=== PATIENT | male | born 1950 | race Caucasian/White ===

== ENCOUNTER 2018-03-17 23:29 | Inpatient (IN) | payer MEDICARE ==
[2018-03-18] MEDS ORDERED: Fentanyl 100 MCG/2 ML VIAL ONE ×2 (00:01→01:18)
[2018-03-18 00:19] LABS: Hemoglobin 13.1 g/dL (14.0-18.0); Mean Corpuscular HGB CONC 32.4 g/dL (32.0-36.0); Mean Corpuscular Hemoglobin 23.7 pg (27.0-31.0); Mean Corpuscular Volume 73.3 fl (80.0-94.0); Platelet Count 509 thou/uL (130-400); RBC Distribution Width 16.5 % (11.5-14.5); Red Blood Cell (RBC) Count 5.54 mill/uL (4.70-6.10); White Blood Cell (WBC) Count 12.5 thou/uL (4.8-10.8)
[2018-03-18 00:36] LABS: #Eosinphils 0.1 thou/uL (0.0-0.7); #Lymphocytes 1.9 thou/uL (1.20-3.40); #Monocytes 1.1 thou/uL (0.11-0.59); #Neutrophils 9.4 thou/uL (1.40-6.50); %Basophils 0.3 % (0.0-1.0); %Eosinophils 0.4 % (0.0-10.0); %Lymphocytes 15.2 % (21.0-51.0); %Monocytes 8.5 % (0.0-10.0); %Neutrophils 75.6 % (42.0-75.0); PLT Morphology Comment Appears Increased
[2018-03-18 00:38] LABS: ALT (SGPT) 22 U/L (8-55); AST (SGOT) 26 U/L (5-34); Albumin 4.3 g/dL (3.4-4.8); Alkaline Phosphatase 94 U/L (40-150); Anion Gap 21 mmol/L (10-20); BUN (Urea Nitrogen) 57 mg/dL (8.4-25.7); Bilirubin, Total 0.8 mg/dL (0.2-1.2); CK (CPK) 49 U/L (30-200); Calc. Creatinine Clearance 0 mL/min (70-130); Calcium 9.6 mg/dL (7.8-10.44); Carbon Dioxide 16 mmol/L (23-31); Chloride 96 mmol/L (98-107); Estimated GFR-MDRD 18; Globulin 2.9 g/dL (2.4-3.5); Glucose 116 mg/dL (80-115); Lipase 39 U/L (8-78); Magnesium 2.8 mg/dL (1.6-2.6); Potassium 3.2 mmol/L (3.5-5.1); Protein, Total 7.2 g/dL (5.8-8.1); Sodium 130 mmol/L (136-145)
[2018-03-18 00:41] LABS: CKMB 1.8 ng/mL (0-6.6); Troponin I 0.056 ng/mL (< 0.028)
[2018-03-18] MEDS ORDERED: Metoclopramide HCl 10 MG TAB ONE (01:18)
[2018-03-18] MEDS ORDERED: Lorazepam 2 MG/ML VIAL ONE (02:07)
[2018-03-18 03:05] LABS: Bilirubin Small (Negative); Blood, Urine Negative (Negative); Clarity CLOUDY (Clear); Glucose, Urine (Dipstick) Negative (Negative); Leukocyte Small (Negative); Nitrite Negative (Negative); Protein, Urine (Dipstick) Negative (Neg-Trace); Specific Gravity, Urine 1.022 (1.002-1.036); Urobilinogen 0.2 mg/dL (0.2-1.0); pH, Urine 5.5 (5.0-9.0)
[2018-03-18 03:07] LABS: Bacteria/HPF None Seen HPF (None Seen); WBC/HPF 21-50 HPF (0-3)
[2018-03-18 03:10] LABS: Pathc Cast-AUWi Flag 7.12 (0-2.49); Yeast-AUWi Flag 873.4 (0-25.0)
[2018-03-18 03:32] LABS: RBC/HPF None Seen HPF (0-3); Renal Epithelial None Seen HPF (0-3); Transitional Epithelial NONE SEEN HPF (0-3); Yeast-All Forms 1+ HPF (None Seen)
[2018-03-18 03:33] LABS: Other Casts/LPF None Seen LPF (0-3 Hyaline)
[2018-03-18] MEDS ORDERED: Ondansetron HCl/PF 4 MG/2 ML Vial IVP PRN (04:06)
[2018-03-18] MEDS ORDERED: Ondansetron ODT 4 MG TAB SL PRN (04:06)
[2018-03-18] MEDS ORDERED: D5 0.9% NS w/ 20 mEq KCl 1,000 ML IV SCH (04:45)
--- NOTE | 2018-03-18 05:03 | HP ---
PRIMARY CARE PHYSICIAN: Out of town. CHIEF COMPLAINT: Abdominal pain, nausea, vomiting. HISTORY OF PRESENT ILLNESS: The patient is a 68-year-old male with a long-term history of multiple a bdominal surgeries who also has a history of gastroparesis and nausea, vomiting who comes in to the [facility] with complaints of abdominal pain, nausea, vomiting. The patient recently moved from [facility] about 10 days ago. The patient states that he had initial stomach resection with removal of his p yloric valve, subsequently followed 2 other additional abdominal surgeries. 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 The patient over the last year has lost about 100 pounds. The patient states that he has had multiple hospitalizations requir ing TPN for his dehydration and malnutrition. The patient has been to other facilities for options r egarding his gastroparesis; however, has been unsuccessful. The patient's friend who works at the [facility] recommended him to come down so that he could take care of him and also for possible finding p hysicians that would be able to help him. The patient states that he normally has nausea, vomiting d aily 10-12 times a day followed with his abdominal pain. The patient states that he has not been abl e to eat for the past few days at all. Denies any fevers or chills. Denies any chest pain or shortn ess of breath. PAST MEDICAL HISTORY: Gastroparesis, chronic back pain, abdominal pain, chronic nausea, vomiting, hi story of bladder cancer. PAST SURGICAL HISTORY: He has had abdominal surgery x3. SOCIAL HISTORY: He denies any alcohol or drug use, smoking history or tobacco. ALLERGIES: He has got allergic to ERYTHROMYCIN and PENICILLIN. CURRENT MEDICATIONS: He takes Imitrex 10 mg as needed, Benazepril 20 mg b.i.d., potassium chloride 1 0 mEq daily, Reglan 10 mg oral as needed, Cardizem 240 mg daily. Amiodarone 200 mg daily, omeprazole 20 mg twice a day, Zofran 4 mg q.8h. p.r.n., Eliquis 5 mg b.i.d. FAMILY HISTORY: He denies any significant family history of heart disease or cancer. PHYSICAL EXAMINATION: VITAL SIGNS: Afebrile at 97.5, 100% on room air, 96 pulse, respirations of 18, blood pressure was 12 0/93. GENERAL: He is awake, alert, oriented x3. HEENT: Appears cachectic, has some temporal wasting. CARDIOVASCULAR: S1, S2 present. No murmurs, rubs or gallops. CHEST: Clear to auscultation. No rhonchi or wheezes noted. ABDOMEN: Soft. He has a mid abdominal scar. Bowel sounds are present x2. Mild pain upon palpation to his left mid abdomen area. EXTREMITIES: No edema. Pedal pulses are present x2. LABORATORY DATA: WBCs of 12.5, hemoglobin of 13.1, hematocrit of 40.6, MCV 73.3, platelets of 509. Chemistry: Sodium of 130, potassium 3.2, bicarbonate of 16, BUN of 57, creatinine of 3.45. Troponin mildly elevated at 0.056. TSH is normal. The patient had an abdomen and pelvic CAT scan which did not indicate any obstruction. Chest x-ray n o acute abnormalities noted. ASSESSMENT AND PLAN: The patient is a very pleasant 68-year-old male who presents to the hospital fo r abdominal pain, nausea and vomiting. 1. Dehydration. We will start the patient on some gentle hydration and continue to monitor. 2. Malnutrition. The patient may require TPN since he has not been able to eat very much. We will start the patient on clear liquid in addition to the hydration and monitor the patient, if he is unab le to keep anything down, he will need TPN. 3. Gastroparesis. We will start the patient on some Reglan. 4. Electrolyte abnormalities, we will replace. 5. Acute kidney injury. We will start the patient on gentle hydration. The patient states that whe never he is dehydrated his creatinine will get worse. We will also bladder scan him. We will also c ryann AQUINO, also do renal ultrasound and continue to monitor the patient. The patient may require outpatient TPN since the patient is unable to keep anything in orally.
[2018-03-18] MEDS: Lactated Ringer's 1,000 ML IV SCH ×2 (05:22→08:18)
[2018-03-18 05:33] LABS: Troponin I 0.073 ng/mL (< 0.028)
[2018-03-18 05:50] LABS: Iron 44 ug/dL (65-175); Iron Binding Capacity, Total 309 mcg/dL (261-462)
[2018-03-18] MEDS: Metoclopramide HCl 10 MG/2 ML VIAL IVP SCH ×3 (06:22→17:24)
--- NOTE | 2018-03-18 07:38 | ULT ---
BILATERAL RENAL ULTRASOUND COMPLETE: HISTORY: A 68-year-old male with a history of acute kidney insufficiency. FINDINGS: The right kidney measures 9.6 x 4.4 x 4.4 cm. The left kidney measures 9.9 x 5.4 x 5 cm. No renal h ydronephrosis or perinephric process. The bladder appears unremarkable. Bilateral ureteral jets. IMPRESSION: Unremarkable bilateral renal ultrasound. No renal hydronephrosis or other acute process. POS: [facility]
--- NOTE | 2018-03-18 07:55 | RAD ---
AP VIEW CHEST: HISTORY: Nausea, vomiting, diarrhea. FINDINGS: AP view chest was obtained on 03/17/18. AP view chest demonstrates the lungs to be well aerated. No evidence of active intrathoracic disease is seen. No evidence of effusions, pneumonia, or pneumothorax is seen. IMPRESSION: Unremarkable AP view chest. POS: [facility]
[2018-03-18 08:26] LABS: Creatinine, Urine 176.67 mg/dL (63-166)
[2018-03-18] MEDS ORDERED: Potassium Chloride 20 MEQ TAB PO SCH (08:45)
--- NOTE | 2018-03-18 08:52 | CT ---
PRELIMINARY REPORT/[facility]/EMERGENTY AFTER-HOURS PROCEDURE CT Abdomen and Pelvis Without Intravenous Contrast CLINICAL HISTORY: 68 years old, male; Pain; Abdominal pain; Generalized TECHNIQUE: Axial computed tomography images of the abdomen and pelvis without intravenous contrast. Coronal refo rmatted images were created and reviewed. COMPARISON: No relevant prior studies available. FINDINGS: Lung bases: Normal. No mass. No consolidation. ABDOMEN: Liver: Normal. Gallbladder and bile ducts: Gallbladder is surgically absent. Pancreas: Normal. Spleen: Normal. Adrenals: Normal. Kidneys and ureters: Normal. Stomach and bowel: Moderate amount of stool throughout the colon, without obstruction. Colonic divert iculosis. Surgical small bowel anastomosis within the left upper abdomen, without acute complications . Evidence of prior distal gastrectomy with anastomosis, without evidence of acute complications. PELVIS: Appendix: No findings to suggest acute appendicitis. Bladder: Normal. Reproductive: Mildly enlarged prostate gland, measuring 3.2 cm in anteroposterior dimension. ABDOMEN and PELVIS: Intraperitoneal space: Normal. No free air. No significant fluid collection. Bones/joints: Degenerative changes of the hips and sacral iliac joints. Multilevel thoraco-lumbar spi ne degenerative changes, with dextroscoliosis of the lumbar spine. No acute fracture. No dislocation. Soft tissues: Normal. Vasculature: Mild atherosclerotic disease of the abdomen aorta and iliac arteries. No abdominal aorti c aneurysm. Lymph nodes: Normal. IMPRESSION: 1. Moderate amount of stool throughout the colon, without obstruction. 2. Incidental/non-acute findings are described above. Thank you for allowing us to participate in the care of your patient. Dictated and Authenticated by: Te Weiner MD 03/18/2018 1:35 AM Central Time ([place] & [place]) FINAL REPORT ABDOMEN CT WITHOUT CONTRAST PELVIC CT WITHOUT CONTRAST: HISTORY: Abdominal pain. Gastroparesis. Previous abdominal surgeries. COMPARISON: None. TECHNIQUE: Abdomen and pelvic CT is performed without IV or oral contrast. Coronal reformatted images are submi tted for interpretation. FINDINGS: This report is in agreement with the preliminary report by [facility]. No acute finding in the abdomen or p sincere. Evaluation is limited by technique. There is a moderate amount of fecal material throughout the colon. Correlate clinically for constipation. CT evidence of diverticulosis, without evidence o f diverticulitis. Normal caliber appendix. Bilaterally, no obstructive uropathy. Bariatric surgica l changes as well as other postsurgical changes are noted with multifocal suture material. POS: [facility]
[2018-03-18] MEDS ORDERED: Prevnar 13-Val Conj/PF 0.5 ML SYRINGE IM ONE (09:00)
[2018-03-18] MEDS: D5 0.9% NS w/ 20 mEq KCl 1,000 ML IV SCH ×2 (09:36→15:19)
[2018-03-18] MEDS: Amiodarone 200 MG TAB PO SCH (09:38)
[2018-03-18] MEDS: Apixaban 5 MG TAB PO SCH ×2 (09:38→21:06)
[2018-03-18] MEDS ORDERED: traMADol HCl 50 MG TAB PO PRN (14:24)
[2018-03-18 14:30] LABS: Chloride 109 mmol/L (98-107); Potassium 3.6 mmol/L (3.5-5.1); Sodium 130 mmol/L (136-145)
[2018-03-18] MEDS ORDERED: traMADol HCl 50 MG TAB PO SCH (14:30)
[2018-03-18 14:31] LABS: Glucose 127 mg/dL (80-115)
[2018-03-18 14:32] LABS: Anion Gap 11 mmol/L (10-20); Carbon Dioxide 14 mmol/L (23-31)
[2018-03-18 14:35] LABS: BUN (Urea Nitrogen) 35 mg/dL (8.4-25.7)
[2018-03-18 14:45] LABS: Calc. Creatinine Clearance 33 mL/min (70-130); Calcium 7.6 mg/dL (7.8-10.44); Estimated GFR-MDRD 47
[2018-03-18] MEDS ORDERED: Senokot S 8.6-50 MG TAB PO SCH (15:00)
[2018-03-18] MEDS ORDERED: Polyethylene Glycol 3350 17 GM Packet PO SCH (15:00)
--- NOTE | 2018-03-18 15:07 | PDOC.PN ---
- Subjective Encounter Start Date: 03/18/18 Encounter Start Time: 15:00 Subjective: f/u for abd pain, N/V and gastroparesis. Chronic abd pain on chronic -: narcotics, multiple endoscopies, scans all essentially unrevealing. Last -: po solid intake 48h, last BM 48h. - Objective MAR Reviewed: Yes Vital Signs & Weight: Vital Signs (12 hours) Temp Pulse Resp BP Pulse Ox 03/18/18 11:51 98.4 F 81 18 115/77 100 03/18/18 08:00 97.7 F 78 18 98 03/18/18 07:40 97.7 F 78 18 90/63 98 03/18/18 05:44 99.5 F 94 16 100 03/18/18 04:00 99.5 F 94 16 92/66 100 Weight Admit Weight 110 lb 6.4 oz Weight 110 lb 6.4 oz I&O: 03/17/18 03/18/18 03/19/18 06:59 06:59 06:59 Intake Total 480 Output Total 175 Balance 305 Result Diagrams: 03/18/18 00:02 03/18/18 13:33 Additional Labs: Laboratory Tests 03/18/18 03/18/18 03/18/18 00:02 00:02 00:02 Sodium 130 L Potassium 3.2 L Carbon Dioxide 16 L BUN 57 H Creatinine 3.45 H Magnesium 2.8 H Iron Troponin I 0.056 H TSH 3rd Generation 0.4944 03/18/18 03/18/18 04:57 04:57 Sodium Potassium Carbon Dioxide BUN Creatinine Magnesium Iron 44 L Troponin I 0.073 H TSH 3rd Generation Radiology Reviewed by me: Yes (CT abd/pel - large amt stool in colon, no acute changes) EKG Reviewed by me: Yes (Tele - SR) Phys Exam - Physical Examination ill-appearing, pale, alert, responds to questions HEENT: PERRLA, moist MMs, sclera anicteric, oral pharynx no lesions Neck: no nodes, no JVD, supple Respiratory: no wheezing, no rales, no rhonchi, clear to auscultation bilateral S1, S2 Cardiovascular: RRR, no significant murmur, no rub, gallop TTP diffusely, no guarding or rebound Gastrointestinal: soft, no distention, positive bowel sounds generalized muscle atrophy Musculoskeletal: no edema, pulses present Neurological: non-focal, normal sensation, moves all 4 limbs Psychiatric: normal affect, A&O x 3 Skin: no rash, normal turgor, cap refill <2 seconds Dx/Plan (1) AL (acute kidney injury) Code(s): N17.9 - ACUTE KIDNEY FAILURE, UNSPECIFIED Status: Acute Comment: Avoid nephrotoxic meds and contrast exposure, follow creatinine, hold Lisinopril , continue IVF's (2) Abdominal pain Code(s): R10.9 - UNSPECIFIED ABDOMINAL PAIN Status: Acute Qualifiers: Abdominal location: generalized Qualified Code(s): R10.84 - Generalized abdominal pain Comment: Suspect chronic component and secondary to chronic narcotic exposure, consult GI service, pain control with Tramadol and Morphine Sulfate 4mg IV q4h prn breakthrough (3) Gastroparesis Code(s): K31.84 - GASTROPARESIS Status: Suspected Comment: Continue Reglan 10mg IV q6h (4) Chronic pain disorder Code(s): G89.4 - CHRONIC PAIN SYNDROME Status: Chronic Comment: Tramadol, attempt to limit narcotic exposure, likely will need outpt referral to chronic pain clinic (5) Nausea & vomiting Code(s): R11.2 - NAUSEA WITH VOMITING, UNSPECIFIED Status: Acute Comment: Improved, likely due to narcotic withdrawal, Zofran prn, clear liquids, continue IVF's (6) Moderate protein-calorie malnutrition Code(s): E44.0 - MODERATE PROTEIN-CALORIE MALNUTRITION Status: Chronic Comment: Ensure Enlive TID (7) Constipation Code(s): K59.00 - CONSTIPATION, UNSPECIFIED Status: Acute Qualifiers: Constipation type: slow transit constipation Qualified Code(s): K59.01 - Slow transit constipation Comment: Sennokot-S BID, Miralax 17gm po daily - Plan PT/OT, social psychologist, out of bed/ambulate, DVT proph w/SCDs Stable overall -: Continue supportive mgmt -: Consult GI service for evaluation and recommendations -: Continue Reglan 10mg IV q6h -: Morphine Sulfate 4mg IV q4h prn * AM lab: BMP, CBC
[2018-03-18] MEDS: Morphine 4 MG/ML VIAL SLOW IVP PRN ×2 (15:39→21:06)
[2018-03-18] MEDS: Senokot S 8.6-50 MG TAB PO SCH (21:06)
--- NOTE | 2018-03-18 23:00 | CON ---
DATE OF CONSULTATION: 03/18/2018 CONSULTING PHYSICIAN: Brett Enamorado M.D. REQUESTING PHYSICIAN: Dr. Escobedo. REASON FOR CONSULTATION: Acute kidney injury. IMPRESSION: Acute kidney injury, this is likely prerenal in the context of poor p.o. intake with shavon sea and vomiting resulting in intravascular depletion. PLAN: 1. Increase IV fluid resuscitation. 2. Replete the potassium. 3. We will hold off on correcting the metabolic acidosis in order not to worsen the hypokalemia due to cellular shift of potassium when metabolic acidosis is corrected. However, the patient remains ac idotic; status post repletion of the potassium, decision could be taken at that point to replete bica rbonate. HISTORY OF PRESENT ILLNESS: History is that of a 68-year-old gentleman with a known history of gastr oparesis, who presented here with abdominal pain, nausea, and vomiting. The patient vomited about 10 -12 times a day with abdominal pain. Patient has lost quite a bit of weight. On presentation, patient was noted with an elevated creatinine of 3.45 with BUN of 57, potassium 3.2 with bicarbonate of 16. As a result of this finding, decision has been taken to involve Renal in the management of t his case. PAST MEDICAL HISTORY: Significant for gastroparesis, chronic back pain, abdominal pain, chronic naus ea and vomiting, and history of bladder cancer. SOCIAL HISTORY: Denies alcohol, tobacco or illicit drug use. ALLERGIES: ERYTHROMYCIN and PENICILLIN. MEDICATIONS: Current medications have been reviewed and documented on [employer]. FAMILY HISTORY: Significant for heart disease and malignancy. PHYSICAL EXAMINATION: GENERAL: The patient was found to be ill-looking noted with the following vital signs. VITAL SIGNS: Afebrile with temperature 99.5, pulse 94, respiratory rate of 16, O2 sat 100%, and bloo d pressure 90/53. HEENT: Unremarkable, except dry mucosa. NECK: Supple. CARDIOVASCULAR SYSTEM: First and second heart sounds were heard. RESPIRATORY SYSTEM: Clear to auscultation. DIGESTIVE SYSTEM: Revealed vague tenderness with positive bowel sounds. EXTREMITIES: No peripheral edema. NEUROLOGIC: Alert, oriented. No lateralizing signs. LYMPHATICS: No peripheral lymphadenopathy. SUMMARY: A 68-year-old gentleman who presented here with elevated creatinine/acute kidney injury in the context of prerenal acute kidney injury due to excessive nausea and vomiting with intravascular d epletion. Thank you for this consultation. We will follow with you.
[2018-03-19] MEDS: Morphine 4 MG/ML VIAL SLOW IVP PRN ×6 (01:44→22:30)
[2018-03-19] MEDS: D5 0.9% NS w/ 20 mEq KCl 1,000 ML IV SCH ×2 (01:44→09:59)
[2018-03-19] MEDS: Metoclopramide HCl 10 MG/2 ML VIAL IVP SCH ×4 (01:44→18:27)
[2018-03-19 06:33] LABS: Hemoglobin 10.3 g/dL (14.0-18.0); Mean Corpuscular HGB CONC 31.9 g/dL (32.0-36.0); Mean Corpuscular Hemoglobin 24.4 pg (27.0-31.0); Mean Corpuscular Volume 76.5 fl (80.0-94.0); Mean Platelet Volume 7.7 fL (7.4-10.4); Platelet Count 353 thou/uL (130-400); RBC Distribution Width 16.8 % (11.5-14.5); Red Blood Cell (RBC) Count 4.25 mill/uL (4.70-6.10); White Blood Cell (WBC) Count 8.4 thou/uL (4.8-10.8)
[2018-03-19 06:41] LABS: Anion Gap 10 mmol/L (10-20); BUN (Urea Nitrogen) 17 mg/dL (8.4-25.7); Calc. Creatinine Clearance 54 mL/min (70-130); Calcium 7.8 mg/dL (7.8-10.44); Carbon Dioxide 13 mmol/L (23-31); Chloride 112 mmol/L (98-107); Estimated GFR-MDRD 82; Glucose 76 mg/dL (80-115); Potassium 4.9 mmol/L (3.5-5.1); Sodium 130 mmol/L (136-145)
[2018-03-19 06:57] LABS: Band 3 % (5-11); Eosinophils 3 % (0-10); Lymphocytes 39 % (21-51); MDiff Complete? YES; Monocytes 13 % (0-10); Neutrophil 42 % (42-75)
[2018-03-19] MEDS ORDERED: Polyethylene Glycol 3350 17 GM Packet PO SCH (09:00)
[2018-03-19] MEDS: Apixaban 5 MG TAB PO SCH (09:59)
[2018-03-19] MEDS: Amiodarone 200 MG TAB PO SCH (10:01)
[2018-03-19] MEDS: Senokot S 8.6-50 MG TAB PO SCH ×2 (10:02→20:57)
--- NOTE | 2018-03-19 11:31 | PQF ---
DATE: 03-19-18 ATTN: DR. RADAMES ASHBY Please exercise your independent, professional judgment in responding to the clarification form. Clinical indicators are provided on the bottom of this form for your review Please check appropriate box(s): [ ] UTI [ x ] Contaminated urine specimen without UTI [ ] Other diagnosis [ ] Unable to determine In addition, please specify: Present on Admission (POA): [ ] Yes [ ] No [ x ] Unable to determine For continuity of documentation, please document condition throughout progress notes and discharge summary. Thank You. CLINICAL INDICATORS - SIGNS / SYMPTOMS / LABS URINE: 03-18-18: URINE BILIRUBIN: SMALL H UR LEUKOCYTE ESTERASE: SMALL H URINE WBC: 21-50 H UR SQUAMOUS EPITH CELLS: SMALL H HYALINE CASTS: 21-50 HYALINE CASTS H URINE YEAST: 1+ H TEMP: 03-18-18: 100.1 RISK FACTORS: H&P: HX OF DEHYDRATION AND MALNUTRITION, HX OF GASTROPARESIS , VOMITING TREATMENT: (MAR ) IVF (This form is maintained as a part of the permanent medical record) 2014 [employer], [employer]. All Rights Reserved [email or web address] [email or web address] Office: [phone] [facility]ITAL[facility]
--- NOTE | 2018-03-19 14:01 | PRG ---
DATE OF SERVICE: 03/19/2018 The patient was seen and examined, improving. PHYSICAL EXAMINATION: VITAL SIGNS: Afebrile with temperature 98.4, pulse 78, respiratory 16, O2 sat 100% on room air with a blood pressure 108/68. HEENT: Unremarkable with moist oral mucosa. NECK: Supple, no conjunctival injection or icterus. CARDIOVASCULAR: First and heart sounds were heard. RESPIRATORY: Clear to auscultation. DIGESTIVE: Revealed a benign abdomen with positive bowel sounds. EXTREMITIES: No peripheral edema. LABORATORY INVESTIGATIONS: Showed a hemoglobin of 10.3. Chemistry showed a potassium of 4.9, creati nine down to 0.91, bicarbonate of 18. IMPRESSION: 1. Acute kidney injury which has improved. 2. Reexpansion metabolic acidosis noted in the context of normal saline infusion. 3. Protein calorie malnutrition. PLAN: 1. Continue with current renal supportive measures. 2. Further management to be dependent on the clinical course.
--- NOTE | 2018-03-19 15:03 | PDOC.PN ---
- Subjective Encounter Start Date: 03/19/18 Encounter Start Time: 15:00 Subjective: f/u for acute/chronic abd pain with gastroparesis, multiple endoscopies -: and scans unrevealing tx with Tramadol, Toradol and Morphine Sulfate. -: Overall doing better. Tolerated po intake. Ambulating in halls. - Objective MAR Reviewed: Yes Vital Signs & Weight: Vital Signs (12 hours) Temp Pulse Resp BP Pulse Ox 03/19/18 11:57 98.4 F 78 16 108/68 100 03/19/18 08:00 98.6 F 85 16 86/62 L 96 03/19/18 03:16 98.3 F 75 16 92/62 100 Weight Admit Weight 110 lb 6.4 oz Weight 110 lb 6.4 oz I&O: 03/18/18 03/19/18 03/20/18 06:59 06:59 06:59 Intake Total 480 2252 Output Total 175 990 650 Balance 305 -990 1602 Result Diagrams: 03/19/18 05:49 03/19/18 05:49 Additional Labs: Microbiology 03/18/18 02:25 Urine voided Urine Culture - Preliminary NO GROWTH AT 24 HOURS 03/17/18 00:02 Venous blood - Left Hand Blood Culture - Preliminary Specimen has been received and culture in progress. No Growth to date. 03/17/18 00:02 Venous blood - Left Arm Blood Culture - Preliminary Specimen has been received and culture in progress. No Growth to date. Laboratory Tests 03/18/18 03/18/18 03/18/18 00:02 00:02 00:02 WBC 12.5 H Hgb 13.1 L Plt Count 509 H Sodium 130 L Potassium 3.2 L Carbon Dioxide 16 L BUN 57 H Creatinine 3.45 H Magnesium 2.8 H Iron Troponin I 0.056 H TSH 3rd Generation 03/18/18 03/18/18 03/18/18 00:02 04:57 04:57 WBC Hgb Plt Count Sodium Potassium Carbon Dioxide BUN Creatinine Magnesium Iron 44 L Troponin I 0.073 H TSH 3rd Generation 0.4944 03/18/18 13:33 WBC Hgb Plt Count Sodium 130 L Potassium Carbon Dioxide 14 L BUN Creatinine 1.49 H Magnesium Iron Troponin I TSH 3rd Generation EKG Reviewed by me: Yes (Tele - SR in 80's) Phys Exam - Physical Examination Constitutional: NAD alert, responsive HEENT: PERRLA, moist MMs, sclera anicteric, oral pharynx no lesions Neck: no nodes, no JVD, supple Respiratory: no wheezing, no rales, no rhonchi, clear to auscultation bilateral S1, S2 Cardiovascular: RRR, no significant murmur, no rub, gallop mild TTP diffusely Gastrointestinal: soft, no distention, positive bowel sounds Musculoskeletal: no edema, pulses present Neurological: non-focal, normal sensation, moves all 4 limbs Psychiatric: normal affect, A&O x 3 Skin: no rash, normal turgor, cap refill <2 seconds Dx/Plan (1) AL (acute kidney injury) Code(s): N17.9 - ACUTE KIDNEY FAILURE, UNSPECIFIED Status: Acute Comment: Avoid nephrotoxic meds and contrast exposure, follow creatinine, hold Lisinopril , d/c IVF, improving (2) Abdominal pain Code(s): R10.9 - UNSPECIFIED ABDOMINAL PAIN Status: Acute Qualifiers: Abdominal location: generalized Qualified Code(s): R10.84 - Generalized abdominal pain Comment: Suspect chronic component and secondary to chronic narcotic exposure, consult GI service, pain control with Tramadol and Morphine Sulfate 4mg IV q4h prn breakthrough, wean off Morphine (3) Gastroparesis Code(s): K31.84 - GASTROPARESIS Status: Suspected Comment: Continue Reglan 10mg IV q6h, convert to po in 24h (4) Chronic pain disorder Code(s): G89.4 - CHRONIC PAIN SYNDROME Status: Chronic Comment: Tramadol, attempt to limit narcotic exposure, likely will need outpt referral to chronic pain clinic (5) Nausea & vomiting Code(s): R11.2 - NAUSEA WITH VOMITING, UNSPECIFIED Status: Acute Comment: Improved, likely due to narcotic withdrawal, Zofran prn, ADAT (6) Moderate protein-calorie malnutrition Code(s): E44.0 - MODERATE PROTEIN-CALORIE MALNUTRITION Status: Chronic Comment: Ensure Enlive TID (7) Constipation Code(s): K59.00 - CONSTIPATION, UNSPECIFIED Status: Acute Qualifiers: Constipation type: slow transit constipation Qualified Code(s): K59.01 - Slow transit constipation Comment: Sennokot-S BID, Miralax 17gm po daily - Plan PT/OT, social services specialist, out of bed/ambulate, DVT proph w/SCDs Stable overall -: Continue Reglan 10mg IV q6h another 24h then convert to po -: ADAT -: Saline Lock IVF's -: OOB/ambulate * Change Morphine Sulfate 2mg IV q4h prn * AM lab: BMP, CBC * Ensure High Protein TID * Likely home in 24-48h
[2018-03-19] MEDS ORDERED: Pantoprazole 40 MG VIAL IVP SCH (18:30)
--- NOTE | 2018-03-19 23:45 | CON ---
DATE OF CONSULTATION: 03/19/2018 GASTROENTEROLOGY CONSULTATION CHIEF COMPLAINT: Nausea and vomiting. HISTORY OF PRESENT ILLNESS: Mr. Storey is a 68-year-old man who presents for evaluation of chronic nausea and vomiting. He is then to the emergency room , he states 25 times in the last couple of years with same problem. He moved from [place] a few days ago and presented here for the same symptoms. He started with chronic nausea and vomiting and ultimately, he was found to have severe gastric ulcerations back in 01/2016. He was taking NSAIDs chronically at that point, which were thought to be the cause of the ulcerations. He underwent gastrectomy and vagotomy. He states in 07/2016, he underwent some type of duodenal resection, and then he continued to have vomiting and weight loss. His baseline weight is around 170 pounds and is down to 110 pounds. He had another surgery possibly a gastrojejunostomy and lysis of adhesions in 2016. He has had multiple endoscopies over the course of this time, most recently possibly in 11/2017. He may have had balloon dilation of the anastomosis it sounds like at some point as well. He states he has been diagnosed with gastroparesis and has been on Reglan since before his last surgery. He takes this around 3 times per day. He takes omeprazole daily 20 mg. He also has been taking hydrocodone once or twice per day for left upper quadrant abdominal pain. He states that he has had chronic abdominal pain since he has gone through the abdominal surgeries. He started amiodarone perhaps around a month ago. He has been on Eliquis for atrial fibrillation. He has been on Cardizem as well. He has taken Imitrex on and off for years for migraine headaches, but he has no history of ischemic colitis. He states that he has been on a low-residue diet, and when I discussed the gastroparesis diet, he says yes, I know all about that and I have seen dozen other doctors about the same thing. He does have chronic constipation. He has a bowel movement once every 3 or 4 days, which is fairly normal with formed stool which is improved over his baseline of previously having fewer bowel movements with very hard stools. He has had no blood in the stool. PAST MEDICAL HISTORY: Chronic abdominal pain and chronic nausea and vomiting with peptic ulcer disease and gastric resection and gastroparesis, history of migraine headaches, atrial fibrillation, bladder cancer, anxiety. PAST SURGICAL HISTORY: He has had the 3 abdominal surgeries described above including the gastrectomy and gastrojejunostomy. He has had endoscopies as well. MEDICATIONS: Prior to admission Imitrex, benazepril, potassium chloride, Reglan , Cardizem, amiodarone, omeprazole, Zofran, Eliquis, Percocet. ALLERGIES: ERYTHROMYCIN and PENICILLIN. SOCIAL HISTORY: No alcohol, tobacco, or drugs. FAMILY HISTORY: Negative for GI malignancy. REVIEW OF SYSTEMS: Negative x10 systems reviewed except as stated in history of present illness. PHYSICAL EXAMINATION: VITAL SIGNS: Temperature 98.3, pulse 91, blood pressure 99/66. GENERAL: He is in no acute distress, alert and oriented x3. HEENT: Eyes have no scleral icterus. Oropharynx is clear without lesions. NECK: No cervical or supraclavicular lymphadenopathy. LUNGS: Clear to auscultation bilaterally. HEART: Regular rate and rhythm. ABDOMEN: Soft. He does have mild tenderness in left upper quadrant without guarding. Bowel sounds are present. EXTREMITIES: No lower extremity edema. NEUROLOGIC: Cranial nerves are grossly intact. LABORATORY DATA: White blood cell count 8.4, hemoglobin 10.3, MCV 76.5, platelets 353. Creatinine 0.91 down from 1.49 on presentation, sodium is 130, potassium 4.9, chloride 112, CO2 of 13. Iron 44, TIBC 309. Of note, he has an initial hemoglobin was 13.1 midnight and 10.3 at 5:00 a.m. after hydration. IMPRESSION: 1. Chronic nausea and vomiting, status post gastric surgeries and what sounds likely a vagotomy originally for nonsteroidal anti-inflammatory drugs induced peptic ulcer disease. Follow up endoscopies sounds like they have not shown strictures at the anastomosis, but rather he has been diagnosed with gastroparesis since then. He has been on Reglan without help. He states that he is aware of the gastroparesis diet with small frequent meals and low fiber. He, at this point should have followup endoscopy, verifies anastomosis is opened and then proceed with medical therapy for what is most likely gastroparesis. He has been in to the hospital. He states to the emergency room , 25 times over the last year or so with dehydration and nausea and vomiting. He states he feels much better and he can tolerate foods once he gets hydrated. Compounding the gastroparesis, he does take hydrocodone chronically for left upper quadrant pain. This is not an appropriate treatment for chronic abdominal pain and given the gastroparesis, opioids need to be avoided. 2. Iron deficiency anemia. There has been no overt bleeding. This could be related to bypass of the duodenum and lack of iron absorption. He should be on iron supplementation, but given bypass of his duodenum he most likely will require iron IV supplementation. We will check ferritin levels and also check B12 and folate levels. RECOMMENDATIONS: 1. EGD tomorrow. 2. We will need to establish if he has had a prior colonoscopy given the iron- deficiency anemia. If not then we will try to do this once in the future once he has improvement in the nausea such that he can tolerate a bowel prep. 3. Check ferritin, B12, and folate. He might require iron supplementation IV, given his prior gastrectomy and gastrojejunostomy and bypass of the duodenum. Check B12 and folate as well. 4. Proton pump inhibitor. 5. Stop opioid pain medications chronically. 6. After endoscopy then initiate gastroparesis diet. 7. We will continue Reglan for now. 8. Start MiraLax one-half dose daily for the chronic constipation. He states when he takes higher doses, he gets diarrhea. 9. Given plan for possible dilation of the gastrojejunal anastomosis, we will delay the endoscopy until Eliquis has been off for a longer period of time. His last dose was this morning, so we will plan endoscopy on . 10. The patient has been on Eliquis, last dose this morning. We will delay endoscopy until morning. In light of the iron deficiency anemia, colonoscopy will be performed at the same time. [facility]
[2018-03-20] MEDS: Metoclopramide HCl 10 MG/2 ML VIAL IVP SCH ×5 (00:17→22:45)
[2018-03-20] MEDS: Morphine 4 MG/ML VIAL SLOW IVP PRN ×2 (03:08→08:18)
[2018-03-20 06:59] LABS: Acanthocytes MODERATE= 6-15 cells (100X) (None Seen); Eosinophils 3 % (0-10); Hemoglobin 10.6 g/dL (14.0-18.0); Lymphocytes 23 % (21-51); MDiff Complete? YES; Mean Corpuscular HGB CONC 30.9 g/dL (32.0-36.0); Mean Corpuscular Hemoglobin 23.5 pg (27.0-31.0); Mean Corpuscular Volume 76.1 fl (80.0-94.0); Monocytes 10 % (0-10); Neutrophil 64 % (42-75); Platelet Count 224 thou/uL (130-400); RBC Distribution Width 17.4 % (11.5-14.5); Red Blood Cell (RBC) Count 4.52 mill/uL (4.70-6.10); White Blood Cell (WBC) Count 7.5 thou/uL (4.8-10.8)
[2018-03-20 07:04] LABS: Anion Gap 11 mmol/L (10-20); BUN (Urea Nitrogen) 11 mg/dL (8.4-25.7); Calc. Creatinine Clearance 54 mL/min (70-130); Calcium 8.3 mg/dL (7.8-10.44); Carbon Dioxide 15 mmol/L (23-31); Chloride 115 mmol/L (98-107); Estimated GFR-MDRD 83; Glucose 70 mg/dL (80-115); Potassium 5.2 mmol/L (3.5-5.1); Sodium 136 mmol/L (136-145)
[2018-03-20] MEDS: Polyethylene Glycol 3350 17 GM Packet PO SCH (08:17)
[2018-03-20] MEDS: Senokot S 8.6-50 MG TAB PO SCH ×2 (08:17→19:51)
[2018-03-20] MEDS: Amiodarone 200 MG TAB PO SCH (08:17)
[2018-03-20] MEDS: Pantoprazole 40 MG VIAL IVP SCH (08:17)
--- NOTE | 2018-03-20 13:30 | PRG ---
DATE OF SERVICE: 03/20/2018 SUBJECTIVE: Mr. Storye vomited once this morning. He is eating a sandwich this afternoon. He ra pidly improves once he gets hydrated when he comes into the hospital; however, with repeated hospital izations, he goes home and after a week he gets dehydrated and ends up back in the hospital. OBJECTIVE: VITAL SIGNS: Temperature 97.5, pulse 93, blood pressure 120/92. GENERAL: He is in no acute distress. He is awake and alert and oriented x3. LUNGS: Clear to auscultation bilaterally. HEART: Regular rate and rhythm. ABDOMEN: Soft, nontender, nondistended. Bowel sounds are present. EXTREMITIES: No lower extremity edema. LABORATORY DATA: White blood cell count 7.5, hemoglobin 10.6, platelets 224. IMPRESSION: 1. Chronic gastroparesis, status post partial gastrectomy and vagotomy. He has had follow followup surgeries after that and has had numerous hospitalizations in [place] with the gastroparesis. In [facility], his doctors at some point were discussing parenteral nutrition or J-tube placement. There was concern about the J-tube, because he has multiple layers of mesh for hernia repair after the orig inal surgery. His living situation there was questionable and parenteral nutrition was not started f or home therapy while he was there; however, now he is living with a friend here in [place] and again maren zavala are questioning now whether parental nutrition should be considered. 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 He has been hospitalized numerous times in [place] with recurrent nausea, vomiting and dehydration that occured shortly after being discharged home. He tends to do be tter once he gets back in the hospital and receives IV fluids. He has been on Reglan without signifi cant help. Unfortunately, he has also been on opioid pain medications chronically for history of chr onic abdominal pain. He has also had some back issues and recurrent migraines. The opioids are like ly significantly contributing to his motility disorder especially given prior vagotomy. 2. Iron deficiency anemia. RECOMMENDATIONS: 1. Proton pump inhibitor. 2. Stop opioid pain medications and orders have been placed for that. I have discussed this with martin cordova in detail. 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 PLAN: 1. EGD and colonoscopy tomorrow to further evaluate iron deficiency anemia and evaluate for strictur e at the anastomosis. 2. He has been started on low dose MiraLax for chronic constipation. 3. Last dose of Eliquis was yesterday morning. Endoscopy is delayed until tomorrow morning in case he requires balloon dilation of his anastomosis.
[2018-03-20] MEDS: Acetaminophen 500 MG TAB PO PRN (13:38)
[2018-03-20] MEDS ORDERED: GoLYTELY 4,000 ml Bottle PO SCH (14:00)
--- NOTE | 2018-03-20 16:10 | PDOC.PN ---
- Subjective Encounter Start Date: 03/20/18 Encounter Start Time: 16:00 Subjective: f/u for abd pain and nausea, gastroparesis tx with Toradol, Tramadol -: and previous Morphine. Still with intermittent sx, tolerating po intake and -: drinking multiple cups of coffee. + BM's x 5. - Objective MAR Reviewed: Yes Vital Signs & Weight: Vital Signs (12 hours) Temp Pulse Resp BP Pulse Ox 03/20/18 15:31 98.5 F 103 H 16 114/81 99 03/20/18 11:52 97.5 F L 93 16 120/92 H 100 03/20/18 08:00 98.5 F 92 16 100 03/20/18 07:38 98.5 F 92 16 122/83 100 03/20/18 04:13 97.2 F L 79 16 137/77 100 Weight Admit Weight 110 lb 6.4 oz Weight 110 lb 6.4 oz I&O: 03/19/18 03/20/18 03/21/18 06:59 06:59 06:59 Intake Total 4402 Output Total 990 850 Balance -990 3552 Result Diagrams: 03/20/18 06:19 03/20/18 06:19 Additional Labs: Microbiology 03/18/18 02:25 Urine voided Urine Culture - Preliminary NO GROWTH AT 24 HOURS 03/17/18 00:02 Venous blood - Left Hand Blood Culture - Preliminary Specimen has been received and culture in progress. No Growth to date. 03/17/18 00:02 Venous blood - Left Arm Blood Culture - Preliminary Specimen has been received and culture in progress. No Growth to date. Laboratory Tests 03/18/18 03/18/18 03/18/18 00:02 00:02 00:02 WBC 12.5 H Hgb 13.1 L Plt Count 509 H Sodium 130 L Potassium 3.2 L Carbon Dioxide 16 L BUN 57 H Creatinine 3.45 H Magnesium 2.8 H Iron Ferritin Troponin I 0.056 H Vitamin B12 Folate TSH 3rd Generation 03/18/18 03/18/18 03/18/18 00:02 04:57 04:57 WBC Hgb Plt Count Sodium Potassium Carbon Dioxide BUN Creatinine Magnesium Iron 44 L Ferritin Troponin I 0.073 H Vitamin B12 Folate TSH 3rd Generation 0.4944 03/18/18 03/19/18 03/20/18 13:33 05:49 06:19 WBC Hgb Plt Count Sodium 130 L 130 L Potassium 4.9 Carbon Dioxide 14 L BUN Creatinine 1.49 H Magnesium Iron Ferritin 59.26 Troponin I Vitamin B12 Folate TSH 3rd Generation 03/20/18 06:19 WBC Hgb Plt Count Sodium Potassium Carbon Dioxide BUN Creatinine Magnesium Iron Ferritin Troponin I Vitamin B12 701 Folate 7.00 TSH 3rd Generation EKG Reviewed by me: Yes (Tele - SR) Phys Exam - Physical Examination Constitutional: NAD HEENT: PERRLA, moist MMs, sclera anicteric, oral pharynx no lesions Neck: no nodes, no JVD, supple Respiratory: no wheezing, no rales, no rhonchi, clear to auscultation bilateral S1, S2 Cardiovascular: RRR, no significant murmur, no rub, gallop mild TTP Gastrointestinal: soft, no distention, positive bowel sounds Musculoskeletal: no edema, pulses present Neurological: non-focal, normal sensation, moves all 4 limbs Psychiatric: normal affect, A&O x 3 Skin: no rash, normal turgor, cap refill <2 seconds Dx/Plan (1) AL (acute kidney injury) Code(s): N17.9 - ACUTE KIDNEY FAILURE, UNSPECIFIED Status: Acute Comment: Avoid nephrotoxic meds and contrast exposure, follow creatinine, hold Lisinopril , d/c IVF, continued improvement (2) Abdominal pain Code(s): R10.9 - UNSPECIFIED ABDOMINAL PAIN Status: Acute Qualifiers: Abdominal location: generalized Qualified Code(s): R10.84 - Generalized abdominal pain Comment: Suspect chronic component and secondary to chronic narcotic exposure, consult GI service, pain control with Tramadol, Toradol, Morphine d/c'd, plan for EGD/colonoscopy per GI recommendations 03/21/18 (3) Gastroparesis Code(s): K31.84 - GASTROPARESIS Status: Suspected Comment: Continue Reglan 10mg IV q6h (4) Chronic pain disorder Code(s): G89.4 - CHRONIC PAIN SYNDROME Status: Chronic Comment: Tramadol, attempt to limit narcotic exposure, likely will need outpt referral to chronic pain clinic (5) Nausea & vomiting Code(s): R11.2 - NAUSEA WITH VOMITING, UNSPECIFIED Status: Acute Comment: Improved, likely due to narcotic withdrawal, Zofran prn, ADAT (6) Moderate protein-calorie malnutrition Code(s): E44.0 - MODERATE PROTEIN-CALORIE MALNUTRITION Status: Chronic Comment: Ensure Enlive TID (7) Constipation Code(s): K59.00 - CONSTIPATION, UNSPECIFIED Status: Acute Qualifiers: Constipation type: slow transit constipation Qualified Code(s): K59.01 - Slow transit constipation Comment: Sennokot-S BID, Miralax 17gm po daily - Plan out of bed/ambulate, DVT proph w/SCDs Stable overall -: Continue Reglan 10mg IV q6h -: Protonix 40mg IV daily -: Golytely prep today -: D/C KCL * Clear liquid diet * Plan for EGD/colonoscopy in am
--- NOTE | 2018-03-20 20:29 | PRG ---
DATE OF SERVICE: 03/20/2018 SUBJECTIVE: The patient is seen and examined. PHYSICAL EXAMINATION: VITAL SIGNS: Afebrile with temperature 98.5, pulse 103, respiratory rate 16, O2 sat 99% with blood p ressure 114/81. HEENT: Unremarkable with moist oral mucosa. NECK: Supple, no conjunctival injection or icterus. CARDIOVASCULAR: First and heart sounds were heard. RESPIRATORY: Clear to auscultation. DIGESTIVE: Revealed a benign abdomen. EXTREMITIES: No peripheral edema. SKIN: No new gross rash. LYMPHATICS: No peripheral lymphadenopathy. IMPRESSION: Acute kidney injury, this has resolved. PLAN: 1. From the renal standpoint, the patient seems to be doing very well. We would discontinue IV flui d resuscitation. 2. Further management to be dependent on the clinical course.
[2018-03-20] MEDS: hydrOXYzine 25 MG TAB PO PRN (20:31)
[2018-03-21] MEDS: hydrOXYzine 25 MG TAB PO PRN ×3 (02:34→18:25)
[2018-03-21] MEDS: Metoclopramide HCl 10 MG/2 ML VIAL IVP SCH ×4 (05:27→23:45)
[2018-03-21] MEDS: Amiodarone 200 MG TAB PO SCH (09:03)
[2018-03-21] MEDS: Polyethylene Glycol 3350 17 GM Packet PO SCH (09:04)
[2018-03-21] MEDS: Senokot S 8.6-50 MG TAB PO SCH ×2 (09:04→20:25)
[2018-03-21] MEDS: Pantoprazole 40 MG VIAL IVP SCH (09:04)
[2018-03-21] MEDS: Acetaminophen 500 MG TAB PO PRN ×2 (09:05→18:26)
[2018-03-21] MEDS ORDERED: Lidocaine 1% PF 5 ML VIAL ONE (12:54)
[2018-03-21] MEDS ORDERED: ePHEDrine/0.9% NaCl/PF SYRINGE 50 mg/10 ml ONE (12:54)
[2018-03-21] MEDS ORDERED: PHENYLEPHRINE-NS 100 MCG/ML 10 ML SYRINGE ONE (12:54)
[2018-03-21] MEDS ORDERED: PROPOFOL 200 MG/20 ML VIAL ONE (12:54)
[2018-03-21] MEDS ORDERED: Succinylcholine Chloride 20 MG/ML 10 ml SYRINGE FS ONE (12:54)
[2018-03-21] MEDS ORDERED: Promethazine HCl 25 MG/ML VIAL SLOW IVP PRN (14:06)
[2018-03-21] MEDS ORDERED: Ondansetron HCl/PF 4 MG/2 ML Vial IVP PRN (14:06)
[2018-03-21] MEDS ORDERED: Promethazine HCl 25 MG/ML VIAL IM PRN (14:06)
[2018-03-21] MEDS: Fleet Enema 133 ML BOT PR SCH ×4 (16:39→23:46)
--- NOTE | 2018-03-21 17:03 | PDOC.PN ---
- Subjective Encounter Start Date: 03/21/18 Encounter Start Time: 17:00 Subjective: f/u for abd pain, nausea and gastroparesis s/p EGD/colonoscopy today. -: + esophagitis noted and colon full of stool after attempted bowel prep. -: NGT placed and clear liquids, Fleets enemas started. - Objective MAR Reviewed: Yes Vital Signs & Weight: Vital Signs (12 hours) Temp Pulse Resp BP Pulse Ox 03/21/18 15:11 97.6 F 78 18 104/74 100 03/21/18 08:00 98.4 F 94 18 96 03/21/18 07:01 98.4 F 94 18 110/75 96 Weight Admit Weight 110 lb 6.4 oz Weight 117 lb 4.8 oz I&O: 03/20/18 03/21/18 03/22/18 06:59 06:59 06:59 Intake Total 4402 5720 Output Total 850 400 Balance 3552 5320 Result Diagrams: 03/20/18 06:19 03/20/18 06:19 Additional Labs: Microbiology 03/18/18 02:25 Urine voided Urine Culture - Preliminary NO GROWTH AT 24 HOURS 03/17/18 00:02 Venous blood - Left Hand Blood Culture - Preliminary Specimen has been received and culture in progress. No Growth to date. 03/17/18 00:02 Venous blood - Left Arm Blood Culture - Preliminary Specimen has been received and culture in progress. No Growth to date. Laboratory Tests 03/18/18 03/18/18 03/18/18 00:02 00:02 00:02 WBC 12.5 H Hgb 13.1 L Plt Count 509 H Sodium 130 L Potassium 3.2 L Carbon Dioxide 16 L BUN 57 H Creatinine 3.45 H Magnesium 2.8 H Iron Ferritin Troponin I 0.056 H Vitamin B12 Folate TSH 3rd Generation 03/18/18 03/18/18 03/18/18 00:02 04:57 04:57 WBC Hgb Plt Count Sodium Potassium Carbon Dioxide BUN Creatinine Magnesium Iron 44 L Ferritin Troponin I 0.073 H Vitamin B12 Folate TSH 3rd Generation 0.4944 03/18/18 03/19/18 03/20/18 13:33 05:49 06:19 WBC Hgb Plt Count Sodium 130 L 130 L Potassium 4.9 Carbon Dioxide 14 L BUN Creatinine 1.49 H Magnesium Iron Ferritin 59.26 Troponin I Vitamin B12 Folate TSH 3rd Generation 03/20/18 06:19 WBC Hgb Plt Count Sodium Potassium Carbon Dioxide BUN Creatinine Magnesium Iron Ferritin Troponin I Vitamin B12 701 Folate 7.00 TSH 3rd Generation Radiology Reviewed by me: Yes (EGD/colonoscopy- esophagitis, colon full of stool ) EKG Reviewed by me: Yes (Tele - SR) Phys Exam - Physical Examination Constitutional: NAD cachetic appearing NGT in place HEENT: PERRLA, moist MMs, sclera anicteric, oral pharynx no lesions Neck: no nodes, no JVD, supple Respiratory: no wheezing, no rales, no rhonchi, clear to auscultation bilateral S1, S2 Cardiovascular: RRR, no significant murmur, no rub, gallop mild TTP Gastrointestinal: soft, no distention, positive bowel sounds Musculoskeletal: no edema, pulses present Neurological: non-focal, normal sensation, moves all 4 limbs Psychiatric: normal affect, A&O x 3 Skin: no rash, normal turgor, cap refill <2 seconds Dx/Plan (1) AL (acute kidney injury) Code(s): N17.9 - ACUTE KIDNEY FAILURE, UNSPECIFIED Status: Acute Comment: Avoid nephrotoxic meds and contrast exposure, follow creatinine, hold Lisinopril , d/c IVF, continued improvement (2) Abdominal pain Code(s): R10.9 - UNSPECIFIED ABDOMINAL PAIN Status: Acute Qualifiers: Abdominal location: generalized Qualified Code(s): R10.84 - Generalized abdominal pain Comment: Suspect chronic component and secondary to chronic narcotic exposure, consult GI service, pain control with Tramadol, Toradol, Morphine d/c'd, Esophagitis noted on EGD with continued PPI, bx taken and pending (3) Gastroparesis Code(s): K31.84 - GASTROPARESIS Status: Suspected Comment: Continue Reglan 10mg IV q6h (4) Chronic pain disorder Code(s): G89.4 - CHRONIC PAIN SYNDROME Status: Chronic Comment: Tramadol, attempt to limit narcotic exposure, likely will need outpt referral to chronic pain clinic (5) Nausea & vomiting Code(s): R11.2 - NAUSEA WITH VOMITING, UNSPECIFIED Status: Acute Comment: Improved, likely due to narcotic withdrawal, Zofran prn, ADAT (6) Moderate protein-calorie malnutrition Code(s): E44.0 - MODERATE PROTEIN-CALORIE MALNUTRITION Status: Chronic Comment: Ensure Enlive TID (7) Constipation Code(s): K59.00 - CONSTIPATION, UNSPECIFIED Status: Acute Qualifiers: Constipation type: slow transit constipation Qualified Code(s): K59.01 - Slow transit constipation Comment: Sennokot-S BID, Miralax 17gm po daily, Fleets enemas, NGT, clear liquids, likely due to chronic narcotic exposure - 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 Relistor candidate
--- NOTE | 2018-03-21 21:59 | OP ---
PROCEDURES PERFORMED: Esophagogastroduodenoscopy with esophageal biopsy, dilation of gastrojejunal a nastomosis, nasogastric tube placement. Colonoscopy aborted, canceled secondary to poor prep. ANESTHESIA: General endotracheal anesthesia. POSTPROCEDURE DIAGNOSES: 1. Esophagitis, likely from reflux, biopsied. 2. 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 This was dilated with a 12-mm balloon, but we were unable to pass the scope in this area because he can only view it or get to it and severe retroflexion. 3. Dilated stomach with retained food content. For this reason, NG tube was placed to confirm posit ion endoscopically. 4. Colonoscopy was attempted, but aborted rapidly secondary to a large amount of retained fecal gabrielle er in the rectal vault. PROCEDURE IN DETAIL: After the patient was informed the risks, benefits, possible complications of e ndoscopy and perforation, reactions to medication and aspiration, informed consent was obtained. The patient was brought to endoscopy suite where he was sedated in gradual fashion. Once he was comfort able, a bite block was placed by incisural orifice. He was intubated by Anesthesia for airway protec tion secondary to hishistory of repetitive vomiting. The endoscope was advanced through the esophagu s where there was severe erosive esophagitis. Biopsies were taken. This appeared most likely reflux . We will rule out viral etiologies. The scope was advanced into the stomach. There was some retained vegetable matter, minimal liquids. This was suctioned to the best of our ability, but could not clear the entire proximal stomach. Ret roflexed views showed normal GE junction from below. There appeared to be anastomosis in the distal part of the stomach just prior below the incisura region of the junction of body and antrum. This wa s 1 outlet lumen which could only be seen in severe retroflexion on the small bowel side of the anast omosis. This appeared to be mildly stenotic, was dilated with 12 mm balloon, but still we could not pass through this area secondary to the retroflexion of the cord to even see it, attempts to advance into this resulted in paradoxical scope movement back in the stomach secondary to retroflex status. The scope was removed. An NG tube was placed secondary to retained gastric contents, history of prio r vomiting, esophagitis. The patient was turned in the room. A rectal exam was performed which reve aled some stool. The endoscope was advanced in the anal canal. Vigorous irrigation was performed, b ut no stool all the way through the sigmoid colon. The scope was removed. This was not an adequate exam and wanted to be performed later when he can be prepped.
[2018-03-22] MEDS: Metoclopramide HCl 10 MG/2 ML VIAL IVP SCH ×3 (05:30→18:09)
[2018-03-22] MEDS: hydrOXYzine 25 MG TAB PO PRN ×3 (05:35→21:47)
[2018-03-22] MEDS: Acetaminophen 500 MG TAB PO PRN ×3 (05:35→18:11)
[2018-03-22] MEDS: Fleet Enema 133 ML BOT PR SCH ×5 (05:39→20:54)
[2018-03-22 05:48] LABS: Anion Gap 7 mmol/L (10-20); BUN (Urea Nitrogen) 15 mg/dL (8.4-25.7); Calc. Creatinine Clearance 60 mL/min (70-130); Calcium 8.1 mg/dL (7.8-10.44); Carbon Dioxide 18 mmol/L (23-31); Chloride 115 mmol/L (98-107); Estimated GFR-MDRD 89; Glucose 80 mg/dL (80-115); Potassium 4.4 mmol/L (3.5-5.1); Sodium 136 mmol/L (136-145)
--- NOTE | 2018-03-22 09:13 | PRG ---
DATE OF SERVICE: 03/21/2018 SUBJECTIVE: The patient was seen and examined with no new complaints, seems to be doing much better. PHYSICAL EXAMINATION: VITAL SIGNS: Afebrile with temperature 97.6, pulse 78, respiratory rate 18, blood pressure 104/74, O 2 sat 100%. HEENT: Unremarkable with moist oral mucosa. NECK: Supple, no conjunctival injection or icterus. CARDIOVASCULAR: First and second heart sounds were heard. RESPIRATORY: Clear to auscultation. DIGESTIVE: Revealed a benign abdomen with positive bowel sounds. EXTREMITIES: No peripheral edema. SKIN: No new gross rash. LYMPHATICS: No peripheral lymphadenopathy. IMPRESSION: 1. Acute kidney injury, which seems to have improved. 2. Metabolic acidosis. 3. Gastroparesis with persistent nausea and vomiting. PLAN: 1. We will repeat the chemistry today to reevaluate the metabolic acidosis in this patient. 2. Further management to be dependent on the clinical course. 3. Continue to avoid potentially nephrotoxic agents.
[2018-03-22] MEDS: Polyethylene Glycol 3350 17 GM Packet PO SCH (10:42)
[2018-03-22] MEDS: Amiodarone 200 MG TAB PO SCH (10:43)
[2018-03-22] MEDS: Pantoprazole 40 MG VIAL IVP SCH (10:44)
[2018-03-22] MEDS: Senokot S 8.6-50 MG TAB PO SCH ×2 (10:44→20:53)
[2018-03-22 12:46] VITALS: BMI 18.1
[2018-03-22] MEDS ORDERED: Iron Sucrose Complex 200 MG in Sodium Chloride 0.9% 250 ML 250 ML IVPB SCH (14:30)
[2018-03-22] MEDS ORDERED: Fleet Enema 133 ML BOT PR SCH (14:45)
[2018-03-22] MEDS ORDERED: Sodium Ferric Gluconate 250 MG in Sodium Chloride 0.9% 100 ML IVPB SCH (14:45)
[2018-03-22] MEDS: HYDROcodone/Acetaminophen 5/325 mg Tablet PO PRN ×2 (15:09→21:45)
--- NOTE | 2018-03-22 16:18 | PDOC.PN ---
- Subjective Encounter Start Date: 03/22/18 Encounter Start Time: 16:05 Subjective: f/u abd pain, opiate induced constipation. c/o pain in abd consistently -: and asks for pain medications. Unable to complete colon prep for colon exam - Objective MAR Reviewed: Yes Vital Signs & Weight: Vital Signs (12 hours) Temp Pulse Resp BP BP Pulse Ox 03/22/18 11:06 98.6 F 87 18 108/71 100 03/22/18 08:59 98.6 F 87 18 99 03/22/18 07:16 98.3 F 85 20 124/83 99 03/22/18 04:31 98.8 F 85 16 105/72 95 Weight Admit Weight 110 lb 6.4 oz Weight 115 lb 11.2 oz I&O: 03/21/18 03/22/18 03/23/18 06:59 06:59 06:59 Intake Total 5720 400 Output Total 400 3 Balance 5320 397 Result Diagrams: 03/20/18 06:19 03/22/18 05:14 Additional Labs: Microbiology 03/18/18 02:25 Urine voided Urine Culture - Final Yeast species 03/18/18 02:25 Urine voided Urine Culture - Preliminary NO GROWTH AT 24 HOURS 03/17/18 00:02 Venous blood - Left Hand Blood Culture - Preliminary Specimen has been received and culture in progress. No Growth to date. 03/17/18 00:02 Venous blood - Left Hand Blood Culture - Preliminary NO GROWTH AT 48 HOURS 03/17/18 00:02 Venous blood - Left Arm Blood Culture - Preliminary Specimen has been received and culture in progress. No Growth to date. 03/17/18 00:02 Venous blood - Left Arm Blood Culture - Preliminary Gram Positive [facility] Tests 03/18/18 03/18/18 03/18/18 00:02 00:02 00:02 WBC 12.5 H Hgb 13.1 L Plt Count 509 H Sodium 130 L Potassium 3.2 L Carbon Dioxide 16 L BUN 57 H Creatinine 3.45 H Magnesium 2.8 H Iron Ferritin Troponin I 0.056 H Vitamin B12 Folate TSH 3rd Generation 03/18/18 03/18/18 03/18/18 00:02 04:57 04:57 WBC Hgb Plt Count Sodium Potassium Carbon Dioxide BUN Creatinine Magnesium Iron 44 L Ferritin Troponin I 0.073 H Vitamin B12 Folate TSH 3rd Generation 0.4944 03/18/18 03/19/18 03/20/18 13:33 05:49 06:19 WBC Hgb Plt Count Sodium 130 L 130 L Potassium 4.9 5.2 H Carbon Dioxide 14 L BUN Creatinine 1.49 H Magnesium Iron Ferritin Troponin I Vitamin B12 Folate TSH 3rd Generation 03/20/18 03/20/18 06:19 06:19 WBC Hgb Plt Count Sodium Potassium Carbon Dioxide BUN Creatinine Magnesium Iron Ferritin 59.26 Troponin I Vitamin B12 701 Folate 7.00 TSH 3rd Generation Phys Exam - Physical Examination Constitutional: NAD HEENT: PERRLA, moist MMs, sclera anicteric, oral pharynx no lesions Neck: no nodes, no JVD, supple Respiratory: no wheezing, no rales, no rhonchi, clear to auscultation bilateral S1, S2 Cardiovascular: RRR, no significant murmur, no rub, gallop mild TTP diffusely Gastrointestinal: soft, no distention, positive bowel sounds Musculoskeletal: no edema, pulses present Neurological: non-focal, normal sensation, moves all 4 limbs alert, responsive Psychiatric: A&O x 3 Skin: no rash, normal turgor, cap refill <2 seconds Dx/Plan (1) Abdominal pain Code(s): R10.9 - UNSPECIFIED ABDOMINAL PAIN Status: Acute Qualifiers: Abdominal location: generalized Qualified Code(s): R10.84 - Generalized abdominal pain Comment: Suspect chronic component and secondary to chronic narcotic exposure, consult GI service, pain control with Tramadol, Toradol, Morphine Sulfate 2mg IV q12h prn, Esophagitis noted on EGD with continued PPI, bx taken and pending (2) AL (acute kidney injury) Code(s): N17.9 - ACUTE KIDNEY FAILURE, UNSPECIFIED Status: Acute Comment: Avoid nephrotoxic meds and contrast exposure, follow creatinine, hold Lisinopril , d/c IVF, resolving (3) Gastroparesis Code(s): K31.84 - GASTROPARESIS Status: Suspected Comment: Continue Reglan 10mg IV q6h (4) Chronic pain disorder Code(s): G89.4 - CHRONIC PAIN SYNDROME Status: Chronic Comment: Tramadol, attempt to limit narcotic exposure, likely will need outpt referral to chronic pain clinic (5) Nausea & vomiting Code(s): R11.2 - NAUSEA WITH VOMITING, UNSPECIFIED Status: Acute Comment: Improved, likely due to narcotic withdrawal, Zofran prn, ADAT (6) Moderate protein-calorie malnutrition Code(s): E44.0 - MODERATE PROTEIN-CALORIE MALNUTRITION Status: Chronic Comment: Ensure Enlive TID (7) Constipation Code(s): K59.00 - CONSTIPATION, UNSPECIFIED Status: Acute Qualifiers: Constipation type: slow transit constipation Qualified Code(s): K59.01 - Slow transit constipation Comment: Opioid induced constipation, Sennokot-S BID, Miralax 17gm po daily, Fleets enemas, NGT, clear liquids, likely due to chronic narcotic exposure, Movantik 25mg daily - Plan bilingual social worker, out of bed/ambulate, DVT proph w/SCDs Stable overall -: Movantik 25mg daily -: Morphine Sulfate 2mg IV q12h prn, limit and expand interval -: OOB/ambulate -: Poor bowel prep, likely low yield on colonoscopy, tx clinically * Full liquid diet * May need referral to Opiate detox program * Transfer to medical floor
--- NOTE | 2018-03-22 17:11 | PRG ---
DATE OF SERVICE: 03/22/2018 SUBJECTIVE: Mr. Storey took out his NG tube last night. He is asking for liquids that he is tole rating. He is not vomiting. He had a couple of bowel movements with enemas and then refused those. He requests pain medications and states he has pain all over. PHYSICAL EXAMINATION: VITAL SIGNS: Temperature is 98, pulse 87, blood pressure 108/71. LUNGS: Clear. HEART: Regular rhythm. ABDOMEN: Soft, it is nondistended and it is tender at times on palpation in different areas. There is no rebound or guarding. Bowel sounds are positive. There are no hernias. LABORATORY DATA: Basic metabolic profile normal today. ASSESSMENT: 1. Chronic constipation likely related with narcotics. 2. Multiple stomach surgery, the first surgery done for gastric outlet obstruction or peptic disease from nonsteroidal anti-inflammatory drug use. It is unclear why second 2 surgeries occurred. He rosas s had chronic recurrent admissions for nausea, vomiting. His esophagogastroduodenoscopy yesterday sh owed Billroth I type anastomosis. He states he has gastrojejunostomy and that is very possible that was mildly narrowed, but not stenotic, its positioning made it difficult to advance down its limb, we did dilate it with minimal effect 12 mm balloon. RECOMMENDATIONS: 1. Wean narcotics. 2. Start Movantik for opioid-induced constipation. He did have some enemas yesterday. 3. If patient gets cleared out, we can consider a colonoscopy with regard to his iron deficiency. 4. If he needs iron supplementation, we would use IV and not oral secondary to constipating effect o f oral potassium. 5. We will check his magnesium, phosphorus and thiamine.
[2018-03-22] MEDS: Fluconazole 100 MG TAB PO SCH (18:09)
[2018-03-22] MEDS: Morphine 4 MG/ML VIAL SLOW IVP PRN (20:36)
--- NOTE | 2018-03-22 20:50 | PRG ---
DATE OF SERVICE: 03/22/2018 SUBJECTIVE: The patient was seen and examined with no new complaint and noted with the following vit al signs. OBJECTIVE: VITAL SIGNS: Afebrile with temperature 98.6, pulse 76, respiratory rate of 16, O2 sat 99% with a blo od pressure of 111/75. HEENT: Unremarkable. Moist oral mucosa. NECK: Supple. No conjunctival injection or icterus. CARDIOVASCULAR SYSTEM: First and second heart sounds were heard. RESPIRATORY SYSTEM: Clear to auscultation. DIGESTIVE SYSTEM: Revealed a benign abdomen with positive bowel sounds. EXTREMITIES: No peripheral edema. SKIN: No new gross rash. LYMPHATIC SYSTEM: No peripheral lymphadenopathy. LABORATORY INVESTIGATIONS: Showed a creatinine of 0.85 and bicarb of 18. IMPRESSION: 1. Acute kidney injury, which has since resolved. 2. Metabolic acidosis, seems to be improving. This is more or less in the context of GI loss of bic arbonate. PLAN: 1. If the metabolic acidosis persist, the patient likely to benefit from sodium bicarbonate suppleme ntation. 2. Further management to be dependent on the clinical course.
[2018-03-23] MEDS: Metoclopramide HCl 10 MG/2 ML VIAL IVP SCH ×4 (00:58→17:26)
[2018-03-23] MEDS: Fleet Enema 133 ML BOT PR SCH ×6 (01:04→20:58)
[2018-03-23] MEDS: HYDROcodone/Acetaminophen 5/325 mg Tablet PO PRN ×3 (05:05→17:32)
[2018-03-23] MEDS ORDERED: Fleet Enema 133 ML BOT PR SCH (07:00)
[2018-03-23] MEDS: Morphine 4 MG/ML VIAL SLOW IVP PRN ×2 (08:31→20:36)
[2018-03-23] MEDS: Pantoprazole 40 MG VIAL IVP SCH (08:33)
[2018-03-23] MEDS: Amiodarone 200 MG TAB PO SCH (08:38)
[2018-03-23] MEDS: Polyethylene Glycol 3350 17 GM Packet PO SCH (08:40)
[2018-03-23] MEDS: Senokot S 8.6-50 MG TAB PO SCH ×2 (08:40→20:58)
--- NOTE | 2018-03-23 08:58 | RAD ---
SUPINE ABDOMEN: Date: 03/23/18 HISTORY: Constipation/obstipation. FINDINGS: There is scattered stool and gas throughout the colon which appears unremarkable by plain film. Small bowel gas pattern is also unremarkable. No soft tissue mass or abnormal calcification. IMPRESSION: Unremarkable supine abdominal exam. POS: REMBERTO
--- NOTE | 2018-03-23 13:56 | PDOC.PN ---
- Subjective Encounter Start Date: 03/23/18 Encounter Start Time: 13:55 Subjective: continues to complain of abd pain. -: having multiple loose stools now - Objective MAR Reviewed: Yes Vital Signs & Weight: Vital Signs (12 hours) Temp Pulse Resp BP BP Pulse Ox 03/23/18 12:12 98.5 F 83 16 108/74 97 03/23/18 08:00 97.7 F 75 16 97 03/23/18 07:32 97.7 F 75 16 113/78 97 03/23/18 04:00 97.7 F 79 18 132/90 99 Weight Admit Weight 110 lb 6.4 oz Weight 115 lb 11.2 oz I&O: 03/22/18 03/23/18 03/24/18 06:59 06:59 06:59 Intake Total 400 650 Output Total 3 Balance 397 650 Result Diagrams: 03/20/18 06:19 03/22/18 05:14 Additional Labs: Microbiology 03/18/18 02:25 Urine voided Urine Culture - Final Yeast species 03/17/18 00:02 Venous blood - Left Hand Blood Culture - Final NO GROWTH IN 5 DAYS 03/17/18 00:02 Venous blood - Left Arm Blood Culture - Preliminary Gram Positive [facility] Tests 03/18/18 03/18/18 03/18/18 00:02 00:02 00:02 WBC 12.5 H Hgb 13.1 L Plt Count 509 H Sodium 130 L Carbon Dioxide 16 L Creatinine 3.45 H Iron TIBC Vitamin B12 Folate TSH 3rd Generation 0.4944 03/18/18 03/18/18 03/19/18 04:57 13:33 05:49 WBC Hgb Plt Count Sodium 130 L 130 L Carbon Dioxide 14 L 13 L Creatinine 1.49 H 0.91 Iron 44 L TIBC 309 Vitamin B12 Folate TSH 3rd Generation 03/19/18 03/20/18 03/20/18 05:49 06:19 06:19 WBC 8.4 7.5 Hgb 10.3 L 10.6 L Plt Count 353 224 Sodium 136 Carbon Dioxide 15 L Creatinine 0.90 Iron TIBC Vitamin B12 Folate TSH 3rd Generation 03/20/18 03/22/18 06:19 05:14 WBC Hgb Plt Count Sodium 136 Carbon Dioxide 18 L Creatinine 0.85 Iron TIBC Vitamin B12 701 Folate 7.00 TSH 3rd Generation Phys Exam - Physical Examination Constitutional: NAD cachectic HEENT: PERRLA, moist MMs, sclera anicteric, oral pharynx no lesions Neck: no JVD Respiratory: no wheezing, no rales, no rhonchi, clear to auscultation bilateral Cardiovascular: RRR, no significant murmur Gastrointestinal: soft, non-tender, no distention, positive bowel sounds Musculoskeletal: no edema, pulses present Neurological: non-focal, normal sensation, moves all 4 limbs Psychiatric: normal affect, A&O x 3 Skin: no rash Dx/Plan (1) AL (acute kidney injury) Code(s): N17.9 - ACUTE KIDNEY FAILURE, UNSPECIFIED Status: Acute Comment: Avoid nephrotoxic meds and contrast exposure, follow creatinine, hold Lisinopril , d/c IVF, resolved (2) Abdominal pain Code(s): R10.9 - UNSPECIFIED ABDOMINAL PAIN Status: Acute Qualifiers: Abdominal location: generalized Qualified Code(s): R10.84 - Generalized abdominal pain Comment: Suspect chronic component and secondary to chronic narcotic exposure, GI service followinf. pain control with Tramadol, Toradol, Morphine Sulfate 2mg IV q12h prn, Esophagitis noted on EGD with continued PPI, bx taken and pending (3) Constipation Code(s): K59.00 - CONSTIPATION, UNSPECIFIED Status: Acute Qualifiers: Constipation type: slow transit constipation Qualified Code(s): K59.01 - Slow transit constipation Comment: Opioid induced constipation,was on Sennokot-S BID, Miralax 17gm po daily, Fleets enemas, NGT, clear liquids, likely due to chronic narcotic exposure, Movantik 25mg daily.Now diarrhea ,so holding all. (4) Chronic pain disorder Code(s): G89.4 - CHRONIC PAIN SYNDROME Status: Chronic Comment: Tramadol, attempt to limit narcotic exposure, (5) Moderate protein-calorie malnutrition Code(s): E44.0 - MODERATE PROTEIN-CALORIE MALNUTRITION Status: Chronic Comment: Ensure Enlive TID (6) Gastroparesis Code(s): K31.84 - GASTROPARESIS Status: Suspected Comment: Continue Reglan 10mg IV q6h (7) Anemia Code(s): D64.9 - ANEMIA, UNSPECIFIED Status: Chronic (8) Chronic anticoagulation Code(s): Z79.01 - [facility] (CURRENT) USE OF ANTICOAGULANTS Status: Acute - Plan out of bed/ambulate, DVT proph w/SCDs Will consult Pain Medicine for appropriate pain control w/o significant S/E -: GI & nephrology following. appreciate input -: clinically better & HD stable. -: cont diflucan for urinary yeast but stop on DC -: low Iron levels-got IV iron yesterday. * .am labs Review of Systems - Review of Systems Constitutional: weakness, malaise. negative: fever, chills, sweats, other ENT: negative: Ear Pain, Ear Discharge, Nose Pain, Nose Discharge, Nose Congestion, Mouth Pain, Mouth Swelling, Throat Pain, Throat Swelling, Other Respiratory: negative: Cough, Dry, Shortness of Breath, Hemoptysis, SOB with Excertion, Pleuritic Pain, Sputum, Wheezing Cardiovascular: negative: chest pain, palpitations, orthopnea, paroxysmal nocturnal dyspnea, edema, light headedness, other Gastrointestinal: Abdominal Pain, Diarrhea. negative: Nausea, Vomiting, Constipation, Melena, Hematochezia, Other Genitourinary: negative: Dysuria, Frequency, Incontinence, Hematuria, Retention , Other Musculoskeletal: Back Pain. negative: Neck Pain, Shoulder Pain, Arm Pain, Hand Pain, Leg Pain, Foot Pain, Other Neurological: negative: Weakness, Numbness, Incoordination, Change in Speech, Confusion, Seizures, Other - Medications/Allergies Allergies/Adverse Reactions: Allergies Allergy/AdvReac Type Severity Reaction Status Date / Time erythromycin base Allergy Verified 03/18/18 04:24 Penicillins Allergy Verified 03/18/18 04:24 Medications: Current Medications Acetaminophen (Tylenol) 1,000 mg PO Q6H PRN PRN Reason: Moderate to Severe Pain (6-10) Last Admin: 03/22/18 18:11 Dose: 1,000 mg Hydrocodone Bitart/Acetaminophen ([place] 5/325) 1 tab PO Q6H PRN PRN Reason: Pain Last Admin: 03/23/18 11:07 Dose: 1 tab Amiodarone HCl (Cordarone) 200 mg PO DAILY [facility] Last Admin: 03/23/18 08:38 Dose: 200 mg Fluconazole (Diflucan) 100 mg PO 1700 [facility] Last Admin: 03/22/18 18:09 Dose: 100 mg Hydroxyzine HCl (Atarax) 25 mg PO Q6H PRN PRN Reason: Anxiety Last Admin: 03/22/18 21:47 Dose: 25 mg Metoclopramide HCl (Reglan) 10 mg IVP Q6HR [facility] Last Admin: 03/23/18 11:08 Dose: 10 mg Miscellaneous Medication (Movantik) 25 mg PO DAILY-AC [facility] Last Admin: 03/23/18 08:39 Dose: Not Given Morphine Sulfate (Morphine) 2 mg SLOW IVP Q12H PRN PRN Reason: Moderate to Severe Pain (6-10) Last Admin: 03/23/18 08:31 Dose: 2 mg Pantoprazole Sodium (Protonix) 40 mg IVP DAILY [facility] Last Admin: 03/23/18 08:33 Dose: 40 mg Polyethylene Glycol (Miralax) 8.5 gm PO DAILY [facility] Last Admin: 03/23/18 08:40 Dose: Not Given Senna/Docusate Sodium (Senokot S) 1 tab PO BID [facility] Last Admin: 03/23/18 08:40 Dose: Not Given Sodium Biphosphate/Sodium Phosphate (Fleet Enema) 133 ml LA Q4H [facility] Last Admin: 03/23/18 08:40 Dose: Not Given Sodium Chloride (Flush - Normal Saline) 10 ml IVF Q12HR [facility] Last Admin: 03/23/18 08:33 Dose: 10 ml Sodium Chloride (Flush - Normal Saline) 10 ml IVF PRN PRN PRN Reason: Saline Flush Last Admin: 03/22/18 05:30 Dose: 10 ml Sodium Chloride (Flush - Normal Saline) 10 ml IV DAILY [facility] Last Admin: 03/23/18 08:33 Dose: 10 ml
[2018-03-23] MEDS: Fluconazole 100 MG TAB PO SCH (17:26)
[2018-03-23] MEDS: hydrOXYzine 25 MG TAB PO PRN (19:32)
[2018-03-23] MEDS: Acetaminophen 500 MG TAB PO PRN (20:42)
--- NOTE | 2018-03-23 23:52 | PRG ---
DATE OF SERVICE: 03/23/2018 SUBJECTIVE: The patient seen and examined, still having some diarrhea and abdominal discomfort other kaba noted with the following vital signs. PHYSICAL EXAMINATION: VITAL SIGNS: Afebrile, temperature 97.7, pulse 75, respiratory rate 16, blood pressure 113/78 with a n O2 sat 97%. HEENT: Unremarkable. Moist oral mucosa. Neck was supple. No conjunctival injection or icterus. CARDIOVASCULAR SYSTEM: First and second heart sounds were heard. RESPIRATORY SYSTEM: Clear to auscultation. DIGESTIVE SYSTEM: Revealed benign abdomen with positive bowel sounds. EXTREMITIES: No peripheral edema. SKIN: No new gross rash. LYMPHATICS: No peripheral lymphadenopathy. LABORATORY INVESTIGATIONS: None as of today. IMPRESSION: 1. Acute kidney injury, which has resolved. 2. Metabolic acidosis in the context of gastrointestinal loss of bicarbonate. PLAN: 1. If patient's metabolic acidosis persists, we will consider sodium bicarbonate supplementation to maintain the acid base disorder in this patient with persistent diarrhea. 2. Further management to be dependent on the clinical course.
[2018-03-24] MEDS: HYDROcodone/Acetaminophen 5/325 mg Tablet PO PRN ×5 (00:02→22:06)
[2018-03-24] MEDS: Metoclopramide HCl 10 MG/2 ML VIAL IVP SCH ×4 (00:06→17:05)
[2018-03-24] MEDS: Fleet Enema 133 ML BOT PR SCH ×6 (01:45→19:05)
--- NOTE | 2018-03-24 02:01 | CON ---
DATE OF CONSULTATION: 03/23/2018 CONSULTING PHYSICIAN: Dr. Smith. REASON FOR CONSULTATION: Chronic pain and narcotic abuse. HISTORY OF PRESENT ILLNESS: The patient is a 68-year-old gentleman status post multiple abdominal surgeries, history of gastroparesis, nausea, and vomiting, who was admitted to the hospital with renal insufficiency, severe dehydration, gastroparesis treated by GI. Also, has had a 100-pound weight loss reported over the last year. It is thought that he has had a history of narcotic abuse, past history is complicated by his recent move from [place]. He has had severe constipation and continues to complain of pain and it is thought that he has a long history of narcotic use and possible narcotic abuse. On questioning , the patient states that his narcotic history began 2-1/2 years ago when he was diagnosed with an L5 stenosis and radiculopathy. He was treated with injections and subsequently placed on methadone 30 mg with Percocet. He states prior to this he was not on any narcotic analgesics. He was never offered surgery for his lower back. He states his back continues to bother him. Most of his pain is in the lower back, although when he points, he points to the mid thoracic spine. He states the pain goes down his legs in their entirety, nondermatomal. He currently is receiving hydrocodone and intermittent morphine injections while here in the hospital, he is thought to have narcotic abuse issues and his chronic pain, thus the reason for the consultation. I have reviewed in part of some of his past records from [place] that did not mention medications, narcotics that he was taking other than Percocet. I did not see methadone nor did I see any drug screens, but apparently the patient has a history of noncompliance per records review from [place] physicians. At present he states his pain is a 9. He was asleep when I entered the room. There are no spine images for review and I could find no reports. PAST MEDICAL HISTORY: Significant for gastroparesis, chronic back pain with a "L5 fracture disk herniation and sciatica," abdominal pain, chronic nausea, vomiting, history of bladder cancer. PAST SURGICAL HISTORY: Has had 3 abdominal surgeries, no back surgeries. SOCIAL HISTORY: He denies any illicit drug abuse or alcohol history or smoking history. ALLERGIES: ERYTHROMYCIN and PENICILLIN. CURRENT MEDICATIONS: Outpatient Imitrex, benazepril, Reglan 10 mg t.i.d., Cardizem, amiodarone, omeprazole, Zofran, and Eliquis 5 mg b.i.d. No narcotics were mentioned as outpatient medications. FAMILY HISTORY: No history of any heart or lung disease or cancer. PHYSICAL EXAMINATION: GENERAL: The patient is in the bed comfortable. He was asleep on entering the room I did wake him up to perform the visit, but he is easily arousable and non -somnolent. He is in no distress and does not appear in pain, although he rates his pain at a 9/10. HEAD AND NECK: Unremarkable. Temporalis waisting CHEST: Reveals cachectic, thin. HEART: Regular. ABDOMEN: Soft. Mid abdominal scar. Mild pain to palpation, but not localized. No guarding. BACK: Reveals prominent spinous processes from his cachectic state. He appears to have diffuse tenderness about the thoracic spine, mostly T6 extening caudad. There is tenderness diffusely in the lumbar spine. No specific step off or obvious fracture type pains were noted. When asked to examine his back, he did rise up quickly and easily without significant pain. He transitioned without pain. MUSCULOSKELETAL: Straight leg raise test was negative. Reflexes 2+ bilateral, clonus 3 beats bilateral. Upper extremity reflexes were 2+. No Adan's. SI examination was negative. Hip exam was negative. NEUROLOGIC: Devoid of any focal motor or sensory deficit. No myelopathic changes. No pathologic reflexes. Mentation was intact ASSESSMENT AND PLAN: 1. L-spine fracture and stenosis by history. No evidence of any deficit, claudication by history. 2. Thoracic spine pain by examination. No obvious fracture. 3. At least a 2-year history of narcotic use including methadone and Percocet. It would certainly be unusual for patient with back pain or stenosis to be started on methadone as a first-line agent. I suspect likely noncompliance and narcotic abuse issues. 4. Multiple gastrointestinal issues with weight loss, treated by gastroenterology. 5. Malnutrition. PLAN: 1. The patient needs his MRI scan of the lumbar spine and T spine. He requests sedation due to claustrophobia. Anesthesia consult can be obtained while here in the hospital to obtain a lumbar MRI, but this can also be done as outpatient. 2. With respect to his narcotic use and abuse, we do not offer those services as we are in interventional clinic; however, we do have access to Psychiatric Services which may aid in weaning his narcotics and treating underlying psychiatric issues. With respect to his chronic pain, I see no indication for chronic narcotic use in this patient indeed with his gastrointestinal symptoms, they are relatively contraindicated. DILLAN
[2018-03-24 05:39] LABS: Hemoglobin 10.4 g/dL (14.0-18.0)
[2018-03-24 05:49] LABS: Calc. Creatinine Clearance 64 mL/min (70-130); Estimated GFR-MDRD Greater than 90
[2018-03-24] MEDS: Pantoprazole 40 MG VIAL IVP SCH (08:04)
[2018-03-24] MEDS: Polyethylene Glycol 3350 17 GM Packet PO SCH (08:05)
[2018-03-24] MEDS: Senokot S 8.6-50 MG TAB PO SCH ×2 (08:05→20:15)
[2018-03-24] MEDS: Amiodarone 200 MG TAB PO SCH (08:05)
[2018-03-24] MEDS: Morphine 4 MG/ML VIAL SLOW IVP PRN ×2 (08:07→20:14)
--- NOTE | 2018-03-24 14:53 | PDOC.PN ---
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 - Objective MAR Reviewed: Yes Vital Signs & Weight: Vital Signs (12 hours) Temp Pulse Resp BP BP Pulse Ox 03/24/18 10:59 98.8 F 86 16 117/84 98 03/24/18 08:00 98.8 F 81 16 96 03/24/18 07:23 98.8 F 81 16 134/93 H 98 03/24/18 04:00 99 F 90 18 127/82 98 Weight Admit Weight 110 lb 6.4 oz Weight 115 lb 11.2 oz I&O: 03/23/18 03/24/18 03/25/18 06:59 06:59 06:59 Intake Total 650 1670 480 Balance 650 1670 480 Result Diagrams: 03/24/18 04:57 03/24/18 04:57 Phys Exam - Physical Examination Constitutional: NAD cachectic HEENT: PERRLA, moist MMs, sclera anicteric, oral pharynx no lesions Neck: no nodes, no JVD, supple, full ROM Respiratory: no wheezing, no rales, no rhonchi, clear to auscultation bilateral Cardiovascular: RRR, no significant murmur, no rub, gallop Gastrointestinal: soft, non-tender, no distention, positive bowel sounds Musculoskeletal: no edema, pulses present Neurological: non-focal, normal sensation, moves all 4 limbs Psychiatric: normal affect, A&O x 3 Skin: no rash Dx/Plan (1) Abdominal pain Code(s): R10.9 - UNSPECIFIED ABDOMINAL PAIN Status: Acute Qualifiers: Abdominal location: generalized Qualified Code(s): R10.84 - Generalized abdominal pain Comment: Suspect chronic component and secondary to chronic narcotic exposure, GI service followinf. pain control with Tramadol, Toradol, Morphine Sulfate 2mg IV q12h prn, Esophagitis noted on EGD with continued PPI, bx taken and pending (2) Constipation Code(s): K59.00 - CONSTIPATION, UNSPECIFIED Status: Acute Qualifiers: Constipation type: slow transit constipation Qualified Code(s): K59.01 - Slow transit constipation Comment: Opioid induced constipation,was on Sennokot-S BID, Miralax 17gm po daily, Fleets enemas, NGT, clear liquids, likely due to chronic narcotic exposure, Movantik 25mg daily.Now diarrhea ,so holding all. (3) Chronic pain disorder Code(s): G89.4 - CHRONIC PAIN SYNDROME Status: Chronic Comment: Tramadol, attempt to limit narcotic exposure, (4) Moderate protein-calorie malnutrition Code(s): E44.0 - MODERATE PROTEIN-CALORIE MALNUTRITION Status: Chronic Comment: Ensure Enlive TID (5) Gastroparesis Code(s): K31.84 - GASTROPARESIS Status: Suspected Comment: Continue Reglan 10mg IV q6h (6) Anemia Code(s): D64.9 - ANEMIA, UNSPECIFIED Status: Chronic (7) Chronic anticoagulation Code(s): Z79.01 - [employer]PLICATION [employer]EL[employer] (CURRENT) USE OF ANTICOAGULANTS Status: Acute (8) AL (acute kidney injury) Code(s): N17.9 - ACUTE KIDNEY FAILURE, UNSPECIFIED Status: Resolved Comment : Avoid nephrotoxic meds and contrast exposure, follow creatinine, hold Lisinopril, d/c IVF, resolved (9) Protein calorie malnutrition Code(s): E46 - UNSPECIFIED PROTEIN-CALORIE MALNUTRITION Status: Chronic Qualifiers: Protein-calorie malnutrition severity: severe Qualified Code(s): E43 - Unspecified severe protein-calorie malnutrition - Plan DVT proph w/SCDs Pt w severe malnutrition.will discuss w Dr. miller tomorrow?TPN/PEG -: avoid all pain meds for now.Movantik if constipation -: OP f/u w Pain med. -: remains high risk of admission d/t pain med dependence/no PCP/chr pain -: will follow.HD stable * . Review of Systems - Review of Systems Constitutional: weakness, malaise. negative: fever, chills, sweats, other Eyes: negative: Pain, Vision Change, Conjunctivae Inflammation, Eyelid Inflammation, Redness, Other ENT: negative: Ear Pain, Ear Discharge, Nose Pain, Nose Discharge, Nose Congestion, Mouth Pain, Mouth Swelling, Throat Pain, Throat Swelling, Other Respiratory: negative: Cough, Dry, Shortness of Breath, Hemoptysis, SOB with Excertion, Pleuritic Pain, Sputum, Wheezing Cardiovascular: negative: chest pain, palpitations, orthopnea, paroxysmal nocturnal dyspnea, edema, light headedness, other Gastrointestinal: Nausea, Vomiting, Abdominal Pain Genitourinary: negative: Dysuria, Frequency, Incontinence, Hematuria, Retention , Other Musculoskeletal: negative: Neck Pain, Shoulder Pain, Arm Pain, Back Pain, Hand Pain, Leg Pain, Foot Pain, Other - Medications/Allergies Allergies/Adverse Reactions: Allergies Allergy/AdvReac Type Severity Reaction Status Date / Time erythromycin base Allergy Verified 03/18/18 04:24 Penicillins Allergy Verified 03/18/18 04:24 Medications: Current Medications Acetaminophen (Tylenol) 1,000 mg PO Q6H PRN PRN Reason: Moderate to Severe Pain (6-10) Last Admin: 03/23/18 20:42 Dose: 1,000 mg Hydrocodone Bitart/Acetaminophen ([place] 5/325) 1 tab PO Q6H PRN PRN Reason: Pain Last Admin: 03/24/18 11:43 Dose: 1 tab Amiodarone HCl (Cordarone) 200 mg PO DAILY [facility] [place] Last Admin: 03/24/18 08:05 Dose: 200 mg Fluconazole (Diflucan) 100 mg PO 1700 [facility] [place] Last Admin: 03/23/18 17:26 Dose: 100 mg Hydroxyzine HCl (Atarax) 25 mg PO Q6H PRN PRN Reason: Anxiety Last Admin: 03/23/18 19:32 Dose: 25 mg Metoclopramide HCl (Reglan) 10 mg IVP Q6HR [facility] [place] Last Admin: 03/24/18 11:40 Dose: 10 mg Miscellaneous Medication (Movantik) 25 mg PO DAILY-AC [facility] [place] Last Admin: 03/24/18 08:05 Dose: 25 mg Morphine Sulfate (Morphine) 2 mg SLOW IVP Q12H PRN PRN Reason: Moderate to Severe Pain (6-10) Last Admin: 03/24/18 08:07 Dose: 2 mg Pantoprazole Sodium (Protonix) 40 mg IVP DAILY [facility] [place] Last Admin: 03/24/18 08:04 Dose: 40 mg Polyethylene Glycol (Miralax) 8.5 gm PO DAILY [facility] [place] Last Admin: 03/24/18 08:05 Dose: Not Given Senna/Docusate Sodium (Senokot S) 1 tab PO BID [facility] [place] Last Admin: 03/24/18 08:05 Dose: 1 tab Sodium Biphosphate/Sodium Phosphate (Fleet Enema) 133 ml [place] Q4H [facility] Last Admin: 03/24/18 13:38 Dose: Not Given Sodium Chloride (Flush - Normal Saline) 10 ml IVF Q12HR [facility] Last Admin: 03/24/18 08:05 Dose: 10 ml Sodium Chloride (Flush - Normal Saline) 10 ml IVF PRN PRN PRN Reason: Saline Flush Last Admin: 03/22/18 05:30 Dose: 10 ml Sodium Chloride (Flush - Normal Saline) 10 ml IV DAILY [facility] [place] Last Admin: 03/24/18 08:06 Dose: 10 ml
[2018-03-24] MEDS ORDERED: Ondansetron HCl/PF 4 MG/2 ML Vial IVP PRN (14:58)
--- NOTE | 2018-03-24 19:37 | PRG ---
DATE OF SERVICE: 03/24/2018 SUBJECTIVE: Patient is seen and examined with no new complaint. PHYSICAL EXAMINATION: VITAL SIGNS: Afebrile with temperature 98.8, pulse 87, respiratory rate of 16, O2 sat 99% with blood pressure 126/89. HEENT: Unremarkable with moist oral mucosa. Neck is supple. No conjunctival injection or icterus. CARDIOVASCULAR: First and second heart sounds were heard. RESPIRATORY: Clear to auscultation. DIGESTIVE: Revealed a benign abdomen with positive bowel sounds. EXTREMITIES: No peripheral edema. SKIN: No new gross rash. LYMPHATICS: No peripheral lymphadenopathy. IMPRESSION: 1. Acute kidney injury which has improved. 2. Metabolic acidosis. 3. Severe protein energy malnutrition. PLAN: 1. The patient needs nutritional support. 2. Renal supportive measures. 3. Further management to be dependent on the clinical course.
[2018-03-24] MEDS: hydrOXYzine 25 MG TAB PO PRN (22:07)
[2018-03-25] MEDS: Fleet Enema 133 ML BOT PR SCH ×6 (00:17→19:34)
[2018-03-25] MEDS: Metoclopramide HCl 10 MG/2 ML VIAL IVP SCH ×4 (00:18→18:33)
[2018-03-25] MEDS: HYDROcodone/Acetaminophen 5/325 mg Tablet PO PRN ×2 (03:11→10:07)
[2018-03-25 05:40] LABS: Anion Gap 9 mmol/L (10-20); BUN (Urea Nitrogen) 14 mg/dL (8.4-25.7); Calc. Creatinine Clearance 51 mL/min (70-130); Calcium 8.5 mg/dL (7.8-10.44); Carbon Dioxide 18 mmol/L (23-31); Chloride 113 mmol/L (98-107); Estimated GFR-MDRD 74; Glucose 104 mg/dL (80-115); Magnesium 1.5 mg/dL (1.6-2.6); Potassium 4.5 mmol/L (3.5-5.1); Sodium 135 mmol/L (136-145)
[2018-03-25] MEDS: Morphine 4 MG/ML VIAL SLOW IVP PRN (08:49)
[2018-03-25] MEDS: Amiodarone 200 MG TAB PO SCH (08:50)
[2018-03-25] MEDS: Pantoprazole 40 MG VIAL IVP SCH (08:50)
[2018-03-25] MEDS: Senokot S 8.6-50 MG TAB PO SCH ×2 (08:51→19:34)
[2018-03-25] MEDS: Polyethylene Glycol 3350 17 GM Packet PO SCH (08:51)
[2018-03-25] MEDS: hydrOXYzine 25 MG TAB PO PRN ×2 (08:59→16:13)
[2018-03-25] MEDS ORDERED: Magnesium Sulfate 2 GM in Sodium Chloride 0.9% 100 ML IVPB SCH (09:00)
[2018-03-25] MEDS ORDERED: Magnesium 2 GM/NS 0.9% 100 ML 2 GM in Premix Bag 1 BAG IVPB SCH (09:15)
--- NOTE | 2018-03-25 13:44 | PDOC.PN ---
- Subjective Encounter Start Date: 03/25/18 Encounter Start Time: 13:42 Subjective: reports that he vomited twice yesterday.eating without much problem but -: wants regular,softer diet.still has multiple loose stools -: using prn pain meds around the clock - Objective MAR Reviewed: Yes Vital Signs & Weight: Vital Signs (12 hours) Temp Pulse Resp BP Pulse Ox 03/25/18 08:00 98.5 F 75 18 97 03/25/18 07:46 98.5 F 75 18 116/78 97 Weight Admit Weight 110 lb 6.4 oz Weight 115 lb 11.2 oz I&O: 03/24/18 03/25/18 03/26/18 06:59 06:59 06:59 Intake Total 1670 1440 Balance 1670 1440 Result Diagrams: 03/24/18 04:57 03/25/18 04:28 Additional Labs: labs reviewed Phys Exam - Physical Examination Constitutional: NAD cachectic HEENT: PERRLA, moist MMs, sclera anicteric, oral pharynx no lesions Neck: no nodes, no JVD, supple, full ROM Respiratory: no wheezing, no rales, no rhonchi, clear to auscultation bilateral Cardiovascular: RRR, no significant murmur, no rub Gastrointestinal: soft, non-tender, no distention, positive bowel sounds Musculoskeletal: no edema, pulses present Neurological: non-focal, normal sensation, moves all 4 limbs Psychiatric: normal affect, A&O x 3 Skin: no rash Dx/Plan (1) Abdominal pain Code(s): R10.9 - UNSPECIFIED ABDOMINAL PAIN Status: Acute Qualifiers: Abdominal location: generalized Qualified Code(s): R10.84 - Generalized abdominal pain Comment: Suspect chronic component and secondary to chronic narcotic exposure, GI service following., Esophagitis noted on EGD with continued PPI, bx taken and pending (2) Constipation Code(s): K59.00 - CONSTIPATION, UNSPECIFIED Status: Acute Qualifiers: Constipation type: slow transit constipation Qualified Code(s): K59.01 - Slow transit constipation Comment: Opioid induced constipation,was on Sennokot-S BID, Miralax 17gm po daily, Fleets enemas, NGT, clear liquids, likely due to chronic narcotic exposure, Movantik 25mg daily.Now diarrhea ,so holding all. (3) Chronic pain disorder Code(s): G89.4 - CHRONIC PAIN SYNDROME Status: Chronic Comment: stop all pain meds for now (4) Moderate protein-calorie malnutrition Code(s): E44.0 - MODERATE PROTEIN-CALORIE MALNUTRITION Status: Chronic Comment: Ensure Enlive TID (5) Gastroparesis Code(s): K31.84 - GASTROPARESIS Status: Suspected Comment: Continue Reglan 10mg IV q6h (6) Anemia Code(s): D64.9 - ANEMIA, UNSPECIFIED Status: Chronic (7) Chronic anticoagulation Code(s): Z79.01 - RETIREMENT (CURRENT) USE OF ANTICOAGULANTS Status: Acute Comment: on hold for now due to recent EGD and need for Colonoscopy (8) AL (acute kidney injury) Code(s): N17.9 - ACUTE KIDNEY FAILURE, UNSPECIFIED Status: Resolved Comment : Avoid nephrotoxic meds and contrast exposure, follow creatinine, hold OSVALDO-I, d /c IVF, resolved (9) Protein calorie malnutrition Code(s): E46 - UNSPECIFIED PROTEIN-CALORIE MALNUTRITION Status: Chronic Qualifiers: Protein-calorie malnutrition severity: severe Qualified Code(s): E43 - Unspecified severe protein-calorie malnutrition (10) Paroxysmal atrial fibrillation Code(s): I48.0 - PAROXYSMAL ATRIAL FIBRILLATION Status: Chronic Comment: NSR here. Eliquis ,CCB on hold - Plan PT/OT, out of bed/ambulate, DVT proph w/SCDs discussed in detail with pt & GI Dr. Lindsey -: will stop all narcotics for now.may need colonoscopy but prep w/b difficult -: HR controlled w/o CCB.cont to hold.Eliquis on hold in anticipation of colon -: Benazepril on hold for AL. restart if needed for high BP -: pt refusing NH placement.will get Pt eval for possible rehab placement * .discussed narcotic detox programs and will provide info on DC. discussed with CM as well * Pt HD stable .will start regular soft diet and monitor for any symptom worsening * so far, total protein,albumin,BUN etc are all WNL . * Difficult to Dc despite pt being stable as he remains in pain and vomits frequently * follow final GI recs-appreciate input from Dr. Lindsey * replace magnesium today Review of Systems - Review of Systems Constitutional: weakness. negative: fever, chills, sweats, malaise, other Respiratory: negative: Cough, Dry, Shortness of Breath, Hemoptysis, SOB with Excertion, Pleuritic Pain, Sputum, Wheezing Cardiovascular: negative: chest pain, palpitations, orthopnea, paroxysmal nocturnal dyspnea, edema, light headedness, other Gastrointestinal: Nausea, Vomiting. negative: Abdominal Pain, Diarrhea, Constipation, Melena, Hematochezia, Other Genitourinary: negative: Dysuria, Frequency, Incontinence, Hematuria, Retention , Other Musculoskeletal: negative: Neck Pain, Shoulder Pain, Arm Pain, Back Pain, Hand Pain, Leg Pain, Foot Pain, Other Skin: negative: Rash, Lesions, Jose Enrique, Bruising, Other Neurological: negative: Weakness, Numbness, Incoordination, Change in Speech, Confusion, Seizures, Other - Medications/Allergies Allergies/Adverse Reactions: Allergies Allergy/AdvReac Type Severity Reaction Status Date / Time erythromycin base Allergy Verified 03/18/18 04:24 Penicillins Allergy Verified 03/18/18 04:24 Medications: Current Medications Acetaminophen (Tylenol) 1,000 mg PO Q6H PRN PRN Reason: Moderate to Severe Pain (6-10) Last Admin: 03/23/18 20:42 Dose: 1,000 mg Amiodarone HCl (Cordarone) 200 mg PO DAILY [facility] Last Admin: 03/25/18 08:50 Dose: 200 mg Hydroxyzine HCl (Atarax) 25 mg PO Q6H PRN PRN Reason: Anxiety Last Admin: 03/25/18 08:59 Dose: 25 mg Metoclopramide HCl (Reglan) 10 mg IVP Q6HR [facility] Last Admin: 03/25/18 12:46 Dose: 10 mg Miscellaneous Medication (Movantik) 25 mg PO DAILY-AC [facility] Last Admin: 03/25/18 08:49 Dose: Not Given Ondansetron HCl (Zofran) 4 mg IVP Q6H PRN PRN Reason: Nausea/Vomiting Pantoprazole Sodium (Protonix) 40 mg IVP DAILY [facility] Last Admin: 03/25/18 08:50 Dose: 40 mg Polyethylene Glycol (Miralax) 8.5 gm PO DAILY [facility] Last Admin: 03/25/18 08:51 Dose: Not Given Senna/Docusate Sodium (Senokot S) 1 tab PO BID [facility] Last Admin: 03/25/18 08:51 Dose: Not Given Sodium Biphosphate/Sodium Phosphate (Fleet Enema) 133 ml [place] Q4H [facility] Last Admin: 03/25/18 12:47 Dose: Not Given Sodium Chloride (Flush - Normal Saline) 10 ml IVF Q12HR [facility] Last Admin: 03/25/18 08:51 Dose: 10 ml Sodium Chloride (Flush - Normal Saline) 10 ml IVF PRN PRN PRN Reason: Saline Flush Last Admin: 03/22/18 05:30 Dose: 10 ml Sodium Chloride (Flush - Normal Saline) 10 ml IV DAILY [facility] Last Admin: 03/25/18 08:51 Dose: 10 ml
--- NOTE | 2018-03-25 17:04 | PRG ---
DATE OF SERVICE: 03/25/2018 SUBJECTIVE: Mr. Storey states he vomited twice today and vomited twice yesterday. He is insisten t on continuing on a solid diet. EGD was performed by Dr. Esquivel, which did not show a stricture at the anastomosis. He did below a 12-mm balloon up in the anastomosis with no change. Colonoscopy was attempted, but was aborted due to solid stool in the rectal vault. The patient has since been refus ing laxatives. He has still been getting IV morphine and oral hydrocodone. He received both this mo rning. He has been having multiple stools per day. PHYSICAL EXAMINATION: VITAL SIGNS: Temperature 98.5, pulse 75, blood pressure 116/78. GENERAL: He is in no acute distress. He is alert and oriented x3. HEENT: Eyes have no scleral icterus. LUNGS: Clear to auscultation bilaterally. HEART: Regular rate and rhythm. ABDOMEN: Soft, it is tender in the left abdomen; however, there is absolutely no guarding and his elliott wel sounds are present. EXTREMITIES: No lower extremity edema. LABORATORY DATA: This morning, creatinine 1.0, albumin 4.3 on 03/18/2018. IMPRESSION: 1. Chronic nausea and vomiting. He most likely has dysmotility secondary to chronic opioid abuse. He has had multiple gastric surgeries, which is impacted this as well. Most likely a vagotomy. He h as been on Reglan chronically without much help. Previous recommendation was to go on a full liquid diet and completely stop all opioid medications. Opioid pain medicine is not appropriate for vague a bdominal pain of undetermined etiology anyway. Balloon dilation of the gastrojejunostomy anastomosis did not result in any significant change. He has been persistent in getting back on solid foods, ev en though he complains of vomiting multiple times per day. 2. Iron deficiency anemia. Upper endoscopy was negative for bleeding source. Colonoscopy was incom plete. He originally said that he had never had a colonoscopy; however, now he states that he did rosas ve a colonoscopy in 2013 perhaps in [place]. He states also that he had had a colonoscopy attempte d, but they could not get him cleaned out. He has been variable on his history on this matter. Give n the iron deficiency, I do recommend that he follow through with the colonoscopy and repeat prep. 3. Opioid dependence with associated bowel dysmotility. RECOMMENDATIONS: 1. I offered a repeat bowel prep today for colonoscopy tomorrow. He states that he would rather not repeat a colonoscopy and will consider this as an outpatient. 2. Discontinue opioid pain medications. 3. If he continues vomiting, then again full liquid diet is recommended rather than TPN. 4. The patient requests discharge home once recommendation for opioid cessation is given. Earlier t his morning, the Hospitalist informed him that his albumin was normal and that nutritionally he was m eeting his needs; however, he stated that he would go straight back to the emergency room and would n ot leave. However, this afternoon when I recommended the plan of action as I also recommended last w [place], he states that he does want to discharge home today. 5. He can follow up in GI clinic in a couple of weeks to arrange outpatient colonoscopy if he change s his mind. 6. Hopefully, we will be able to wean off the Reglan in the future given inadequate response to this medication and hopefully his dysmotility will improve if he is able to ultimately avoid the opioids. I would recommend against prescribing opioid pain medications with repeated ER visits for similar a bdominal pain, nausea and vomiting.
[2018-03-25] MEDS ORDERED: Acetaminophen/Codeine 30-300mg Tablet PO SCH (19:15)
[2018-03-26] MEDS: Fleet Enema 133 ML BOT PR SCH ×3 (01:00→09:26)
[2018-03-26] MEDS: Metoclopramide HCl 10 MG/2 ML VIAL IVP SCH ×2 (01:01→05:39)
[2018-03-26 07:35] VITALS: BP 117/82; TEMP 98.3
[2018-03-26] MEDS: Pantoprazole 40 MG VIAL IVP SCH (09:22)
[2018-03-26] MEDS: Amiodarone 200 MG TAB PO SCH (09:22)
[2018-03-26] MEDS: Senokot S 8.6-50 MG TAB PO SCH (09:26)
[2018-03-26] MEDS: Polyethylene Glycol 3350 17 GM Packet PO SCH (09:26)
--- NOTE | 2018-03-26 17:41 | DIS ---
DATE OF ADMISSION: 03/18/2018 DATE OF DISCHARGE: 03/26/2018 CONDITION AT THE TIME OF DISCHARGE: Stable and improved. DISCHARGE DISPOSITION: Home. PRIMARY CARE PHYSICIAN: None. The patient is instructed to follow up and setup appointment with [facility] PCP as he recently moved to the area. DISCHARGE DIAGNOSES: 1. Abdominal pain secondary to excessive narcotic abuse. 2. Opioid-induced constipation, resolved. 3. Chronic pain disorder. 4. Moderate malnutrition, likely caloric. 5. History of gastroparesis due to multiple abdominal surgeries. 6. Chronic anemia. 7. Chronic anticoagulation for atrial fibrillation. 8. History of chronic atrial fibrillation. 9. Acute kidney injury, resolved. DISCHARGE MEDICATIONS: Resume home medications are as follows: Omeprazole 20 mg p.o. b.i.d., Eliqui s 5 mg p.o. b.i.d., diltiazem 240 mg a day, amiodarone 200 mg daily, potassium chloride 10 mEq daily, Reglan 10 mg p.o. b.i.d. p.r.n., benazepril 20 mg p.o. b.i.d., Imitrex as needed, Zofran as needed e very 8 hours 4 mg orally. INHOUSE CONSULTATIONS: 1. Nephrology, Dr. West. 2. Gastroenterology, Dr. Lindsey and Dr. Esquivel. 3. Pain medicine specialist, Dr. Elise. PROCEDURES DONE IN THE HOSPITAL: Include, 1. CT scan of the abdomen and pelvis upon presentation, which shows moderate amount of stool through out the colon without obstruction and nonacute abdomen without any acute changes. Surgical changes s een throughout the abdomen. 2. Renal ultrasound which is unremarkable without any evidence of any hydronephrosis. 3. Abdominal x-ray which is negative for any free air or fluid and is unremarkable. 4. EGD by Dr. Esquivel on 03/21/2018 which shows likely reflux esophagitis, status post biopsy and sto mach anatomy consistent with Billroth type 1 anastomosis and dilated stomach with retained food stephanie nt. Colonoscopy was attempted, but aborted secondary to large amount of retained fecal matter in the rectal vault. HISTORY OF PRESENT ILLNESS: Mr. Storey is a 68-year-old male with past medical history of atrial fibrillation, gastroparesis, chronic abdominal and back pain and chronic nausea, vomiting, and histor y of bladder cancer, status post multiple abdominal surgeries, who presented to the emergency room w ith complaints of abdominal pain, nausea, and vomiting. He recently moved from [place] to [facility] about 10 days ago after living there for 47 years. He said that he was not getting any care over there, so he moved to be close to his friend who promised him that he will take care of th e patient. Nevertheless, upon presentation, he reported that normally he has nausea and vomiting about 10-12 ross es a day associated with abdominal pain. He said that he was not able to keep anything down in the l ast few days and decided to show up at the emergency room. Upon presentation to the ER, he underwent a CT scan of the abdomen and pelvis which was negative for any obstruction which showed a huge amoun t of stool. He was hemodynamically stable and his blood work was essentially unremarkable. There wa s some component of dehydration with BUN of 57 and creatinine of 3.45. Troponin was also found to be mildly elevated at 0.056. He was admitted with acute renal failure and dehydration as well as gastr oparesis for further evaluation. Nephrology and GI was consulted. Please see admission history and physical for further details. HOSPITAL COURSE: Nephrology, Dr. West saw the patient and renal ultrasound was done which was unremarkable. He was hydrated and his renal function return back to normal very quickly and stayed n ormal throughout the rest of his hospitalization, so he signed off. With regards to his history of complicated abdominal surgeries and longstanding gastroparesis and chr onic abdominal pain due to chronic narcotic abuse, GI was consulted. He underwent an EGD which showe d reflux esophagitis only. A colonoscopy was attempted, but because of the poor bowel prep, it could not be finished. It was difficult for the physicians involved in his care because he kept on demand ing pain medications around the clock worsening his already bad abdominal situation. He was started on Reglan IV without much benefit. Eventually, it was decided that all pain medications will be stop ped. He was started on Movantik because he was not moving his bowel along with other stool softeners and laxatives. Eventually with Movantik, he started to have good bowel movements and then he starte d to refuse any more laxatives. Pain medications were stopped and pain medicine doctors were consult ed. Dr. Elise did see the patient, but his only recommendation was drug and opioid dependence rehab for this patient. Dr. Lindesy recommended that we do not give him any sort of opioids at all and that was done. The patient was instructed to have small frequent liquid meals, but he insisted on g etting full regular diet which continued to make him nauseous and on and off vomiting. His vomiting frequency; however, has decreased to once or twice a day. By the time of discharge, we attempted multiple venues to get this patient some help. He did not jhonatan lify for rehab because he was not in very good shape and was walking 2000 feet with the help of the p hysical therapist. He did not have any protein malnutrition because his BUN, total albumin and prote in levels were within normal limit. His kidney function recovered and he did not require any IV hydr ation either. At this time, colonoscopy was offered to him again, but he refused. Because there are no other brandon us medical issues and the patient is hemodynamically stable, he is instructed to follow up and establ yasmani care with a primary care physician and follow up with GI and pain medicine doctors in the outpati ent setting. He was also given options for opioid dependence rehabilitation. He also was given opti ons for jail placement which he once again declined. Please note that this patient remains a very high risk for readmission because of his years and years of opioid dependence and abuse and high chances of withdrawal because he has not been prescribed any opioids. Please note that if this patient comes back to the emergency room, he should not be prescr ibed any sort of narcotic. This will only worsen his abdominal situation with worsening constipation and ileus and eventually obstruction, worsening dehydration that he is so susceptible too. The patient was seen and examined prior to discharge. PHYSICAL EXAMINATION: VITAL SIGNS: This morning, his vital signs are stable. Temperature 98.3, pulse of 77, respirations 16, saturating 98% on room air, and blood pressure 117/82. GENERAL: No acute distress, awake, alert, and oriented x3. CHEST: Clear to auscultation without any wheezing, rales or rhonchi. Rate and rhythm is regular. ABDOMEN: Soft, nontender, nondistended, positive bowel sounds. EXTREMITIES: Free of any cyanosis, clubbing, or edema. LABORATORY DATA: Hemoglobin 10.4. Serum chemistries: Sodium 135. His B12 and folic acid levels ar e normal. TSH levels are normal. His liver enzymes are normal as well. His total protein is 7.2, a lbumin 4.3, his BUN 15 and creatinine 0.85, ferritin 59.26. Once again, this patient remains a high risk for readmission because of his narcotic dependence. Total time spent in the discharge of this patient is 38 minutes including multiple discussions with [facility] physicians and trying to arrange any sort of home health or rehab for him. advertising assistant manager is dalila guerrero on arranging Home Health for this patient for [facility]. He does not require physical t herapy or occupation therapy as he is adequately independent.
== END 2018-03-26 14:31 | disposition home health service (06) | DRG 682 ==
LOC: ERS 23:29 → 2SE 03-18 02:47 → T4-A 03-22 20:08
PROVIDERS: ADMIT Internal Medicine; ATTEND Internal Medicine
PROC: 0DB58ZX Excision of Esophagus, Via Natural or Artificial Opening Endoscopic, Diagnostic (ICD-10-PCS; principal; 2018-03-21)
PROC: 0D768ZZ Dilation of Stomach, Via Natural or Artificial Opening Endoscopic (ICD-10-PCS; 2018-03-21)
PROC: 0D9680Z Drainage of Stomach with Drainage Device, Via Natural or Artificial Opening Endoscopic (ICD-10-PCS; 2018-03-21)
DX: N17.9 Acute kidney failure, unspecified (principal); E43 Unspecified severe protein-calorie malnutrition; Z68.1 Body mass index [BMI] 19.9 or less, adult; K22.10 Ulcer of esophagus without bleeding; F11.20 Opioid dependence, uncomplicated; E87.2 Acidosis; K59.03 Drug induced constipation; K59.01 Slow transit constipation; T40.2X5A Adverse effect of other opioids, initial encounter; G89.4 Chronic pain syndrome; Z79.01 Long term (current) use of anticoagulants; I48.0 Paroxysmal atrial fibrillation; I10 Essential (primary) hypertension; Z85.51 Personal history of malignant neoplasm of bladder; E86.0 Dehydration; K31.84 Gastroparesis; K21.0 Gastro-esophageal reflux disease with esophagitis; K31.89 Other diseases of stomach and duodenum; D50.9 Iron deficiency anemia, unspecified; K59.8 Other specified functional intestinal disorders; R10.84 Generalized abdominal pain; I48.2 Chronic atrial fibrillation
CPT/HCPCS: 36415; 71045; 74018; 74176; 76770; 80048; 80053; 81003; 81015; 82553; 82565; 82570; 82607; 82728; 82746; 83540; 83550; 83605; 83690; 83735; 84100; 84156; 84300; 84425; 84443; 84484; 84540; 85007; 85014; 85018; 85025; 85027; 87040; 87086; 88305; 88312; 88313; 90471; 90670; 93005; 96361; 96374; 96375; A4216; C1726; C9113; G0009; G8978-GP-CI; G8979-GP-CI; G8980-GP-CI; J2001; J2060; J2270; J2704; J2765; J2916; J3010; J3475; J7050; Q0162

== ENCOUNTER 2018-08-23 10:45 | Inpatient (IN) | payer MEDICARE ==
[2018-08-23 11:34] LABS: #Monocytes 1.4 thou/uL (0.11-0.59); #Neutrophils 8.9 thou/uL (1.40-6.50); %Basophils 0.4 % (0.0-1.0); %Eosinophils 0.2 % (0.0-10.0); %Lymphocytes 8.7 % (21.0-51.0); %Monocytes 12.4 % (0.0-10.0); %Neutrophils 78.3 % (42.0-75.0); Hemoglobin 12.2 g/dL (14.0-18.0); Mean Corpuscular HGB CONC 31.3 g/dL (32.0-36.0); Mean Corpuscular Volume 79.9 fL (78.0-98.0); Mean Platelet Volume 7.3 fL (7.4-10.4); Platelet Count 430 thou/uL (130-400); RBC Distribution Width 14.8 % (11.5-14.5); Red Blood Cell (RBC) Count 4.89 mill/uL (4.70-6.10); White Blood Cell (WBC) Count 11.3 thou/uL (4.8-10.8)
[2018-08-23 11:57] LABS: ALT (SGPT) 24 U/L (8-55); AST (SGOT) 25 U/L (5-34); Albumin 3.8 g/dL (3.4-4.8); Alkaline Phosphatase 84 U/L (40-150); Anion Gap 19 mmol/L (10-20); BUN (Urea Nitrogen) 65 mg/dL (8.4-25.7); Bilirubin, Total 0.4 mg/dL (0.2-1.2); Calc. Creatinine Clearance 0 mL/min (70-130); Calcium 9.5 mg/dL (7.8-10.44); Carbon Dioxide 19 mmol/L (23-31); Chloride 94 mmol/L (98-107); Estimated GFR-MDRD 26; Globulin 2.9 g/dL (2.4-3.5); Glucose 113 mg/dL (80-115); Lipase 28 U/L (8-78); Potassium 4.2 mmol/L (3.5-5.1); Protein, Total 6.7 g/dL (5.8-8.1); Sodium 128 mmol/L (136-145)
[2018-08-23] MEDS ORDERED: Morphine 2 MG/ML SYRINGE ONE (12:43)
[2018-08-23] MEDS ORDERED: Bisacodyl 5 MG TAB PO PRN (13:50)
[2018-08-23] MEDS ORDERED: Acetaminophen 650 MG Suppository PR PRN (13:50)
[2018-08-23] MEDS ORDERED: Acetaminophen 325 MG TAB PO PRN (13:50)
--- NOTE | 2018-08-23 14:31 | HP ---
PRIMARY CARE PROVIDER: Khoi Fregoso M.D. CHIEF COMPLAINT: J-tube problem. HISTORY OF PRESENT ILLNESS: Mr. Storey is a pleasant 68-year-old gentleman who was seen at [facility] on 08/23/2018. He was hospitalized at [facility] from 02/15/2018 to 03/26/2018 of this year f or abdominal pain, nausea, and vomiting. He used to live in [place] and moved to this area in February of this year. He had stomach resection with removal of his pyloric valve in the past while in [place], several years ago. He ended up hav ing 2 additional abdominal surgeries. The patient reports chronic nausea and vomiting and has lost 1 00 pounds in 1 year. He also reports multiple hospitalizations requiring TPN because of dehydration and malnutrition. He moved to this area because his friend lives here and recommended to come here so that his friend reji jc take care of him. He reports that he had a J-tube placed by Dr. Gonsales at [facility] 4 or 5 months ago. He report s that initially there was a small amount of leakage around the J-tube. The leakage has been worseni ng. He reports presenting to the emergency room at [facility] every 2 or 3 weeks because of deh ydration. He will receive intravenous hydration and then be discharged home. He reports that over t he last couple of days he has been feeling dehydrated again. He drinks fluids and also pushes fluid through the J-tube, but the fluids appear to be coming out from around the J-tube. He reports generalized weakness. He denies any fevers or chills. He denies any nausea or vomiting. REVIEW OF SYSTEMS: All other systems reviewed and found to be negative. PAST MEDICAL HISTORY: Gastroparesis, chronic back pain, abdominal pain, chronic nausea, vomiting, an d bladder cancer. PAST SURGICAL HISTORY: Abdominal surgery x3, J-tube placement. SOCIAL HISTORY: The patient denies tobacco use, alcohol use or recreational drug use. ALLERGIES: ERYTHROMYCIN and PENICILLIN. CURRENT MEDICATIONS: These need to be clarified, but appear to include aspirin/acetaminophen/caffein e 1 tablet 2 times a day as needed, omeprazole 20 mg 2 times a day, Imitrex 25 mg every 2 hours as ne eded, Topamax 100 mg 2 times a day, and Zofran p.r.n. FAMILY HISTORY: He denies any family history of coronary artery disease. CODE STATUS: I discussed his code status. He is FULL CODE. His friend, Hamilton, is the surrogate ivy ortiz maker. PHYSICAL EXAMINATION: GENERAL: Mr. Storey is awake and alert, not in acute distress. He appears malnourished. VITAL SIGNS: Blood pressure is 151/110, pulse 98, respiratory rate 18, and oxygen saturation 100% on room air. He is afebrile. EYES: No scleral icterus. No conjunctival pallor. ENT: Dry mucosal membranes, no oropharyngeal erythema or exudates. NECK: Supple, nontender, trachea is midline. RESPIRATORY: Accessory muscles of breathing are not active. Chest wall movements are symmetric bila terally. LUNGS: Clear to auscultation without wheeze, rhonchi or crepitations. CARDIOVASCULAR: S1 and S2 are heard, regular. Peripheral pulses palpable. No carotid bruit, no per icardial rub. ABDOMEN: Soft, nontender, bowel sounds heard. EXTREMITIES: The patient has a J-tube which is covered with dressing. He did not want me to remove the dressing to examine the J-tube. NEUROLOGIC: Cranial nerves II-XII intact. Deep tendon reflexes are 2+. MUSCULOSKELETAL: Power is 5/5 in all 4 extremities. SKIN: No rashes or subcutaneous nodules. LYMPHATIC: No cervical lymphadenopathy. PSYCHIATRIC: Normal mood, normal affect. The patient is oriented to person, place, and time. LABORATORY DATA: Mr. Storey's labs and investigations were reviewed. Electrocardiogram shows nor mal sinus rhythm with occasional premature ventricular complexes. He has decreased sodium of 128, de creased carbon dioxide of 19, normal lactic acid, elevated blood urea nitrogen of 65, elevated creati nine of 2.48, last known creatinine 1.00 on 03/25/2018, normal liver profile, normal lipase, leukocyt osis with 11,300 white cells, of which 78.3% are neutrophils, normocytic anemia with hemoglobin of 12 .2 and elevated platelet count of 430,000. ASSESSMENT AND PLAN: Mr. Storey is a pleasant 68-year-old gentleman who was seen at [facility] on 08/23/2018. His problem list includes: 1. Dehydration: Mr. Storey is presenting with dehydration, most likely secondary to malfunctioni ng J-tube. We will be admitted to the hospital and treated with intravenous fluids. We will also co [facility] Gastroenterology Service for opinion and help regarding malfunctioning J-tube. 2. Hyponatremia: Mild, we will recheck. 3. Acute kidney injury: Likely secondary to dehydration. Provide intravenous hydration and recheck creatinine. 4. Thrombocythemia: Etiology unclear, could be secondary to dehydration. Recheck platelet level. 5. Elevated blood pressure. Monitor vital signs. We will add antihypertensives as needed. Many thanks for allowing me to participate in your patient's care. Please feel free to contact me wi th any questions or concerns. LEVEL OF RISK: Moderate. LEVEL OF COMPLEXITY: Moderate.
[2018-08-23] MEDS ORDERED: Ondansetron HCl/PF 4 MG/2 ML Vial ONE (14:53)
[2018-08-23 14:56] LABS: Bilirubin Negative (Negative); Blood, Urine Trace (Negative); Clarity CLOUDY (Clear); Glucose, Urine (Dipstick) Negative (Negative); Leukocyte Moderate (Negative); Nitrite Negative (Negative); Protein, Urine (Dipstick) Trace mg/dL (Neg-Trace); Specific Gravity, Urine 1.022 (1.002-1.036); Urobilinogen 0.2 mg/dL (0.2-1.0)
[2018-08-23 14:58] LABS: Bacteria/HPF None Seen HPF (None Seen); Pathc Cast-AUWi Flag 2.47 (0-2.49); Squamous Epithelial 0-3 HPF (0-3); Yeast-AUWi Flag 120.5 (0-25.0)
[2018-08-23 15:13] LABS: Hyaline Casts/LPF 0-3 HYALINE CAST LPF (0-3 Hyaline); Yeast-All Forms 1+ HPF (None Seen)
[2018-08-23 15:14] LABS: Renal Epithelial 0-3 HPF (0-3); Transitional Epithelial 0-3 HPF (0-3)
[2018-08-23] MEDS: Heparin 5,000 UNITS/ML VIAL SC SCH ×2 (16:21→20:23)
[2018-08-23] MEDS: Sodium Chloride 0.9% 1,000 ML IV SCH (16:22)
[2018-08-24] MEDS ORDERED: Melatonin 3 MG TAB PO SCH (00:45)
[2018-08-24 05:24] LABS: Anion Gap 15 mmol/L (10-20); BUN (Urea Nitrogen) 58 mg/dL (8.4-25.7); Calc. Creatinine Clearance 24 mL/min (70-130); Calcium 8.5 mg/dL (7.8-10.44); Carbon Dioxide 18 mmol/L (23-31); Chloride 100 mmol/L (98-107); Estimated GFR-MDRD 32; Glucose 88 mg/dL (80-115); Potassium 3.9 mmol/L (3.5-5.1); Sodium 129 mmol/L (136-145)
[2018-08-24] MEDS: Ondansetron HCl/PF 4 MG/2 ML Vial IVP PRN ×2 (06:25→12:00)
[2018-08-24] MEDS: Sodium Chloride 0.9% 1,000 ML IV SCH ×2 (06:33→12:04)
[2018-08-24] MEDS: Heparin 5,000 UNITS/ML VIAL SC SCH ×3 (07:29→20:27)
[2018-08-24] MEDS ORDERED: Aspirin/APAP/Caffeine Tab (Excedrin Migraine) PO PRN (08:19)
[2018-08-24] MEDS ORDERED: SUMAtriptan Succinate 25 MG TAB PO PRN (08:19)
[2018-08-24] MEDS: Metoclopramide HCl 10 MG TAB PO PRN ×2 (10:09→15:45)
[2018-08-24] MEDS: Topiramate 100 MG TAB PO SCH ×2 (10:09→20:27)
[2018-08-24 10:34] LABS: Eosinophils 5 % (0-10); Hemoglobin 10.7 g/dL (14.0-18.0); Hypochromia SLIGHT = 6-15 cells (100X) (0-5/hpf); Lymphocytes 24 % (21-51); MDiff Complete? YES; Mean Corpuscular HGB CONC 30.5 g/dL (32.0-36.0); Mean Corpuscular Hemoglobin 24.5 pg (27.0-31.0); Mean Corpuscular Volume 80.4 fL (78.0-98.0); Mean Platelet Volume 7.7 fL (7.4-10.4); Microcytosis SLIGHT = 6-15 cells (100X) (0-5/hpf); Monocytes 10 % (0-10); Neutrophil 61 % (42-75); PLT Morphology Comment Appears Adequate; Platelet Count 371 thou/uL (130-400); Polychromasia SLIGHT = 2-3 cells (100X) (0-2/hpf); RBC Distribution Width 14.8 % (11.5-14.5); Red Blood Cell (RBC) Count 4.35 mill/uL (4.70-6.10); White Blood Cell (WBC) Count 9.1 thou/uL (4.8-10.8)
[2018-08-24] MEDS ORDERED: Promethazine HCl 25 MG/ML VIAL SLOW IVP PRN (13:03)
[2018-08-24] MEDS ORDERED: Ondansetron HCl/PF 4 MG/2 ML Vial IVP PRN (13:03)
[2018-08-24] MEDS ORDERED: PROPOFOL 200 MG/20 ML VIAL ONE (13:25)
[2018-08-24] MEDS ORDERED: Lidocaine 1% PF 5 ML VIAL ONE (13:25)
--- NOTE | 2018-08-24 15:22 | PDOC.PN ---
- Subjective Encounter Start Date: 08/24/18 Encounter Start Time: 10:40 Pt seen for followup re: acute renal failure. Denies chest pain, feels slightly better. - Objective Resuscitation Status: Resuscitation Status FULL:Full Resuscitation MAR Reviewed: Yes Vital Signs & Weight: Vital Signs (12 hours) Temp Pulse Resp BP Pulse Ox 08/24/18 11:42 97.5 F L 75 16 146/97 H 99 08/24/18 08:00 96 08/24/18 07:33 98.2 F 74 19 157/77 H 96 08/24/18 04:00 97.8 F 95 18 153/99 H 99 Weight Weight 112 lb 12.969 oz I&O: 08/23/18 08/24/18 08/25/18 06:59 06:59 06:59 Intake Total 2340 Balance 2340 Result Diagrams: 08/24/18 04:03 08/24/18 04:03 Additional Labs: Labs reviewed by me Phys Exam - Physical Examination Constitutional: NAD HEENT: moist MMs Neck: supple Respiratory: clear to auscultation bilateral Cardiovascular: RRR Gastrointestinal: soft, non-tender, positive bowel sounds J-tube Neurological: moves all 4 limbs Psychiatric: normal affect Dx/Plan (1) AL (acute kidney injury) Code(s): N17.9 - ACUTE KIDNEY FAILURE, UNSPECIFIED Status: Acute Comment: Mild improvement, continue IV fluids and recheck, likely prerenal due to poor oral intake (2) Dehydration Code(s): E86.0 - DEHYDRATION Status: Acute Comment: continue IV fluids (3) Hyponatremia Code(s): E87.1 - HYPO-OSMOLALITY AND HYPONATREMIA Status: Acute Comment: improving (4) Abnormal finding on urinalysis Code(s): R82.90 - UNSPECIFIED ABNORMAL FINDINGS IN URINE Status: Acute Comment: pt denies any urinary symptoms. After discussion with pt, electing not to treat asymptomatic bacteriuria (5) Chronic pain disorder Code(s): G89.4 - CHRONIC PAIN SYNDROME Status: Chronic Comment: stable - Plan * . Pt to have EGD per GI service. Pt should followup with his surgeon for J-tube management. Review of Systems - Review of Systems Respiratory: negative: Cough, Shortness of Breath, SOB with Excertion, Pleuritic Pain, Wheezing Cardiovascular: negative: chest pain, palpitations, orthopnea, paroxysmal nocturnal dyspnea, edema, light headedness - Medications/Allergies Allergies/Adverse Reactions: Allergies Allergy/AdvReac Type Severity Reaction Status Date / Time erythromycin base Allergy Verified 07/08/18 11:09 Penicillins Allergy Verified 07/08/18 11:09 Medications: Current Medications Acetaminophen (Tylenol) 650 mg PO Q4H PRN PRN Reason: Headache/Fever/Mild Pain (1-3) Acetaminophen (Tylenol) 650 mg [place] Q4H PRN PRN Reason: Headache/Fever/Mild Pain (1-3) Acetaminophen/Aspirin/Caffeine (Excedrin Migraine) 1 tab PO BID PRN PRN Reason: Pain Bisacodyl (Dulcolax) 10 mg PO DAILYPRN PRN PRN Reason: Constipation Heparin Sodium (Porcine) (Heparin) 5,000 units SC TID [facility] Last Admin: 08/24/18 07:29 Dose: Not Given Sodium Chloride (Normal Saline 0.9%) 1,000 mls @ 100 mls/hr IV .Q10H [facility] Last Admin: 08/24/18 06:33 Dose: 1,000 mls Metoclopramide HCl (Reglan) 10 mg PO Q6HR PRN PRN Reason: Nausea/Vomiting Last Admin: 08/24/18 10:09 Dose: 10 mg Ondansetron HCl (Zofran) 4 mg IVP Q6H PRN PRN Reason: Nausea/Vomiting Last Admin: 08/24/18 12:00 Dose: 4 mg Ondansetron HCl (Pacu-Zofran) 4 mg IVP ONE PRN PRN Reason: Nausea/Vomiting Stop: 08/24/18 16:03 Pantoprazole Sodium (Protonix) 40 mg PO BID [facility] Last Admin: 08/24/18 10:09 Dose: 40 mg Promethazine HCl (Pacu-Phenergan) 6.25 mg SLOW IVP ONE PRN PRN Reason: Nausea/Vomiting Stop: 08/24/18 16:03 Sodium Chloride (Flush - Normal Saline) 10 ml IVF Q12HR [facility] Last Admin: 08/24/18 10:12 Dose: Not Given Sodium Chloride (Flush - Normal Saline) 10 ml IVF PRN PRN PRN Reason: Saline Flush Sumatriptan Succinate (Imitrex) 100 mg PO PRN PRN PRN Reason: Migraine Headache Topiramate (Topamax) 100 mg PO BID [facility] Last Admin: 08/24/18 10:09 Dose: 100 mg
[2018-08-24] MEDS ORDERED: Ondansetron ODT 4 MG TAB ONE (15:30)
[2018-08-24 16:30] VITALS: BMI 18.1
[2018-08-24] MEDS ORDERED: Promethazine HCl 25 MG/ML VIAL IM/IV PRN (18:37)
--- NOTE | 2018-08-24 18:38 | PDOC.EVN ---
Event Note - Event Note Event Note: Pt now reports he has dysuria. Will start him on ciprofloxacin for UTI.
[2018-08-24] MEDS ORDERED: Promethazine HCl 25 MG in Sodium Chloride 0.9% 50 ML IVPB PRN (19:25)
--- NOTE | 2018-08-24 19:33 | OP ---
DATE OF SURGERY: 08/24/2018 OPERATIVE PROCEDURES: Esophagogastroduodenoscopy with biopsy and balloon dilation of the anastomotic area. PREOPERATIVE DIAGNOSES: A 68-year-old male with previous gastric surgery for gastric ulcer with a partial gastrectomy and Billroth I anastomosis. The patient comes with recurrent regurgitati on, nausea. The patient had EGD done by Dr. 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 The patient undergoing esophagogastroduodenoscopy. POSTOPERATIVE DIAGNOSES: 1. Distal small ulcerations and esophagitis. 2. Gastric retention after overnight fasting. This is almost 18 hours, after fasting had retained f ood material and also fluid, 350 mL of fluid aspirated. 3. Anastomotic area appears to be not really very tight as the therapeutic gastroscope advanced, whi ch is almost support 40 mm down the anastomotic area in the descending duodenum. The patient h ad some retained food material in the descending duodenum. PROCEDURE IN DETAIL: A Bard balloon was passed through the biopsy channel and placed over the anasto motic area and inflated to stage I for 2 minutes and then to stage II for 1 minute. The scope was wi thdrawn back and biopsy was obtained of the esophagus. The stomach decompressed and scope was remove d. RECOMMENDATIONS: 1. Low residue diet. 2. Continue PPI. 3. Diet: Should be a low residue diet to prevent any .
[2018-08-25] MEDS: Sodium Chloride 0.9% 1,000 ML IV SCH ×2 (00:38→15:23)
[2018-08-25 04:46] LABS: Anion Gap 12 mmol/L (10-20); BUN (Urea Nitrogen) 45 mg/dL (8.4-25.7); Calc. Creatinine Clearance 25 mL/min (70-130); Calcium 8.4 mg/dL (7.8-10.44); Carbon Dioxide 19 mmol/L (23-31); Chloride 107 mmol/L (98-107); Estimated GFR-MDRD 34; Glucose 73 mg/dL (80-115); Potassium 4.2 mmol/L (3.5-5.1); Sodium 134 mmol/L (136-145)
[2018-08-25 05:35] LABS: Band 9 % (5-11); Hemoglobin 10.2 g/dL (14.0-18.0); Lymphocytes 9 % (21-51); MDiff Complete? YES; Mean Corpuscular HGB CONC 31.9 g/dL (32.0-36.0); Mean Corpuscular Hemoglobin 25.7 pg (27.0-31.0); Mean Corpuscular Volume 80.4 fL (78.0-98.0); Mean Platelet Volume 7.2 fL (7.4-10.4); Monocytes 10 % (0-10); Neutrophil 72 % (42-75); Nucleated RBC 1 % (0); PLT Morphology Comment Appears Adequate; Platelet Count 364 thou/uL (130-400); RBC Morphology Normal; Red Blood Cell (RBC) Count 3.96 mill/uL (4.70-6.10); White Blood Cell (WBC) Count 9.4 thou/uL (4.8-10.8)
[2018-08-25] MEDS ORDERED: Calcium Carbonate 500 MG ChewTAB PO PRN (09:29)
[2018-08-25] MEDS: Topiramate 100 MG TAB PO SCH ×2 (09:30→19:52)
[2018-08-25] MEDS: Ondansetron HCl/PF 4 MG/2 ML Vial IVP PRN ×2 (09:43→17:21)
[2018-08-25] MEDS: Heparin 5,000 UNITS/ML VIAL SC SCH ×3 (11:54→19:53)
[2018-08-25] MEDS ORDERED: Metoclopramide HCl 10 MG/2 ML VIAL IVP PRN (14:42)
--- NOTE | 2018-08-25 18:05 | PDOC.PN ---
- Subjective Encounter Start Date: 08/25/18 Encounter Start Time: 09:00 Pt seen for followup re: acute renal failure. Denies chest pain or shortness of breath. - Objective Resuscitation Status: Resuscitation Status FULL:Full Resuscitation MAR Reviewed: Yes Vital Signs & Weight: Vital Signs (12 hours) Temp Pulse Resp BP Pulse Ox 08/25/18 08:00 97 08/25/18 07:21 98.8 F 76 17 115/82 97 Weight Admit Weight 112 lb 12.969 oz Weight 112 lb 12.969 oz I&O: 08/24/18 08/25/18 08/26/18 06:59 06:59 06:59 Intake Total 2340 Balance 2340 Result Diagrams: 08/25/18 04:07 08/25/18 04:07 Additional Labs: labs reviewed by me Phys Exam - Physical Examination Constitutional: NAD HEENT: moist MMs Neck: supple Respiratory: clear to auscultation bilateral Cardiovascular: RRR Gastrointestinal: soft J-tube Neurological: moves all 4 limbs Psychiatric: normal affect Dx/Plan (1) AL (acute kidney injury) Code(s): N17.9 - ACUTE KIDNEY FAILURE, UNSPECIFIED Status: Acute Comment: slowly improving, continue IV fluids (2) Dehydration Code(s): E86.0 - DEHYDRATION Status: Acute Comment: continue IV fluids (3) Hyponatremia Code(s): E87.1 - HYPO-OSMOLALITY AND HYPONATREMIA Status: Acute Comment: sodium improved to 134 today (4) UTI (urinary tract infection) Status: Acute Comment: continue antibiotics as below (5) Chronic pain disorder Code(s): G89.4 - CHRONIC PAIN SYNDROME Status: Chronic Comment: stable - Plan * . Review of Systems - Review of Systems Constitutional: negative: fever, chills, sweats, weakness, malaise Respiratory: negative: Cough, Shortness of Breath, SOB with Excertion, Pleuritic Pain, Wheezing Cardiovascular: negative: chest pain, palpitations, orthopnea, paroxysmal nocturnal dyspnea, edema, light headedness - Medications/Allergies Allergies/Adverse Reactions: Allergies Allergy/AdvReac Type Severity Reaction Status Date / Time erythromycin base Allergy Verified 07/08/18 11:09 Penicillins Allergy Verified 07/08/18 11:09 Medications: Current Medications Acetaminophen (Tylenol) 650 mg PO Q4H PRN PRN Reason: Headache/Fever/Mild Pain (1-3) Acetaminophen (Tylenol) 650 mg [place] Q4H PRN PRN Reason: Headache/Fever/Mild Pain (1-3) Acetaminophen/Aspirin/Caffeine (Excedrin Migraine) 1 tab PO BID PRN PRN Reason: Pain Bisacodyl (Dulcolax) 10 mg PO DAILYPRN PRN PRN Reason: Constipation Calcium Carbonate (Tums) 1,000 mg PO Q4H PRN PRN Reason: Indigestion Last Admin: 08/25/18 09:42 Dose: 1,000 mg Heparin Sodium (Porcine) (Heparin) 5,000 units SC TID [facility] Last Admin: 08/25/18 15:25 Dose: 5,000 units Sodium Chloride (Normal Saline 0.9%) 1,000 mls @ 100 mls/hr IV .Q10H [facility] Last Admin: 08/25/18 15:23 Dose: 1,000 mls Ciprofloxacin/Dextrose 400 mg/ (Device) 200 mls @ 200 mls/hr IVPB Q12HR [facility] Last Admin: 08/25/18 09:44 Dose: 200 mls Metoclopramide HCl (Reglan) 10 mg IVP Q6H PRN PRN Reason: Nausea/Vomiting Last Admin: 08/25/18 15:23 Dose: 10 mg Ondansetron HCl (Zofran) 4 mg IVP Q6H PRN PRN Reason: Nausea/Vomiting Last Admin: 08/25/18 17:21 Dose: 4 mg Pantoprazole Sodium (Protonix) 40 mg PO BID [facility] Last Admin: 08/25/18 09:30 Dose: Not Given Sodium Chloride (Flush - Normal Saline) 10 ml IVF Q12HR [facility] Last Admin: 08/25/18 14:23 Dose: Not Given Sodium Chloride (Flush - Normal Saline) 10 ml IVF PRN PRN PRN Reason: Saline Flush Sumatriptan Succinate (Imitrex) 100 mg PO PRN PRN PRN Reason: Migraine Headache Topiramate (Topamax) 100 mg PO BID [facility] Last Admin: 08/25/18 09:30 Dose: Not Given
[2018-08-25] MEDS: Promethazine HCl 25 MG in Sodium Chloride 0.9% 50 ML IVPB PRN (19:49)
[2018-08-25] MEDS ORDERED: ALPRAZolam 0.25 MG TAB PO SCH (22:30)
[2018-08-26 05:47] LABS: Anion Gap 13 mmol/L (10-20); BUN (Urea Nitrogen) 29 mg/dL (8.4-25.7); Calc. Creatinine Clearance 31 mL/min (70-130); Calcium 8.3 mg/dL (7.8-10.44); Carbon Dioxide 16 mmol/L (23-31); Chloride 112 mmol/L (98-107); Estimated GFR-MDRD 44; Glucose 85 mg/dL (80-115); Potassium 3.5 mmol/L (3.5-5.1); Sodium 137 mmol/L (136-145)
[2018-08-26 06:11] LABS: Band 1 % (5-11); Eosinophils 1 % (0-10); Hemoglobin 10.6 g/dL (14.0-18.0); Hypochromia SLIGHT = 6-15 cells (100X) (0-5/hpf); Lymphocytes 19 % (21-51); MDiff Complete? YES; Mean Corpuscular HGB CONC 31.5 g/dL (32.0-36.0); Mean Corpuscular Hemoglobin 25.5 pg (27.0-31.0); Mean Corpuscular Volume 80.9 fL (78.0-98.0); Mean Platelet Volume 7.3 fL (7.4-10.4); Monocytes 13 % (0-10); Neutrophil 66 % (42-75); PLT Morphology Comment Appears Adequate; Platelet Count 359 thou/uL (130-400); RBC Distribution Width 15.1 % (11.5-14.5); Red Blood Cell (RBC) Count 4.16 mill/uL (4.70-6.10); White Blood Cell (WBC) Count 9.4 thou/uL (4.8-10.8)
[2018-08-26] MEDS: Promethazine HCl 25 MG in Sodium Chloride 0.9% 50 ML IVPB PRN (08:39)
[2018-08-26] MEDS: Topiramate 100 MG TAB PO SCH ×2 (08:43→20:06)
[2018-08-26] MEDS: Heparin 5,000 UNITS/ML VIAL SC SCH ×3 (08:43→20:06)
[2018-08-26] MEDS: Sodium Chloride 0.9% 1,000 ML IV SCH ×4 (08:45→23:58)
--- NOTE | 2018-08-26 10:32 | CON ---
DATE OF CONSULTATION: 08/23/2018 REFERRING PHYSICIAN: Doyle Huddleston M.D. REASON FOR CONSULTATION: Nausea and vomiting and also leakage around the J-tube site. HISTORY OF PRESENT ILLNESS: Mr. Blaine Storey is a very pleasant 68-year-old male with history of peptic ulcer with some bleeding and also what appears to be gastric outlet obstruction in 01/2016. At that time, he was living in [place]. He underwent surgery and what appears to be a pa rtial gastrectomy with vagotomy and some drainage procedure. The patient had to have another 2 more surgeries subsequently. The second surgery was done in July of 2016 and the last one was done s ome time last year. The patient used to weigh 170 pounds before. His weight is down to 110-115 poun ds. The patient has been hospitalized several times at [facility] and had seen Dr. Gonsales [facility] surgeon. He had a jejunostomy placement done. The patient was hospitalized in March of 2018 with nausea, vomiting, and dehydration. At that time, he was seen by Dr. Esquivel. He underwent EGD and as per the operative report, the patient has had a previous Billroth I anastomosis. With the anastomos is was high up in the stomach and also what appears to be retrocolic. As per the operative report, h e had a difficult time locating the anastomotic area and anastomosis is slightly tight. He did have balloon dilation at that time. The patient claimed after balloon dilation was feeling better. How er, over the last several weeks, he is having nausea off and on, but no vomiting. He has more of reg urgitation of undigested food. This happened more frequently recently. The patient was taking Fara n and the Reglan did help him to begin with, but now Reglan does not seem to help. He has no abdomin al pain. He also has noticed some leakage around the J-tube site. The last time the J-tube was morales ged about 3 months ago. The J-tube, he says, he has not used over the last 3-4 months. He seldom us e it except once in a while. He has been trying to eat most of the time and he is able to keep the f ood down and keep the fluid down. However, over the last several weeks, he has been having more regu rgitation, which occurs very frequently. He states he does not feel sick to stomach or retch and vom it, but he has the food comes up in the throat from stomach. He has no indigestion, no heartbu rn. No dysphagia or odynophagia. The patient has no hematochezia and no melena. His bowel movement s are constant and he had to take some laxative off and on. He has no other relevant history. ALLERGIES: PENICILLIN, ERYTHROMYCIN. SOCIAL HISTORY: The patient is single. Does not smoke or drink alcohol. No history of drug abuse. MEDICAL ILLNESSES: 1. Longstanding migraine with history of intake of aspirin and also NSAID over the years. 2. Peptic ulcer, gastric outlet obstruction, status post partial gastrectomy in 01/2016 and multiple surgeries afterwards. 3. Gastroparesis. 4. Chronic back pain. 5. Migraine. 6. Atrial fibrillation. 7. Bladder cancer in 1990 with resection with annual cystoscopies for the next 20 years. 8. He also had a J-tube placement done by Dr. Gonsales at [facility]. FAMILY HISTORY: No family history of cancer, heart disease, stroke. MEDICATIONS: List reviewed, which include aspirin/acetaminaphen/caffeine, omeprazole, Imitrex, Topam ax, Zofran p.r.n. REVIEW OF SYSTEMS: Ten-point system reviewed. Constitutional: History of weight loss. No history of fever, night sweats. His exercise tolerance is good. HEENT: Vision is good. No diplopia. No d ouble vision. Lungs: No chronic cough, hemoptysis, dyspnea. Cardiovascular system: No chest pain, no palpitation. No exertional dyspnea, orthopnea, or PND. Gastrointestinal: History of nausea off and on and also regurgitation of sour tasting fluid, undigested food. He also has J-tube leak off a nd on. : History of bladder cancer in 1990 and has had multiple cystoscopies. At the present, no hematuria, no dysuria. Musculoskeletal: History of back pain. PHYSICAL EXAMINATION: GENERAL: He appears very comfortable. He is awake; alert; oriented to time, place, and person. VITAL SIGNS: Afebrile, pulse is 70, blood pressure 149/99. HEENT: Conjunctivae clear. NECK: Supple. No adenitis or thyromegaly noted. CARDIOVASCULAR SYSTEM: First and second heart sounds normal. LUNGS: Clear to auscultation. ABDOMEN: Soft to palpate. Abdomen is nondistended. Abdomen is nontender. He has a fresh dressing on the J-tube site and he does not really wanted to remove it to look at it. I do not see any wet ar ea around the dressing site. There is no organomegaly or masses. EXTREMITIES: No edema. LABORATORY DATA: CBC: WBC 11,300, hemoglobin 12.2, hematocrit 39.1, MCV 79.9, platelet count is 450 ,000, polymorphs 78, lymphocytes 8, monocytes 12. Serum chemistries: Sodium is 128, potassium is 4. 2, chloride 94, bicarbonate is 19, BUN is 65, creatinine 2.48. Going over the medical records in March of 2018, he has normal BUN of 14, creatinine was 1 mg percent. Bilirubin 0.4, AST is 25, ALT 24, al kaline phosphatase 84, albumin 3.8. CLINICAL IMPRESSION: 1. A 68-year-old male with history of peptic ulcer, status post partial gastrectomy with B illroth I anastomosis. He has had two more surgeries subsequently. The nature of surgery is unclear at the present time. During the last admission in 03/2018, he had an EGD and was found to have Bill martins I anastomosis and possibly a stricture in the anastomotic site. He did have balloon dilation. 2. Leakage of J-tube site needs evaluation by the surgeon for J-tube. He has not used the J-tube ov er the last few months, may consider removing it. 3. Elevated BUN and creatinine, possible prerenal azotemia versus chronic kidney disease. 4. Migraine. 5. Bladder cancer, status post removal in 1990. PLAN: 1. Diet: As tolerated. 2. IV fluids. 3. We will plan for possibly considering EGD tomorrow and balloon dilation of his anastomotic strict ure.
--- NOTE | 2018-08-26 10:34 | PQF ---
Date: 08-26-18 ATTN: DR. BRANDIE BULL Please exercise your independent, professional judgment in responding to the clarification form. Clinical indicators are provided on the bottom of this form for your review Please check appropriate box(s): [ ] Protein Calorie Malnutrition: [ ] Mild [ ] Moderate [ ] Severe [ ] Other Malnutrition (please specify) __ [ ] Cachexia [ ] Other diagnosis [ ] Unable to determine In addition, please specify: Present on Admission (POA): [ ] Yes [ ] No [ ] Unable to determine CLINICAL INDICATORS - SIGNS / SYMPTOMS / LABS BMI of 18 H&P: WAS HOSPITALIZED HERE FROM 02-15-18 TO 03-26-18 FOR ABD PAINM NAUSEA AND VOMITING, THE PATIENT REPORTS CHRONIC NAUSEA AND VOMITING AND HAS LOST 100 POUNDS IN 1 YR. 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 RISK FACTORS: H&P: WAS HOSPITALIZED HERE FROM 02-15-18 TO 03-26-18 FOR ABD PAIN, NAUSEA AND VOMITING, THE PATIENT REPORTS CHRONIC NAUSEA AND VOMITING AND HAS LOST 100 POUNDS IN 1 YR. HE REPORTS MULTIPLE HOSPITALIZATIONS REQUIRING TPN BECAUSE OF DEHYDRATION AND MALNUTRITION TREATMENT: BUILDING COORDINATOR CONSULT 08-24-18: 1. Recommend continue regular diet pending renal function monitoring 2. Monitor renal function 3. 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 Moderate Malnutrition (in chronic illness) Energy Intake: <75% of estimated energy requirement for >1 month Weight Loss: 5%/1 month; 7.5%/3 months; 10%/6 months; 20%/1 year Other: mild body fat loss; mild muscle mass loss; mild fluid accumulation Severe Malnutrition (in chronic illness) Energy Intake: <75% of estimated energy requirement for >1 month Weight Loss: >5%/1 month; >7.5%/3 months; >10%/6 months; >20%/1 year Other: severe body fat loss; severe muscle mass loss; severe fluid accumulation ; measurably reduced quill machine operator strength (This form is maintained as a part of the permanent medical record) 2014 [employer]. All Rights Reserved [email or web address] [email or web address] Office: [phone] [facility]ENTER[facility]
[2018-08-26] MEDS: Ondansetron HCl/PF 4 MG/2 ML Vial IVP PRN ×2 (12:33→18:30)
[2018-08-26] MEDS: ALPRAZolam 0.25 MG TAB PO PRN ×2 (12:38→20:06)
--- NOTE | 2018-08-26 14:31 | PRG ---
DATE OF SERVICE: 08/25/2018 SUBJECTIVE: This is a 68-year-old male hospitalized with nausea and vomiting and past history of gas troparesis. The patient has had 3 gastric surgeries for ulcer disease in [place] 2 years ago. The patient has had intermittent episodes of nausea and vomiting and was told to have gastroparesis. He underwent EGD yesterday. The EGD showed retention of gas, fluid, and solid food being in the stomac h. He underwent balloon dilation of the fundic area. He is on IV Zofran and IV Phenergan. The diogenes ent says he has been having more nausea today and had vomited couple of times today. He has no abdom inal pain. PHYSICAL EXAMINATION: GENERAL: Appears comfortable. VITAL SIGNS: He is afebrile, pulse is 76, blood pressure 115/82. HEENT: Conjunctivae clear. NECK: Supple. CARDIOVASCULAR SYSTEM: First and second heart sounds normal. LUNGS: Clear to auscultation. ABDOMEN: Abdomen is soft. Abdomen is nontender and nondistended. LABORATORY DATA: The lab data from today WBC 9400, hemoglobin 10.2, hematocrit 31.9. His chemistry panel shows sodium 134, potassium 4.2, chloride 107, bicarbonate 19. BUN is 45, dropping from 65; cr eatinine 1.96. CLINICAL IMPRESSION: Recurrent nausea and vomiting due to previous gastric surgery for ulcer disease . The patient has had partial gastrectomy and Billroth anastomosis. It appears he has delayed gastr ic emptying and most likely from . Although he has been on Reglan, he continues to have recurre nt nausea and vomiting. EGD did not show any anastomotic stricture yesterday. He underwent EGD with dilation of the anastomotic area. RECOMMENDATIONS: 1. Discontinue Phenergan. 2. IV Reglan 10 mg q.6 hours. 3. Continue IV fluids. Upon discharge, I advised Mr. Storey to stay on Reglan on a regular basis and not discontinue it. If the Reglan failed to relieve the symptoms, consider motilin 10 mg p.o. 4 times a day, which can b e obtained from mail order pharmacy from .
[2018-08-26] MEDS: Metoclopramide HCl 10 MG/2 ML VIAL IVP SCH ×2 (17:15→23:53)
--- NOTE | 2018-08-26 18:40 | PDOC.PN ---
- Subjective Encounter Start Date: 08/26/18 Encounter Start Time: 10:00 Pt seen for followup re: acute renal failure. Denies chest pain. Has on and off nausea, anxiety. J-tube fell off yesterday. - Objective Resuscitation Status: Resuscitation Status FULL:Full Resuscitation MAR Reviewed: Yes Vital Signs & Weight: Vital Signs (12 hours) Temp Pulse Resp BP Pulse Ox 08/26/18 15:42 98.6 F 80 17 128/89 98 08/26/18 12:00 97.7 F 79 18 123/84 98 08/26/18 09:05 99 08/26/18 08:00 98.5 F 77 16 121/85 99 Weight Admit Weight 112 lb 12.969 oz Weight 112 lb 12.969 oz I&O: 08/25/18 08/26/18 08/27/18 06:59 06:59 06:59 Intake Total 1330 Output Total 280 Balance 1050 Result Diagrams: 08/26/18 04:40 08/26/18 04:40 Additional Labs: Accuchecks 08/26/18 12:08 POC Glucose 90 labs reviewed by me Phys Exam - Physical Examination Constitutional: NAD HEENT: moist MMs Neck: supple Respiratory: clear to auscultation bilateral Cardiovascular: RRR Gastrointestinal: soft, non-tender, no distention, positive bowel sounds Dressing over abdomen Neurological: moves all 4 limbs Psychiatric: normal affect Dx/Plan (1) AL (acute kidney injury) Code(s): N17.9 - ACUTE KIDNEY FAILURE, UNSPECIFIED Status: Acute Comment: creatinine 1.58 today, continue IV fluids (2) Dehydration Code(s): E86.0 - DEHYDRATION Status: Acute Comment: Improving, continue IV fluids (3) UTI (urinary tract infection) Status: Acute Comment: continue macrobid (4) Chronic pain disorder Code(s): G89.4 - CHRONIC PAIN SYNDROME Status: Chronic Comment: stable (5) Hyponatremia Code(s): E87.1 - HYPO-OSMOLALITY AND HYPONATREMIA Status: Resolved (6) Moderate protein-calorie malnutrition Code(s): E44.0 - MODERATE PROTEIN-CALORIE MALNUTRITION Status: Chronic Comment: dietitian following - Plan * . PRN Xanax for anxiety. Pt wants to be back on Zofran instead of Phenergan, will change. Review of Systems - Review of Systems Constitutional: other (anxiety) Cardiovascular: negative: chest pain, palpitations, orthopnea, paroxysmal nocturnal dyspnea, edema, light headedness Gastrointestinal: Nausea - Medications/Allergies Allergies/Adverse Reactions: Allergies Allergy/AdvReac Type Severity Reaction Status Date / Time erythromycin base Allergy Verified 07/08/18 11:09 Penicillins Allergy Verified 07/08/18 11:09 Medications: Current Medications Acetaminophen (Tylenol) 650 mg PO Q4H PRN PRN Reason: Headache/Fever/Mild Pain (1-3) Acetaminophen (Tylenol) [address] Q4H PRN PRN Reason: Headache/Fever/Mild Pain (1-3) Acetaminophen/Aspirin/Caffeine (Excedrin Migraine) 1 tab PO BID PRN PRN Reason: Pain Alprazolam (Xanax) 0.25 mg PO TIDPRN PRN PRN Reason: Anxiety Last Admin: 08/26/18 12:38 Dose: 0.25 mg Bisacodyl (Dulcolax) 10 mg PO DAILYPRN PRN PRN Reason: Constipation Calcium Carbonate (Tums) 1,000 mg PO Q4H PRN PRN Reason: Indigestion Last Admin: 08/25/18 09:42 Dose: 1,000 mg Heparin Sodium (Porcine) (Heparin) 5,000 units SC TID [facility] Last Admin: 08/26/18 15:45 Dose: 5,000 units Sodium Chloride (Normal Saline 0.9%) 1,000 mls @ 100 mls/hr IV .Q10H [facility] Last Admin: 08/26/18 16:08 Dose: Not Given Metoclopramide HCl (Reglan) 10 mg IVP Q6HR [facility] Last Admin: 08/26/18 17:15 Dose: 10 mg Nitrofurantoin Macrocrystals (Macrobid) 100 mg PO BID [facility] Ondansetron HCl (Zofran) 4 mg IVP Q6H PRN PRN Reason: Nausea/Vomiting Last Admin: 08/26/18 18:30 Dose: 4 mg Pantoprazole Sodium (Protonix) 40 mg PO BID [facility] Last Admin: 08/26/18 08:43 Dose: 40 mg Sodium Chloride (Flush - Normal Saline) 10 ml IVF Q12HR [facility] Last Admin: 08/26/18 08:44 Dose: Not Given Sodium Chloride (Flush - Normal Saline) 10 ml IVF PRN PRN PRN Reason: Saline Flush Last Admin: 08/26/18 12:34 Dose: 10 ml Sumatriptan Succinate (Imitrex) 100 mg PO PRN PRN PRN Reason: Migraine Headache Topiramate (Topamax) 100 mg PO BID [facility] Last Admin: 08/26/18 08:43 Dose: 100 mg
[2018-08-26] MEDS: Nitrofurantoin Monohyd/M-Cryst 100 MG CAP PO SCH (20:05)
[2018-08-27] MEDS: Ondansetron HCl/PF 4 MG/2 ML Vial IVP PRN ×4 (00:59→19:52)
--- NOTE | 2018-08-27 04:30 | PRG ---
DATE OF SERVICE: 08/26/2018 SUBJECTIVE: This is a 68-year-old male with a previous gastric surgery including partial g astrectomy at [facility]. The patient had two more subsequent gastric surgeries. The patient has had recurrent nausea and vomiting off and on. The patient had a J tube placed in the past. He was not using the J tube for the last several months. The J-tube came out last night. He does not w ant the J tube back. He does want to leave it outside. The patient is tolerating diet and he still has nausea off and on, but no vomiting. He had no abdominal pain. He was dehydrated on admission, w ith elevated BUN and creatinine. The BUN and creatinine is coming down slowly. He is having bowel m ovements. PHYSICAL EXAMINATION: GENERAL: Appears very comfortable in no acute distress. VITAL SIGNS: Afebrile, temperature 98.6 degrees Fahrenheit, pulse is 80, blood pressure 128/89. HEENT: Conjunctivae clear. CARDIOVASCULAR: First and second heart sounds normal. LUNGS: Clear to auscultation. ABDOMEN: Soft. Abdomen is nondistended. Abdomen is nontender. EXTREMITIES: Reveal no edema. LABORATORY DATA: From this morning, CBC, WBC 9400, hemoglobin 10.6, hematocrit 33.7, polymorphs 66. Chemistry panel, electrolytes are normal. Chloride 112, bicarbonate is 16, BUN is dropping down fro m 65 to 29 today, creatinine down to 1.58, glucose is 85. RECOMMENDATIONS: 1. Discontinue Phenergan. 2. IV Reglan 10 mg q.6 hours scheduled dosing. 3. Continue Zofran. Hopefully, the patient will be discharged within next 24 hours .
[2018-08-27] MEDS: ALPRAZolam 0.25 MG TAB PO PRN ×3 (05:06→19:50)
[2018-08-27 05:10] LABS: Anion Gap 11 mmol/L (10-20); BUN (Urea Nitrogen) 19 mg/dL (8.4-25.7); Calc. Creatinine Clearance 33 mL/min (70-130); Calcium 8.1 mg/dL (7.8-10.44); Carbon Dioxide 13 mmol/L (23-31); Chloride 117 mmol/L (98-107); Estimated GFR-MDRD 46; Glucose 94 mg/dL (80-115); Potassium 3.8 mmol/L (3.5-5.1); Sodium 137 mmol/L (136-145)
[2018-08-27 05:48] LABS: Band 2 % (5-11); Hypochromia SLIGHT = 6-15 cells (100X) (0-5/hpf); Lymphocytes 16 % (21-51); MDiff Complete? YES; Mean Corpuscular Hemoglobin 25.2 pg (27.0-31.0); Mean Corpuscular Volume 81.2 fL (78.0-98.0); Mean Platelet Volume 7.4 fL (7.4-10.4); Monocytes 8 % (0-10); Neutrophil 74 % (42-75); PLT Morphology Comment Appears Adequate; Platelet Count 338 thou/uL (130-400); RBC Distribution Width 15.7 % (11.5-14.5); Red Blood Cell (RBC) Count 3.99 mill/uL (4.70-6.10); White Blood Cell (WBC) Count 10.2 thou/uL (4.8-10.8)
[2018-08-27] MEDS: Metoclopramide HCl 10 MG/2 ML VIAL IVP SCH ×3 (06:00→18:27)
[2018-08-27] MEDS: Sodium Chloride 0.9% 1,000 ML IV SCH (06:04)
[2018-08-27] MEDS: Nitrofurantoin Monohyd/M-Cryst 100 MG CAP PO SCH ×2 (08:51→19:49)
[2018-08-27] MEDS: Topiramate 100 MG TAB PO SCH ×2 (08:52→19:50)
[2018-08-27] MEDS: Heparin 5,000 UNITS/ML VIAL SC SCH ×3 (08:52→19:50)
--- NOTE | 2018-08-27 13:23 | PRG ---
DATE OF SERVICE: 08/27/2018 HISTORY OF PRESENT ILLNESS: Mr. Storey is tolerating a liquid diet. He is without complaints tod ay. He states that at home he had been on Reglan. He has not used his G-tube for about 3 months, it recently fell out, here he is having it replaced He notes that however, he has come back to the ER frequently for IV fluids. MEDICATIONS: Presently Tylenol, ____, Xanax, Dulcolax, heparin, Reglan 10 q.6. IV scheduled, Zofran p.r.n., Macrobid, Protonix. PHYSICAL EXAMINATION: GENERAL: The patient is resting comfortably in bed. VITAL SIGNS: Temperature 98, pulse 86, blood pressure 127/87. ABDOMEN: Soft, nontender, positive bowel sounds. EXTREMITIES: No clubbing, cyanosis or edema. LABORATORY STUDIES: White count 10.2, hemoglobin 10 and stable, platelet count 338, BUN is down to 1 9, creatinine down to 1.51. Electrolytes normal. ASSESSMENT: Non-diabetic gastroparesis related to previous surgery, vagotomy He has had another end oscopy with dilation of the anastomosis, but there is no significant stricture there. The anatomy wa s very atypical and this almost "retroflexed orientation" of the anastomosis may be responsible for g astric drainage. RECOMMENDATIONS: 1. I would try to wean off the Zofran as this causes obstipation and slows motility and may worsen h is symptoms. 2. I would switch him to p.o. Reglan if he continues to tolerate the IV fine. It may be reasonable when he discharges home to give him Motilium which is domperidone 10 mg before meals and at bedtime t o use instead of Reglan and see how he does with that at home as the Reglan has been suboptimal for h im. He can follow up in our office with Dr. Lindsey, his primary gastrologist in a couple of weeks. I f he remains in the hospital Dr. Lindsey will round on him tomorrow.
[2018-08-27] MEDS: traMADol HCl 50 MG TAB PO PRN (15:45)
--- NOTE | 2018-08-27 22:44 | PDOC.PN ---
- Objective Resuscitation Status: Resuscitation Status FULL:Full Resuscitation Vital Signs & Weight: Vital Signs (12 hours) Temp Pulse Resp BP Pulse Ox 08/27/18 20:00 98.6 F 69 16 129/89 99 Weight Admit Weight 112 lb 12.969 oz Weight 112 lb 12.969 oz I&O: 08/26/18 08/27/18 08/28/18 06:59 06:59 06:59 Intake Total 1330 Output Total 280 Balance 1050 Result Diagrams: 08/27/18 04:12 08/27/18 04:12 Dx/Plan - Plan * .
[2018-08-28] MEDS: Metoclopramide HCl 10 MG/2 ML VIAL IVP SCH ×3 (00:09→12:12)
[2018-08-28] MEDS: traMADol HCl 50 MG TAB PO PRN ×3 (00:14→14:08)
[2018-08-28] MEDS: Ondansetron HCl/PF 4 MG/2 ML Vial IVP PRN ×2 (04:07→09:28)
[2018-08-28] MEDS: ALPRAZolam 0.25 MG TAB PO PRN ×3 (04:07→14:07)
[2018-08-28] MEDS: Topiramate 100 MG TAB PO SCH (09:21)
[2018-08-28] MEDS: Heparin 5,000 UNITS/ML VIAL SC SCH ×2 (09:22→14:11)
[2018-08-28] MEDS: Nitrofurantoin Monohyd/M-Cryst 100 MG CAP PO SCH (09:27)
[2018-08-28 16:07] VITALS: BP 145/83; TEMP 97.6
== END 2018-08-28 16:44 | disposition home or self-care (01) | DRG 683 ==
LOC: ERS 10:45 → T4-A 15:14
PROVIDERS: ADMIT Internal Medicine; ATTEND Internal Medicine
PROC: 0DB58ZX Excision of Esophagus, Via Natural or Artificial Opening Endoscopic, Diagnostic (ICD-10-PCS; principal; 2018-08-24)
PROC: 0D798ZZ Dilation of Duodenum, Via Natural or Artificial Opening Endoscopic (ICD-10-PCS; 2018-08-24)
DX: N17.9 Acute kidney failure, unspecified (principal); E87.1 Hypo-osmolality and hyponatremia; N39.0 Urinary tract infection, site not specified; E44.0 Moderate protein-calorie malnutrition; Z68.1 Body mass index [BMI] 19.9 or less, adult; K22.10 Ulcer of esophagus without bleeding; E86.0 Dehydration; K31.84 Gastroparesis; M54.9 Dorsalgia, unspecified; D69.6 Thrombocytopenia, unspecified; K31.89 Other diseases of stomach and duodenum; G89.4 Chronic pain syndrome; F41.9 Anxiety disorder, unspecified; I48.91 Unspecified atrial fibrillation; G43.909 Migraine, unspecified, not intractable, without status migrainosus; Z79.82 Long term (current) use of aspirin; Z88.0 Allergy status to penicillin; Z85.51 Personal history of malignant neoplasm of bladder
CPT/HCPCS: 36415; 36416; 80048; 80053; 81003; 81015; 83605; 83690; 85025; 87086; 88305; 88312; 88313; 90471; 90662; 93005; 96361; 96374; G0008; J0744; J1644; J2001; J2270; J2405; J2550; J2704; J2765; J7050; Q0162

== ENCOUNTER 2018-09-04 17:31 | Emergency (ER) | payer MEDICARE ==
[2018-09-04] MEDS ORDERED: Ondansetron HCl/PF 4 MG/2 ML Vial ONE ×2 (17:40→20:19)
[2018-09-04 18:25] LABS: #Lymphocytes 1.3 thou/uL (1.20-3.40); #Monocytes 1.4 thou/uL (0.11-0.59); #Neutrophils 11.3 thou/uL (1.40-6.50); %Basophils 0.3 % (0.0-1.0); %Eosinophils 0.3 % (0.0-10.0); %Lymphocytes 9.5 % (21.0-51.0); %Monocytes 9.7 % (0.0-10.0); %Neutrophils 80.3 % (42.0-75.0); Hemoglobin 12.7 g/dL (14.0-18.0); Mean Corpuscular HGB CONC 30.1 g/dL (32.0-36.0); Mean Corpuscular Volume 82.9 fL (78.0-98.0); Mean Platelet Volume 7.5 fL (7.4-10.4); Platelet Count 470 thou/uL (130-400); RBC Distribution Width 17.2 % (11.5-14.5); White Blood Cell (WBC) Count 14.1 thou/uL (4.8-10.8)
[2018-09-04 18:52] LABS: ALT (SGPT) 27 U/L (8-55); AST (SGOT) 33 U/L (5-34); Albumin 3.9 g/dL (3.4-4.8); Alkaline Phosphatase 98 U/L (40-150); Anion Gap 19 mmol/L (10-20); BUN (Urea Nitrogen) 47 mg/dL (8.4-25.7); Bilirubin, Total 0.2 mg/dL (0.2-1.2); Calc. Creatinine Clearance 0 mL/min (70-130); Calcium 9.4 mg/dL (7.8-10.44); Carbon Dioxide 13 mmol/L (23-31); Chloride 105 mmol/L (98-107); Estimated GFR-MDRD 41; Globulin 3.3 g/dL (2.4-3.5); Glucose 108 mg/dL (80-115); Lipase 36 U/L (8-78); Magnesium 2.3 mg/dL (1.6-2.6); Potassium 5.5 mmol/L (3.5-5.1); Protein, Total 7.2 g/dL (5.8-8.1); Sodium 131 mmol/L (136-145)
--- NOTE | 2018-09-04 19:32 | RAD ---
CHEST ONE VIEW ABDOMEN TWO VIEWS 09/04/18 HISTORY: Abdomen pain. FINDINGS: The cardiac silhouette and pulmonary vasculature are unremarkable. Mediastinum is midline with aortic calcification. No lobar consolidation or evidence of free subdiaphragmatic gas. A large amount of stool throughout the colon and rectum. No differential air fluid levels are evidenc e of free intraperitoneal gas. Metallic clips overlie the gallbladder fossa. Prominent degenerative c hanges of the lumbar spine. osseous structures are demineralized. IMPRESSION: Constipation. No evidence of small bowel obstruction. Status post cholecystectomy. Atherosclerosis. Osteoporosis. POS: [facility]
--- NOTE | 2018-09-04 19:34 | CT ---
CT HEAD NONCONTRAST: 09/04/18 HISTORY: Arm weakness. Neurofibromatosis. FINDINGS: No comparison is available. There is no evidence of acute intracranial hemorrhage or infarct. Mild di ffuse cortical atrophy and chronic ischemic small vessel disease. There is no mass effect or shift of midline structures. The visualized paranasal sinuses remain well aerated. IMPRESSION: No acute intracranial abnormalities are demonstrated. POS: [facility]
--- NOTE | 2018-09-04 19:36 | CT ---
CT CERVICAL SPINE NONCONTRAST: 09/04/18 HISTORY: Neck injury. FINDINGS: Reversal of the normal lordotic curvature. Multilevel disc space narrowing and moderate degree of ost eophytosis. Moderate discogenic end plate changes. No acute fracture or dislocation. Significant cent ral canal stenoses at the C5-6 and C6-7 levels. Multilevel foraminal stenoses. Calcified lesions noted at the superior pole of the right thyroid lobe. IMPRESSION: Prominent degenerative changes of the cervical spine. No acute osseous abnormalities are demonstrated . POS: [facility]
[2018-09-04] MEDS ORDERED: Bisacodyl 10 MG SUPP ONE (20:19)
[2018-09-04] MEDS ORDERED: Fentanyl 100 MCG/2 ML VIAL ONE (20:19)
[2018-09-04] MEDS ORDERED: Fleet Enema 133 ML BOT FS ONE ×2 (21:00)
[2018-09-04] MEDS ORDERED: Magnesium Citrate 300 ML BOT ONE (22:40)
[2018-09-04] MEDS ORDERED: Haloperidol Lactate 5 MG/ML VIAL ONE (23:05)
== END 2018-09-04 23:40 | disposition home or self-care (01) ==
LOC: ERS 17:31
DX: K59.00 Constipation, unspecified (principal); I48.91 Unspecified atrial fibrillation; K21.9 Gastro-esophageal reflux disease without esophagitis; I10 Essential (primary) hypertension; G43.909 Migraine, unspecified, not intractable, without status migrainosus; F41.9 Anxiety disorder, unspecified; Z79.899 Other long term (current) drug therapy
CPT/HCPCS: 70450; 72125; 74022; 80053; 83690; 83735; 85025; 96361; 96374; 96375; 96376; J1630; J2405; J3010

== ENCOUNTER 2018-09-16 09:23 | Emergency (ER) | payer MEDICARE ==
[2018-09-16 10:35] LABS: Bilirubin Negative (Negative); Blood, Urine Moderate (Negative); Clarity CLOUDY (Clear); Glucose, Urine (Dipstick) Negative (Negative); Leukocyte Moderate (Negative); Nitrite Negative (Negative); Protein, Urine (Dipstick) 30 mg/dL (Neg-Trace); Specific Gravity, Urine 1.024 (1.002-1.036); Urobilinogen 0.2 mg/dL (0.2-1.0)
[2018-09-16 10:39] LABS: Bacteria/HPF None Seen HPF (None Seen)
[2018-09-16 10:49] LABS: Pathc Cast-AUWi Flag 2.76 (0-2.49); Yeast-AUWi Flag 158.8 (0-25.0)
[2018-09-16] MEDS ORDERED: Ketorolac Tromethamine 30 MG/ML VIAL ONE (10:50)
[2018-09-16] MEDS ORDERED: Ondansetron PF 4 MG/2 ML Vial ONE (10:57)
[2018-09-16 11:05] LABS: Yeast-All Forms 1+ HPF (None Seen)
[2018-09-16 11:06] LABS: Hyaline Casts/LPF 0-3 HYALINE CAST LPF (0-3 Hyaline); Transitional Epithelial 0-3 HPF (0-3)
[2018-09-16 11:22] LABS: #Eosinphils 0.1 thou/uL (0.0-0.7); #Lymphocytes 0.8 thou/uL (1.20-3.40); %Basophils 0.4 % (0.0-1.0); %Eosinophils 0.4 % (0.0-10.0); %Monocytes 8.2 % (0.0-10.0); %Neutrophils 83.9 % (42.0-75.0); Mean Corpuscular HGB CONC 29.9 g/dL (32.0-36.0); Mean Corpuscular Hemoglobin 24.4 pg (27.0-31.0); Mean Corpuscular Volume 81.7 fL (78.0-98.0); Mean Platelet Volume 6.6 fL (7.4-10.4); Platelet Count 439 thou/uL (130-400); Red Blood Cell (RBC) Count 4.51 mill/uL (4.70-6.10); White Blood Cell (WBC) Count 11.9 thou/uL (4.8-10.8)
[2018-09-16 11:35] LABS: ALT (SGPT) 15 U/L (8-55); AST (SGOT) 18 U/L (5-34); Albumin 3.3 g/dL (3.4-4.8); Alkaline Phosphatase 72 U/L (40-150); Anion Gap 18 mmol/L (10-20); BUN (Urea Nitrogen) 49 mg/dL (8.4-25.7); Bilirubin, Total Less than 0.2 mg/dL (0.2-1.2); Calc. Creatinine Clearance 0 mL/min (70-130); Calcium 8.6 mg/dL (7.8-10.44); Carbon Dioxide 19 mmol/L (23-31); Chloride 102 mmol/L (98-107); Estimated GFR-MDRD 35; Globulin 2.6 g/dL (2.4-3.5); Glucose 97 mg/dL (80-115); Lipase 14 U/L (8-78); Protein, Total 5.9 g/dL (5.8-8.1); Sodium 135 mmol/L (136-145)
[2018-09-16 11:38] LABS: MDiff Complete? YES; PLT Morphology Comment Appears Increased; Polychromasia SLIGHT = 2-3 cells (100X) (0-2/hpf)
[2018-09-16] MEDS ORDERED: Iopamidol 370 76% 50 ML VIAL FS ONE (12:02)
[2018-09-16] MEDS ORDERED: ISOVUE-370 76%-LOCM 1 ML ONE (12:02)
--- NOTE | 2018-09-16 14:14 | CT ---
ABDOMEN AND PELVIC CT SCAN WITH IV CONTRAST: Date: 09/16/18 HISTORY: 68-year-old male with history of severe abdominal pain, with nausea and vomiting. COMPARISON: 03/18/18. FINDINGS: Mild linear stranding in the inferior right middle lobe. Status post cholecystectomy with some dilata tion of the common bile duct, as well as some central intrahepatic dilatation. There is a fairly prom inent generalized loss of intra-abdominal fat, which somewhat lowers the sensitivity of this study. T here are postoperative changes involving the stomach, evidence for some type of gastric bypass surger y. The pancreas appears to be within normal limits, as does the spleen and adrenal glands. No renal c alculus or acute obstruction. There are several borderline size jejunal loops which appear to be i n the region of prior anastomosis and probably related to surgery. There is colonic diverticulosis, p articularly i9n the sigmoid colon, without CT evidence for acute diverticulitis. There does appear to be a small amount of free fluid in the pelvis. Normal appearing appendix. Multilevel lumbar spine ca nal stenosis, including L4-5 and L3-4 levels. Sclerotic bone density in the right pelvis, statistical ly a dense bone island. Scattered subcutaneous fat stranding suggesting some possible anasarca. One v zaid tiny, approximately 0.5 cm diameter, low density focus in the right lobe of the liver, statistica lly a small cyst. IMPRESSION: No significant acute findings in the abdomen or pelvis. Postoperative gastric bypass changes. Probabl e small amount of free fluid in the pelvis. Other findings as above. POS: [facility]
== END 2018-09-16 14:15 | disposition home or self-care (01) ==
LOC: ERS 09:23
DX: R10.9 Unspecified abdominal pain (principal); R11.2 Nausea with vomiting, unspecified; I48.91 Unspecified atrial fibrillation; K21.9 Gastro-esophageal reflux disease without esophagitis; I10 Essential (primary) hypertension; G43.909 Migraine, unspecified, not intractable, without status migrainosus; F41.9 Anxiety disorder, unspecified; Z79.899 Other long term (current) drug therapy
CPT/HCPCS: 36415; 74177; 80053; 81003; 81015; 83690; 85025; 87086; 96361; 96374; 96375; J1885; J2405

== ENCOUNTER 2018-09-20 06:59 | Emergency (ER) | payer MEDICARE ==
[2018-09-20] MEDS ORDERED: Ketorolac Tromethamine 30 MG/ML VIAL ONE (08:23)
[2018-09-20] MEDS ORDERED: Metoclopramide HCl 10 MG/2 ML VIAL ONE (08:23)
[2018-09-20 08:55] LABS: #Lymphocytes 0.8 thou/uL (1.20-3.40); #Monocytes 0.4 thou/uL (0.11-0.59); #Neutrophils 10.7 thou/uL (1.40-6.50); %Basophils 0.4 % (0.0-1.0); %Eosinophils 0.2 % (0.0-10.0); %Lymphocytes 6.7 % (21.0-51.0); %Monocytes 3.3 % (0.0-10.0); %Neutrophils 89.3 % (42.0-75.0); Hemoglobin 10.8 g/dL (14.0-18.0); Mean Corpuscular HGB CONC 30.7 g/dL (32.0-36.0); Mean Corpuscular Hemoglobin 24.6 pg (27.0-31.0); Mean Corpuscular Volume 80.1 fL (78.0-98.0); Mean Platelet Volume 6.4 fL (7.4-10.4); Platelet Count 541 thou/uL (130-400); RBC Distribution Width 15.9 % (11.5-14.5); Red Blood Cell (RBC) Count 4.41 mill/uL (4.70-6.10)
[2018-09-20 09:22] LABS: ALT (SGPT) 25 U/L (8-55); AST (SGOT) 58 U/L (5-34); Albumin 3.4 g/dL (3.4-4.8); Alkaline Phosphatase 76 U/L (40-150); Anion Gap 19 mmol/L (10-20); BUN (Urea Nitrogen) 35 mg/dL (8.4-25.7); Bilirubin, Total Less than 0.2 mg/dL (0.2-1.2); Calc. Creatinine Clearance 0 mL/min (70-130); Calcium 8.3 mg/dL (7.8-10.44); Carbon Dioxide 15 mmol/L (23-31); Chloride 96 mmol/L (98-107); Estimated GFR-MDRD 37; Globulin 2.9 g/dL (2.4-3.5); Glucose 91 mg/dL (80-115); Lipase 17 U/L (8-78); Magnesium 1.9 mg/dL (1.6-2.6); Potassium 3.4 mmol/L (3.5-5.1); Protein, Total 6.3 g/dL (5.8-8.1); Sodium 127 mmol/L (136-145)
--- NOTE | 2018-09-20 09:23 | RAD ---
CHEST PA AND LATERAL: HISTORY: Shortness of breath. Weakness. Dizziness. High blood pressure. COMPARISON: 09/04/2018 FINDINGS: The heart size is normal. The aorta is tortuous. The lungs are well expanded without lobar consolid ation, pneumothoraces, or pleural effusions. There are degenerative changes of the spine. IMPRESSION: No acute process. POS: [facility]
[2018-09-20] MEDS ORDERED: Morphine 4 MG/ML VIAL ONE (10:47)
== END 2018-09-20 12:33 | disposition home or self-care (01) ==
LOC: ERS 06:59
DX: E86.0 Dehydration (principal); I48.91 Unspecified atrial fibrillation; K21.9 Gastro-esophageal reflux disease without esophagitis; I10 Essential (primary) hypertension; G43.909 Migraine, unspecified, not intractable, without status migrainosus; F41.9 Anxiety disorder, unspecified
CPT/HCPCS: 71046; 80053; 83690; 83735; 85025; 93005; 96361; 96365; 96375; J1885; J2270; J2765

== ENCOUNTER 2018-09-29 07:47 | Inpatient (IN) | payer MEDICARE ==
[2018-09-29] MEDS ORDERED: Ketorolac Tromethamine 30 MG/ML VIAL ONE (08:11)
[2018-09-29 08:37] LABS: Band 20 % (5-11); Hemoglobin 9.5 g/dL (14.0-18.0); Lymphocytes 12 % (21-51); MDiff Complete? YES; Mean Corpuscular HGB CONC 30.3 g/dL (32.0-36.0); Mean Corpuscular Hemoglobin 24.5 pg (27.0-31.0); Mean Corpuscular Volume 80.9 fL (78.0-98.0); Mean Platelet Volume 6.7 fL (7.4-10.4); Metamyelocyte 1 % (0-0); Monocytes 14 % (0-10); Neutrophil 53 % (42-75); Platelet Count 439 thou/uL (130-400); Red Blood Cell (RBC) Count 3.88 mill/uL (4.70-6.10); White Blood Cell (WBC) Count 8.9 thou/uL (4.8-10.8)
[2018-09-29 08:42] LABS: ALT (SGPT) 27 U/L (8-55); AST (SGOT) 40 U/L (5-34); Albumin 3.4 g/dL (3.4-4.8); Alkaline Phosphatase 112 U/L (40-150); Anion Gap 19 mmol/L (10-20); BUN (Urea Nitrogen) 77 mg/dL (8.4-25.7); Bilirubin, Total 0.3 mg/dL (0.2-1.2); CK (CPK) 761 U/L (30-200); Calc. Creatinine Clearance 0 mL/min (70-130); Calcium 8.7 mg/dL (7.8-10.44); Carbon Dioxide 28 mmol/L (23-31); Chloride 90 mmol/L (98-107); Estimated GFR-MDRD 24; Globulin 2.7 g/dL (2.4-3.5); Glucose 104 mg/dL (80-115); Protein, Total 6.1 g/dL (5.8-8.1); Sodium 133 mmol/L (136-145)
[2018-09-29 08:56] LABS: Bilirubin Negative (Negative); Blood, Urine Negative (Negative); Clarity CLEAR (Clear); Glucose, Urine (Dipstick) Negative (Negative); Leukocyte Small (Negative); Nitrite Negative (Negative); Protein, Urine (Dipstick) Trace mg/dL (Neg-Trace); Specific Gravity, Urine 1.021 (1.002-1.036); Urobilinogen 0.2 mg/dL (0.2-1.0); pH, Urine 7.5 (5.0-9.0)
[2018-09-29 08:58] LABS: Bacteria/HPF None Seen HPF (None Seen); Hyaline Casts/LPF 0-3 HYALINE CAST LPF (0-3 Hyaline); Pathc Cast-AUWi Flag 0.29 (0-2.49); Squamous Epithelial 0-3 HPF (0-3)
[2018-09-29 09:11] LABS: Renal Epithelial 0-3 HPF (0-3); Transitional Epithelial 0-3 HPF (0-3)
[2018-09-29] MEDS ORDERED: MEROPENEM 1 GM/50 ML 1 GM in Premix Bag 1 BAG IVPB SCH ×2 (09:45→18:00)
--- NOTE | 2018-09-29 10:02 | CT ---
CT BRAIN: Date: 09/29/18 PROVIDED CLINICAL HISTORY: Altered mental status. COMPARISON: 09/04/18. FINDINGS: The ventricular system appears normal in size and morphology. There is no evidence for intracranial h emorrhage or mass effect. The extracranial soft tissues and osseous structures demonstrate no acute f indings. IMPRESSION: No evidence for intracranial hemorrhage or mass effect. POS: [facility]
[2018-09-29] MEDS ORDERED: Sodium Chloride 0.9% 1,000 ML IV SCH (12:01)
[2018-09-29] MEDS ORDERED: Ondansetron PF 4 MG/2 ML Vial IVP PRN (12:01)
[2018-09-29] MEDS ORDERED: Acetaminophen 325 MG TAB PO PRN (12:01)
[2018-09-29] MEDS ORDERED: Ondansetron ODT 4 MG TAB SL PRN (12:01)
[2018-09-29] MEDS ORDERED: Metoclopramide HCl 10 MG TAB PO PRN (13:35)
--- NOTE | 2018-09-29 18:44 | HP ---
DATE OF ADMISSION: 09/29/2018 CHIEF COMPLAINT: The patient presented to the evaluation with the complaints of not feeling well. HISTORY OF PRESENT ILLNESS: Patient is a very poor historian and with repeated questioning, kept ref using to answer most of my questions. He continues to tell me that he is not feeling good and is not feeling good for a very long time. He has lost weight. He hurts all over and his history is too co mplicated and he cannot give it to me and from the ER notes and the triage note, I do see that alfred engel was brought in by his roommate with the complaints of not feeling very good and he is not being his usual self and that he slid out of the bed and fell down and could not get up by himself. He was la st seen normal at 6:15 in the morning today. PAST MEDICAL HISTORY: Significant for atrial fibrillation, atrial arrhythmia, history of severe celeste ritis and peptic ulcer disease for which patient went through partial gastrectomy, following which th e patient seemed to be having continuous complaints of nausea, vomiting, gastroparesis, loss of weigh t. He was even treated with a G-tube in the past to maintain IV hydration, but the tube started leak ing around and came out by itself according to the patient last month. Patient has repeated admissio ns to the hospital with complaints of dehydration and weakness. Patient's history is also significan t for bladder malignancy, also has a history of chronic back and abdominal pain and patient is chroni priti on opiates at home. PAST SURGICAL HISTORY: Significant for cholecystectomy, abdominal surgery x3, bladder surgery, J tub e. PSYCHIATRIC HISTORY: No significant history. No suicidal ideation. SOCIAL HISTORY: Patient lives with his roommate who helps him in his day to day activities and food and assistance, etc. REVIEW OF SYSTEMS: Constitutional: Complains of weakness and dehydration. HEENT: Patient denies a ny history of eye pain or eye discharge or vision changes. ENT: Negative for ear, nose and throat r eview of systems. Denies any rhinorrhea or sore throat. Cardiovascular: Patient denies any history of chest pain or palpitation. Respiratory: Patient denies any history of cough or phlegm or any sh ortness of breath, wheezes or rales. GI: Complains of decreased appetite. Complains that he cannot drink sufficiently and that he has a long history of nausea and vomiting. Musculoskeletal: Complai ns of tremulousness. Neurological: Complains of headache for a long time, complains of weakness and inability to walk at this point of time. PHYSICAL EXAMINATION: VITAL SIGNS: On admission, blood pressure is 116/110, pulse 108, respiratory rate 20, temperature 98 .4, oxygen saturation is 98% on room air. CONSTITUTIONAL: Tachycardic pulse, respiratory rate is normal. Patient appears tired, disheveled, b ut nontoxic, does not look like he is in pain. HEENT: Normocephalic, atraumatic head. Eye examination is within normal limits. Conjunctivae and e yelids within normal limits. Pupils round and reactive. External ears and canals within normal limi ts. Oral mucosa is dry. NECK: Within normal limits. Trachea is midline with no pain and intact range of motions. CHEST/RESPIRATORY: Chest and respiratory examination is within normal limits. Respiratory shows sofia t the breath sounds are normal, no wheezes, no rales. CARDIOVASCULAR: With increased heart rate, regular rhythm. No murmurs, no gallops. ABDOMEN: Nontender, +4 bowel sounds. No distention, no masses. No pulsatile mass. NEUROLOGIC: Cranial nerves are intact. Patient is moving both extremities within normal limits. No motor and sensory deficits noted. ASSESSMENT AND PLAN: 2. Status post fall. CT of the head with no evidence of intracranial hemorrhage or mass effect. 3. History of fall: Brain CT is within normal limits. We will request for PT evaluation and treatm ent. 4. Dehydration. Continue with IV hydration and regular diet. 5. Continue the home medication. 6. Nothing much can be offered to this patient, he wants everything to be done, but does not want an y colonoscopy. 7. Chronic anemia: Decreasing in the hemoglobin over some time. Possible small gastrointestinal bl eed, but patient does not want any colonoscopy. We will address the colonoscopies again tomorrow. 8. We will start supplementing with oral iron and follow up on the hemoglobin. 9. Patient requested to be FULL CODE.
[2018-09-29] MEDS: Famotidine 20 MG TAB PO SCH (20:02)
[2018-09-29] MEDS: Topiramate 100 MG TAB PO SCH (20:02)
[2018-09-30 05:57] LABS: Anion Gap 15 mmol/L (10-20); BUN (Urea Nitrogen) 56 mg/dL (8.4-25.7); Calc. Creatinine Clearance 25 mL/min (70-130); Calcium 8.3 mg/dL (7.8-10.44); Carbon Dioxide 25 mmol/L (23-31); Chloride 95 mmol/L (98-107); Estimated GFR-MDRD 32; Glucose 62 mg/dL (80-115); Potassium 4.2 mmol/L (3.5-5.1); Sodium 131 mmol/L (136-145)
[2018-09-30 05:59] LABS: Iron 49 ug/dL (65-175); Iron Binding Capacity, Total 304 mcg/dL (261-462)
[2018-09-30 06:13] LABS: Band 2 % (5-11); Eosinophils 1 % (0-10); Hemoglobin 9.2 g/dL (14.0-18.0); Lymphocytes 22 % (21-51); MDiff Complete? YES; Mean Corpuscular HGB CONC 31.4 g/dL (32.0-36.0); Mean Corpuscular Volume 82.8 fL (78.0-98.0); Mean Platelet Volume 7.1 fL (7.4-10.4); Monocytes 16 % (0-10); Neutrophil 58 % (42-75); Platelet Count 344 thou/uL (130-400); Reactive Lymphocytes 1 % (0-10); Red Blood Cell (RBC) Count 3.54 mill/uL (4.70-6.10); White Blood Cell (WBC) Count 6.4 thou/uL (4.8-10.8)
[2018-09-30] MEDS: Topiramate 100 MG TAB PO SCH ×2 (07:54→20:20)
[2018-09-30] MEDS: Enoxaparin Sodium 30 MG/0.3 ML SYRINGE SC SCH (07:54)
[2018-09-30] MEDS ORDERED: Prevnar 13-Val Conj/PF 0.5 ML SYRINGE IM ONE (09:00)
--- NOTE | 2018-09-30 11:55 | PDOC.PN ---
- Subjective Encounter Start Date: 09/30/18 Encounter Start Time: 11:53 Subjective: as per H&P, not cooperative with questioning - Objective Resuscitation Status: Resuscitation Status FULL:Full Resuscitation MAR Reviewed: Yes Vital Signs & Weight: Vital Signs (12 hours) Temp Pulse Resp BP Pulse Ox 09/30/18 08:10 97.8 F 89 18 128/89 94 L 09/30/18 03:54 98.0 F 89 18 158/88 H 94 L Weight Weight 114 lb 10.246 oz I&O: 09/29/18 09/30/18 10/01/18 06:59 06:59 06:59 Intake Total 840 Output Total 1050 Balance -210 Result Diagrams: 09/30/18 04:08 09/30/18 04:08 Phys Exam - Physical Examination chronically ill appearing Neck: no JVD Respiratory: clear to auscultation bilateral Cardiovascular: RRR, no significant murmur Gastrointestinal: soft, non-tender, positive bowel sounds Musculoskeletal: no edema Dx/Plan (1) Abdominal pain Code(s): R10.9 - UNSPECIFIED ABDOMINAL PAIN Status: Acute Qualifiers: Abdominal location: generalized Comment: Suspect chronic component and secondary to chronic narcotic exposure, GI service following., Esophagitis noted on EGD with continued PPI, bx taken and pending (2) Abnormal finding on urinalysis Code(s): R82.90 - UNSPECIFIED ABNORMAL FINDINGS IN URINE Status: Acute Comment: pt denies any urinary symptoms. After discussion with pt, electing not to treat asymptomatic bacteriuria (3) Dehydration Code(s): E86.0 - DEHYDRATION Status: Acute Comment: Improving, continue IV fluids (4) Nausea & vomiting Code(s): R11.2 - NAUSEA WITH VOMITING, UNSPECIFIED Status: Acute Qualifiers: Vomiting type: unspecified Vomiting Intractability: unspecified Qualified Code(s): R11.2 - Nausea with vomiting, unspecified Comment: Improved, likely due to narcotic withdrawal, Zofran prn, ADAT (5) Chronic pain disorder Code(s): G89.4 - CHRONIC PAIN SYNDROME Status: Chronic Comment: stable (6) Moderate protein-calorie malnutrition Code(s): E44.0 - MODERATE PROTEIN-CALORIE MALNUTRITION Status: Chronic Comment: dietitian following (7) Paroxysmal atrial fibrillation Code(s): I48.0 - PAROXYSMAL ATRIAL FIBRILLATION Status: Chronic Comment: NSR here. CHARO NewmanB on hold (8) Gastroparesis Code(s): K31.84 - GASTROPARESIS Status: Suspected Comment: Continue Reglan 10mg IV q6h - Plan post multiple abd surgeries, Had J- tube for feedings, out about 1 mos -: cont iv fluids -: await GI consult * .
[2018-09-30 15:55] VITALS: BMI 18.5
[2018-09-30] MEDS: Sodium Chloride 0.9% 1,000 ML IV SCH (16:17)
[2018-09-30] MEDS ORDERED: Metoclopramide 10 MG/10 ML UDCUP PO PRN (16:41)
[2018-09-30] MEDS: Famotidine 20 MG TAB PO SCH (20:20)
[2018-09-30] MEDS: Bisacodyl 5 MG TAB PO PRN (20:20)
--- NOTE | 2018-09-30 20:40 | CON ---
DATE OF CONSULTATION: 09/30/2018 HISTORY OF PRESENT ILLNESS: The patient is a 68-year-old male, recently hospitalized multi ple times since February of this year because of recurrent nausea and vomiting. He was cleared recently for back surgery; however, this was not performed because of his difficulty with nausea and vomiting . He reports he has known focal abdominal pain when he has nausea, vomiting, but he says he hurts al l over. He has had multiple abdominal CTs, which showed no abnormalities other than his previous markos geries. He has had multiple surgeries which started with antrectomy and Billroth II anastomosis foll owed by a duodenal resection and what sounds like a gastrojejunostomy. He has been on a Reglan and Z ofran to control his nausea and vomiting. He has constipation problems as he takes chronic pain medi cation. He had a J tube put in by Dr. Gonsales over at [facility] because he was failing to thriv e. He is undergoing an upper endoscopy by Dr. Esquivel in the recent past beginning in February this y ear and another EGD was performed on 08/24/2018 showing previous surgeries also retained gastric mate rial. Colonoscopy was attempted by Dr. Esquivel, but was unsuccessful secondary to poor prep. The pat dash reports he does have a family history of colon cancer and underwent a colonoscopy successfully i 2014. PAST MEDICAL HISTORY: Includes atrial fibrillation; peptic ulcer disease, status post gastric surger y; chronic back pain, on opiates. PAST SURGICAL HISTORY: Includes cholecystectomy, multiple gastric surgeries, bladder surgery, J-tube placement. MEDICATIONS: Include Zofran 4 mg p.o. q.6 hours p.r.n., Tylenol No. 3 one p.o. q.6 hours p.r.n., Kef sherie 1 p.o. b.i.d., Reglan 10 mg p.o. q.6 hours p.r.n., Topamax 100 mg p.o. b.i.d., omeprazole 20 mg p .o. b.i.d., nitrofurantoin 100 mg p.o. b.i.d., Imitrex 100 mg p.o. q. day p.r.n. ALLERGIES: Include ERYTHROMYCIN and PENICILLIN. SOCIAL HISTORY: He does not smoke or drink. FAMILY HISTORY: Significant for a colorectal cancer in his mother. REVIEW OF SYSTEMS: Constitutional: Negative for fever or chills. Positive for weight loss. Eyes: No blurred vision or double vision. ENT: No sore throat or earaches. Cardiovascular: No chest pa in or palpitation. Pulmonary: No shortness of breath, cough or wheezing. Gastrointestinal: See ab ove. : No hematuria or dysuria. Musculoskeletal: No joint pain or muscle weakness. Skin: No r ashes. Neurologic: No numbness or seizure activity. PHYSICAL EXAMINATION: GENERAL: Shows a thin white male, in no acute distress. VITAL SIGNS: Temperature 97.8, pulse 89, respiratory rate 18, blood pressure 128/89. HEENT: Unremarkable. NECK: Supple. CHEST: Clear. CARDIOVASCULAR: Regular rate and rhythm. ABDOMEN: Soft, nontender, without organomegaly or masses. Bowel sounds are present and normoactive. RECTAL: Deferred. EXTREMITIES: Normal. NEUROLOGIC: Nonfocal. LABORATORY DATA: Shows an admission white blood cell count 8.9, hemoglobin 9.5, hematocrit 31.4. Ch emistry shows sodium 133, chloride 90, BUN 77, creatinine 2.61, AST of 40. CK of 761. Urinalysis sh ows small leukocyte esterase, 7-10 rbc's, 11-20 wbc's. ASSESSMENT: 1. Post-surgical gastroparesis with recurrent nausea and vomiting - this may be intractable to Fara n and previously had a J-tube placed for this condition. This may be the only answer for the patient , although he seems to be doing fine today. 3. Opioid induced constipation. 4. Chronic back pain. RECOMMENDATIONS: 1. IV metoclopramide then switch to oral Elixir. 2. Protonix b.i.d. 3. Either Movantik or Relistor subcu to help with constipation. 4. Replace J-tube if the patient is unable to tolerate oral intake successfully as an outpatient.
[2018-09-30] MEDS: Ondansetron ODT 4 MG TAB PO PRN (20:49)
[2018-10-01] MEDS: Sodium Chloride 0.9% 1,000 ML IV SCH ×2 (04:26→11:03)
[2018-10-01] MEDS: Enoxaparin Sodium 30 MG/0.3 ML SYRINGE SC SCH (07:50)
[2018-10-01] MEDS: Topiramate 100 MG TAB PO SCH ×2 (07:50→21:30)
[2018-10-01] MEDS: Bisacodyl 5 MG TAB PO PRN (11:02)
[2018-10-01] MEDS ORDERED: Methylnaltrexone 12 MG/0.6 ML VIAL SC PRN (12:54)
--- NOTE | 2018-10-01 13:01 | PDOC.PN ---
- Subjective Encounter Start Date: 10/01/18 Encounter Start Time: 12:59 Subjective: cycles from feeling bad to fair, fair today - Objective Resuscitation Status: Resuscitation Status FULL:Full Resuscitation Vital Signs & Weight: Vital Signs (12 hours) Temp Pulse Resp BP Pulse Ox 10/01/18 08:08 98.3 F 102 H 20 133/87 98 10/01/18 04:00 119/77 Weight Admit Weight 114 lb 10.246 oz Weight 114 lb 10.246 oz I&O: 09/30/18 10/01/18 10/02/18 06:59 06:59 06:59 Intake Total 840 900 Output Total 1050 Balance -210 900 Result Diagrams: 09/30/18 04:08 09/30/18 04:08 Phys Exam - Physical Examination Neck: no JVD Respiratory: clear to auscultation bilateral Cardiovascular: RRR, no significant murmur Gastrointestinal: soft, positive bowel sounds Musculoskeletal: no edema Dx/Plan (1) Abdominal pain Code(s): R10.9 - UNSPECIFIED ABDOMINAL PAIN Status: Acute Qualifiers: Abdominal location: generalized Comment: Suspect chronic component and secondary to chronic narcotic exposure, GI service following., Esophagitis noted on EGD with continued PPI, bx taken and pending (2) Abnormal finding on urinalysis Code(s): R82.90 - UNSPECIFIED ABNORMAL FINDINGS IN URINE Status: Acute Comment: pt denies any urinary symptoms. After discussion with pt, electing not to treat asymptomatic bacteriuria (3) Dehydration Code(s): E86.0 - DEHYDRATION Status: Acute Comment: Improving, continue IV fluids (4) Nausea & vomiting Code(s): R11.2 - NAUSEA WITH VOMITING, UNSPECIFIED Status: Acute Qualifiers: Vomiting type: unspecified Vomiting Intractability: unspecified Qualified Code(s): R11.2 - Nausea with vomiting, unspecified Comment: Improved, likely due to narcotic withdrawal, Zofran prn, ADAT (5) Chronic pain disorder Code(s): G89.4 - CHRONIC PAIN SYNDROME Status: Chronic Comment: stable (6) Moderate protein-calorie malnutrition Code(s): E44.0 - MODERATE PROTEIN-CALORIE MALNUTRITION Status: Chronic Comment: dietitian following (7) Paroxysmal atrial fibrillation Code(s): I48.0 - PAROXYSMAL ATRIAL FIBRILLATION Status: Chronic Comment: NSR here. PAN Newman on hold (8) Gastroparesis Code(s): K31.84 - GASTROPARESIS Status: Suspected Comment: Continue Reglan 10mg IV q6h - Plan reglan 10mg q6h iv, transition to po tomorrow -: relistor q48h sc for opiod induced constipation -: hopefully home in 2-3 days * .
[2018-10-01] MEDS: Metoclopramide HCl 10 MG/2 ML VIAL IVP SCH ×2 (14:21→21:30)
[2018-10-01] MEDS: ALPRAZolam 0.25 MG TAB PO PRN (21:29)
[2018-10-01] MEDS: Famotidine 20 MG TAB PO SCH (21:30)
[2018-10-02] MEDS: Sodium Chloride 0.9% 1,000 ML IV SCH ×3 (01:54→21:53)
[2018-10-02] MEDS: ALPRAZolam 0.25 MG TAB PO PRN ×3 (02:09→18:10)
--- NOTE | 2018-10-02 02:35 | PRG ---
DATE OF SERVICE: 10/01/2018 SUBJECTIVE: Mr. Storey states that he has been keeping food down today well without any vomiting. They states in general, he has been only vomiting couple of times per week and then he has been lakeisha ping supplements down that he has been taking more frequently. He states that he has been having kathryn oing problems with constipation and has a bowel movement every couple of weeks; however, he has been afraid to take scheduled oral laxatives due to episodes of incontinence at night. He has been taking some suppositories as needed. OBJECTIVE: VITAL SIGNS: Temperature 98.6, pulse 81, blood pressure 108/70. GENERAL: He is in no acute distress, awake and alert. LUNGS: Clear to auscultation bilaterally. HEART: Regular rate and rhythm without murmur. ABDOMEN: Soft, nontender, nondistended. Bowel sounds are present. EXTREMITIES: No lower extremity edema. IMPRESSION: 1. Chronic nausea and vomiting with postsurgical gastroparesis. 2. Opioid-induced constipation with episodes of incontinence when he takes laxatives. 3. Chronic back pain. RECOMMENDATIONS: 1. Case was discussed with Dr. Fregoso and Dr. Esquivel. Patient is considering back surgery; however, i mproved nutritional status has been recommended prior to that. The patient was offered replacement o f the J-tube either by Interventional Radiology or surgical technique. The patient states that giovanni woodall does not want to have the J-tube replaced and that it bothered him when it was in. He states th at he is keeping oral supplements down better and with more aggressive use of oral supplements. He f eels that this is equivalent to his ability to improve nutrition with the J-tube. 2. He has been on Movantik for chronic opioid-induced constipation. He still only has a bowel movem ent once every couple of weeks and only takes MiraLax maybe twice per week. He was encouraged to zachery e the MiraLax every single day, and we have the option of adding other laxatives depending on respons e. However, he is hesitant to do this due to concerns about incontinence at night. It may be that s ome of the incontinence is related to the severe constipation and overflow. This still think he need s to treat the constipation more aggressively. He will consider this. As an inpatient, he is receiving metoclopramide and pantoprazole. If he changes his mind about the J tube, then we can order this for him.
[2018-10-02] MEDS: Metoclopramide HCl 10 MG/2 ML VIAL IVP SCH (04:14)
[2018-10-02] MEDS: Enoxaparin Sodium 30 MG/0.3 ML SYRINGE SC SCH (08:41)
[2018-10-02] MEDS: Topiramate 100 MG TAB PO SCH ×2 (08:41→19:19)
--- NOTE | 2018-10-02 10:32 | PDOC.PN ---
- Subjective Encounter Start Date: 10/02/18 Encounter Start Time: 10:31 Subjective: eating ok - Objective Resuscitation Status: Resuscitation Status FULL:Full Resuscitation MAR Reviewed: Yes Vital Signs & Weight: Vital Signs (12 hours) Temp Pulse Resp BP Pulse Ox 10/02/18 08:45 98 10/02/18 08:25 98.1 F 81 14 123/82 98 Weight Admit Weight 114 lb 10.246 oz Weight 114 lb 10.246 oz I&O: 10/01/18 10/02/18 10/03/18 06:59 06:59 06:59 Intake Total 900 900 Balance 900 900 Result Diagrams: 09/30/18 04:08 09/30/18 04:08 Phys Exam - Physical Examination Neck: no JVD Respiratory: clear to auscultation bilateral Cardiovascular: RRR, no significant murmur Gastrointestinal: soft, positive bowel sounds Musculoskeletal: no edema Dx/Plan (1) Abdominal pain Code(s): R10.9 - UNSPECIFIED ABDOMINAL PAIN Status: Acute Qualifiers: Abdominal location: generalized Comment: Suspect chronic component and secondary to chronic narcotic exposure, GI service following., Esophagitis noted on EGD with continued PPI, bx taken and pending (2) Abnormal finding on urinalysis Code(s): R82.90 - UNSPECIFIED ABNORMAL FINDINGS IN URINE Status: Acute Comment: pt denies any urinary symptoms. After discussion with pt, electing not to treat asymptomatic bacteriuria (3) Dehydration Code(s): E86.0 - DEHYDRATION Status: Acute Comment: Improving, continue IV fluids (4) Nausea & vomiting Code(s): R11.2 - NAUSEA WITH VOMITING, UNSPECIFIED Status: Acute Qualifiers: Vomiting type: unspecified Vomiting Intractability: unspecified Qualified Code(s): R11.2 - Nausea with vomiting, unspecified Comment: Improved, likely due to narcotic withdrawal, Zofran prn, ADAT (5) Chronic pain disorder Code(s): G89.4 - CHRONIC PAIN SYNDROME Status: Chronic Comment: stable (6) Moderate protein-calorie malnutrition Code(s): E44.0 - MODERATE PROTEIN-CALORIE MALNUTRITION Status: Chronic Comment: dietitian following (7) Paroxysmal atrial fibrillation Code(s): I48.0 - PAROXYSMAL ATRIAL FIBRILLATION Status: Chronic Comment: NSR here. Eliquis ,[facility] on hold (8) Gastroparesis Code(s): K31.84 - GASTROPARESIS Status: Suspected Comment: Continue Reglan 10mg IV q6h - Plan change relan to po, cont relistor SC -: hopefully home 1-2 days * .
[2018-10-02] MEDS: Metoclopramide HCl 10 MG TAB PO SCH ×3 (11:36→19:19)
--- NOTE | 2018-10-02 12:20 | PQF ---
DATE: 10-02-18 ATTN: DR. MICHAEL SOLORIO / DR. SHIELA FLETCHER Please exercise your independent, professional judgment in responding to the clarification form. Clinical indicators are provided on the bottom of this form for your review Please check appropriate box(s): [x ] Acute Renal Failure (ARF) / Acute Kidney Injury (AL) [ ] Insignificant Lab Values [ ] Other diagnosis [ ] Unable to determine In addition, please specify: Present on Admission (POA): [ x ] Yes [ ] No [ ] Unable to determine National Kidney Foundation Guidelines for CKD Staging Stage I Kidney damage with normal or increased GFR GFR > 90 Stage II Kidney damage with mildly decreased GFR GFR 60-89 Stage III Kidney damage with moderately decreased GFR GFR 30-59 Stage IV Kidney damage with severely decreased GFR GFR 16-29 Stage V Kidney failure GFR<15 ESRD End Stage Renal Disease On dialysis Acute Renal Failure/Acute Kidney Failure defined as: Increases in SCr by (>) 0.3 mg/dl within 48 hours OR- Increases in SCr by (>) 1.5 times baseline, known or presumed to have occurred within the prior 7 days OR- Urine volume < 0.5 ml/kg/hour for 6 hours (KDIGO supplement 2012 for RIFLE/TARUN criteria) For continuity of documentation, please document condition throughout progress notes and discharge summary. Thank You. CLINICAL INDICATORS - SIGNS / SYMPTOMS / LABS ER DX: RENAL FAILURE, GENERALIZED WEAKNESS, GI BLEED GFR: 09-29-18: 24 09-30-18: 32 CREATININE: 09-29-18: 2.61 09-30-18: 2.05 BUN: 09-29-18: 77 09-30-18: 56 H&P: HX A FIB, GASTRITIS, PARTIAL GASTRECTOMY, NAUSEA, VOMITING, GASTROPARESIS HX, HX LOSING WEIGHT, G TUBE IN PLACE TO KEEP HYDRATION, ESOPHAGITIS RISK FACTORS: H&P: HX A FIB, GASTRITIS, PARTIAL GASTRECTOMY, NAUSEA, VOMITING, GASTROPARESIS HX, HX LOSING WEIGHT, G TUBE IN PLACE TO KEEP HYDRATION, ESOPHAGITIS TREATMENTS: ER: NS 1L IVF MAR: NS IVF (This form is maintained as a part of the permanent medical record) 2014 [employer], [employer]. All Rights Reserved [email or web address] Office: [phone] [facility]
[2018-10-02] MEDS: SUMAtriptan Succinate 50 MG TAB PO PRN (19:19)
[2018-10-02] MEDS: Famotidine 20 MG TAB PO SCH (19:19)
[2018-10-02] MEDS: Calcium Carbonate 500 MG ChewTAB PO PRN ×2 (19:22→23:58)
[2018-10-02] MEDS: Melatonin 3 MG TAB PO PRN (21:52)
[2018-10-02] MEDS: Ondansetron ODT 4 MG TAB PO PRN (23:55)
[2018-10-03 04:30] LABS: Anion Gap 10 mmol/L (10-20); BUN (Urea Nitrogen) 37 mg/dL (8.4-25.7); Calc. Creatinine Clearance 33 mL/min (70-130); Calcium 8.3 mg/dL (7.8-10.44); Carbon Dioxide 24 mmol/L (23-31); Chloride 111 mmol/L (98-107); Estimated GFR-MDRD 46; Glucose 93 mg/dL (80-115); Potassium 4.1 mmol/L (3.5-5.1); Sodium 141 mmol/L (136-145)
[2018-10-03] MEDS: Metoclopramide HCl 10 MG TAB PO SCH ×4 (07:55→20:49)
[2018-10-03] MEDS: Topiramate 100 MG TAB PO SCH ×2 (07:55→20:49)
[2018-10-03] MEDS: Enoxaparin Sodium 30 MG/0.3 ML SYRINGE SC SCH (07:57)
[2018-10-03] MEDS: ALPRAZolam 0.25 MG TAB PO PRN ×2 (09:57→20:49)
[2018-10-03] MEDS: Sodium Chloride 0.9% 1,000 ML IV SCH ×2 (09:58→20:50)
[2018-10-03] MEDS: Ondansetron ODT 4 MG TAB PO PRN ×2 (12:30→20:48)
--- NOTE | 2018-10-03 12:58 | PDOC.PN ---
- Subjective Encounter Start Date: 10/03/18 Encounter Start Time: 10:45 Subjective: has not had anything to eat from am, no appetite -: no nausea but has plenty of gas -: says he had a large BM yesterday - Objective Resuscitation Status: Resuscitation Status FULL:Full Resuscitation MAR Reviewed: Yes Vital Signs & Weight: Vital Signs (12 hours) Temp Pulse Resp BP BP Pulse Ox 10/03/18 08:07 95 10/03/18 08:00 97.4 F L 96 18 127/87 127/87 95 Weight Admit Weight 114 lb 10.246 oz Weight 114 lb 10.246 oz I&O: 10/02/18 10/03/18 10/04/18 06:59 06:59 06:59 Intake Total 900 1740 Output Total 910 Balance 900 830 Result Diagrams: 09/30/18 04:08 10/03/18 03:22 Phys Exam - Physical Examination HEENT: PERRLA, moist MMs Neck: no JVD, supple Respiratory: no wheezing, no rales Cardiovascular: RRR, no significant murmur Gastrointestinal: soft, non-tender, positive bowel sounds Musculoskeletal: pulses present Neurological: non-focal, moves all 4 limbs Psychiatric: A&O x 3 Dx/Plan (1) Physical deconditioning Code(s): R53.81 - OTHER MALAISE Status: Acute (2) AL (acute kidney injury) Code(s): N17.9 - ACUTE KIDNEY FAILURE, UNSPECIFIED Status: Acute (3) Constipation Code(s): K59.00 - CONSTIPATION, UNSPECIFIED Status: Acute Qualifiers: Constipation type: slow transit constipation Qualified Code(s): K59.01 - Slow transit constipation Comment: Opioid induced constipation (4) Dehydration Code(s): E86.0 - DEHYDRATION Status: Acute Comment: Improving, continue IV fluids (5) Nausea & vomiting Code(s): R11.2 - NAUSEA WITH VOMITING, UNSPECIFIED Status: Acute Qualifiers: Vomiting type: unspecified Vomiting Intractability: unspecified Qualified Code(s): R11.2 - Nausea with vomiting, unspecified Comment: gastroparesis (6) Anemia Code(s): D64.9 - ANEMIA, UNSPECIFIED Status: Chronic Qualifiers: Anemia type: unspecified type Qualified Code(s): D64.9 - Anemia, unspecified (7) Chronic pain disorder Code(s): G89.4 - CHRONIC PAIN SYNDROME Status: Chronic Comment: stable (8) Moderate protein-calorie malnutrition Code(s): E44.0 - MODERATE PROTEIN-CALORIE MALNUTRITION Status: Chronic Comment: Ensure Enlive TID (9) Gastroparesis Code(s): K31.84 - GASTROPARESIS Status: Chronic Comment: Continue Reglan 10mg po ACHS - Plan d/w who has accomodated patient in his house -: will need swing bed/NH due to multiple med issues and deconditioning -: lidocaine patch, colace, miralax, norco, movantik -: to amb as tolerated, needs to improve his albumin and physical strength -: has severe lumbar disc disease and is seeing for the same * . Review of Systems - Medications/Allergies Allergies/Adverse Reactions: Allergies Allergy/AdvReac Type Severity Reaction Status Date / Time erythromycin base Allergy Verified 07/08/18 11:09 Penicillins Allergy Verified 07/08/18 11:09 Medications: Current Medications Acetaminophen/Aspirin/Caffeine (Excedrin Migraine) 1 tab PO BID PRN PRN Reason: Pain Alprazolam (Xanax) 0.25 mg PO TIDPRN PRN PRN Reason: Anxiety Last Admin: 10/03/18 09:57 Dose: 0.25 mg Bisacodyl (Dulcolax) 10 mg PO DAILYPRN PRN PRN Reason: Constipation Last Admin: 10/01/18 11:02 Dose: 10 mg Calcium Carbonate (Tums) 1,000 mg PO Q4H PRN PRN Reason: Indigestion Last Admin: 10/02/18 23:58 Dose: 1,000 mg Docusate Sodium (Colace) 100 mg PO BID [facility] Enoxaparin Sodium (Lovenox) 30 mg SC 0900 [facility] Last Admin: 10/03/18 07:57 Dose: 30 mg Famotidine (Pepcid) 20 mg PO QPM [facility] Last Admin: 10/02/18 19:19 Dose: 20 mg Sodium Chloride (Normal Saline 0.9%) 1,000 mls @ 90 mls/hr IV .Q11H7M [facility] Last Admin: 10/03/18 09:58 Dose: 1,000 mls Lidocaine (Lidoderm 5% Patch) 1 patch TD DAILY [facility] Melatonin (Melatonin) 6 mg PO HSPRN PRN PRN Reason: Insomnia Last Admin: 10/02/18 21:52 Dose: 6 mg Metoclopramide HCl (Reglan) 10 mg PO ACHS [facility] Last Admin: 10/03/18 12:13 Dose: 10 mg Miscellaneous Medication (Movantik) 25 mg PO Q48H PRN PRN Reason: CONSTIPATION Last Admin: 10/01/18 21:39 Dose: 25 mg Miscellaneous Medication (Lidocaine Patch Removal) 1 each TOP 2100 [facility] Ondansetron HCl (Zofran Odt) 4 mg PO Q6H PRN PRN Reason: Nausea/Vomiting Last Admin: 10/03/18 12:30 Dose: 4 mg Pantoprazole Sodium (Protonix) 40 mg PO BID [facility] Last Admin: 10/03/18 07:55 Dose: 40 mg Polyethylene Glycol (Miralax) 17 gm PO DAILY [facility] Sumatriptan Succinate (Imitrex) 100 mg PO PRN PRN PRN Reason: Migraine Headache Last Admin: 10/02/18 19:19 Dose: 100 mg Topiramate (Topamax) 100 mg PO BID [facility] Last Admin: 10/03/18 07:55 Dose: 100 mg
[2018-10-03] MEDS ORDERED: Silver Sulfadiazine 1% Cream 50 GM JAR TOP PRN (16:51)
[2018-10-03] MEDS: Acetaminophen 500 MG TAB PO PRN ×2 (17:43→20:50)
[2018-10-03] MEDS: Docusate 100 MG CAP PO SCH (20:49)
[2018-10-03] MEDS: Famotidine 20 MG TAB PO SCH (20:49)
[2018-10-03] MEDS: Lidocaine Patch Removal 1 EACH TOP SCH (20:50)
[2018-10-03] MEDS: Calcium Carbonate 500 MG ChewTAB PO PRN (20:50)
[2018-10-04] MEDS: Metoclopramide HCl 10 MG TAB PO SCH ×4 (07:55→21:39)
[2018-10-04] MEDS: Polyethylene Glycol 3350 17 GM Packet PO SCH (08:06)
[2018-10-04] MEDS: Sodium Chloride 0.9% 1,000 ML IV SCH ×2 (08:06→16:54)
[2018-10-04] MEDS: Lidocaine 5% Patch TD SCH (08:06)
[2018-10-04] MEDS: Enoxaparin Sodium 30 MG/0.3 ML SYRINGE SC SCH (08:07)
[2018-10-04] MEDS: Docusate 100 MG CAP PO SCH ×2 (08:07→21:38)
[2018-10-04] MEDS: Fluticasone Propionate Nasal Spray 16 gm Bottle NASAL SCH (08:07)
[2018-10-04] MEDS: Topiramate 100 MG TAB PO SCH ×2 (08:07→21:39)
[2018-10-04] MEDS: Aspirin/APAP/Caffeine Tab (Excedrin Migraine) PO PRN (08:40)
[2018-10-04] MEDS: SUMAtriptan Succinate 50 MG TAB PO PRN ×3 (10:21→17:32)
--- NOTE | 2018-10-04 11:37 | PDOC.PN ---
- Subjective Encounter Start Date: 10/04/18 Encounter Start Time: 11:00 Subjective: awake, is trying to sit on bed but keeps oscillating backwards -: not fully oriented - Objective Resuscitation Status: Resuscitation Status FULL:Full Resuscitation MAR Reviewed: Yes Vital Signs & Weight: Vital Signs (12 hours) Temp Pulse Resp BP Pulse Ox 10/04/18 08:07 96 10/04/18 07:32 97.8 F 83 16 117/77 96 Weight Admit Weight 114 lb 10.246 oz Weight 114 lb 10.246 oz I&O: 10/03/18 10/04/18 10/05/18 06:59 06:59 06:59 Intake Total 1740 Output Total 910 Balance 830 Result Diagrams: 09/30/18 04:08 10/03/18 03:22 Phys Exam - Physical Examination HEENT: PERRLA, sclera anicteric Neck: no JVD, supple Respiratory: no wheezing, no rales Cardiovascular: RRR, no significant murmur Gastrointestinal: soft, non-tender, positive bowel sounds Musculoskeletal: pulses present, edema present Neurological: non-focal, moves all 4 limbs Dx/Plan (1) Physical deconditioning Code(s): R53.81 - OTHER MALAISE Status: Acute (2) AL (acute kidney injury) Code(s): N17.9 - ACUTE KIDNEY FAILURE, UNSPECIFIED Status: Acute (3) Constipation Code(s): K59.00 - CONSTIPATION, UNSPECIFIED Status: Acute Qualifiers: Constipation type: slow transit constipation Qualified Code(s): K59.01 - Slow transit constipation Comment: Opioid induced constipation (4) Dehydration Code(s): E86.0 - DEHYDRATION Status: Acute Comment: Improving, continue IV fluids (5) Nausea & vomiting Code(s): R11.2 - NAUSEA WITH VOMITING, UNSPECIFIED Status: Acute Qualifiers: Vomiting type: unspecified Vomiting Intractability: unspecified Qualified Code(s): R11.2 - Nausea with vomiting, unspecified Comment: gastroparesis (6) Anemia Code(s): D64.9 - ANEMIA, UNSPECIFIED Status: Chronic Qualifiers: Anemia type: unspecified type Qualified Code(s): D64.9 - Anemia, unspecified (7) Chronic pain disorder Code(s): G89.4 - CHRONIC PAIN SYNDROME Status: Chronic Comment: stable (8) Moderate protein-calorie malnutrition Code(s): E44.0 - MODERATE PROTEIN-CALORIE MALNUTRITION Status: Chronic Comment: Ensure Enlive TID (9) Gastroparesis Code(s): K31.84 - GASTROPARESIS Status: Chronic Comment: Continue Reglan 10mg po ACHS - Plan labs for today -: on reglan, topamax, norco, movantik -: gentle iv hydration -: poor prognosis, is unable to eat much with progressive deconditioning -: awaiting placement, PT to mobilize as tolerated * . Review of Systems - Medications/Allergies Allergies/Adverse Reactions: Allergies Allergy/AdvReac Type Severity Reaction Status Date / Time erythromycin base Allergy Verified 07/08/18 11:09 Penicillins Allergy Verified 07/08/18 11:09 Medications: Current Medications Acetaminophen (Tylenol) 1,000 mg PO Q6H PRN PRN Reason: Headache/Fever or Pain Last Admin: 10/03/18 20:50 Dose: 1,000 mg Acetaminophen/Aspirin/Caffeine (Excedrin Migraine) 1 tab PO BID PRN PRN Reason: Pain Last Admin: 10/04/18 08:40 Dose: 1 tab Alprazolam (Xanax) 0.25 mg PO TIDPRN PRN PRN Reason: Anxiety Last Admin: 10/03/18 20:49 Dose: 0.25 mg Bisacodyl (Dulcolax) 10 mg PO DAILYPRN PRN PRN Reason: Constipation Last Admin: 10/01/18 11:02 Dose: 10 mg Calcium Carbonate (Tums) 1,000 mg PO Q4H PRN PRN Reason: Indigestion Last Admin: 10/03/18 20:50 Dose: 1,000 mg Docusate Sodium (Colace) 100 mg PO BID [facility] Last Admin: 10/04/18 08:07 Dose: 100 mg Enoxaparin Sodium (Lovenox) 30 mg SC 0900 [facility] Last Admin: 10/04/18 08:07 Dose: 30 mg Famotidine (Pepcid) 20 mg PO QPM [facility] Last Admin: 10/03/18 20:49 Dose: 20 mg Fluticasone Propionate (Flonase Nasal [place]) 0 gm NASAL DAILY [facility] Last Admin: 10/04/18 08:07 Dose: 1 spr Sodium Chloride (Normal Saline 0.9%) 1,000 mls @ 90 mls/hr IV .Q11H7M [facility] Last Admin: 10/04/18 08:06 Dose: 1,000 mls Lidocaine (Lidoderm 5% Patch) 1 patch TD DAILY [facility] Last Admin: 10/04/18 08:06 Dose: 1 patch Melatonin (Melatonin) 6 mg PO HSPRN PRN PRN Reason: Insomnia Last Admin: 10/02/18 21:52 Dose: 6 mg Metoclopramide HCl (Reglan) 10 mg PO ACHS [facility] Last Admin: 10/04/18 11:33 Dose: 10 mg Miscellaneous Medication (Movantik) 25 mg PO Q48H PRN PRN Reason: CONSTIPATION Last Admin: 10/01/18 21:39 Dose: 25 mg Miscellaneous Medication (Lidocaine Patch Removal) 1 each TOP 2100 [facility] Last Admin: 10/03/18 20:50 Dose: Not Given Ondansetron HCl (Zofran Odt) 4 mg PO Q6H PRN PRN Reason: Nausea/Vomiting Last Admin: 10/03/18 20:48 Dose: 4 mg Pantoprazole Sodium (Protonix) 40 mg PO BID [facility] Last Admin: 10/04/18 08:06 Dose: 40 mg Polyethylene Glycol (Miralax) 17 gm PO DAILY [facility] Last Admin: 10/04/18 08:06 Dose: 17 gm Silver Sulfadiazine (Silvadene) 0 gm TOP PRN PRN PRN Reason: WOUND DRESSING CHANGES Last Admin: 10/03/18 20:57 Dose: 1 applic Sumatriptan Succinate (Imitrex) 100 mg PO PRN PRN PRN Reason: Migraine Headache Last Admin: 10/04/18 10:21 Dose: 100 mg Topiramate (Topamax) 100 mg PO BID [facility] Last Admin: 10/04/18 08:07 Dose: 100 mg
[2018-10-04 12:37] LABS: ALT (SGPT) 26 U/L (8-55); AST (SGOT) 31 U/L (5-34); Alkaline Phosphatase 89 U/L (40-150); Anion Gap 10 mmol/L (10-20); BUN (Urea Nitrogen) 38 mg/dL (8.4-25.7); Bilirubin, Total 0.4 mg/dL (0.2-1.2); Calc. Creatinine Clearance 32 mL/min (70-130); Calcium 8.3 mg/dL (7.8-10.44); Carbon Dioxide 21 mmol/L (23-31); Chloride 112 mmol/L (98-107); Estimated GFR-MDRD 43; Globulin 1.9 g/dL (2.4-3.5); Glucose 93 mg/dL (80-115); Potassium 4.6 mmol/L (3.5-5.1); Protein, Total 4.9 g/dL (5.8-8.1); Sodium 138 mmol/L (136-145)
[2018-10-04 12:52] LABS: #Basophils 0.1 thou/uL (0.0-0.2); #Eosinphils 0.1 thou/uL (0.0-0.7); #Lymphocytes 1.1 thou/uL (1.20-3.40); #Monocytes 0.9 thou/uL (0.11-0.59); #Neutrophils 8.6 thou/uL (1.40-6.50); %Basophils 0.7 % (0.0-1.0); %Lymphocytes 10.2 % (21.0-51.0); %Monocytes 8.5 % (0.0-10.0); %Neutrophils 79.6 % (42.0-75.0); Anisocytosis SLIGHT = 6-15 cells (100X) (0-5/hpf); Hemoglobin 8.9 g/dL (14.0-18.0); Hypochromia SLIGHT = 6-15 cells (100X) (0-5/hpf); MDiff Complete? YES; Mean Corpuscular HGB CONC 29.9 g/dL (32.0-36.0); Mean Corpuscular Hemoglobin 25.1 pg (27.0-31.0); Mean Corpuscular Volume 83.8 fL (78.0-98.0); Mean Platelet Volume 6.4 fL (7.4-10.4); Microcytosis SLIGHT = 6-15 cells (100X) (0-5/hpf); Platelet Count 367 thou/uL (130-400); RBC Distribution Width 16.3 % (11.5-14.5); Red Blood Cell (RBC) Count 3.54 mill/uL (4.70-6.10); White Blood Cell (WBC) Count 10.8 thou/uL (4.8-10.8)
--- NOTE | 2018-10-04 13:58 | RAD ---
ABDOMINAL RADIOGRAPH SINGLE VIEW: KUB: CLINICAL HISTORY: Constipation. FINDINGS: There is a moderate volume of retained fecal material throughout the colon. Air-distended bowel is s een within the right abdomen, and there is anastomotic suture material visualized at the upper right abdomen. Osseous degenerative changes are present. The upper abdomen is excluded from view. There is a stable round density overlying the right hemipelvis. IMPRESSION: 1. Moderate retained fecal material throughout the colon. 2. Air distention of bowel within the right abdomen. This could relate to a localized ileus. The p ossibility of a developing obstruction is not excluded. Continued followup may be obtained as clinic ally indicated. POS: [facility]
[2018-10-04] MEDS: Ondansetron ODT 4 MG TAB PO PRN ×2 (15:14→21:38)
--- NOTE | 2018-10-04 21:16 | PRG ---
DATE OF SERVICE: 10/04/2018 SUBJECTIVE: Mr. Storey has vomited multiple times today. He has no abdominal pain. He complains of back pain and is requesting opioid pain medication. OBJECTIVE: VITAL SIGNS: Temperature 97.8, pulse 84, blood pressure 117/80. GENERAL: He is in no acute distress. He is slow to answer questions. LUNGS: Clear to auscultation bilaterally. HEART: Regular rate and rhythm. ABDOMEN: Soft, nontender, nondistended. Bowel sounds are present. EXTREMITIES: No lower extremity edema. He does have periodic twitching of his upper extremity and t remor. IMPRESSION: 1. Gastroparesis and chronic nausea and vomiting with protein malnutrition and electrolyte imbalance resulting in repeated hospitalizations. I am concerned that the neurological symptoms could be wors ened by the Reglan; however, Mr. Storey states that the neurological symptoms have been stable for years and unchanged and that when he goes off the Reglan, the nausea and vomiting becomes unbearable and he feels that the neurological symptoms are no different on or off the Reglan. He does not want to discontinue the medication and understands there are some potential ongoing risk for neurological side effects with it. I will not discontinue the Reglan at this point based on his wishes. 2. Chronic constipation. 3. Opioid dependence. He is restarting the hydrocodone for pain per the hospitalist service. RECOMMENDATIONS: 1. I did suggest replacement again of the J tube; however, he declines this and is quite clear that he does not want to replace. 2. Plan is to potentially admit to assisted from here for attempted continued efforts at oral nu tritional supplementation. 3. I would prefer to stop the metoclopramide, given the neurological side effects; however, again he is adamant that he continue this medicine for now. 4. Continue the scheduled polyethylene glycol and Movantik. 5. I will sign off for now. Please call Dr. Mederos if needed over the weekend.
[2018-10-04] MEDS: ALPRAZolam 0.25 MG TAB PO PRN (21:38)
[2018-10-04] MEDS: Lidocaine Patch Removal 1 EACH TOP SCH (21:39)
[2018-10-04] MEDS: Famotidine 20 MG TAB PO SCH (21:39)
[2018-10-04] MEDS: HYDROcodone/Acetaminophen 5/325 mg Tablet PO PRN (21:40)
[2018-10-04] MEDS: Calcium Carbonate 500 MG ChewTAB PO PRN (21:44)
[2018-10-05] MEDS: Melatonin 3 MG TAB PO PRN (00:13)
[2018-10-05] MEDS: Ondansetron ODT 4 MG TAB PO PRN ×2 (01:38→21:01)
[2018-10-05] MEDS: HYDROcodone/Acetaminophen 5/325 mg Tablet PO PRN ×4 (01:38→21:01)
[2018-10-05] MEDS: Sodium Chloride 0.9% 1,000 ML IV SCH (07:19)
[2018-10-05] MEDS: Docusate 100 MG CAP PO SCH ×2 (08:06→21:00)
[2018-10-05] MEDS: Topiramate 100 MG TAB PO SCH ×2 (08:07→21:01)
[2018-10-05] MEDS: Metoclopramide HCl 10 MG TAB PO SCH ×4 (08:07→21:01)
[2018-10-05] MEDS: ALPRAZolam 0.25 MG TAB PO PRN ×2 (08:08→21:01)
[2018-10-05] MEDS: Enoxaparin Sodium 30 MG/0.3 ML SYRINGE SC SCH (08:08)
[2018-10-05] MEDS: Polyethylene Glycol 3350 17 GM Packet PO SCH (08:08)
[2018-10-05] MEDS: Fluticasone Propionate Nasal Spray 16 gm Bottle NASAL SCH (08:18)
[2018-10-05] MEDS: Lidocaine 5% Patch TD SCH (08:53)
[2018-10-05] MEDS: Calcium Carbonate 500 MG ChewTAB PO PRN ×2 (09:10→21:00)
--- NOTE | 2018-10-05 10:46 | PDOC.PN ---
- Subjective Encounter Start Date: 10/05/18 Encounter Start Time: 07:45 Subjective: no bm yet from 3 days -: got movantik yesterday -: says he if hungry and will order breakfast, has been nauseated yest - Objective Resuscitation Status: Resuscitation Status FULL:Full Resuscitation MAR Reviewed: Yes Vital Signs & Weight: Vital Signs (12 hours) Temp Pulse Resp BP Pulse Ox 10/05/18 07:29 97.5 F L 80 16 133/85 98 Weight Admit Weight 114 lb 10.246 oz Weight 114 lb 10.246 oz I&O: 10/04/18 10/05/18 10/06/18 06:59 06:59 06:59 Intake Total 1216 Output Total 500 Balance 716 Result Diagrams: 10/04/18 12:05 10/04/18 12:05 Phys Exam - Physical Examination HEENT: PERRLA, sclera anicteric Neck: no JVD, supple Respiratory: no wheezing, no rales Cardiovascular: RRR, no significant murmur Gastrointestinal: soft, non-tender, positive bowel sounds Musculoskeletal: no edema, pulses present Neurological: non-focal, moves all 4 limbs Dx/Plan (1) Physical deconditioning Code(s): R53.81 - OTHER MALAISE Status: Acute (2) AL (acute kidney injury) Code(s): N17.9 - ACUTE KIDNEY FAILURE, UNSPECIFIED Status: Acute (3) Constipation Code(s): K59.00 - CONSTIPATION, UNSPECIFIED Status: Acute Qualifiers: Constipation type: slow transit constipation Qualified Code(s): K59.01 - Slow transit constipation Comment: Opioid induced constipation (4) Dehydration Code(s): E86.0 - DEHYDRATION Status: Acute Comment: Improving, continue IV fluids (5) Nausea & vomiting Code(s): R11.2 - NAUSEA WITH VOMITING, UNSPECIFIED Status: Acute Qualifiers: Vomiting type: unspecified Vomiting Intractability: intractable Qualified Code(s): R11.2 - Nausea with vomiting, unspecified Comment: gastroparesis (6) Anemia Code(s): D64.9 - ANEMIA, UNSPECIFIED Status: Chronic Qualifiers: Anemia type: unspecified type Qualified Code(s): D64.9 - Anemia, unspecified (7) Chronic pain disorder Code(s): G89.4 - CHRONIC PAIN SYNDROME Status: Chronic Comment: stable (8) Moderate protein-calorie malnutrition Code(s): E44.0 - MODERATE PROTEIN-CALORIE MALNUTRITION Status: Chronic Comment: Ensure bid (9) Gastroparesis Code(s): K31.84 - GASTROPARESIS Status: Chronic Comment: Continue Reglan 10mg po ACHS - Plan didn't eat much whole day yesterday with vomiting -: is wanting to try this morning, is on reglan -: still refusing peg, is weak physically -: increase ensure 1 can tid, ?calorie count -: to mobilize as tolerated with assistance * . awaiting placement KUB shows still large amount of stool in colon. dc plan when he consistently eats well, if not will be a high readmission risk. Review of Systems - Medications/Allergies Allergies/Adverse Reactions: Allergies Allergy/AdvReac Type Severity Reaction Status Date / Time erythromycin base Allergy Verified 07/08/18 11:09 Penicillins Allergy Verified 07/08/18 11:09 Medications: Current Medications Acetaminophen (Tylenol) 1,000 mg PO Q6H PRN PRN Reason: Headache/Fever or Pain Last Admin: 10/03/18 20:50 Dose: 1,000 mg Acetaminophen/Aspirin/Caffeine (Excedrin Migraine) 1 tab PO BID PRN PRN Reason: Pain Last Admin: 10/04/18 08:40 Dose: 1 tab Hydrocodone Bitart/Acetaminophen (Brick 5/325) 1 tab PO Q4H PRN PRN Reason: Moderate Pain (4-6) Last Admin: 10/05/18 08:09 Dose: 1 tab Alprazolam (Xanax) 0.25 mg PO TIDPRN PRN PRN Reason: Anxiety Last Admin: 10/05/18 08:08 Dose: 0.25 mg Bisacodyl (Dulcolax) 10 mg PO DAILYPRN PRN PRN Reason: Constipation Last Admin: 10/01/18 11:02 Dose: 10 mg Calcium Carbonate (Tums) 1,000 mg PO Q4H PRN PRN Reason: Indigestion Last Admin: 10/05/18 09:10 Dose: 1,000 mg Docusate Sodium (Colace) 100 mg PO BID [facility] Last Admin: 10/05/18 08:06 Dose: 100 mg Enoxaparin Sodium (Lovenox) 30 mg SC 0900 [facility] Last Admin: 10/05/18 08:08 Dose: 30 mg Famotidine (Pepcid) 20 mg PO QPM [facility] Last Admin: 10/04/18 21:39 Dose: 20 mg Fluticasone Propionate (Flonase Nasal [place]) 0 gm NASAL DAILY [facility] Last Admin: 10/05/18 08:18 Dose: Not Given Sodium Chloride (Normal Saline 0.9%) 1,000 mls @ 90 mls/hr IV .Q11H7M [facility] Last Admin: 10/05/18 07:19 Dose: Not Given Lidocaine (Lidoderm 5% Patch) 1 patch TD DAILY [facility] Last Admin: 10/05/18 08:53 Dose: 1 patch Melatonin (Melatonin) 6 mg PO HSPRN PRN PRN Reason: Insomnia Last Admin: 10/05/18 00:13 Dose: 6 mg Metoclopramide HCl (Reglan) 10 mg PO ACHS [facility] Last Admin: 10/05/18 08:07 Dose: 10 mg Miscellaneous Medication (Movantik) 25 mg PO Q48H PRN PRN Reason: CONSTIPATION Last Admin: 10/04/18 18:22 Dose: 25 mg Miscellaneous Medication (Lidocaine Patch Removal) 1 each TOP 2100 [facility] Last Admin: 10/04/18 21:39 Dose: 1 each Ondansetron HCl (Zofran Odt) 4 mg PO Q6H PRN PRN Reason: Nausea/Vomiting Last Admin: 10/05/18 01:38 Dose: 4 mg Pantoprazole Sodium (Protonix) 40 mg PO BID [facility] Last Admin: 10/05/18 08:07 Dose: 40 mg Polyethylene Glycol (Miralax) 17 gm PO DAILY [facility] Last Admin: 10/05/18 08:08 Dose: 17 gm Silver Sulfadiazine (Silvadene) 0 gm TOP PRN PRN PRN Reason: WOUND DRESSING CHANGES Last Admin: 10/03/18 20:57 Dose: 1 applic Sumatriptan Succinate (Imitrex) 100 mg PO PRN PRN PRN Reason: Migraine Headache Last Admin: 10/04/18 17:32 Dose: 100 mg Topiramate (Topamax) 100 mg PO BID [facility] Last Admin: 10/05/18 08:07 Dose: 100 mg
[2018-10-05] MEDS ORDERED: Bisacodyl 10 MG SUPP PR PRN (12:27)
[2018-10-05] MEDS: Aspirin/APAP/Caffeine Tab (Excedrin Migraine) PO PRN (15:49)
[2018-10-05] MEDS: Dronabinol 2.5 MG CAP PO SCH (15:49)
[2018-10-05] MEDS: SUMAtriptan Succinate 50 MG TAB PO PRN (18:08)
[2018-10-05] MEDS: Gabapentin 100 MG CAP PO SCH (21:01)
[2018-10-05] MEDS: Famotidine 20 MG TAB PO SCH (21:01)
[2018-10-05] MEDS: Lidocaine Patch Removal 1 EACH TOP SCH (21:02)
[2018-10-06] MEDS: HYDROcodone/Acetaminophen 5/325 mg Tablet PO PRN ×4 (05:11→22:20)
[2018-10-06] MEDS: Ondansetron ODT 4 MG TAB PO PRN ×3 (05:12→22:20)
[2018-10-06] MEDS: ALPRAZolam 0.25 MG TAB PO PRN ×2 (05:13→16:46)
[2018-10-06] MEDS: Sodium Chloride 0.9% 1,000 ML IV SCH (06:29)
[2018-10-06 08:00] LABS: #Basophils 0.1 thou/uL (0.0-0.2); #Eosinphils 0.2 thou/uL (0.0-0.7); #Lymphocytes 1.2 thou/uL (1.20-3.40); #Monocytes 1.1 thou/uL (0.11-0.59); #Neutrophils 9.4 thou/uL (1.40-6.50); %Basophils 0.4 % (0.0-1.0); %Eosinophils 1.7 % (0.0-10.0); %Lymphocytes 10.3 % (21.0-51.0); %Monocytes 9.4 % (0.0-10.0); %Neutrophils 78.2 % (42.0-75.0); Hemoglobin 9.2 g/dL (14.0-18.0); Mean Corpuscular HGB CONC 30.9 g/dL (32.0-36.0); Mean Corpuscular Hemoglobin 25.4 pg (27.0-31.0); Mean Corpuscular Volume 82.1 fL (78.0-98.0); Mean Platelet Volume 6.6 fL (7.4-10.4); Platelet Count 423 thou/uL (130-400); RBC Distribution Width 16.5 % (11.5-14.5); Red Blood Cell (RBC) Count 3.61 mill/uL (4.70-6.10)
[2018-10-06 08:26] LABS: ALT (SGPT) 24 U/L (8-55); AST (SGOT) 26 U/L (5-34); Alkaline Phosphatase 87 U/L (40-150); Anion Gap 12 mmol/L (10-20); BUN (Urea Nitrogen) 38 mg/dL (8.4-25.7); Bilirubin, Total 0.4 mg/dL (0.2-1.2); Calc. Creatinine Clearance 31 mL/min (70-130); Calcium 8.8 mg/dL (7.8-10.44); Carbon Dioxide 21 mmol/L (23-31); Chloride 109 mmol/L (98-107); Estimated GFR-MDRD 42; Globulin 2.2 g/dL (2.4-3.5); Glucose 80 mg/dL (80-115); Potassium 4.4 mmol/L (3.5-5.1); Protein, Total 5.2 g/dL (5.8-8.1); Sodium 138 mmol/L (136-145)
[2018-10-06] MEDS: Topiramate 100 MG TAB PO SCH ×2 (09:40→20:41)
[2018-10-06] MEDS: Docusate 100 MG CAP PO SCH ×2 (09:40→20:41)
[2018-10-06] MEDS: Gabapentin 100 MG CAP PO SCH ×2 (09:40→20:41)
[2018-10-06] MEDS: Metoclopramide HCl 10 MG TAB PO SCH ×4 (09:40→20:41)
[2018-10-06] MEDS: Lidocaine 5% Patch TD SCH (09:41)
[2018-10-06] MEDS: Enoxaparin Sodium 30 MG/0.3 ML SYRINGE SC SCH (09:41)
[2018-10-06] MEDS: Fluticasone Propionate Nasal Spray 16 gm Bottle NASAL SCH (09:42)
[2018-10-06] MEDS: Polyethylene Glycol 3350 17 GM Packet PO SCH (09:43)
--- NOTE | 2018-10-06 11:31 | PDOC.PN ---
- Subjective Encounter Start Date: 10/06/18 Encounter Start Time: 08:30 Subjective: kept everything down yesterday and is hungry now -: no nausea or abd pain - Objective Resuscitation Status: Resuscitation Status FULL:Full Resuscitation MAR Reviewed: Yes Vital Signs & Weight: Vital Signs (12 hours) Temp Pulse Resp BP Pulse Ox 10/06/18 07:58 97.8 F 80 16 107/72 97 Weight Admit Weight 114 lb 10.246 oz Weight 114 lb 10.246 oz I&O: 10/05/18 10/06/18 10/07/18 06:59 06:59 06:59 Intake Total 1216 Output Total 500 Balance 716 Result Diagrams: 10/06/18 07:45 10/06/18 07:45 Phys Exam - Physical Examination HEENT: PERRLA, moist MMs Neck: no JVD, supple Respiratory: no wheezing, no rales Cardiovascular: RRR, no significant murmur Gastrointestinal: soft, non-tender, positive bowel sounds Musculoskeletal: pulses present, edema present Neurological: non-focal, moves all 4 limbs Psychiatric: A&O x 3 Dx/Plan (1) Physical deconditioning Code(s): R53.81 - OTHER MALAISE Status: Acute (2) AL (acute kidney injury) Code(s): N17.9 - ACUTE KIDNEY FAILURE, UNSPECIFIED Status: Acute (3) Constipation Code(s): K59.00 - CONSTIPATION, UNSPECIFIED Status: Acute Qualifiers: Constipation type: slow transit constipation Qualified Code(s): K59.01 - Slow transit constipation Comment: Opioid induced constipation (4) Dehydration Code(s): E86.0 - DEHYDRATION Status: Acute Comment: Improving, continue IV fluids (5) Nausea & vomiting Code(s): R11.2 - NAUSEA WITH VOMITING, UNSPECIFIED Status: Acute Qualifiers: Vomiting type: unspecified Vomiting Intractability: intractable Qualified Code(s): R11.2 - Nausea with vomiting, unspecified Comment: gastroparesis (6) Anemia Code(s): D64.9 - ANEMIA, UNSPECIFIED Status: Chronic Qualifiers: Anemia type: unspecified type Qualified Code(s): D64.9 - Anemia, unspecified (7) Chronic pain disorder Code(s): G89.4 - CHRONIC PAIN SYNDROME Status: Chronic Comment: stable (8) Moderate protein-calorie malnutrition Code(s): E44.0 - MODERATE PROTEIN-CALORIE MALNUTRITION Status: Chronic Comment: Ensure bid (9) Gastroparesis Code(s): K31.84 - GASTROPARESIS Status: Chronic Comment: Continue Reglan 10mg po ACHS - Plan is on marinol, gabapentin, reglan for gastroparesis -: above seems to have stabilized some, will wait and watch -: awaiting placement -: continue bowel regimen, lidocaine patch -: to amb with PT and rw as tolerated * . Review of Systems - Medications/Allergies Allergies/Adverse Reactions: Allergies Allergy/AdvReac Type Severity Reaction Status Date / Time erythromycin base Allergy Verified 07/08/18 11:09 Penicillins Allergy Verified 07/08/18 11:09 Medications: Current Medications Acetaminophen (Tylenol) 1,000 mg PO Q6H PRN PRN Reason: Headache/Fever or Pain Last Admin: 10/03/18 20:50 Dose: 1,000 mg Acetaminophen/Aspirin/Caffeine (Excedrin Migraine) 1 tab PO BID PRN PRN Reason: Pain Last Admin: 10/05/18 15:49 Dose: 1 tab Hydrocodone Bitart/Acetaminophen ([place] 5/325) 1 tab PO Q4H PRN PRN Reason: Moderate Pain (4-6) Last Admin: 10/06/18 05:11 Dose: 1 tab Alprazolam (Xanax) 0.25 mg PO TIDPRN PRN PRN Reason: Anxiety Last Admin: 10/06/18 05:13 Dose: 0.25 mg Bisacodyl (Dulcolax) 10 mg PO DAILYPRN PRN PRN Reason: Constipation Last Admin: 10/01/18 11:02 Dose: 10 mg Bisacodyl (Dulcolax) 10 mg CO DAILYPRN PRN PRN Reason: Constipation Last Admin: 10/05/18 14:32 Dose: 10 mg Calcium Carbonate (Tums) 1,000 mg PO Q4H PRN PRN Reason: Indigestion Last Admin: 10/05/18 21:00 Dose: 1,000 mg Docusate Sodium (Colace) 100 mg PO BID [facility] Last Admin: 10/06/18 09:40 Dose: Not Given Dronabinol (Marinol) 2.5 mg PO BID-AC [facility] Last Admin: 10/05/18 15:49 Dose: 2.5 mg Enoxaparin Sodium (Lovenox) 30 mg SC 0900 [facility] Last Admin: 10/06/18 09:41 Dose: 30 mg Famotidine (Pepcid) 20 mg PO QPM [facility] Last Admin: 10/05/18 21:01 Dose: 20 mg Fluticasone Propionate (Flonase Nasal [place]) 0 gm NASAL DAILY [facility] Last Admin: 10/06/18 09:42 Dose: 1 spr Gabapentin (Neurontin) 100 mg PO BID [facility] Last Admin: 10/06/18 09:40 Dose: 100 mg Sodium Chloride (Normal Saline 0.9%) 1,000 mls @ 90 mls/hr IV .Q11H7M [facility] Last Admin: 10/06/18 06:29 Dose: Not Given Lidocaine (Lidoderm 5% Patch) 1 patch TD DAILY [facility] Last Admin: 10/06/18 09:41 Dose: 1 patch Melatonin (Melatonin) 6 mg PO HSPRN PRN PRN Reason: Insomnia Last Admin: 10/05/18 00:13 Dose: 6 mg Metoclopramide HCl (Reglan) [address] [facility] Last Admin: 10/06/18 09:40 Dose: 10 mg Miscellaneous Medication (Movantik) 25 mg PO Q48H PRN PRN Reason: CONSTIPATION Last Admin: 10/04/18 18:22 Dose: 25 mg Miscellaneous Medication (Lidocaine Patch Removal) 1 each TOP 2100 [facility] Last Admin: 10/05/18 21:02 Dose: 1 each Ondansetron HCl (Zofran Odt) 4 mg PO Q6H PRN PRN Reason: Nausea/Vomiting Last Admin: 10/06/18 05:12 Dose: 4 mg Pantoprazole Sodium (Protonix) 40 mg PO BID [facility] Last Admin: 10/06/18 09:40 Dose: 40 mg Polyethylene Glycol (Miralax) 17 gm PO DAILY [facility] Last Admin: 10/06/18 09:43 Dose: Not Given Silver Sulfadiazine (Silvadene) 0 gm TOP PRN PRN PRN Reason: WOUND DRESSING CHANGES Last Admin: 10/03/18 20:57 Dose: 1 applic Sumatriptan Succinate (Imitrex) 100 mg PO PRN PRN PRN Reason: Migraine Headache Last Admin: 10/05/18 18:08 Dose: 100 mg Topiramate (Topamax) 100 mg PO BID [facility] Last Admin: 10/06/18 09:40 Dose: 100 mg
[2018-10-06] MEDS: Dronabinol 2.5 MG CAP PO SCH ×2 (13:05→16:45)
[2018-10-06] MEDS: Calcium Carbonate 500 MG ChewTAB PO PRN ×3 (13:06→22:20)
[2018-10-06] MEDS: Melatonin 3 MG TAB PO PRN (20:40)
[2018-10-06] MEDS: Famotidine 20 MG TAB PO SCH (20:40)
[2018-10-06] MEDS: Lidocaine Patch Removal 1 EACH TOP SCH (20:46)
[2018-10-07] MEDS: ALPRAZolam 0.25 MG TAB PO PRN ×3 (00:05→16:17)
[2018-10-07] MEDS: SUMAtriptan Succinate 50 MG TAB PO PRN (00:27)
[2018-10-07] MEDS: Enoxaparin Sodium 30 MG/0.3 ML SYRINGE SC SCH (07:39)
[2018-10-07] MEDS: Metoclopramide HCl 10 MG TAB PO SCH ×2 (07:40→16:19)
[2018-10-07] MEDS: Gabapentin 100 MG CAP PO SCH (07:40)
[2018-10-07] MEDS: Docusate 100 MG CAP PO SCH (07:40)
[2018-10-07] MEDS: Polyethylene Glycol 3350 17 GM Packet PO SCH (07:40)
[2018-10-07] MEDS: Topiramate 100 MG TAB PO SCH (07:40)
[2018-10-07] MEDS: Fluticasone Propionate Nasal Spray 16 gm Bottle NASAL SCH (07:40)
[2018-10-07 07:43] VITALS: BP 124/82; TEMP 98
[2018-10-07] MEDS: HYDROcodone/Acetaminophen 5/325 mg Tablet PO PRN ×2 (07:47→16:16)
[2018-10-07] MEDS: Lidocaine 5% Patch TD SCH (07:47)
[2018-10-07] MEDS: Dronabinol 2.5 MG CAP PO SCH ×2 (11:33→16:32)
--- NOTE | 2018-10-07 12:31 | PDOC.PN ---
- Subjective Encounter Start Date: 10/07/18 Encounter Start Time: 08:45 Subjective: says he vomited yesterday's breakfast and lunch, didn't eat his dinner -: has not ordered breakfast for this morning yet - Objective Resuscitation Status: Resuscitation Status FULL:Full Resuscitation MAR Reviewed: Yes Vital Signs & Weight: Vital Signs (12 hours) Temp Pulse Resp BP Pulse Ox 10/07/18 08:00 97 10/07/18 07:42 98.0 F 81 16 124/82 97 Weight Admit Weight 114 lb 10.246 oz Weight 114 lb 10.246 oz I&O: 10/06/18 10/07/18 10/08/18 06:59 06:59 06:59 Intake Total 720 360 Output Total 700 Balance 20 360 Result Diagrams: 10/06/18 07:45 10/06/18 07:45 Phys Exam - Physical Examination HEENT: PERRLA, moist MMs Neck: no JVD, supple Respiratory: no wheezing, no rales Cardiovascular: RRR, no significant murmur Gastrointestinal: soft, non-tender, positive bowel sounds Musculoskeletal: pulses present, edema present Neurological: non-focal, moves all 4 limbs Dx/Plan (1) Physical deconditioning Code(s): R53.81 - OTHER MALAISE Status: Acute (2) AL (acute kidney injury) Code(s): N17.9 - ACUTE KIDNEY FAILURE, UNSPECIFIED Status: Acute (3) Constipation Code(s): K59.00 - CONSTIPATION, UNSPECIFIED Status: Acute Qualifiers: Constipation type: slow transit constipation Qualified Code(s): K59.01 - Slow transit constipation Comment: Opioid induced constipation (4) Dehydration Code(s): E86.0 - DEHYDRATION Status: Acute Comment: Improving, continue IV fluids (5) Nausea & vomiting Code(s): R11.2 - NAUSEA WITH VOMITING, UNSPECIFIED Status: Acute Qualifiers: Vomiting type: unspecified Vomiting Intractability: intractable Qualified Code(s): R11.2 - Nausea with vomiting, unspecified Comment: gastroparesis (6) Anemia Code(s): D64.9 - ANEMIA, UNSPECIFIED Status: Chronic Qualifiers: Anemia type: unspecified type Qualified Code(s): D64.9 - Anemia, unspecified (7) Chronic pain disorder Code(s): G89.4 - CHRONIC PAIN SYNDROME Status: Chronic Comment: stable (8) Moderate protein-calorie malnutrition Code(s): E44.0 - MODERATE PROTEIN-CALORIE MALNUTRITION Status: Chronic Comment: Ensure bid (9) Gastroparesis Code(s): K31.84 - GASTROPARESIS Status: Chronic Comment: Continue Reglan 10mg po ACHS - Plan d/w at length about dc planning/palliative care/hospice -: he does not want peg tube back and does not have a good reason not to have -: -one except for having some issues with his old room mate in [place] -: may dc anytime to snf if accepted -: palliative care consultation * . he is on gabapentin, marinol, reglan Review of Systems - Medications/Allergies Allergies/Adverse Reactions: Allergies Allergy/AdvReac Type Severity Reaction Status Date / Time erythromycin base Allergy Verified 07/08/18 11:09 Penicillins Allergy Verified 07/08/18 11:09 Medications: Current Medications Acetaminophen (Tylenol) 1,000 mg PO Q6H PRN PRN Reason: Headache/Fever or Pain Last Admin: 10/03/18 20:50 Dose: 1,000 mg Acetaminophen/Aspirin/Caffeine (Excedrin Migraine) 1 tab PO BID PRN PRN Reason: Pain Last Admin: 10/05/18 15:49 Dose: 1 tab Hydrocodone Bitart/Acetaminophen ([place] 5/325) 1 tab PO Q4H PRN PRN Reason: Moderate Pain (4-6) Last Admin: 10/07/18 07:47 Dose: 1 tab Alprazolam (Xanax) 0.25 mg PO TIDPRN PRN PRN Reason: Anxiety Last Admin: 10/07/18 07:47 Dose: 0.25 mg Bisacodyl (Dulcolax) 10 mg PO DAILYPRN PRN PRN Reason: Constipation Last Admin: 10/01/18 11:02 Dose: 10 mg Bisacodyl (Dulcolax) 10 mg [place] DAILYPRN PRN PRN Reason: Constipation Last Admin: 10/05/18 14:32 Dose: 10 mg Calcium Carbonate (Tums) 1,000 mg PO Q4H PRN PRN Reason: Indigestion Last Admin: 10/06/18 22:20 Dose: 1,000 mg Docusate Sodium (Colace) 100 mg PO BID MARY ELLEN Last Admin: 10/07/18 07:40 Dose: 100 mg Dronabinol (Marinol) 2.5 mg PO BID-AC [facility] Last Admin: 10/07/18 11:33 Dose: 2.5 mg Enoxaparin Sodium (Lovenox) 30 mg SC 0900 [facility] Last Admin: 10/07/18 07:39 Dose: 30 mg Famotidine (Pepcid) 20 mg PO QPM [facility] Last Admin: 10/06/18 20:40 Dose: 20 mg Fluticasone Propionate (Flonase Nasal [place]) 0 gm NASAL DAILY [facility] Last Admin: 10/07/18 07:40 Dose: 2 spr Gabapentin (Neurontin) 100 mg PO BID [facility] Last Admin: 10/07/18 07:40 Dose: 100 mg Lidocaine (Lidoderm 5% Patch) 1 patch TD DAILY [facility] Last Admin: 10/07/18 07:47 Dose: 1 patch Melatonin (Melatonin) 6 mg PO HSPRN PRN PRN Reason: Insomnia Last Admin: 10/06/18 20:40 Dose: 6 mg Metoclopramide HCl (Reglan) 10 mg PO [facility] Last Admin: 10/07/18 07:40 Dose: 10 mg Miscellaneous Medication (Movantik) 25 mg PO Q48H PRN PRN Reason: CONSTIPATION Last Admin: 10/04/18 18:22 Dose: 25 mg Miscellaneous Medication (Lidocaine Patch Removal) 1 each TOP 2100 [facility] Last Admin: 10/06/18 20:46 Dose: 1 each Ondansetron HCl (Zofran Odt) 4 mg PO Q6H PRN PRN Reason: Nausea/Vomiting Last Admin: 10/06/18 22:20 Dose: 4 mg Pantoprazole Sodium (Protonix) 40 mg PO BID [facility] Last Admin: 10/07/18 07:40 Dose: 40 mg Polyethylene Glycol (Miralax) 17 gm PO DAILY [facility] Last Admin: 10/07/18 07:40 Dose: 17 gm Silver Sulfadiazine (Silvadene) 0 gm TOP PRN PRN PRN Reason: WOUND DRESSING CHANGES Last Admin: 10/03/18 20:57 Dose: 1 applic Sumatriptan Succinate (Imitrex) 100 mg PO PRN PRN PRN Reason: Migraine Headache Last Admin: 10/07/18 00:27 Dose: 100 mg Topiramate (Topamax) 100 mg PO BID [facility] Last Admin: 10/07/18 07:40 Dose: 100 mg
[2018-10-07] MEDS ORDERED: Fentanyl 100 MCG/2 ML VIAL ONE (15:09)
[2018-10-07] MEDS: Calcium Carbonate 500 MG ChewTAB PO PRN (16:19)
--- NOTE | 2018-10-08 00:56 | DIS ---
DATE OF ADMISSION: 09/29/2018 DATE OF DISCHARGE: 10/07/2018 DISCHARGE DISPOSITION: To [facility]. PRIMARY DISCHARGE DIAGNOSES: Diabetic gastroparesis with intractable nausea, vomiting, dehydration, acute kidney injury, opioid-induced constipation, resolving deconditioning, moderate protein malnutri tion. SECONDARY DISCHARGE DIAGNOSES: Chronic anemia, chronic pain disorder, chronic low back pain due to d isk disease. PROCEDURES DONE DURING HOSPITALIZATION: CT brain showed no acute intracranial hemorrhage or mass eff ect. Abdominal x-ray done showed moderate retained fecal material throughout colon. Blood cultures x2 no growth. H&H 9 and 29, platelet count 423, MCV is 82, albumin levels of 3, BUN and creatinine 3 8 and 1.6. Admitting BUN and creatinine were 77 and 2.6. Serum iron 49, percent saturation 16, TIBC 304. DISCHARGE MEDICATIONS: Tylenol with codeine 1 tab p.o. q.6 hourly p.r.n., omeprazole 20 mg p.o. twic e daily, sumatriptan p.r.n. for migraine, Topamax 100 mg twice daily, Dulcolax 10 mg daily, Colace 10 0 mg p.o. twice daily, Marinol 2.5 mg p.o. twice daily, gabapentin 100 mg p.o. twice daily, lidocaine 5% transdermal patch daily, Reglan 10 mg p.o. a.c. and at bedtime, Movantik 25 mg p.o. every 3 days, MiraLax 17 grams p.o. daily. ALLERGIES: ERYTHROMYCIN and PENICILLIN. INPATIENT CONSULT: Dr. Lindsey for Gastroenterology. DISCHARGE PLAN: Patient is to follow up with Dr. Lindsey as I advised and primary care physician in 1 week. BRIEF COURSE DURING HOSPITALIZATION: Patient initially got admitted on the with complaints of n ot feeling well and intractable nausea, vomiting. He has lost significant weight as well. The patie nt has longstanding history of gastroparesis and had a PEG tube, which was removed last month. He al so has history of lumbar disk disease and needs decompression, but patient has been getting deconditi oned with hypoalbuminemia and poor oral intake. He has had consultation with Dr. Cornel Lindsey. The patient was placed on various medications with very limited success. They added medications include Reglan a.c. and at bedtime, Marinol, and gabapentin. All of these have had very limited success. T he patient at times each well and has had instances of intractable nausea as well. He is refusing to have another PEG tube placed. Due to deconditioning and multiple medical comorbid condition, he is being discharged to [facility]. Please see a [id number] documentation on [facility] for t he day of discharge. A total of 35 minutes was spent on discharge plan. If patient wishes to have his PEG placed again, main sun can have this done with Dr. Cornel Lindsey in the outpatient setting.
== END 2018-10-07 17:18 | DRG 74 ==
LOC: ERS 07:47 → T4-A 12:01
PROVIDERS: ADMIT Family Medicine; ATTEND Family Medicine
DX: E11.43 Type 2 diabetes mellitus with diabetic autonomic (poly)neuropathy (principal); N17.9 Acute kidney failure, unspecified; E44.0 Moderate protein-calorie malnutrition; Z68.1 Body mass index [BMI] 19.9 or less, adult; E86.0 Dehydration; K59.03 Drug induced constipation; T40.2X5A Adverse effect of other opioids, initial encounter; R53.81 Other malaise; D64.9 Anemia, unspecified; M51.36 Other intervertebral disc degeneration, lumbar region; Z88.0 Allergy status to penicillin; Z88.1 Allergy status to other antibiotic agents; K27.9 Peptic ulcer, site unspecified, unspecified as acute or chronic, without hemorrhage or perforation; E88.09 Other disorders of plasma-protein metabolism, not elsewhere classified; Z79.899 Other long term (current) drug therapy; Z79.2 Long term (current) use of antibiotics; I48.0 Paroxysmal atrial fibrillation; G89.4 Chronic pain syndrome
CPT/HCPCS: 36415; 70450; 74018; 80048; 80053; 81003; 81015; 82274; 82550; 83540; 83550; 83880; 84443; 85025; 87040; 93005; 96361; 96365; 96375; G8978-GP-CK; G8979-GP-CI; J1650; J1885; J2185; J2765; J3010; Q0162; Q0167

== ENCOUNTER 2018-10-16 19:44 | Emergency (ER) | payer MEDICARE ==
[2018-10-16] MEDS ORDERED: Nitroglycerin 2% Ointment 1 INCH/1 GM Packet ONE (20:41)
[2018-10-16] MEDS ORDERED: Ondansetron PF 4 MG/2 ML Vial ONE ×2 (20:41)
[2018-10-16 20:42] LABS: #Lymphocytes 1.5 thou/uL (1.20-3.40); #Monocytes 1.2 thou/uL (0.11-0.59); #Neutrophils 8.3 thou/uL (1.40-6.50); %Basophils 0.4 % (0.0-1.0); %Eosinophils 0.2 % (0.0-10.0); %Lymphocytes 13.3 % (21.0-51.0); %Monocytes 10.6 % (0.0-10.0); %Neutrophils 75.4 % (42.0-75.0); Hemoglobin 12.3 g/dL (14.0-18.0); Mean Corpuscular HGB CONC 31.7 g/dL (32.0-36.0); Mean Corpuscular Hemoglobin 25.9 pg (27.0-31.0); Mean Corpuscular Volume 81.8 fL (78.0-98.0); Mean Platelet Volume 7.4 fL (7.4-10.4); Platelet Count 506 thou/uL (130-400); Red Blood Cell (RBC) Count 4.73 mill/uL (4.70-6.10); White Blood Cell (WBC) Count 10.9 thou/uL (4.8-10.8)
[2018-10-16 20:45] LABS: Bilirubin Negative (Negative); Blood, Urine Small (Negative); Clarity CLOUDY (Clear); Glucose, Urine (Dipstick) Negative (Negative); Leukocyte Moderate (Negative); Nitrite Negative (Negative); Protein, Urine (Dipstick) 30 mg/dL (Neg-Trace); Specific Gravity, Urine 1.021 (1.002-1.036); Urobilinogen 0.2 mg/dL (0.2-1.0)
[2018-10-16 20:47] LABS: Bacteria/HPF None Seen HPF (None Seen); Squamous Epithelial None Seen HPF (0-3)
[2018-10-16 20:49] LABS: Pathc Cast-AUWi Flag 3.48 (0-2.49)
[2018-10-16 20:58] LABS: Hyaline Casts/LPF 7-10 HYALINE CAST LPF (0-3 Hyaline)
[2018-10-16 20:59] LABS: Yeast-All Forms 2+ HPF (None Seen)
[2018-10-16 21:05] LABS: ALT (SGPT) 16 U/L (8-55); AST (SGOT) 16 U/L (5-34); Albumin 3.8 g/dL (3.4-4.8); Alkaline Phosphatase 110 U/L (40-150); Anion Gap 13 mmol/L (10-20); BUN (Urea Nitrogen) 33 mg/dL (8.4-25.7); Bilirubin, Total 0.3 mg/dL (0.2-1.2); Calc. Creatinine Clearance 0 mL/min (70-130); Calcium 9.3 mg/dL (7.8-10.44); Carbon Dioxide 14 mmol/L (23-31); Chloride 111 mmol/L (98-107); Estimated GFR-MDRD 39; Globulin 3.1 g/dL (2.4-3.5); Glucose 107 mg/dL (80-115); Lipase 33 U/L (8-78); Potassium 4.7 mmol/L (3.5-5.1); Protein, Total 6.9 g/dL (5.8-8.1); Sodium 133 mmol/L (136-145)
[2018-10-16 21:14] LABS: Troponin I Less than 0.010 ng/mL (< 0.028)
[2018-10-16 21:17] LABS: CKMB 8.3 ng/mL (0-6.6)
--- NOTE | 2018-10-16 21:18 | RAD ---
FRONTAL RADIOGRAPH CHEST PORTABLE UPRIGHT 10/16/18 COMPARISON: 03/17/18 HISTORY: Chest pain, vomiting and dehydration. FINDINGS: The heart and mediastinal contours appear within normal limits. No pneumothorax, pleural fluid, focal consolidation or alveolar edema. IMPRESSION: No acute findings. POS: [facility]
[2018-10-16] MEDS ORDERED: Morphine 2 MG/ML SYRINGE ONE ×2 (21:24→22:53)
[2018-10-16] MEDS ORDERED: Metoclopramide HCl 10 MG/2 ML VIAL ONE (21:50)
[2018-10-16] MEDS ORDERED: cefTRIAXone\\ROCEPHIN 1 GM VIAL ONE (21:52)
[2018-10-16] MEDS ORDERED: Morphine 4 MG/ML VIAL ONE (21:52)
[2018-10-16 23:59] LABS: Troponin I Less than 0.010 ng/mL (< 0.028)
== END 2018-10-17 01:55 ==
LOC: ERS 19:44
DX: R07.2 Precordial pain (principal); R11.2 Nausea with vomiting, unspecified; R10.9 Unspecified abdominal pain; I48.91 Unspecified atrial fibrillation; K21.9 Gastro-esophageal reflux disease without esophagitis; I10 Essential (primary) hypertension; G43.909 Migraine, unspecified, not intractable, without status migrainosus; F41.9 Anxiety disorder, unspecified; Z79.899 Other long term (current) drug therapy
CPT/HCPCS: 36415; 71045; 80053; 81003; 81015; 82553; 83605; 83690; 84484; 85025; 87086; 93005; 96361; 96365; 96366; 96368; 96375; 96376; J0696; J2270; J2405; J2765

== ENCOUNTER 2018-10-17 23:54 | Emergency (ER) | payer MEDICARE ==
[2018-10-18 00:31] LABS: #Basophils 0.1 thou/uL (0.0-0.2); #Eosinphils 0.1 thou/uL (0.0-0.7); #Lymphocytes 1.5 thou/uL (1.20-3.40); #Monocytes 1.5 thou/uL (0.11-0.59); #Neutrophils 9.8 thou/uL (1.40-6.50); %Basophils 0.7 % (0.0-1.0); %Eosinophils 0.8 % (0.0-10.0); %Lymphocytes 11.3 % (21.0-51.0); %Monocytes 11.4 % (0.0-10.0); %Neutrophils 75.9 % (42.0-75.0); Hemoglobin 10.3 g/dL (14.0-18.0); Mean Corpuscular HGB CONC 31.3 g/dL (32.0-36.0); Mean Corpuscular Hemoglobin 25.2 pg (27.0-31.0); Mean Corpuscular Volume 80.5 fL (78.0-98.0); Mean Platelet Volume 7.5 fL (7.4-10.4); Platelet Count 419 thou/uL (130-400); Red Blood Cell (RBC) Count 4.09 mill/uL (4.70-6.10); White Blood Cell (WBC) Count 12.8 thou/uL (4.8-10.8)
[2018-10-18] MEDS ORDERED: Metoclopramide HCl 10 MG/2 ML VIAL ONE (00:32)
[2018-10-18 00:55] LABS: ALT (SGPT) 14 U/L (8-55); AST (SGOT) 16 U/L (5-34); Albumin 3.1 g/dL (3.4-4.8); Alkaline Phosphatase 100 U/L (40-150); Anion Gap 10 mmol/L (10-20); BUN (Urea Nitrogen) 31 mg/dL (8.4-25.7); Bilirubin, Total 0.2 mg/dL (0.2-1.2); Calc. Creatinine Clearance 0 mL/min (70-130); Calcium 8.3 mg/dL (7.8-10.44); Carbon Dioxide 15 mmol/L (23-31); Chloride 111 mmol/L (98-107); Estimated GFR-MDRD 47; Globulin 2.5 g/dL (2.4-3.5); Glucose 88 mg/dL (80-115); Magnesium 1.9 mg/dL (1.6-2.6); Potassium 4.5 mmol/L (3.5-5.1); Protein, Total 5.6 g/dL (5.8-8.1); Sodium 131 mmol/L (136-145)
[2018-10-18 01:50] LABS: Bilirubin Negative (Negative); Blood, Urine Negative (Negative); Clarity CLEAR (Clear); Glucose, Urine (Dipstick) Negative (Negative); Leukocyte Small (Negative); Nitrite Negative (Negative); Protein, Urine (Dipstick) Negative (Neg-Trace); Specific Gravity, Urine 1.014 (1.002-1.036); Urobilinogen 0.2 mg/dL (0.2-1.0)
[2018-10-18 01:52] LABS: Bacteria/HPF None Seen HPF (None Seen); Hyaline Casts/LPF 4-6 HYALINE CAST LPF (0-3 Hyaline); Pathc Cast-AUWi Flag 0.43 (0-2.49); RBC/HPF 0-3 HPF (0-3); Squamous Epithelial 0-3 HPF (0-3); WBC/HPF 21-50 HPF (0-3)
[2018-10-18 02:00] LABS: Yeast-All Forms None Seen HPF (None Seen)
== END 2018-10-18 03:06 ==
LOC: ERS 23:54
DX: N39.0 Urinary tract infection, site not specified (principal); K21.9 Gastro-esophageal reflux disease without esophagitis; I10 Essential (primary) hypertension
CPT/HCPCS: 80053; 81003; 81015; 83735; 85025; 96361; 96374; J2765

== ENCOUNTER 2018-10-18 18:35 | Observation (INO) | payer MEDICARE ==
[~2018-10-18 18:35] MED LIST: ISOVUE-370 76%-LOCM 1 ML ONE
[2018-10-18] MEDS ORDERED: Metoclopramide HCl 10 MG/2 ML VIAL ONE (19:45)
[2018-10-18 20:03] LABS: Hemoglobin 10.9 g/dL (14.0-18.0); Mean Corpuscular HGB CONC 31.6 g/dL (32.0-36.0); Mean Corpuscular Hemoglobin 25.8 pg (27.0-31.0); Mean Corpuscular Volume 81.8 fL (78.0-98.0); Mean Platelet Volume 7.1 fL (7.4-10.4); Platelet Count 386 thou/uL (130-400); RBC Distribution Width 16.9 % (11.5-14.5); Red Blood Cell (RBC) Count 4.24 mill/uL (4.70-6.10); White Blood Cell (WBC) Count 25.9 thou/uL (4.8-10.8)
[2018-10-18 20:18] LABS: Anisocytosis SLIGHT = 6-15 cells (100X) (0-5/hpf); Band 3 % (5-11); Lymphocytes 9 % (21-51); MDiff Complete? YES; Monocytes 5 % (0-10); Neutrophil 83 % (42-75); PLT Morphology Comment Appears Adequate; Polychromasia SLIGHT = 2-3 cells (100X) (0-2/hpf)
[2018-10-18 20:22] LABS: Troponin I Less than 0.010 ng/mL (< 0.028)
[2018-10-18 20:38] LABS: CKMB 7.4 ng/mL (0-6.6)
[2018-10-18 20:43] LABS: ALT (SGPT) 17 U/L (8-55); AST (SGOT) 21 U/L (5-34); Albumin 3.3 g/dL (3.4-4.8); Alkaline Phosphatase 97 U/L (40-150); Anion Gap 13 mmol/L (10-20); BUN (Urea Nitrogen) 31 mg/dL (8.4-25.7); Bilirubin, Total 0.4 mg/dL (0.2-1.2); Calc. Creatinine Clearance 0 mL/min (70-130); Calcium 8.5 mg/dL (7.8-10.44); Carbon Dioxide 14 mmol/L (23-31); Chloride 107 mmol/L (98-107); Estimated GFR-MDRD 58; Globulin 2.7 g/dL (2.4-3.5); Glucose 87 mg/dL (80-115); Lipase 43 U/L (8-78); Potassium 4.6 mmol/L (3.5-5.1); Sodium 129 mmol/L (136-145)
[2018-10-18 21:07] LABS: Bilirubin Negative (Negative); Blood, Urine Negative (Negative); Clarity CLEAR (Clear); Glucose, Urine (Dipstick) Negative (Negative); Leukocyte Trace (Negative); Nitrite Negative (Negative); Protein, Urine (Dipstick) Negative (Neg-Trace); Specific Gravity, Urine 1.013 (1.002-1.036); Urobilinogen 0.2 mg/dL (0.2-1.0)
[2018-10-18 21:09] LABS: Bacteria/HPF None Seen HPF (None Seen); Hyaline Casts/LPF 0-3 HYALINE CAST LPF (0-3 Hyaline); Pathc Cast-AUWi Flag 0.58 (0-2.49); RBC/HPF 0-3 HPF (0-3); Squamous Epithelial 0-3 HPF (0-3)
--- NOTE | 2018-10-18 21:30 | RAD ---
SINGLE VIEW OF THE CHEST: 10/18/18 COMPARISON: 10/16/18 HISTORY: Nausea and vomiting. FINDINGS: Single view of the chest shows a normal sized cardiomediastinal silhouette. There is no evidence of c onsolidation, mass, or pleural effusion. The bones are unremarkable. IMPRESSION: No evidence of acute cardiopulmonary disease. POS: [facility]
--- NOTE | 2018-10-18 22:46 | CT ---
CT OF THE ABDOMEN AND PELVIS WITH CONTRAST 10/18/18 COMPARISON: 09/16/18 HISTORY: Left lower quadrant abdominal tenderness with nausea and vomiting. TECHNIQUE: Multiple contiguous axial images were obtained in a CT of the abdomen and pelvis with contrast. Coron al reformats were performed. FINDINGS: The gallbladder has been removed. There is enlargement of the common bile duct and intrahepatic bilia ry tree, unchanged and likely a reservoir effect from prior cholecystectomy. There appears to be an a nastomotic staple line in the stomach. The liver, kidneys, adrenal glands, spleen, and pancreas are u nremarkable. Moderate stool retention is seen in the colon. The small bowel is normal in caliber without significa nt distention. No abdominal or pelvic lymphadenopathy are present. The distal aorta and common iliac arteries are tortuous in appearance. Degenerative changes are seen in the spine. There is a small 2.6 cm umbilical hernia containing nonob structed small bowel. The visualized inferior thorax is unremarkable. IMPRESSION: 1. No evidence of acute intra-abdominal/pelvic abnormality. 2. Moderate stool retention in the colon. POS: [facility]
[2018-10-18] MEDS ORDERED: Acetaminophen 325 MG TAB PO PRN (23:42)
[2018-10-18] MEDS ORDERED: Bisacodyl 5 MG TAB PO PRN (23:42)
[2018-10-18] MEDS ORDERED: Calcium Carbonate 500 MG ChewTAB PO PRN (23:42)
[2018-10-18] MEDS ORDERED: Ondansetron ODT 4 MG TAB SL PRN (23:42)
[2018-10-18] MEDS ORDERED: Sodium Chloride 0.9% 1,000 ML IV SCH (23:42)
[2018-10-18] MEDS ORDERED: Ondansetron PF 4 MG/2 ML Vial IVP PRN (23:42)
[2018-10-18] MEDS ORDERED: Aspirin/APAP/Caffeine Tab (Excedrin Migraine) PO PRN (23:42)
[2018-10-18] MEDS ORDERED: Zolpidem Tartrate 5 MG TAB PO PRN (23:44)
[2018-10-19] MEDS: Acetaminophen/Codeine 30-300mg Tablet PO PRN ×3 (00:43→15:26)
[2018-10-19] MEDS: Aztreonam 1 GM in Sodium Chloride 0.9% 100 ML IVPB SCH ×3 (00:43→17:22)
[2018-10-19] MEDS: Sodium Chloride 0.9% 1,000 ML IV SCH ×3 (02:17→16:18)
[2018-10-19] MEDS: SUMAtriptan Succinate 25 MG TAB PO PRN ×2 (02:38→16:24)
[2018-10-19 05:35] LABS: #Basophils 0.1 thou/uL (0.0-0.2); #Eosinphils 0.1 thou/uL (0.0-0.7); #Lymphocytes 1.5 thou/uL (1.20-3.40); #Monocytes 1.3 thou/uL (0.11-0.59); #Neutrophils 9.9 thou/uL (1.40-6.50); %Basophils 0.6 % (0.0-1.0); %Eosinophils 0.8 % (0.0-10.0); %Lymphocytes 11.7 % (21.0-51.0); %Monocytes 10.2 % (0.0-10.0); %Neutrophils 76.8 % (42.0-75.0); Hemoglobin 8.8 g/dL (14.0-18.0); Mean Corpuscular HGB CONC 32.1 g/dL (32.0-36.0); Mean Corpuscular Hemoglobin 26.2 pg (27.0-31.0); Mean Corpuscular Volume 81.5 fL (78.0-98.0); Mean Platelet Volume 7.3 fL (7.4-10.4); Platelet Count 318 thou/uL (130-400); RBC Distribution Width 17.1 % (11.5-14.5); Red Blood Cell (RBC) Count 3.36 mill/uL (4.70-6.10); White Blood Cell (WBC) Count 12.9 thou/uL (4.8-10.8)
[2018-10-19 05:49] LABS: Anion Gap 9 mmol/L (10-20); BUN (Urea Nitrogen) 29 mg/dL (8.4-25.7); Calc. Creatinine Clearance 44 mL/min (70-130); Calcium 7.7 mg/dL (7.8-10.44); Carbon Dioxide 17 mmol/L (23-31); Chloride 111 mmol/L (98-107); Estimated GFR-MDRD 64; Glucose 114 mg/dL (80-115); Potassium 3.8 mmol/L (3.5-5.1); Sodium 133 mmol/L (136-145)
[2018-10-19] MEDS: Lidocaine 5% Patch TD SCH ×2 (08:50→09:00)
[2018-10-19] MEDS: Topiramate 100 MG TAB PO SCH ×2 (08:51→20:58)
[2018-10-19] MEDS: Famotidine 20 MG TAB PO SCH (08:51)
[2018-10-19] MEDS: Enoxaparin Sodium 40 MG/0.4 ML SYRINGE SC SCH (08:51)
[2018-10-19] MEDS: Gabapentin 100 MG CAP PO SCH ×2 (08:51→20:36)
[2018-10-19] MEDS: Docusate 100 MG CAP PO SCH ×2 (08:51→20:37)
[2018-10-19] MEDS ORDERED: Famotidine/PF 20 mg/2ml Vial SLOW IVP SCH (09:00)
--- NOTE | 2018-10-19 09:48 | HP ---
CHIEF COMPLAINT: Nausea and vomiting. HISTORY OF PRESENT ILLNESS: This is a 68-year-old male with past medical history significant for atrial fibrillation, GERD, hypertension, gastroparesis, chronic back pain, migraine, bladder CA, presenting with nausea and vomiting. Per the patient, he has been having nausea and vomiting for the past 2 years. The patient stated that on January 2016, that is when it started, and he has been having chronic malaise. The patient states that he has history of gastroparesis and he has been having vomiting, he is not able to eat, he has been losing weight, and this situation has been ongoing. The patient states that he had multiple surgeries done to help with this situation, but it has been unsuccessful in treating his gastroparesis. At this time, the patient states that he has been eating some crackers and he has been tolerating it. The patient endorses vomiting, nausea, generalized weakness, decreased appetite. Otherwise, the patient denies any chest pain, palpitations, dizziness, headaches, shortness of breath, constipation, diarrhea, dysuria, hematuria, hematochezia, or melena. Of note, the patient states that he spoke to his GI doctor, Dr. Lindsey, and Dr. Lindsey was supposed to put a PEG tube in, so the patient could be able to feed himself. The patient states that in the past, he had a PEG tube in place and the PEG tube helped him and it really helped resolve some of the symptoms of the gastroparesis and also it helped the patient get some nutrition. REVIEW OF SYSTEMS: Positive for nausea, vomiting, generalized weakness, abdominal discomfort, otherwise as documented in the HPI, all systems were reviewed and are negative. MEDICAL HISTORY: Atrial fibrillation, GERD, gastroparesis, hypertension, chronic back pain, and bladder CA. FAMILY HISTORY: Reviewed and noncontributory. SURGICAL HISTORY: Cholecystectomy, abdominal surgery x4, bladder surgery, G-tube insertion and reversal. PSYCH HISTORY: Anxiety. SOCIAL HISTORY: The patient denies any illicit drug use. The patient denies alcohol and the patient denies smoking history. ALLERGIES: ERYTHROMYCIN, MACROBID, AND PENICILLIN. CURRENT MEDICATIONS: The patient takes; 1. Topamax 100 mg. 2. Ensure. 3. Colace 100 mg. 4. Dronabinol 2.5 mg. 5. Gabapentin 100 mg. 6. Lidocaine-transparent dressing. 7. Reglan 10 mg. 8. MiraLax. 9. Zofran. 10. Cephalexin. PHYSICAL EXAMINATION: VITAL SIGNS: Blood pressure is 113/74, pulse of 87, respiratory rate of 15, temperature of 98.5, O2 saturation of 98% on room air. GENERAL: The patient is alert and oriented x3, not in acute distress. The patient looks cachectic. The patient is very lean. The patient is fragile. Able to speak in full sentences. HEENT: Normocephalic and atraumatic. Pupils are equally round and reactive to light. Extraocular movements are intact. No scleral icterus. No conjunctival pallor. Mucous membranes are dry. NECK: Trachea is midline. Full range of motion. No JVD. Supple. RESPIRATORY: Lungs are clear to ausculation bilaterally. No wheezing, no rales, no rhonchi appreciated. CARDIAC: Positive S1 and S2. Regular rate and rhythm. No murmurs, no gallops, no rubs appreciated. ABDOMEN: Mild tenderness with palpation. Positive bowel sounds in all quadrants. No palpable masses. EXTREMITIES: The patient has 5/5 upper extremity strength and 5/5 lower extremity strength. The patient has good pulses bilaterally at the upper and lower extremities. The patient do have very thin upper and lower extremities. The patient is very cachectic. NEUROLOGIC: Cranial nerves 2 through 12 grossly intact. No neurologic deficits noted. SKIN: Warm, dry, and intact. No rashes noted. DIAGNOSTIC STUDIES: EKG: A 12-lead EKG showed normal sinus rhythm at a rate of 98. LABORATORY DATA: WBC is 25.9, hemoglobin is 10.9, hematocrit is 34.7, RDW is 16.9, and platelet count is 386. Sodium 129, potassium is 4.6, chloride is 107, carbon dioxide is 14, anion gap is 13, BUN is 31, creatinine is 1.24. AST is 21, ALT is 17. Alkaline phosphatase is 97. CK-MB is 7.4. Troponin is less than 0.010. Albumin is 3.3. Urinalysis shows trace leukocyte esterase. ASSESSMENT AND PLAN: 1. This is a 68-year-old male being admitted for recurrent gastroparesis. At this point, the patient has been started on antiemetic medications. We will continue this medication. The patient also stated that he is supposed to see his GI doctor, so that he can be able to have PEG tube placement. Additionally, we will get GI consult and we will follow up with their recommendations. 2. Electrolyte abnormalities. We will replete all electrolyte abnormalities and we will continue to monitor the patient's lab in the a.m. 3. Leukocytosis, most likely reactive. We will monitor the patient's WBC and we will continue the patient on current management. 4. History of gastroesophageal reflux disease. We will continue the patient on current management. 5. History of hypertension. At this point uncontrolled. We will give the patient blood pressure medications and we will adjust the patient's blood pressure medications accordingly to control the patient's blood pressure. 6. Anemia of chronic inflammation. We will continue to treat the patient in the underlying cause. We will monitor the patient's H and H, and we will follow up on labs in the a.m. 7. Deep venous thrombosis and gastrointestinal prophylaxis. Job ID: [id number]
[2018-10-19] MEDS: Polyethylene Glycol 3350 17 GM Packet PO SCH ×3 (09:50→18:15)
[2018-10-19] MEDS ORDERED: Metoclopramide HCl 10 MG TAB PO SCH (12:15)
--- NOTE | 2018-10-19 13:20 | PDOC.EVN ---
Event Note - Event Note Event Note: Continued nausea and vomiting, restart home reglan
[2018-10-19] MEDS: Dronabinol 2.5 MG CAP PO SCH ×2 (14:16→16:48)
[2018-10-19] MEDS: Metoclopramide HCl 10 MG TAB PO SCH ×2 (17:00→20:37)
[2018-10-19] MEDS: Fleet Enema 133 ML BOT PR SCH (18:14)
[2018-10-19] MEDS ORDERED: Acetaminophen 650 MG Suppository PR PRN (20:26)
[2018-10-19] MEDS ORDERED: Acetaminophen 325 MG TAB PO PRN (20:26)
[2018-10-19] MEDS: Lidocaine Patch Removal 1 EACH TOP SCH ×2 (20:37→21:54)
[2018-10-19] MEDS ORDERED: Ondansetron ODT 4 MG TAB SL PRN (21:39)
[2018-10-19] MEDS: Ondansetron PF 4 MG/2 ML Vial IVP PRN (21:51)
--- NOTE | 2018-10-19 22:59 | CON ---
DATE OF CONSULTATION: HISTORY OF PRESENT ILLNESS: The patient is a 68-year-old male, well known to me from prior consultation done on September 30, 2018. At that time, the patient had intractable nausea and vomiting secondary to postsurgical gastroparesis. He had been fed by J-tube and this worked well. At that time; however, he refused the J-tube. He is presently ready to have the J-tube replaced. PAST MEDICAL HISTORY: Includes atrial fibrillation, peptic ulcer disease, multiple gastric surgeries, chronic back pain. PAST SURGICAL HISTORY: Includes cholecystectomy, multiple gastric surgeries, bladder surgery, and J-tube placement. MEDICATIONS ON ADMISSION: Include; 1. Topamax 100 mg p.o. b.i.d. 2. Imitrex p.r.n.. 3. Polyethylene glycol 17 g p.o. daily. 4. Omeprazole 20 mg p.o. b.i.d. 5. Movantik 25 mg p.o. q.72 hours. 6. Reglan 10 mg p.o. before meals. 7. Lidoderm patch one patch daily. 8. Neurontin 100 mg p.o. b.i.d. 9. Marinol 2.5 mg p.o. b.i.d. 10. Colace 100 mg p.o. b.i.d. 11. Tums p.r.n. 12. Tylenol No.3 q.6 hours p.r.n. ALLERGIES: INCLUDE; 1. ERYTHROMYCIN. 2. PENICILLIN. SOCIAL HISTORY: He does not smoke or drink. FAMILY HISTORY: Significant for mother with colorectal cancer. REVIEW OF SYSTEMS: CONSTITUTIONAL: No fever or chills. Positive for weight loss. EYES: No blurred vision or double vision. ENT: No sore throat or earaches. CARDIOVASCULAR: No chest pain or palpitations. PULMONARY: No shortness of breath, cough, or wheezing. GI: See above. : No hematuria or dysuria. MUSCULOSKELETAL: No joint pain or muscle weakness. SKIN: No rashes. NEUROLOGIC: No seizures or numbness. PHYSICAL EXAMINATION: GENERAL: Shows a thin white male, in no acute distress. VITAL SIGNS: Temperature 98.3, pulse 82, respiratory rate 20, blood pressure 107/65. HEENT: Unremarkable. NECK: Supple. CHEST: Clear. CARDIOVASCULAR: Regular rate and rhythm. ABDOMEN: Soft and nontender without organomegaly or masses. RECTAL: Deferred. EXTREMITIES: Normal. NEUROLOGIC: Nonfocal. LABORATORY DATA: On admission shows white blood cell count of 12.9, hemoglobin 8.8, hematocrit 27.4. Chemistry shows sodium 133, CO2 of 17. ASSESSMENT: Postsurgical gastroparesis, intractable to Reglan - the only thing amenable for this patient is J-tube feeding. RECOMMENDATIONS: Surgical consult for placement of J-tube. Job ID: [id number]
[2018-10-20] MEDS: Aztreonam 1 GM in Sodium Chloride 0.9% 100 ML IVPB SCH ×3 (01:23→16:01)
[2018-10-20] MEDS: Ondansetron PF 4 MG/2 ML Vial IVP PRN ×2 (01:58→19:22)
--- NOTE | 2018-10-20 02:02 | CON ---
DATE OF CONSULTATION: REASON FOR CONSULTATION: Possible J-tube placement. HISTORY OF PRESENT ILLNESS: Mr. Storey is a 68-year-old man with a complex recent surgical history related to ulcer disease and gastric outlet obstruction and gastric emptying problems. He underwent at least 3 open gastric operations in [place], the details of which are not available to me, but has had problems ever since with persistent nausea and vomiting. Dr. Gonsales of [facility] in [place] placed a laparoscopic J-tube for him, which was functioning well. He had this for about 4 months and was actually able to gain about 40 pounds, but then it was pulled out during a dressing change and apparently the decision was made not to replace it since at that time, he was tolerating oral intake well. However, since then, he has had recurrence of his nausea and vomiting and has been unable to maintain his weight. He states that he has lost all the weight which he gained when the J-tube was in place and has very little energy or strength. He has been to the emergency room multiple times with nausea and vomiting and is usually hydrated and sent back to the jail, where he resides but at this time, he was admitted. He states that his primary care doctor told him not to let anybody discharge him home without a J-tube in place. PAST MEDICAL HISTORY: Peptic ulcer disease, gastroparesis, hypertension, chronic back pain, atrial fibrillation and according to the chart, bladder cancer, although the patient did not report that to me. PAST SURGICAL HISTORY: Multiple open surgeries on his stomach and J-tube placement with later removal. He also reportedly has had cholecystectomy and bladder surgery. FAMILY HISTORY: Noncontributory. He does have a psychiatric history of anxiety. SOCIAL HISTORY: He does not smoke, drink, or use illicit drugs. ALLERGIES: HE REPORTS ALLERGIES TO ERYTHROMYCIN, MACROBID, AND PENICILLIN. OUTPATIENT MEDICATIONS: Include: 1. Reglan. 2. MiraLax. 3. Zofran. 4. Gabapentin. 5. Dronabinol. 6. Colace. 7. Topamax. 8. Ensure. 9. Keflex. PHYSICAL EXAMINATION: VITAL SIGNS: The patient is 5 feet 6 inches and weighs 113 pounds. He has been afebrile since his admission. Heart rate 82, respirations 15, 94% saturations on room air, and blood pressure 112/79. GENERAL: Reveals an anxious elderly gentleman, in no acute distress. He is not flushed or toxic in appearance. He is not jaundiced or icteric. He is somewhat cachetic with temporal wasting. NECK: Supple without lymphadenopathy or thyroid nodules. HEART: Regular in its rate and rhythm without murmurs. ABDOMEN: He has multiple ventral hernias with thinning of the abdominal wall and peristalsis visible of the underlying bowel at the hernia side. He has a J-tube scar in the left abdomen and a healed midline incision with the aforementioned ventral hernias. EXTREMITIES: Warm and well perfused without edema. NEUROLOGIC: No focal deficits. PSYCHIATRIC: Alert, oriented, and appropriate although somewhat tearful and anxious. LABORATORY DATA: CT of the abdomen and pelvis at the time of his admission is reviewed and I do not see any acute abnormalities. He has fluid-filled loops of small intestine and large amount of stool in the colon. Stomach does appear somewhat dilated. White count was elevated at 25,000 on admission, but came down to 12.9 with hydration and hematocrit went from 34 to 27. Electrolytes are unremarkable. BUN is still slightly elevated at 29. Creatinine is 1.13. CK-MB was elevated, but troponin was normal. Lipase was normal. LFTs were normal. Urinalysis has some white cells, but is otherwise unremarkable. ASSESSMENT AND PLAN: Gastroparesis with abnormal upper gastrointestinal anatomy by previous endoscopies. He has had dilations of a couple of areas in the upper gastrointestinal tract without improvement of his oral tolerance. He has undergone a vagotomy in the past, which is likely contributing to his gastroparesis. I agree that he would benefit from a J-tube, but this is not urgent. I suggest that he return to Dr. Gonsales for this, but the patient became very tearful and upset and stated that he could not leave the hospital without a J-tube. I then spoke to Dr. Gonsales on the phone and he stated that since he pexied the J-tube to the abdominal wall at the time of his J-tube placement, this should be able to be replaced by Interventional Radiology without putting the patient through another surgery. He states that this can be arranged through Interventional Radiology at [facility] if we are unable to schedule this at [place] and he is going to try to get this scheduled for Sunday or Sunday. If this can be arranged, the patient can be discharged from the hospital prior to this appointment and sent directly to [facility] for J-tube replacement by Interventional Radiology following which he should be able to be readmitted to his jail with centered J-tube care and feedings. Job ID: [id number]
[2018-10-20] MEDS: Sodium Chloride 0.9% 1,000 ML IV SCH ×3 (06:09→22:21)
[2018-10-20] MEDS: Dronabinol 2.5 MG CAP PO SCH ×2 (08:31→16:05)
[2018-10-20] MEDS: Docusate 100 MG CAP PO SCH ×2 (08:32→20:28)
[2018-10-20] MEDS: Metoclopramide HCl 10 MG TAB PO SCH ×4 (08:32→20:28)
[2018-10-20] MEDS: Lidocaine 5% Patch TD SCH (08:32)
[2018-10-20] MEDS: Gabapentin 100 MG CAP PO SCH ×2 (08:32→20:28)
[2018-10-20] MEDS: Famotidine 20 MG TAB PO SCH (08:33)
[2018-10-20] MEDS: Enoxaparin Sodium 40 MG/0.4 ML SYRINGE SC SCH (08:33)
[2018-10-20] MEDS: Polyethylene Glycol 3350 17 GM Packet PO SCH (08:33)
[2018-10-20] MEDS: Topiramate 100 MG TAB PO SCH ×2 (10:54→20:28)
[2018-10-20] MEDS: SUMAtriptan Succinate 25 MG TAB PO PRN (12:02)
[2018-10-20] MEDS: Fleet Enema 133 ML BOT PR SCH (12:07)
--- NOTE | 2018-10-20 12:11 | PDOC.PN ---
- Subjective Encounter Start Date: 10/20/18 Encounter Start Time: 12:10 Subjective: Nausea and Vomiting somewhat better. Waiting for J tube placement - Objective Resuscitation Status - Order Detail: 10/18/18 23:44 Resuscitation Status Routine Resuscitation Status: FULL: Full Resuscitation MAR Reviewed: Yes Vital Signs & Weight: Vital Signs (12 hours) Temp Pulse Resp BP Pulse Ox 10/20/18 07:16 97.8 F 92 16 104/83 97 10/20/18 04:16 98.5 F 86 14 122/78 96 Weight Admit Weight 119 lb Weight 119 lb I&O: 10/19/18 10/20/18 10/21/18 06:59 06:59 06:59 Intake Total 2314 Output Total 1075 150 Balance 1239 -150 Result Diagrams: 10/19/18 05:13 10/19/18 05:13 Phys Exam - Physical Examination cachexia HEENT: PERRLA, moist MMs, sclera anicteric, TM's clear, oral pharynx no lesions , 2+ tonsils Neck: no nodes, no JVD, supple, full ROM Respiratory: no wheezing, no rales Cardiovascular: RRR, no significant murmur, no rub Gastrointestinal: soft, non-tender, no distention, positive bowel sounds Musculoskeletal: no edema, pulses present Neurological: non-focal, normal sensation, moves all 4 limbs Skin: no rash, normal turgor, cap refill <2 seconds Dx/Plan (1) Gastroparesis Code(s): K31.84 - GASTROPARESIS Status: Chronic Comment: Gastroparesis S/P multiple abd surgeries in the past at [place]. Surgery for gastric outlet obstruction and PUD. No specific details are available. Previuosly placed J tube was helpful to gain weigh, unfortunately it fell off few months ago. Plans for new J tube to help with nutrition, dehydration and gastroparesis. Continue Reglan 10mg po ACHS (2) Nausea & vomiting Code(s): R11.2 - NAUSEA WITH VOMITING, UNSPECIFIED Status: Acute Qualifiers: Comment: gastroparesis (3) Dehydration Code(s): E86.0 - DEHYDRATION Status: Acute Comment: Improving, continue IV fluids - Plan cont current plan of care, plan discussed w/ family, DVT proph w/lovenox * .
[2018-10-20] MEDS: Lidocaine Patch Removal 1 EACH TOP SCH (20:31)
[2018-10-20] MEDS ORDERED: SUMAtriptan Succinate 50 MG TAB PO PRN (20:45)
[2018-10-21] MEDS: Aztreonam 1 GM in Sodium Chloride 0.9% 100 ML IVPB SCH ×3 (00:48→19:31)
[2018-10-21] MEDS: Ondansetron PF 4 MG/2 ML Vial IVP PRN ×2 (01:38→13:26)
[2018-10-21 08:37] VITALS: BMI 20.1
[2018-10-21] MEDS: Dronabinol 2.5 MG CAP PO SCH ×2 (08:39→19:31)
[2018-10-21] MEDS: Docusate 100 MG CAP PO SCH (08:39)
[2018-10-21] MEDS: Topiramate 100 MG TAB PO SCH (08:39)
[2018-10-21] MEDS: Gabapentin 100 MG CAP PO SCH (08:39)
[2018-10-21] MEDS: Famotidine 20 MG TAB PO SCH (08:40)
[2018-10-21] MEDS: Metoclopramide HCl 10 MG TAB PO SCH ×3 (08:40→19:31)
[2018-10-21] MEDS: Lidocaine 5% Patch TD SCH (08:43)
[2018-10-21] MEDS: Enoxaparin Sodium 40 MG/0.4 ML SYRINGE SC SCH (08:43)
[2018-10-21] MEDS: Polyethylene Glycol 3350 17 GM Packet PO SCH ×2 (08:43→08:47)
[2018-10-21] MEDS: Sodium Chloride 0.9% 1,000 ML IV SCH (12:05)
--- NOTE | 2018-10-21 13:43 | DIS ---
DATE OF ADMISSION: 10/18/2018 DATE OF DISCHARGE: 10/21/2018 DISCHARGE DIAGNOSES: 1. Nausea and vomiting, improved. 2. Gastroparesis. 3. Leukocytosis, reactive, improved. 4. Dehydration, resolved. CONSULTATIONS: 1. Dr. Figueroa with General Surgery Service. 2. Dr. Quinten Suarez with GI Service. PERTINENT LAB AND X-RAY FINDINGS: Sodium ranged between 129 to 133, carbon dioxide ranged between 14 to 17, and creatinine ranged between 1.13 to 1.24. Lactic acid level 1.9. TSH 0.98. CBC showed a white blood cell count ranged between 12.9 to 25.9 and hemoglobin ranged between 8.8 to 10.9. Blood cultures x2 dated 10/18/2018 showed no growth at 48 hours. Urine culture dated 10/18/2018 showed no growth at [address] of the abdomen and pelvis dated 10/18/2018 showed no acute intra-abdominal process. Moderate stool retention in the colon. Portable chest x-ray dated 10/18/2018 showed no acute cardiopulmonary process. HOSPITAL COURSE: The patient was observed on the medical floor after initially presenting with recurrent nausea and vomiting in the context of known severe gastroparesis with associated dehydration and anorexia. The patient with prior multiple abdominal surgeries with persistent and recurrent issues related to nutrition. The patient apparently had prior J-tube placement, which was subsequently displaced. General Surgery did evaluate the patient with recommendations for J-tube replacement, which will be performed on an outpatient basis at [facility] in [place], [place]. The patient received general supportive management including IV fluids, antiemetics, and Reglan. The patient overall remained clinically stable during the hospital course and tolerated limited oral intake. I have examined the patient and discussed followup instructions with the patient at the time of discharge. The patient overall clinically stable and ready for discharge on 10/21/2018. DISCHARGE MEDICATIONS: 1. Tylenol No. 3 one tablet p.o. q.6 hours p.r.n. 2. Excedrin 1 tablet p.o. b.i.d. p.r.n. 3. Omeprazole 20 mg p.o. b.i.d. 4. Imitrex 100 mg p.o. p.r.n. migraine headaches. 5. Topamax 100 mg p.o. b.i.d. 6. Dulcolax 10 mg p.o. daily p.r.n. 7. Colace 100 mg p.o. b.i.d. 8. Marinol 2.5 mg p.o. b.i.d. 9. Neurontin 100 mg p.o. b.i.d. 10. Lidoderm patch 5% one patch topically daily. 11. Reglan 10 mg p.o. q.a.c. and h.s. 12. Movantik 25 mg p.o. q.72 hours. 13. MiraLAX 17 g p.o. daily. FOLLOWUP: The patient will follow up with his primary care provider, Dr. Khoi Fregoso within 7 days of discharge. The patient may follow up with [facility] Long for J-tube placement on 10/22/2018. ACTIVITY: Ad emily. DIET: Regular with tube feeds using standard 1.5 calories/mL formula. CONDITION ON DISCHARGE: Stable. CODE STATUS: Full. DISPOSITION: Discharged to [facility] on 10/21/2018. Job ID: [id number]
[2018-10-21 15:54] VITALS: BP 134/86; TEMP 97.6
--- NOTE | 2018-10-26 12:10 | EKG ---
Test Reason : CP Blood Pressure : / mmHG Vent. Rate : 098 BPM Atrial Rate : 098 BPM P-R Int : 132 ms QRS Dur : 098 ms QT Int : 340 ms P-R-T Axes : 046 -37 -01 degrees QTc Int : 434 ms Normal sinus rhythm Possible Left atrial enlargement Left axis deviation Incomplete right bundle branch block Abnormal ECG Confirmed by SAGRARIO CENTENO DO ([id number]), tape editor KARI JOY ([id number]) on 10/26/2018 12:10:41 PM Referred By: Confirmed By:SAGRARIO CENTENO DO
== END 2018-10-21 17:32 ==
LOC: ERS 18:35 → 2SW 23:13
PROVIDERS: ADMIT Internal Medicine; ATTEND Internal Medicine
DX: K31.84 Gastroparesis (principal); D72.829 Elevated white blood cell count, unspecified; E86.0 Dehydration; K27.9 Peptic ulcer, site unspecified, unspecified as acute or chronic, without hemorrhage or perforation; I10 Essential (primary) hypertension; I48.91 Unspecified atrial fibrillation; Z85.51 Personal history of malignant neoplasm of bladder; Z90.49 Acquired absence of other specified parts of digestive tract; Z88.1 Allergy status to other antibiotic agents; Z98.890 Other specified postprocedural states; Z88.0 Allergy status to penicillin; Z79.899 Other long term (current) drug therapy
CPT/HCPCS: 71045; 74177; 80048; 80053 ×2; 81003; 82553; 83605; 83690; 83735; 84134; 84443; 84484; 85025 ×3; 87040; 87086; 93005; 96361 ×5; 96365; 96366 ×4; 96367; 96372 ×3; 96374; 96375; 96376 ×3; 99285 ×2; G0378 ×3; 36415; 81015; J1650; J2405; J2765; J3490; J7050; Q0167

== ENCOUNTER 2018-10-25 23:11 | Emergency (ER) | payer MEDICARE ==
--- NOTE | 2018-10-25 23:38 | RAD ---
PORTABLE AP CHEST X-RAY: 10/25/18 HISTORY: Chest pain for two hours. COMPARISON: 10/18/18. FINDINGS: The cardiac silhouette is magnified by projection. The lungs remain clear. vascular calcifications ar e seen in an ectatic thoracic aorta. There has been no interval change compared to the prior exam. IMPRESSION: No acute cardiopulmonary process. POS: [facility]
[2018-10-25] MEDS ORDERED: Ondansetron PF 4 MG/2 ML Vial ONE (23:40)
[2018-10-25 23:45] LABS: #Basophils 0.1 thou/uL (0.0-0.2); #Eosinphils 0.1 thou/uL (0.0-0.7); #Lymphocytes 1.5 thou/uL (1.20-3.40); #Monocytes 1.3 thou/uL (0.11-0.59); #Neutrophils 9.3 thou/uL (1.40-6.50); %Basophils 0.6 % (0.0-1.0); %Eosinophils 0.5 % (0.0-10.0); %Lymphocytes 12.1 % (21.0-51.0); %Monocytes 10.3 % (0.0-10.0); %Neutrophils 76.5 % (42.0-75.0); Hemoglobin 9.1 g/dL (14.0-18.0); Mean Corpuscular HGB CONC 31.7 g/dL (32.0-36.0); Mean Corpuscular Hemoglobin 26.3 pg (27.0-31.0); Mean Platelet Volume 7.4 fL (7.4-10.4); Platelet Count 336 thou/uL (130-400); RBC Distribution Width 17.7 % (11.5-14.5); Red Blood Cell (RBC) Count 3.46 mill/uL (4.70-6.10); White Blood Cell (WBC) Count 12.2 thou/uL (4.8-10.8)
[2018-10-25] MEDS ORDERED: Lidocaine 2% Viscous Solution 10 ML, Aluminum & Magnesium Hydroxide 30 ML SSW SCH (23:59)
[2018-10-26 00:05] LABS: ALT (SGPT) 14 U/L (8-55); AST (SGOT) 14 U/L (5-34); Albumin 2.6 g/dL (3.4-4.8); Alkaline Phosphatase 80 U/L (40-150); Anion Gap 11 mmol/L (10-20); BUN (Urea Nitrogen) 25 mg/dL (8.4-25.7); Bilirubin, Total Less than 0.2 mg/dL (0.2-1.2); CK (CPK) 85 U/L (30-200); Calc. Creatinine Clearance 0 mL/min (70-130); Carbon Dioxide 18 mmol/L (23-31); Chloride 109 mmol/L (98-107); Estimated GFR-MDRD 62; Globulin 2.1 g/dL (2.4-3.5); Glucose 89 mg/dL (80-115); Lipase 58 U/L (8-78); Potassium 3.8 mmol/L (3.5-5.1); Protein, Total 4.7 g/dL (5.8-8.1); Sodium 134 mmol/L (136-145)
[2018-10-26 01:04] LABS: Bilirubin Negative (Negative); Blood, Urine Negative (Negative); Clarity CLEAR (Clear); Glucose, Urine (Dipstick) Negative (Negative); Leukocyte Small (Negative); Nitrite Negative (Negative); Protein, Urine (Dipstick) Negative (Neg-Trace); Specific Gravity, Urine 1.015 (1.002-1.036); Urobilinogen 0.2 mg/dL (0.2-1.0)
[2018-10-26 01:07] LABS: Bacteria/HPF None Seen HPF (None Seen); Hyaline Casts/LPF 0-3 HYALINE CAST LPF (0-3 Hyaline); Pathc Cast-AUWi Flag 0.29 (0-2.49); Squamous Epithelial 0-3 HPF (0-3); WBC/HPF 21-50 HPF (0-3)
[2018-10-26 01:13] LABS: Yeast-All Forms 1+ HPF (None Seen)
--- NOTE | 2018-10-30 15:53 | EKG ---
Test Reason : Blood Pressure : / mmHG Vent. Rate : 076 BPM Atrial Rate : 076 BPM P-R Int : 136 ms QRS Dur : 108 ms QT Int : 384 ms P-R-T Axes : 026 -20 015 degrees QTc Int : 432 ms Sinus rhythm with Premature atrial complexes with Abberant conduction Right bundle branch block Abnormal ECG Confirmed by BARBARA JULIAN ([id number]), food editor MICHAEL BENAVIDES ([id number]) on 10/30/2018 3:53:00 PM Referred By: Confirmed By:BARBARA JULIAN
== END 2018-10-26 01:45 ==
LOC: ERS 23:11
DX: R10.13 Epigastric pain (principal); R11.2 Nausea with vomiting, unspecified; I48.91 Unspecified atrial fibrillation; K21.9 Gastro-esophageal reflux disease without esophagitis; I10 Essential (primary) hypertension; G43.909 Migraine, unspecified, not intractable, without status migrainosus; F41.9 Anxiety disorder, unspecified; Z79.899 Other long term (current) drug therapy
CPT/HCPCS: 36415; 71045; 80053; 81003; 81015; 82550; 83690; 84484; 85025; 93005; 96361; 96374; J2405

== ENCOUNTER 2018-10-26 14:42 | Emergency (ER) | payer MEDICARE ==
[2018-10-26] MEDS ORDERED: HYDROcodone/Acetaminophen 5/325 mg Tablet ONE (15:19)
[2018-10-26] MEDS ORDERED: Ondansetron ODT 4 MG TAB ONE (15:20)
[2018-10-26] MEDS ORDERED: Ibuprofen 200 MG TAB ONE (15:20)
--- NOTE | 2018-10-26 15:37 | CT ---
CT BRAIN: DATE: 10/26/2018. PROVIDED CLINICAL HISTORY: Head injury. FINDINGS: Comparison 09/29/2018. The ventricular system is unchanged in size and morphology. There is no evid ence for intracranial hemorrhage or mass effect. Minimal right frontal scalp swelling without eviden ce for skull fracture. IMPRESSION: No evidence for intracranial hemorrhage or skull fracture. POS: [facility]
--- NOTE | 2018-10-26 15:44 | CT ---
CT CERVICAL SPINE: DATE: 10/26/2018. PROVIDED CLINICAL HISTORY: Neck pain status post fall. FINDINGS: Comparison 09/04/2018. There is no evidence for a fracture or traumatic subluxation. Cervical align ment is stable. Advanced degenerative changes are redemonstrated. No prevertebral soft tissue swell ing apparent. The visualized lung apices are free of significant opacity. IMPRESSION: No evidence for fracture or traumatic subluxation. POS: [facility]
== END 2018-10-26 16:53 ==
LOC: ERS 14:42
DX: S00.83XA Contusion of other part of head, initial encounter (principal); I10 Essential (primary) hypertension; Z79.899 Other long term (current) drug therapy; W01.0XXA Fall on same level from slipping, tripping and stumbling without subsequent striking against object, initial encounter
CPT/HCPCS: 70450; 72125; Q0162

== ENCOUNTER 2018-11-13 15:26 | Emergency (ER) | payer MEDICARE ==
[2018-11-13 16:13] LABS: #Basophils 0.1 thou/uL (0.0-0.2); #Eosinphils 0.1 thou/uL (0.0-0.7); #Lymphocytes 1.2 thou/uL (1.20-3.40); #Neutrophils 8.2 thou/uL (1.40-6.50); %Basophils 0.8 % (0.0-1.0); %Eosinophils 0.7 % (0.0-10.0); %Lymphocytes 11.4 % (21.0-51.0); %Monocytes 9.2 % (0.0-10.0); %Neutrophils 77.9 % (42.0-75.0); Hemoglobin 10.2 g/dL (14.0-18.0); Mean Corpuscular HGB CONC 30.3 g/dL (32.0-36.0); Mean Corpuscular Hemoglobin 26.7 pg (27.0-31.0); Mean Corpuscular Volume 88.3 fL (78.0-98.0); Mean Platelet Volume 6.9 fL (7.4-10.4); Platelet Count 411 thou/uL (130-400); RBC Distribution Width 18.1 % (11.5-14.5); Red Blood Cell (RBC) Count 3.83 mill/uL (4.70-6.10); White Blood Cell (WBC) Count 10.5 thou/uL (4.8-10.8)
[2018-11-13] MEDS ORDERED: Ondansetron PF 4 MG/2 ML Vial ONE (16:29)
[2018-11-13] MEDS ORDERED: Morphine 4 MG/ML VIAL ONE (16:43)
[2018-11-13 16:46] LABS: ALT (SGPT) 13 U/L (8-55); AST (SGOT) 20 U/L (5-34); Alkaline Phosphatase 68 U/L (40-150); Anion Gap 15 mmol/L (10-20); BUN (Urea Nitrogen) 33 mg/dL (8.4-25.7); Bilirubin, Total Less than 0.2 mg/dL (0.2-1.2); Calc. Creatinine Clearance 0 mL/min (70-130); Calcium 8.3 mg/dL (7.8-10.44); Carbon Dioxide 18 mmol/L (23-31); Chloride 102 mmol/L (98-107); Estimated GFR-MDRD 52; Globulin 2.3 g/dL (2.4-3.5); Glucose 112 mg/dL (80-115); Lipase 15 U/L (8-78); Potassium 4.7 mmol/L (3.5-5.1); Protein, Total 5.3 g/dL (5.8-8.1); Sodium 130 mmol/L (136-145)
[2018-11-13] MEDS ORDERED: Acetaminophen 500 MG TAB ONE (17:49)
== END 2018-11-13 19:09 | disposition home or self-care (01) ==
LOC: ERS 15:26
DX: E86.0 Dehydration (principal); N17.9 Acute kidney failure, unspecified; I10 Essential (primary) hypertension; D64.9 Anemia, unspecified; I48.91 Unspecified atrial fibrillation; K21.9 Gastro-esophageal reflux disease without esophagitis; G43.909 Migraine, unspecified, not intractable, without status migrainosus; F41.9 Anxiety disorder, unspecified; Z79.899 Other long term (current) drug therapy
CPT/HCPCS: 36415; 80053; 83690; 85025; 96361; 96374; 96375; J2270; J2405

== ENCOUNTER 2019-02-01 21:16 | Inpatient (IN) | payer MEDICARE, MEDICAID ==
[2019-02-01] MEDS ORDERED: Pantoprazole 40 MG VIAL ONE (21:58)
[2019-02-01] MEDS ORDERED: Ondansetron PF 4 MG/2 ML Vial ONE ×2 (21:58→23:57)
[2019-02-01] MEDS ORDERED: Metoclopramide HCl 10 MG/2 ML VIAL ONE (21:58)
[2019-02-01 22:06] LABS: Bilirubin Negative (Negative); Blood, Urine Negative (Negative); Clarity CLEAR (Clear); Glucose, Urine (Dipstick) Negative (Negative); Leukocyte Negative (Negative); Nitrite Negative (Negative); Protein, Urine (Dipstick) 30 mg/dL (Neg-Trace); Specific Gravity, Urine 1.024 (1.002-1.036); Urobilinogen 0.2 mg/dL (0.2-1.0); pH, Urine 8.5 (5.0-9.0)
[2019-02-01 22:36] LABS: Hemoglobin 10.1 g/dL (14.0-18.0); Mean Corpuscular HGB CONC 29.2 g/dL (32.0-36.0); Mean Corpuscular Hemoglobin 24.1 pg (27.0-31.0); Mean Corpuscular Volume 82.5 fL (78.0-98.0); Mean Platelet Volume 6.9 fL (7.4-10.4); Platelet Count 284 thou/uL (130-400); RBC Distribution Width 15.4 % (11.5-14.5); Red Blood Cell (RBC) Count 4.19 mill/uL (4.70-6.10); White Blood Cell (WBC) Count 9.7 thou/uL (4.8-10.8)
[2019-02-01 22:53] LABS: ALT (SGPT) 14 U/L (8-55); AST (SGOT) 21 U/L (5-34); Albumin 3.1 g/dL (3.4-4.8); Alkaline Phosphatase 85 U/L (40-150); BUN (Urea Nitrogen) 27 mg/dL (8.4-25.7); Bilirubin, Total 1.2 mg/dL (0.2-1.2); Calc. Creatinine Clearance 0 mL/min (70-130); Calcium 9.2 mg/dL (7.8-10.44); Estimated GFR-MDRD 59; Globulin 2.5 g/dL (2.4-3.5); Glucose 93 mg/dL (80-115); Protein, Total 5.6 g/dL (5.8-8.1)
[2019-02-01 22:55] LABS: #Lymphocytes 0.9 thou/uL (1.20-3.40); #Monocytes 1.2 thou/uL (0.11-0.59); #Neutrophils 7.6 thou/uL (1.40-6.50); %Basophils 0.3 % (0.0-1.0); %Eosinophils 0.2 % (0.0-10.0); %Lymphocytes 8.8 % (21.0-51.0); %Monocytes 11.9 % (0.0-10.0); %Neutrophils 78.9 % (42.0-75.0); Hypochromia SLIGHT = 6-15 cells (100X) (0-5/hpf); MDiff Complete? YES
[2019-02-01 23:02] LABS: Anion Gap 13 mmol/L (10-20); Chloride 78 mmol/L (98-107); Sodium 135 mmol/L (136-145)
[2019-02-01 23:04] LABS: Carbon Dioxide 47 mmol/L (23-31); Potassium 2.9 mmol/L (3.5-5.1)
[2019-02-01] MEDS ORDERED: Potassium Chloride 20 MEQ TAB ONE (23:37)
[2019-02-01] MEDS ORDERED: Morphine 4 MG/ML VIAL ONE (23:57)
[2019-02-02] MEDS ORDERED: Ondansetron PF 4 MG/2 ML Vial IVP PRN (01:05)
[2019-02-02] MEDS ORDERED: Ondansetron ODT 4 MG TAB SL PRN (01:05)
[2019-02-02] MEDS ORDERED: Sodium Chloride 0.9% 1,000 ML IV SCH (01:15)
[2019-02-02] MEDS ORDERED: Acetaminophen 325 MG TAB PO PRN (01:38)
[2019-02-02] MEDS: Acetaminophen/Codeine 30-300mg Tablet PO PRN ×3 (02:07→21:01)
[2019-02-02] MEDS: NS 0.9% w/ 40 MEQ KCL 1,000 ML IV SCH ×2 (02:08→09:44)
[2019-02-02] MEDS ORDERED: Morphine 4 MG/ML VIAL SLOW IVP PRN (04:35)
[2019-02-02] MEDS: Ondansetron ODT 4 MG TAB PO PRN ×2 (05:19→21:49)
[2019-02-02] MEDS ORDERED: HYDROcodone/Acetaminophen 5/325 mg Tablet PO SCH (06:15)
[2019-02-02 09:26] LABS: BUN (Urea Nitrogen) 26 mg/dL (8.4-25.7); Calc. Creatinine Clearance 33 mL/min (70-130); Calcium 8.2 mg/dL (7.8-10.44); Estimated GFR-MDRD 60; Glucose 106 mg/dL (80-115)
[2019-02-02 09:40] LABS: Anion Gap 15 mmol/L (10-20); Carbon Dioxide 36 mmol/L (23-31); Chloride 86 mmol/L (98-107); Potassium 3.4 mmol/L (3.5-5.1); Sodium 134 mmol/L (136-145)
[2019-02-02] MEDS: Pantoprazole 40 MG VIAL IVP SCH ×2 (09:42→20:59)
[2019-02-02] MEDS: Cyanocobalamin (Vitamin B-12) 1,000 MCG TAB PO SCH (09:42)
[2019-02-02] MEDS: Folic Acid 1 MG TAB PO SCH (09:42)
[2019-02-02] MEDS: Ondansetron PF 4 MG/2 ML Vial IVP PRN (14:32)
--- NOTE | 2019-02-02 18:28 | PRG ---
DATE OF SERVICE: SUBJECTIVE: Mr. Storey is an unfortunate 68-year-old male with past medical history significant for type 2 diabetes mellitus, and severe gastroparesis resulting in intractable nausea and vomiting, which he has suffered for over a year. The patient has had a J-tube placed, and apparently just was discharged out of rehab. The patient presented to the hospital with nausea and vomiting, dehydration, and hypokalemia. This morning, the patient states that he feels extremely weak and lightheaded with any type of ambulation. He denies any nausea or abdominal pain at this time. He does state that he feels anxious about his current health and weight loss. The patient denies any chest pain or shortness of breath at this time. OBJECTIVE: GENERAL: This is an extremely cachectic appearing elderly gentleman , resting in bed, in no acute distress. NECK: No JVD. No carotid bruits. Trachea is midline. CV: S1, S2. Regular rate and rhythm. No appreciable murmurs, rubs, or gallops. HEAD: Atraumatic, normocephalic. LUNGS: Regular respiratory rate and pattern, overall clear to auscultation bilaterally. ABDOMEN: Positive bowel sounds. J-tube present. EXTREMITIES: Some skin changes consistent with chronic venous stasis dermatitis , trace edema bilaterally. SKIN: Warm and dry. VITAL SIGNS: Temperature is 98.2, pulse 71, O2 saturation 96% on room air, blood pressure is 128/69. The patient does remain orthostatic. Supine blood pressure is 139/90, standing is 116/78. LABORATORY DATA: Hemoglobin is 10.1, white blood cell count is 9.7, 6.9. Sodium 134; potassium 3.4, improved from 2.9; chloride 86; carbon dioxide 36; BUN 26; creatinine 1.2; estimated GFR 60; glucose 106. ASSESSMENT: 1. Extreme calorie deficit malnutrition and cachexia secondary to intractable nausea and vomiting; J tube is present 2. Gastroparesis resulting in above. 3. Hypokalemia at presentation, resolved. 4. Orthostatic hypotension, symptomatic secondary to dehydration. 5. Type 2 diabetes mellitus. PLAN: Upon review of records, the patient has lost approximately 34 pounds in 3 months. He is suffering from extreme malnutrition and dehydration. This patient needs intensive appropriate calories as well as continue IV hydration, physical therapy and occupational therapy. Given this patient's rapid decline in the last 3 months and profound weight loss, the patient meets inpatient status. We will consult PT, OT, and dietary regarding proper supplemental tube feedings. I feel this patient will likely need inpatient rehab versus SNIF when he eventually is discharged. Care discussed with Dr. Anderson. Keegan ID: [id number] MTDD
[2019-02-02] MEDS: Lorazepam 0.5 MG TAB PO PRN (21:09)
[2019-02-02] MEDS: Calcium Carbonate 500 MG ChewTAB PO PRN (21:49)
[2019-02-03] MEDS: Acetaminophen/Codeine 30-300mg Tablet PO PRN ×4 (03:02→21:09)
[2019-02-03] MEDS: Lorazepam 0.5 MG TAB PO PRN ×2 (03:03→21:09)
--- NOTE | 2019-02-03 07:28 | HP ---
PRIMARY CARE PHYSICIAN: Khoi Fregoso MD CHIEF COMPLAINT: Nausea and vomiting. HISTORY OF PRESENT ILLNESS: The patient is a 68-year-old male with gastroparesis and chronic back pain, who presented to the hospital with significant nausea and vomiting along with generalized weakness. The nausea and vomiting have been an ongoing issue over the last 1 year. It got worse over the last 2 to 3 days. He has not been able to eat or drink anything over the past 2 to 3 days. He also has a J-tube which he does not use for feeding. He only uses for water intake. He felt so weak that he fell several times today without significant injuries. He has chronic back pain which is unchanged from before. He also had generalized abdominal discomfort, worse during the episode of nausea and vomiting. He also has several bouts of diarrhea. The patient is a poor historian and again history is limited. In the emergency room, his initial vital signs showed temperature 99.1, respirations of 16, pulse rate of 108, blood pressure of 138/95 with O2 saturation of 99% on room air. His pain level was 9. He was found to have bicarbonate of 47 with potassium 2.9. He received morphine, Zofran, IV fluids, potassium, Bentyl, Reglan, and Protonix in the emergency room. PAST MEDICAL HISTORY: 1. Peptic ulcer disease. 2. Chronic gastroparesis. 3. Hypertension. 4. Chronic back pain. 5. History of bladder cancer. 6. Paroxysmal atrial fibrillation. 7. Chronic back pain. PAST SURGICAL HISTORY: 1. J-tube placement with subsequent accidental removal. J-tube was placed again in the last 1 or 2 months per the patient's report. 2. Cholecystectomy. 3. Multiple abdominal surgeries. 4. Bladder surgery. SOCIAL HISTORY: The patient currently lives at home. Denies any current use of smoking, alcohol, or drug use. He makes his own decision with the help of his family. FAMILY HISTORY: Negative for premature coronary artery disease or heart disease. REVIEW OF SYSTEMS: All other review of systems was reviewed and were found negative. PHYSICAL EXAMINATION: VITAL SIGNS: As discussed above. GENERAL: A 68-year-old male, cachectic, in no apparent distress. Feels somewhat better after ER management. HEENT: Head, atraumatic and normocephalic. Sclerae are anicteric. Dry mucous membranes. No oral lesion. NECK: Supple. No JVD. No carotid bruit. LUNGS: Clear to auscultation bilaterally. No wheezing, rales, or rhonchi. HEART: S1 and S2 present. Regular rate and rhythm. No heaves or pulsation. ABDOMEN: Soft. Mild diffuse abdominal tenderness. No rebound or guarding. Bowel sounds are present. EXTREMITIES: No edema or calf tenderness. NEUROLOGIC: Grossly nonfocal. Moves all 4 extremities. PSYCHIATRY: Alert, awake, and oriented x3. SKIN: Warm and dry. LYMPH NODES: No palpable lymph nodes in the neck. PERIPHERAL VASCULAR: Radial pulses are palpable bilaterally, low volume. MUSCULOSKELETAL: No joint swelling or tenderness. LABORATORY FINDINGS: WBC 9.7 with hemoglobin 10.1, hematocrit 34.6, and platelets 284. Chemistry showed sodium 135, potassium 2.9, chloride 78, bicarbonate 47, creatinine 1.21 with BUN 27, and magnesium 3.2. Urinalysis was negative for wbc, bacteria. DIAGNOSTIC DATA: Chest x-ray by my review from last admission was negative for infiltrate. EKG by my review showed sinus rhythm with left axis deviation, right bundle-branch block. IMPRESSION: 1. Nausea, vomiting, and diarrhea, probably due to chronic gastroparesis. 2. Hypokalemia with significant contraction alkalosis/dehydration. 3. Chronic anemia. 4. Severe protein-calorie malnutrition. Please note, the patient has a J-tube. 5. Chronic back pain. 6. Generalized weakness with recurrent falls. 7. Paroxysmal atrial fibrillation, probably not an anticoagulation candidate due to history of recurrent falls. 8. Peptic ulcer disease. 9. Chronic pain syndrome. 10. Erythromycin, Macrobid, and penicillin allergy. PLAN: The patient will be monitored on the medical floor and observation. We will replace electrolytes. We will consult dietitian for assistance with J-tube feeding. We will consult Physical Therapy and Occupational Therapy due to recurrent falls. Diet as tolerated. Recheck labs in a.m. Plan of care was discussed with the patient in detail. He stated understanding. We will resume home medications once confirmed. We will start PPI. Job ID: [id number]
[2019-02-03 07:51] LABS: Anion Gap 8 mmol/L (10-20); BUN (Urea Nitrogen) 21 mg/dL (8.4-25.7); Calc. Creatinine Clearance 38 mL/min (70-130); Calcium 7.9 mg/dL (7.8-10.44); Carbon Dioxide 35 mmol/L (23-31); Chloride 97 mmol/L (98-107); Estimated GFR-MDRD 69; Glucose 84 mg/dL (80-115); Magnesium 2.3 mg/dL (1.6-2.6); Potassium 4.3 mmol/L (3.5-5.1); Sodium 136 mmol/L (136-145)
[2019-02-03 07:56] LABS: Phosphorus 1.6 mg/dL (2.3-4.7)
[2019-02-03] MEDS: Folic Acid 1 MG TAB PO SCH (09:14)
[2019-02-03] MEDS: Cyanocobalamin (Vitamin B-12) 1,000 MCG TAB PO SCH (09:14)
[2019-02-03] MEDS: Pantoprazole 40 MG VIAL IVP SCH ×2 (09:14→20:28)
[2019-02-03] MEDS: Ondansetron ODT 4 MG TAB PO PRN (09:19)
[2019-02-03] MEDS: Calcium Carbonate 500 MG ChewTAB PO PRN (09:19)
[2019-02-03 12:53] LABS: #Eosinphils 0.1 thou/uL (0.0-0.7); #Lymphocytes 1.1 thou/uL (1.20-3.40); #Neutrophils 6.2 thou/uL (1.40-6.50); %Basophils 0.2 % (0.0-1.0); %Eosinophils 0.8 % (0.0-10.0); %Monocytes 11.7 % (0.0-10.0); %Neutrophils 74.2 % (42.0-75.0); Hemoglobin 8.8 g/dL (14.0-18.0); Mean Corpuscular HGB CONC 29.7 g/dL (32.0-36.0); Mean Corpuscular Hemoglobin 24.2 pg (27.0-31.0); Mean Corpuscular Volume 81.5 fL (78.0-98.0); Mean Platelet Volume 7.6 fL (7.4-10.4); Platelet Count 271 thou/uL (130-400); RBC Distribution Width 15.3 % (11.5-14.5); Red Blood Cell (RBC) Count 3.64 mill/uL (4.70-6.10); White Blood Cell (WBC) Count 8.3 thou/uL (4.8-10.8)
--- NOTE | 2019-02-03 13:32 | PDOC.PN ---
- Subjective Encounter Start Date: 02/03/19 Encounter Start Time: 14:40 Subjective: Patient had severe vomiting, continued reflux this AM. No other complaints. - Objective Resuscitation Status - Order Detail: 02/02/19 04:31 Resuscitation Status Routine Resuscitation Status: FULL: Full Resuscitation MAR Reviewed: Yes Vital Signs & Weight: Vital Signs (12 hours) Temp Pulse Resp BP BP Pulse Ox 02/03/19 09:07 93 L 02/03/19 08:00 97.4 F L 73 18 145/96 H 93 L 02/03/19 04:46 98.4 F 70 18 116/78 97 Weight Weight 90 lb 14.4 oz I&O: 02/02/19 02/03/19 02/04/19 06:59 06:59 06:59 Intake Total 987 6050 Output Total 225 Balance 987 5825 Result Diagrams: 02/03/19 06:22 02/03/19 06:22 Phys Exam - Physical Examination Constitutional: NAD cachetic HEENT: moist MMs Respiratory: no wheezing, no rales, no rhonchi Cardiovascular: RRR, no significant murmur Gastrointestinal: soft, positive bowel sounds Neurological: non-focal, moves all 4 limbs Psychiatric: normal affect, A&O x 3 Dx/Plan (1) Nausea & vomiting Code(s): R11.2 - NAUSEA WITH VOMITING, UNSPECIFIED Status: Acute Qualifiers: Vomiting Intractability: intractable Comment: gastroparesis, acute on chronic, significant weight loss, probably needs to use his J-tube (2) Gastroparesis Code(s): K31.84 - GASTROPARESIS Status: Chronic Comment: Gastroparesis S/P multiple abd surgeries in the past at [place]. Surgery for gastric outlet obstruction and PUD. No specific details are available. J-tube replaced since last admit. (3) Severe protein-calorie malnutrition Code(s): E43 - UNSPECIFIED SEVERE PROTEIN-CALORIE MALNUTRITION Status: Acute (4) AL (acute kidney injury) Code(s): N17.9 - ACUTE KIDNEY FAILURE, UNSPECIFIED Status: Acute Comment: improved with fluids (5) Hypokalemia Code(s): E87.6 - HYPOKALEMIA Status: Resolved Comment: resolved with replacement (6) Anemia Code(s): D64.9 - ANEMIA, UNSPECIFIED Status: Chronic Qualifiers: Anemia type: unspecified type Qualified Code(s): D64.9 - Anemia, unspecified Comment: dropped 2 points since admit, but likely dilutional (7) Orthostatic hypotension Code(s): I95.1 - ORTHOSTATIC HYPOTENSION Status: Acute Comment: due to volume depletion, will monitor (8) Paroxysmal atrial fibrillation Code(s): I48.0 - PAROXYSMAL ATRIAL FIBRILLATION Status: Chronic Comment: NSR here. Currently off eliquis, probably not a candidate right now due to recurrent falls. (9) PUD (peptic ulcer disease) Code(s): K27.9 - PEPTIC C, SITE UNSP, UNSP AC OR CHR, W/O HEMOR OR PERF Status: Chronic Comment: on PPI (10) Chronic pain disorder Code(s): G89.4 - CHRONIC PAIN SYNDROME Status: Chronic Comment: stable - Plan cont current plan of care, PT/OT ordering J-tube feeding to start * . - Discharge Day Encounter end time: 15:00
[2019-02-03] MEDS ORDERED: Aspirin/APAP/Caffeine Tab (Excedrin Migraine) PO PRN (13:36)
[2019-02-03] MEDS: Metoclopramide HCl 10 MG TAB PO SCH ×2 (17:14→20:28)
[2019-02-03] MEDS: Dronabinol 2.5 MG CAP PO SCH (17:56)
[2019-02-03] MEDS ORDERED: Sodium Bicarbonate Tab 325 MG TAB PER TUBE PRN (18:13)
[2019-02-03] MEDS ORDERED: Pancrelipase DR 12000 1 CAP FS PRN (18:13)
[2019-02-03] MEDS: Gabapentin 100 MG CAP PO SCH (20:28)
[2019-02-03] MEDS: Docusate 100 MG CAP PO SCH (20:28)
[2019-02-03] MEDS: Topiramate 100 MG TAB PO SCH (20:28)
[2019-02-04] MEDS: Calcium Carbonate 500 MG ChewTAB PO PRN ×5 (01:16→22:25)
[2019-02-04] MEDS: Ondansetron ODT 4 MG TAB PO PRN ×3 (01:16→22:24)
[2019-02-04] MEDS: Acetaminophen/Codeine 30-300mg Tablet PO PRN ×4 (03:07→22:24)
[2019-02-04] MEDS: Lorazepam 0.5 MG TAB PO PRN (03:10)
[2019-02-04] MEDS: Polyethylene Glycol 3350 17 GM Packet PO SCH (07:59)
[2019-02-04] MEDS: Docusate 100 MG CAP PO SCH ×2 (07:59→20:34)
[2019-02-04] MEDS: Gabapentin 100 MG CAP PO SCH ×2 (08:00→20:34)
[2019-02-04] MEDS: Folic Acid 1 MG TAB PO SCH (08:00)
[2019-02-04] MEDS: Topiramate 100 MG TAB PO SCH ×2 (08:00→20:34)
[2019-02-04] MEDS: Metoclopramide HCl 10 MG TAB PO SCH ×4 (08:00→20:34)
[2019-02-04] MEDS: Cyanocobalamin (Vitamin B-12) 1,000 MCG TAB PO SCH (08:00)
[2019-02-04] MEDS: Lidocaine 5% Patch TD SCH (08:00)
[2019-02-04] MEDS: Pantoprazole 40 MG VIAL IVP SCH ×2 (08:00→20:30)
[2019-02-04] MEDS: Dronabinol 2.5 MG CAP PO SCH ×2 (08:01→16:27)
[2019-02-04 08:13] LABS: Anion Gap 8 mmol/L (10-20); BUN (Urea Nitrogen) 18 mg/dL (8.4-25.7); Calc. Creatinine Clearance 37 mL/min (70-130); Calcium 8.8 mg/dL (7.8-10.44); Carbon Dioxide 30 mmol/L (23-31); Chloride 106 mmol/L (98-107); Estimated GFR-MDRD 68; Glucose 75 mg/dL (80-115); Magnesium 2.1 mg/dL (1.6-2.6); Potassium 5.1 mmol/L (3.5-5.1); Sodium 139 mmol/L (136-145)
[2019-02-04 08:18] LABS: Phosphorus 1.7 mg/dL (2.3-4.7)
--- NOTE | 2019-02-04 15:26 | PDOC.PN ---
- Subjective Encounter Start Date: 02/04/19 Encounter Start Time: 15:24 Mr. Storey was seen today in follow-up of abdominal pain, nausea and vomting. He says he is still vomiting, and continues to have chronic abdominal pain and back pain. - Objective Resuscitation Status - Order Detail: 02/02/19 04:31 Resuscitation Status Routine Resuscitation Status: FULL: Full Resuscitation MAR Reviewed: Yes Vital Signs & Weight: Vital Signs (12 hours) Temp Pulse Resp BP Pulse Ox 02/04/19 11:40 97.2 F L 63 18 123/91 H 100 02/04/19 08:00 98.2 F 79 18 143/95 H 99 02/04/19 07:57 99 Weight Weight 90 lb 14.4 oz I&O: 02/03/19 02/04/19 02/05/19 06:59 06:59 06:59 Intake Total 6050 4655 Output Total 225 1790 Balance 5825 2865 Result Diagrams: 02/03/19 06:22 02/04/19 07:24 Phys Exam - Physical Examination HEENT: PERRLA Respiratory: no wheezing, no rales, no rhonchi, clear to auscultation bilateral Cardiovascular: RRR, no significant murmur, no rub Gastrointestinal: soft, positive bowel sounds + diffuse tenderness, no rebound or guarding Musculoskeletal: no edema Dx/Plan (1) Nausea & vomiting Code(s): R11.2 - NAUSEA WITH VOMITING, UNSPECIFIED Status: Acute Qualifiers: Vomiting Intractability: intractable Comment: gastroparesis, acute on chronic, significant weight loss, probably needs to use his J-tube (2) Abdominal pain Code(s): R10.9 - UNSPECIFIED ABDOMINAL PAIN Status: Acute Qualifiers: Abdominal location: generalized Comment: Suspect chronic component and secondary to chronic narcotic exposure, GI service following., Esophagitis noted on EGD with continued PPI, bx taken and pending (3) Gastroparesis Code(s): K31.84 - GASTROPARESIS Status: Chronic (4) Severe protein-calorie malnutrition Code(s): E43 - UNSPECIFIED SEVERE PROTEIN-CALORIE MALNUTRITION Status: Acute (5) Physical deconditioning Code(s): R53.81 - OTHER MALAISE Status: Acute (6) Hypertension Code(s): I10 - ESSENTIAL (PRIMARY) HYPERTENSION Status: Chronic (7) Paroxysmal atrial fibrillation Code(s): I48.0 - PAROXYSMAL ATRIAL FIBRILLATION Status: Chronic Comment: NSR here. Currently off eliquis, probably not a candidate right now due to recurrent falls. - Plan * Nausea and vomiting- this is a chronic problem, which after reviewing his records has been present for years, and has been thoroughly worked up in the past. It has been attributed to post surgical gastroparesis. Will check a KUB to be sure he is not obstructed, as he is at risk for this, if this is negative , then symptomatic treatment is recommended * Chronic low back pain- The Consultation from Dr. Wright was reviewed, and will avoid narcotics as much as possible * We briefly discussed palliative care, since his condition is incurable, and his overall prognosis is poor. It is possible that his best option would be to focus more on pain and symptom control at this point * HTN- blood pressure is stable * AFIB- his heart rate is stable.
--- NOTE | 2019-02-04 16:48 | RAD ---
RADIOGRAPH OF CHEST AND TWO VIEW ABDOMEN ACUTE ABDOMINAL SERIES 02/04/19 INDICATION: Abdominal pain; Nausea/Vomiting FINDINGS: Cardiomediastinal silhouette is stable. No new consolidation. There is mild linear density at the lef t lung base which may relate to atelectasis. No free air is seen beneath the hemidiaphragms. There is a paucity of bowel gas with a large volume of retained fecal material within the colon. A presumed p ercutaneous catheter is seen overlying the left mid to lower abdomen. There is suture material overly ing the right mid abdomen. Metallic clips overlie the abdomen bilaterally. There is a stable, focal d ensity overlying the right hemipelvis. This may represent a bone island. There is S-shaped curvature of the imaged thoracolumbar spine. IMPRESSION: 1. No focal consolidation. 2. Postoperative changes of the abdomen with extensive retained fecal material indicating consti pation. POS: [facility]
[2019-02-04] MEDS: Bisacodyl 5 MG TAB PO PRN (20:35)
[2019-02-04] MEDS: Lidocaine Patch Removal TOP SCH (20:44)
[2019-02-04] MEDS: Ketorolac Tromethamine 30 MG/ML VIAL IVP PRN (23:02)
[2019-02-05] MEDS: Ondansetron ODT 4 MG TAB PO PRN ×3 (05:09→18:07)
[2019-02-05] MEDS: Acetaminophen/Codeine 30-300mg Tablet PO PRN ×3 (05:10→20:43)
[2019-02-05] MEDS: Calcium Carbonate 500 MG ChewTAB PO PRN ×2 (05:10→20:44)
[2019-02-05] MEDS: Ketorolac Tromethamine 30 MG/ML VIAL IVP PRN ×3 (05:17→20:38)
[2019-02-05] MEDS: Pantoprazole 40 MG VIAL IVP SCH ×2 (09:05→20:40)
[2019-02-05] MEDS: Topiramate 100 MG TAB PO SCH ×2 (09:05→20:42)
[2019-02-05] MEDS: Gabapentin 100 MG CAP PO SCH ×2 (09:05→20:42)
[2019-02-05] MEDS: Cyanocobalamin (Vitamin B-12) 1,000 MCG TAB PO SCH (09:06)
[2019-02-05] MEDS: Metoclopramide HCl 10 MG TAB PO SCH ×4 (09:06→20:42)
[2019-02-05] MEDS: Folic Acid 1 MG TAB PO SCH (09:06)
[2019-02-05] MEDS: Lidocaine 5% Patch TD SCH (09:06)
[2019-02-05] MEDS: Docusate 100 MG CAP PO SCH ×2 (09:16→20:43)
[2019-02-05] MEDS: Polyethylene Glycol 3350 17 GM Packet PO SCH (09:17)
[2019-02-05] MEDS: Dronabinol 2.5 MG CAP PO SCH ×2 (11:00→16:40)
--- NOTE | 2019-02-05 17:12 | PDOC.PN ---
- Subjective Encounter Start Date: 02/05/19 Encounter Start Time: 14:30 Mr. Storey was seen today in follow-up of Abdominal and back pain. Both are chronic and not much changed from before. He also continues to have some difficulty with nausea and vomiting. - Objective Resuscitation Status - Order Detail: 02/05/19 10:40 Resuscitation Status Routine Resuscitation Status: DNAR: NO Resuscitation Discussed with: confirmed with pt Additional comments: he is refusing CPR, intubation, and all aggressive resus efforts MAR Reviewed: Yes Vital Signs & Weight: Vital Signs (12 hours) Temp Pulse Resp BP BP Pulse Ox 02/05/19 16:04 98.3 F 72 16 130/96 H 98 02/05/19 11:19 97.9 F 71 16 134/87 100 02/05/19 08:00 98 02/05/19 07:43 98 F 71 19 129/89 98 Weight Weight 90 lb 14.4 oz I&O: 02/04/19 02/05/19 02/06/19 06:59 06:59 06:59 Intake Total 4655 5095 Output Total 1790 2750 Balance 2865 2345 Result Diagrams: 02/03/19 06:22 02/04/19 07:24 Phys Exam - Physical Examination HEENT: PERRLA Respiratory: no wheezing, no rales, no rhonchi, clear to auscultation bilateral Cardiovascular: RRR, no significant murmur, no rub Gastrointestinal: soft, no distention, positive bowel sounds + diffuse tenderness, no rebound or guarding Musculoskeletal: no edema, pulses present Dx/Plan (1) Nausea & vomiting Code(s): R11.2 - NAUSEA WITH VOMITING, UNSPECIFIED Status: Acute Qualifiers: Vomiting Intractability: intractable Comment: gastroparesis, acute on chronic, significant weight loss, probably needs to use his J-tube (2) Abdominal pain Code(s): R10.9 - UNSPECIFIED ABDOMINAL PAIN Status: Acute Qualifiers: Abdominal location: generalized Comment: Suspect chronic component and secondary to chronic narcotic exposure, GI service following., Esophagitis noted on EGD with continued PPI, bx taken and pending (3) Gastroparesis Code(s): K31.84 - GASTROPARESIS Status: Chronic (4) Severe protein-calorie malnutrition Code(s): E43 - UNSPECIFIED SEVERE PROTEIN-CALORIE MALNUTRITION Status: Acute (5) Physical deconditioning Code(s): R53.81 - OTHER MALAISE Status: Acute (6) Hypertension Code(s): I10 - ESSENTIAL (PRIMARY) HYPERTENSION Status: Chronic (7) Paroxysmal atrial fibrillation Code(s): I48.0 - PAROXYSMAL ATRIAL FIBRILLATION Status: Chronic Comment: NSR here. Currently off eliquis, probably not a candidate right now due to recurrent falls. - Plan * Nausea and vomiting- due to post surgical gastroparesis- continue reglan, as needed, and J-tube feeding * Abdominal pain- continue Tylenol #3 * Chronic Constipation- His KUB was negative for obstruction- but he did have quite a bit of stool throughout the colon. He tells me he had a large evacuation last night after the X-ray * HTN- blood pressure is stable * His overall prognosis is poor. He has met with the palliative Care team, and he has decided to change his code status to DNAR. He also tells me he is not adverse to being placed in a Nursing Facility.
[2019-02-05] MEDS: SUMAtriptan Succinate 50 MG TAB PO PRN (18:23)
[2019-02-05] MEDS: Bisacodyl 5 MG TAB PO PRN (20:42)
[2019-02-05] MEDS: Lidocaine Patch Removal TOP SCH (20:44)
[2019-02-06] MEDS: Ketorolac Tromethamine 30 MG/ML VIAL IVP PRN ×4 (02:50→21:34)
[2019-02-06] MEDS: Acetaminophen/Codeine 30-300mg Tablet PO PRN ×3 (02:51→17:35)
[2019-02-06] MEDS: Ondansetron ODT 4 MG TAB PO PRN ×2 (02:52→16:34)
[2019-02-06] MEDS: Lorazepam 0.5 MG TAB PO PRN (02:57)
[2019-02-06] MEDS: Calcium Carbonate 500 MG ChewTAB PO PRN ×2 (06:22→10:31)
[2019-02-06] MEDS: Lidocaine 5% Patch TD SCH (09:02)
[2019-02-06] MEDS: Ondansetron PF 4 MG/2 ML Vial IVP PRN (09:03)
[2019-02-06] MEDS: Folic Acid 1 MG TAB PO SCH (09:04)
[2019-02-06] MEDS: Pantoprazole 40 MG VIAL IVP SCH ×2 (09:04→21:12)
[2019-02-06] MEDS: Dronabinol 2.5 MG CAP PO SCH ×2 (09:05→17:33)
[2019-02-06] MEDS: Topiramate 100 MG TAB PO SCH ×2 (09:05→21:13)
[2019-02-06] MEDS: Cyanocobalamin (Vitamin B-12) 1,000 MCG TAB PO SCH (09:05)
[2019-02-06] MEDS: Gabapentin 100 MG CAP PO SCH ×2 (09:05→21:13)
[2019-02-06] MEDS: Metoclopramide HCl 10 MG TAB PO SCH ×4 (09:05→21:13)
[2019-02-06] MEDS: Polyethylene Glycol 3350 17 GM Packet PO SCH (09:06)
[2019-02-06] MEDS: Docusate 100 MG CAP PO SCH ×2 (09:06→21:13)
[2019-02-06] MEDS: NS 0.9% w/ 40 MEQ KCL 1,000 ML IV SCH ×3 (13:13→22:06)
--- NOTE | 2019-02-06 16:19 | PDOC.PN ---
- Subjective Encounter Start Date: 02/06/19 Encounter Start Time: 16:17 Mr. Storey does not have any new complaints. He was seen today in follow-up of chronic nausea and vomiting and failure to thrive. - Objective Resuscitation Status - Order Detail: 02/05/19 10:40 Resuscitation Status Routine Resuscitation Status: DNAR: NO Resuscitation Discussed with: confirmed with pt Additional comments: he is refusing CPR, intubation, and all aggressive resus efforts MAR Reviewed: Yes Vital Signs & Weight: Vital Signs (12 hours) Temp Pulse Resp BP Pulse Ox 02/06/19 07:33 97.8 F 89 16 136/86 92 L Weight Admit Weight 90 lb 14.4 oz Weight 90 lb 14.4 oz I&O: 02/05/19 02/06/19 02/07/19 06:59 06:59 06:59 Intake Total 5095 3930 Output Total 2750 1640 Balance 2345 2290 Result Diagrams: 02/03/19 06:22 02/04/19 07:24 Phys Exam - Physical Examination HEENT: PERRLA Respiratory: no wheezing, no rales, no rhonchi, clear to auscultation bilateral Cardiovascular: RRR, no significant murmur, no rub Gastrointestinal: soft, non-tender, no distention, positive bowel sounds Musculoskeletal: no edema, pulses present Dx/Plan (1) Nausea & vomiting Code(s): R11.2 - NAUSEA WITH VOMITING, UNSPECIFIED Status: Acute Qualifiers: Vomiting Intractability: intractable Comment: gastroparesis, acute on chronic, significant weight loss, probably needs to use his J-tube (2) Abdominal pain Code(s): R10.9 - UNSPECIFIED ABDOMINAL PAIN Status: Acute Qualifiers: Abdominal location: generalized Comment: Suspect chronic component and secondary to chronic narcotic exposure, GI service following., Esophagitis noted on EGD with continued PPI, bx taken and pending (3) Gastroparesis Code(s): K31.84 - GASTROPARESIS Status: Chronic (4) Severe protein-calorie malnutrition Code(s): E43 - UNSPECIFIED SEVERE PROTEIN-CALORIE MALNUTRITION Status: Acute (5) Physical deconditioning Code(s): R53.81 - OTHER MALAISE Status: Acute (6) Hypertension Code(s): I10 - ESSENTIAL (PRIMARY) HYPERTENSION Status: Chronic (7) Paroxysmal atrial fibrillation Code(s): I48.0 - PAROXYSMAL ATRIAL FIBRILLATION Status: Chronic Comment: NSR here. Currently off eliquis, probably not a candidate right now due to recurrent falls. - Plan * Post Surgical Gastroparesis- at baseline * Abdominal Pain- At baseline * Severe protein calorie malnutrition- supplements and J-tube feeding * He is awaiting [facility] with Hospice.
[2019-02-06] MEDS: Lidocaine Patch Removal TOP SCH (21:14)
[2019-02-07] MEDS: Acetaminophen/Codeine 30-300mg Tablet PO PRN ×4 (00:36→18:14)
[2019-02-07] MEDS: NS 0.9% w/ 40 MEQ KCL 1,000 ML IV SCH ×4 (05:47→20:12)
[2019-02-07] MEDS: Ketorolac Tromethamine 30 MG/ML VIAL IVP PRN ×3 (05:47→19:40)
[2019-02-07] MEDS: Calcium Carbonate 500 MG ChewTAB PO PRN ×2 (06:31→19:44)
[2019-02-07] MEDS: Docusate 100 MG CAP PO SCH ×2 (10:00→20:11)
[2019-02-07] MEDS: Folic Acid 1 MG TAB PO SCH (10:00)
[2019-02-07] MEDS: Metoclopramide HCl 10 MG TAB PO SCH ×5 (10:00→20:11)
[2019-02-07] MEDS: Topiramate 100 MG TAB PO SCH ×2 (10:01→20:11)
[2019-02-07] MEDS: Cyanocobalamin (Vitamin B-12) 1,000 MCG TAB PO SCH (10:01)
[2019-02-07] MEDS: Gabapentin 100 MG CAP PO SCH ×2 (10:01→20:11)
[2019-02-07] MEDS: Dronabinol 2.5 MG CAP PO SCH ×2 (10:01→15:48)
[2019-02-07] MEDS: Lidocaine 5% Patch TD SCH (10:02)
[2019-02-07] MEDS: Polyethylene Glycol 3350 17 GM Packet PO SCH (10:03)
[2019-02-07] MEDS: Pantoprazole 40 MG VIAL IVP SCH ×2 (10:03→20:11)
[2019-02-07] MEDS: Ondansetron ODT 4 MG TAB PO PRN ×2 (13:05→19:40)
--- NOTE | 2019-02-07 18:03 | PDOC.PN ---
- Subjective Encounter Start Date: 02/07/19 Encounter Start Time: 18:01 Mr. Storey was seen today in follow-up of chronic pain, and nausea and vomiting. He continues to complain of uncontrolled pain. - Objective Resuscitation Status - Order Detail: 02/05/19 10:40 Resuscitation Status Routine Resuscitation Status: DNAR: NO Resuscitation Discussed with: confirmed with pt Additional comments: he is refusing CPR, intubation, and all aggressive resus efforts MAR Reviewed: Yes Vital Signs & Weight: Vital Signs (12 hours) Temp Pulse Resp BP Pulse Ox 02/07/19 08:00 95 02/07/19 07:28 97.7 F 71 16 120/71 95 Weight Admit Weight 90 lb 14.4 oz Weight 90 lb 14.4 oz I&O: 02/06/19 02/07/19 02/08/19 06:59 06:59 06:59 Intake Total 3930 1620 2460 Output Total 1640 1300 Balance 2290 320 2460 Result Diagrams: 02/03/19 06:22 02/04/19 07:24 Phys Exam - Physical Examination HEENT: PERRLA Respiratory: no wheezing, no rales, no rhonchi, clear to auscultation bilateral Cardiovascular: RRR, no significant murmur, no rub Gastrointestinal: soft, positive bowel sounds + diffuse tenderness, no rebound or guarding Musculoskeletal: pulses present, edema present + diffuse edema in both lower extremities, and upper extremities Dx/Plan (1) Nausea & vomiting Code(s): R11.2 - NAUSEA WITH VOMITING, UNSPECIFIED Status: Acute Qualifiers: Vomiting Intractability: intractable Comment: gastroparesis, acute on chronic, significant weight loss, probably needs to use his J-tube (2) Abdominal pain Code(s): R10.9 - UNSPECIFIED ABDOMINAL PAIN Status: Acute Qualifiers: Abdominal location: generalized Comment: Suspect chronic component and secondary to chronic narcotic exposure, GI service following., Esophagitis noted on EGD with continued PPI, bx taken and pending (3) Gastroparesis Code(s): K31.84 - GASTROPARESIS Status: Chronic (4) Severe protein-calorie malnutrition Code(s): E43 - UNSPECIFIED SEVERE PROTEIN-CALORIE MALNUTRITION Status: Acute (5) Physical deconditioning Code(s): R53.81 - OTHER MALAISE Status: Acute (6) Hypertension Code(s): I10 - ESSENTIAL (PRIMARY) HYPERTENSION Status: Chronic (7) Paroxysmal atrial fibrillation Code(s): I48.0 - PAROXYSMAL ATRIAL FIBRILLATION Status: Chronic Comment: NSR here. Currently off eliquis, probably not a candidate right now due to recurrent falls. - Plan * Post surgical gastroparesis- continue reglan as needed * Chronic abdominal pain, and back pain- will add Wasta as an option for pain control * Severe malnutrition- he is intolerant to both oral intake as well as J-tube feedings, most of the time- He has decided on Hospice care .
[2019-02-07] MEDS: HYDROcodone/Acetaminophen 5/325 mg Tablet PO PRN (19:41)
[2019-02-07] MEDS: Lorazepam 0.5 MG TAB PO PRN (19:43)
[2019-02-07] MEDS: Lidocaine Patch Removal TOP SCH (20:11)
[2019-02-08] MEDS: SUMAtriptan Succinate 50 MG TAB PO PRN (00:59)
[2019-02-08] MEDS: Acetaminophen/Codeine 30-300mg Tablet PO PRN ×3 (01:11→22:27)
[2019-02-08] MEDS: Ketorolac Tromethamine 30 MG/ML VIAL IVP PRN ×4 (02:25→23:56)
[2019-02-08] MEDS: Ondansetron ODT 4 MG TAB PO PRN ×2 (02:26→22:27)
[2019-02-08] MEDS: HYDROcodone/Acetaminophen 5/325 mg Tablet PO PRN ×4 (02:26→20:31)
[2019-02-08] MEDS: Lorazepam 0.5 MG TAB PO PRN (02:26)
[2019-02-08] MEDS: NS 0.9% w/ 40 MEQ KCL 1,000 ML IV SCH ×3 (03:58→21:25)
[2019-02-08] MEDS: Polyethylene Glycol 3350 17 GM Packet PO SCH (09:36)
[2019-02-08] MEDS: Topiramate 100 MG TAB PO SCH ×2 (09:36→20:24)
[2019-02-08] MEDS: Cyanocobalamin (Vitamin B-12) 1,000 MCG TAB PO SCH (09:36)
[2019-02-08] MEDS: Gabapentin 100 MG CAP PO SCH ×2 (09:36→20:23)
[2019-02-08] MEDS: Lidocaine 5% Patch TD SCH (09:36)
[2019-02-08] MEDS: Metoclopramide HCl 10 MG TAB PO SCH ×4 (09:37→20:24)
[2019-02-08] MEDS: Folic Acid 1 MG TAB PO SCH (09:37)
[2019-02-08] MEDS: Docusate 100 MG CAP PO SCH ×2 (09:37→20:23)
[2019-02-08] MEDS: Dronabinol 2.5 MG CAP PO SCH ×2 (11:00→18:11)
[2019-02-08] MEDS: Pantoprazole 40 MG VIAL IVP SCH ×2 (11:01→20:24)
--- NOTE | 2019-02-08 16:44 | PDOC.PN ---
- Subjective Encounter Start Date: 02/08/19 Encounter Start Time: 15:35 Mr. Tomas was seen today in follow-up of chronic nausea and vomting. He does not have any new complaints other than continued abdominal and back pain. - Objective Resuscitation Status - Order Detail: 02/05/19 10:40 Resuscitation Status Routine Resuscitation Status: DNAR: NO Resuscitation Discussed with: confirmed with pt Additional comments: he is refusing CPR, intubation, and all aggressive resus efforts MAR Reviewed: Yes Vital Signs & Weight: Vital Signs (12 hours) Pulse Ox 02/08/19 08:00 95 Weight Admit Weight 90 lb 14.4 oz Weight 90 lb 14.4 oz I&O: 02/07/19 02/08/19 02/09/19 06:59 06:59 06:59 Intake Total 1620 4109 440 Output Total 1300 200 Balance 320 3909 440 Result Diagrams: 02/03/19 06:22 02/04/19 07:24 Phys Exam - Physical Examination HEENT: PERRLA Respiratory: no wheezing, no rales, no rhonchi, clear to auscultation bilateral Cardiovascular: RRR, no significant murmur, no rub Gastrointestinal: soft, non-tender, no distention, positive bowel sounds Musculoskeletal: pulses present, edema present + edema in all extremities Dx/Plan (1) Nausea & vomiting Code(s): R11.2 - NAUSEA WITH VOMITING, UNSPECIFIED Status: Acute Qualifiers: Vomiting Intractability: intractable Comment: gastroparesis, acute on chronic, significant weight loss, probably needs to use his J-tube (2) Abdominal pain Code(s): R10.9 - UNSPECIFIED ABDOMINAL PAIN Status: Acute Qualifiers: Abdominal location: generalized Comment: Suspect chronic component and secondary to chronic narcotic exposure, GI service following., Esophagitis noted on EGD with continued PPI, bx taken and pending (3) Gastroparesis Code(s): K31.84 - GASTROPARESIS Status: Chronic (4) Severe protein-calorie malnutrition Code(s): E43 - UNSPECIFIED SEVERE PROTEIN-CALORIE MALNUTRITION Status: Acute (5) Physical deconditioning Code(s): R53.81 - OTHER MALAISE Status: Acute (6) Hypertension Code(s): I10 - ESSENTIAL (PRIMARY) HYPERTENSION Status: Chronic (7) Paroxysmal atrial fibrillation Code(s): I48.0 - PAROXYSMAL ATRIAL FIBRILLATION Status: Chronic Comment: NSR here. Currently off eliquis, probably not a candidate right now due to recurrent falls. - Plan * Chronic post-op gastroparesis- this has been intractable to reglan, and even J -tube feeding. He has had progressive weight loss, and continued symptoms. He has decided on Hospice Care- and awaiting arrangements. * Will add Levsin for abdominal cramping
--- NOTE | 2019-02-08 18:13 | EKG ---
Test Reason : WEAKNESS Blood Pressure : / mmHG Vent. Rate : 097 BPM Atrial Rate : 097 BPM P-R Int : 136 ms QRS Dur : 108 ms QT Int : 412 ms P-R-T Axes : 075 -38 049 degrees QTc Int : 523 ms Normal sinus rhythm Left axis deviation Right bundle branch block Septal infarct , age undetermined Abnormal ECG Confirmed by ELENA BLAS, KERMIT ([id number]), order editor MICHAEL BENAVIDES ([id number]) on 02/08/2019 6:12:56 PM Referred By: DARCY PARKER Confirmed By:KERMIT PARKER MD
[2019-02-08] MEDS: Lidocaine Patch Removal TOP SCH (20:24)
[2019-02-08] MEDS: Hyoscyamine Sulfate SL 0.125 mg Tablet PO PRN (20:31)
[2019-02-09] MEDS: NS 0.9% w/ 40 MEQ KCL 1,000 ML IV SCH ×3 (01:57→17:09)
[2019-02-09] MEDS: Calcium Carbonate 500 MG ChewTAB PO PRN ×2 (03:33→23:16)
[2019-02-09] MEDS: Ketorolac Tromethamine 30 MG/ML VIAL IVP PRN ×3 (06:28→19:54)
[2019-02-09] MEDS: Metoclopramide HCl 10 MG TAB PO SCH ×4 (06:59→19:53)
[2019-02-09] MEDS: Dronabinol 2.5 MG CAP PO SCH ×2 (06:59→16:32)
[2019-02-09] MEDS: Gabapentin 100 MG CAP PO SCH ×2 (08:17→19:53)
[2019-02-09] MEDS: Lidocaine 5% Patch TD SCH (08:17)
[2019-02-09] MEDS: Docusate 100 MG CAP PO SCH ×2 (08:17→19:53)
[2019-02-09] MEDS: Folic Acid 1 MG TAB PO SCH (08:17)
[2019-02-09] MEDS: Polyethylene Glycol 3350 17 GM Packet PO SCH (08:17)
[2019-02-09] MEDS: Topiramate 100 MG TAB PO SCH ×2 (08:17→19:53)
[2019-02-09] MEDS: Cyanocobalamin (Vitamin B-12) 1,000 MCG TAB PO SCH (08:17)
[2019-02-09] MEDS: Pantoprazole 40 MG VIAL IVP SCH ×2 (08:17→19:53)
[2019-02-09] MEDS: HYDROcodone/Acetaminophen 5/325 mg Tablet PO PRN ×2 (08:33→17:02)
[2019-02-09] MEDS ORDERED: NS 0.9% w/ 40 MEQ KCL 1,000 ML IV SCH (16:51)
--- NOTE | 2019-02-09 17:05 | PDOC.PN ---
- Subjective Encounter Start Date: 02/09/19 Encounter Start Time: 16:45 Subjective: f/u for chronic gastroparesis and nausea with J-tube. Still has nausea -: and emesis intermittently. Tolerating some po liquids. - Objective Resuscitation Status - Order Detail: 02/05/19 10:40 Resuscitation Status Routine Resuscitation Status: DNAR: NO Resuscitation Discussed with: confirmed with pt Additional comments: he is refusing CPR, intubation, and all aggressive resus efforts MAR Reviewed: Yes Vital Signs & Weight: Vital Signs (12 hours) Temp Pulse Resp BP Pulse Ox 02/09/19 08:00 99 02/09/19 07:56 97.6 F 78 18 137/92 H 99 Weight Admit Weight 90 lb 14.4 oz Weight 123 lb 5 oz I&O: 02/08/19 02/09/19 02/10/19 06:59 06:59 06:59 Intake Total 4109 3535 Output Total 200 150 Balance 3909 3385 Result Diagrams: 02/03/19 06:22 02/04/19 07:24 Phys Exam - Physical Examination ill-appearing, frail HEENT: PERRLA, sclera anicteric, oral pharynx no lesions Neck: no nodes, no JVD, supple, full ROM Respiratory: no wheezing, no rales, no rhonchi, clear to auscultation bilateral S1, S2 Cardiovascular: RRR, no significant murmur, no rub, gallop mild TTP Gastrointestinal: soft, no distention, positive bowel sounds Musculoskeletal: pulses present, edema present Neurological: normal sensation, moves all 4 limbs Psychiatric: A&O x 3 Skin: normal turgor, cap refill <2 seconds Dx/Plan (1) Severe protein-calorie malnutrition Code(s): E43 - UNSPECIFIED SEVERE PROTEIN-CALORIE MALNUTRITION Status: Chronic Comment: Poor po intake and intolerance to TF's due to gastroparesis, considering Hospice options (2) Gastroparesis Code(s): K31.84 - GASTROPARESIS Status: Chronic Comment: Continue Reglan 10mg QID, IVF's (3) AL (acute kidney injury) Code(s): N17.9 - ACUTE KIDNEY FAILURE, UNSPECIFIED Status: Acute Comment: Improved with current IVF's, continue IVF's given poor oral intake and intolerance to TF's (4) Abdominal pain Code(s): R10.9 - UNSPECIFIED ABDOMINAL PAIN Status: Acute Qualifiers: Abdominal location: generalized Comment: Chronic, supportive mgmt (5) Physical deconditioning Code(s): R53.81 - OTHER MALAISE Status: Chronic Comment: Overall physical clinical decline appearing to be end-stage process with weight loss, considering Hospice options - Plan PT/OT, social work professor, DVT proph w/SCDs Stable currently -: Decrease IVF's 100ml/h -: Ensure TID -: Palliative care/Hospice options -: Likely can transition to hospice services in next 24h * .
[2019-02-09] MEDS: Lidocaine Patch Removal TOP SCH (19:53)
[2019-02-10] MEDS: SUMAtriptan Succinate 50 MG TAB PO PRN ×2 (00:45→13:20)
[2019-02-10] MEDS: Morphine 4 MG/ML VIAL SLOW IVP PRN ×4 (02:23→23:15)
[2019-02-10] MEDS: NS 0.9% w/ 40 MEQ KCL 1,000 ML IV SCH ×3 (02:33→23:14)
[2019-02-10] MEDS: Dronabinol 2.5 MG CAP PO SCH ×2 (09:12→16:37)
[2019-02-10] MEDS: Lidocaine 5% Patch TD SCH (09:12)
[2019-02-10] MEDS: Docusate 100 MG CAP PO SCH ×2 (09:13→20:44)
[2019-02-10] MEDS: Polyethylene Glycol 3350 17 GM Packet PO SCH (09:13)
[2019-02-10] MEDS: Topiramate 100 MG TAB PO SCH ×2 (09:13→20:45)
[2019-02-10] MEDS: Gabapentin 100 MG CAP PO SCH ×2 (09:13→20:44)
[2019-02-10] MEDS: Metoclopramide HCl 10 MG TAB PO SCH ×4 (09:13→20:44)
[2019-02-10] MEDS: Cyanocobalamin (Vitamin B-12) 1,000 MCG TAB PO SCH (09:13)
[2019-02-10] MEDS: Folic Acid 1 MG TAB PO SCH (09:13)
[2019-02-10] MEDS: Pantoprazole 40 MG VIAL IVP SCH ×2 (09:14→20:45)
[2019-02-10] MEDS: Ondansetron ODT 4 MG TAB PO PRN (11:07)
[2019-02-10 12:58] LABS: Magnesium 1.6 mg/dL (1.6-2.6); Phosphorus 4.1 mg/dL (2.3-4.7)
--- NOTE | 2019-02-10 18:03 | PDOC.PN ---
- Subjective Encounter Start Date: 02/10/19 Encounter Start Time: 17:25 Subjective: f/u for FTT, deconditioning, chronic gastroparesis with intermittent n/v. -: Tolerating small volume of liquids. - Objective Resuscitation Status - Order Detail: 02/05/19 10:40 Resuscitation Status Routine Resuscitation Status: DNAR: NO Resuscitation Discussed with: confirmed with pt Additional comments: he is refusing CPR, intubation, and all aggressive resus efforts MAR Reviewed: Yes Vital Signs & Weight: Vital Signs (12 hours) Temp Pulse Resp BP Pulse Ox 02/10/19 08:00 100 02/10/19 07:40 97.9 F 74 18 139/85 100 Weight Admit Weight 90 lb 14.4 oz Weight 123 lb 5 oz I&O: 02/09/19 02/10/19 02/11/19 06:59 06:59 06:59 Intake Total 3535 1984 480 Output Total 150 Balance 3385 1985 480 Result Diagrams: 02/03/19 06:22 02/04/19 07:24 Additional Labs: Laboratory Tests 02/01/19 02/01/19 02/02/19 22:24 22:24 08:52 Hgb 10.1 L Neutrophils % 78.9 H Potassium 2.9 L* 3.4 L 02/03/19 06:22 Hgb Neutrophils % Potassium 4.3 Phys Exam - Physical Examination frail, alert, responds to questions HEENT: PERRLA, sclera anicteric, oral pharynx no lesions Neck: no nodes, no JVD, supple, full ROM Respiratory: no wheezing, no rales, no rhonchi, clear to auscultation bilateral S1, S2 Cardiovascular: RRR, no significant murmur, no rub, gallop Gastrointestinal: soft, non-tender, no distention, positive bowel sounds Musculoskeletal: pulses present, edema present Neurological: normal sensation, moves all 4 limbs Psychiatric: A&O x 3 Skin: normal turgor, cap refill <2 seconds Dx/Plan (1) Severe protein-calorie malnutrition Code(s): E43 - UNSPECIFIED SEVERE PROTEIN-CALORIE MALNUTRITION Status: Chronic Comment: Poor po intake and intolerance to TF's due to gastroparesis, considering Hospice options (2) Gastroparesis Code(s): K31.84 - GASTROPARESIS Status: Chronic Comment: Continue Reglan 10mg QID, IVF's (3) AL (acute kidney injury) Code(s): N17.9 - ACUTE KIDNEY FAILURE, UNSPECIFIED Status: Acute Comment: Improved with current IVF's, continue IVF's given poor oral intake and intolerance to TF's (4) Abdominal pain Code(s): R10.9 - UNSPECIFIED ABDOMINAL PAIN Status: Acute Qualifiers: Abdominal location: generalized Comment: Chronic, supportive mgmt (5) Physical deconditioning Code(s): R53.81 - OTHER MALAISE Status: Chronic Comment: Overall physical clinical decline appearing to be end-stage process with weight loss, considering Hospice options - Plan PT/OT, social media editor, speech therapy, DVT proph w/SCDs Stable currently -: Ensure Enlive TID -: Encourage regular diet -: Add Megace 80mg BID -: SNF/NH options pending * .
[2019-02-10] MEDS ORDERED: Megestrol Acetate 40 MG TAB PO SCH (19:00)
[2019-02-10] MEDS: Lidocaine Patch Removal TOP SCH (20:44)
[2019-02-10] MEDS: Calcium Carbonate 500 MG ChewTAB PO PRN (23:15)
[2019-02-11] MEDS: Topiramate 100 MG TAB PO SCH ×2 (08:03→20:22)
[2019-02-11] MEDS: Cyanocobalamin (Vitamin B-12) 1,000 MCG TAB PO SCH (08:03)
[2019-02-11] MEDS: Docusate 100 MG CAP PO SCH ×2 (08:03→20:23)
[2019-02-11] MEDS: Gabapentin 100 MG CAP PO SCH ×2 (08:03→20:23)
[2019-02-11] MEDS: Folic Acid 1 MG TAB PO SCH (08:03)
[2019-02-11] MEDS: Megestrol Acetate 40 MG TAB PO SCH ×2 (08:03→20:23)
[2019-02-11] MEDS: Pantoprazole 40 MG VIAL IVP SCH ×2 (08:04→08:10)
[2019-02-11] MEDS: Lidocaine 5% Patch TD SCH (08:04)
[2019-02-11] MEDS: Polyethylene Glycol 3350 17 GM Packet PO SCH (08:04)
[2019-02-11] MEDS: Metoclopramide HCl 10 MG TAB PO SCH ×4 (08:04→20:23)
[2019-02-11] MEDS: NS 0.9% w/ 40 MEQ KCL 1,000 ML IV SCH (08:05)
[2019-02-11] MEDS: Dronabinol 2.5 MG CAP PO SCH ×2 (08:42→17:29)
[2019-02-11] MEDS: HYDROcodone/Acetaminophen 5/325 mg Tablet PO PRN ×4 (08:46→22:11)
[2019-02-11 13:58] VITALS: BMI 19.9
[2019-02-11] MEDS: Ondansetron ODT 4 MG TAB PO PRN (14:48)
[2019-02-11] MEDS: Calcium Carbonate 500 MG ChewTAB PO PRN ×2 (14:48→18:10)
--- NOTE | 2019-02-11 15:41 | PDOC.PN ---
- Subjective Encounter Start Date: 02/11/19 Encounter Start Time: 15:20 Subjective: f/u for FTT, deconditioning, poor oral intake. Apparently lost his IV site -: last pm. Requesting more pain meds. Eating dinner currently. - Objective Resuscitation Status - Order Detail: 02/05/19 10:40 Resuscitation Status Routine Resuscitation Status: DNAR: NO Resuscitation Discussed with: confirmed with pt Additional comments: he is refusing CPR, intubation, and all aggressive resus efforts MAR Reviewed: Yes Vital Signs & Weight: Vital Signs (12 hours) Temp Pulse Resp BP Pulse Ox 02/11/19 08:05 100 02/11/19 07:56 98.0 F 67 14 137/87 100 Weight Admit Weight 90 lb 14.4 oz Weight 123 lb 5 oz I&O: 02/10/19 02/11/19 02/12/19 06:59 06:59 06:59 Intake Total 1984 2490 Balance 1984 2490 Result Diagrams: 02/03/19 06:22 02/04/19 07:24 Additional Labs: Laboratory Tests 02/01/19 02/01/19 02/02/19 22:24 22:24 08:52 Hgb 10.1 L Neutrophils % 78.9 H Potassium 2.9 L* 3.4 L 02/03/19 06:22 Hgb Neutrophils % Potassium 4.3 Phys Exam - Physical Examination Constitutional: NAD frail, pale HEENT: PERRLA, sclera anicteric, oral pharynx no lesions Neck: no nodes, no JVD, supple, full ROM Respiratory: no wheezing, no rales, no rhonchi, clear to auscultation bilateral S1, S2 Cardiovascular: RRR, no significant murmur, no rub, gallop Gastrointestinal: soft, non-tender, no distention, positive bowel sounds Musculoskeletal: no edema, pulses present Neurological: normal sensation, moves all 4 limbs Skin: normal turgor, cap refill <2 seconds Dx/Plan (1) Severe protein-calorie malnutrition Code(s): E43 - UNSPECIFIED SEVERE PROTEIN-CALORIE MALNUTRITION Status: Chronic Comment: Poor po intake and intolerance to TF's due to gastroparesis, trial of Megace, tolerating po intake currently (2) Gastroparesis Code(s): K31.84 - GASTROPARESIS Status: Chronic Comment: Continue Reglan 10mg QID (3) AL (acute kidney injury) Code(s): N17.9 - ACUTE KIDNEY FAILURE, UNSPECIFIED Status: Acute Comment: Improved, lost IV site (4) Abdominal pain Code(s): R10.9 - UNSPECIFIED ABDOMINAL PAIN Status: Acute Qualifiers: Abdominal location: generalized Comment: Chronic, supportive mgmt (5) Physical deconditioning Code(s): R53.81 - OTHER MALAISE Status: Chronic Comment: Overall physical clinical decline appearing to be end-stage process with weight loss, considering Hospice options - Plan PT/OT, social and political studies professor, out of bed/ambulate, DVT proph w/SCDs Stable currently -: Lost IV site overnight, leave out -: Continue Megace -: OOB with PT -: Awaiting SNF approval * .
[2019-02-11] MEDS: SUMAtriptan Succinate 50 MG TAB PO PRN (18:10)
[2019-02-11] MEDS: Lidocaine Patch Removal TOP SCH (20:23)
[2019-02-12] MEDS: HYDROcodone/Acetaminophen 5/325 mg Tablet PO PRN ×6 (02:06→21:59)
[2019-02-12] MEDS: Megestrol Acetate 40 MG TAB PO SCH ×2 (08:08→20:15)
[2019-02-12] MEDS: Gabapentin 100 MG CAP PO SCH ×2 (08:08→20:16)
[2019-02-12] MEDS: Cyanocobalamin (Vitamin B-12) 1,000 MCG TAB PO SCH (08:09)
[2019-02-12] MEDS: Metoclopramide HCl 10 MG TAB PO SCH ×4 (08:09→20:15)
[2019-02-12] MEDS: Docusate 100 MG CAP PO SCH ×2 (08:09→20:16)
[2019-02-12] MEDS: Topiramate 100 MG TAB PO SCH ×2 (08:09→20:15)
[2019-02-12] MEDS: Folic Acid 1 MG TAB PO SCH (08:09)
[2019-02-12] MEDS: Lidocaine 5% Patch TD SCH (08:09)
[2019-02-12] MEDS: Polyethylene Glycol 3350 17 GM Packet PO SCH (08:09)
[2019-02-12] MEDS: Ondansetron ODT 4 MG TAB PO PRN (08:11)
[2019-02-12] MEDS: SUMAtriptan Succinate 50 MG TAB PO PRN (09:28)
[2019-02-12] MEDS: Dronabinol 2.5 MG CAP PO SCH ×2 (09:28→16:51)
[2019-02-12] MEDS: Calcium Carbonate 500 MG ChewTAB PO PRN ×3 (10:14→20:16)
[2019-02-12] MEDS: Acetaminophen/Codeine 30-300mg Tablet PO PRN (12:07)
--- NOTE | 2019-02-12 16:04 | PDOC.PN ---
- Subjective Encounter Start Date: 02/12/19 Encounter Start Time: 16:00 Subjective: f/u for FTT, deconditioning, gen weakness. Eating better in last 24h -: Intermittent emesis. Ambulated with PT - Objective Resuscitation Status - Order Detail: 02/05/19 10:40 Resuscitation Status Routine Resuscitation Status: DNAR: NO Resuscitation Discussed with: confirmed with pt Additional comments: he is refusing CPR, intubation, and all aggressive resus efforts MAR Reviewed: Yes Vital Signs & Weight: Vital Signs (12 hours) Temp Pulse Resp BP Pulse Ox 02/12/19 08:10 98 02/12/19 07:47 98.1 F 75 16 123/80 98 Weight Admit Weight 90 lb 14.4 oz Weight 123 lb 5 oz I&O: 02/11/19 02/12/19 02/13/19 06:59 06:59 06:59 Intake Total 2490 1320 Output Total 900 Balance 2490 420 Result Diagrams: 02/03/19 06:22 02/04/19 07:24 Additional Labs: Laboratory Tests 02/01/19 02/01/19 02/02/19 22:24 22:24 08:52 Hgb 10.1 L Neutrophils % 78.9 H Potassium 2.9 L* 3.4 L 02/03/19 06:22 Hgb Neutrophils % Potassium 4.3 Phys Exam - Physical Examination Constitutional: NAD HEENT: PERRLA, sclera anicteric, oral pharynx no lesions Neck: no nodes, no JVD, supple, full ROM Respiratory: no wheezing, no rales, no rhonchi, clear to auscultation bilateral S1, S2 Cardiovascular: RRR, no significant murmur, no rub, gallop PEG in place Gastrointestinal: soft, non-tender, no distention, positive bowel sounds Musculoskeletal: no edema, pulses present generalized atrophy Neurological: normal sensation, moves all 4 limbs Psychiatric: A&O x 3 Skin: normal turgor, cap refill <2 seconds Dx/Plan (1) Severe protein-calorie malnutrition Code(s): E43 - UNSPECIFIED SEVERE PROTEIN-CALORIE MALNUTRITION Status: Chronic Comment: Variable po intake and intolerance to TF's due to gastroparesis, trial of Megace, tolerating po intake currently (2) Gastroparesis Code(s): K31.84 - GASTROPARESIS Status: Chronic Comment: Continue Reglan 10mg QID (3) AL (acute kidney injury) Code(s): N17.9 - ACUTE KIDNEY FAILURE, UNSPECIFIED Status: Acute Comment: Improved, lost IV site (4) Abdominal pain Code(s): R10.9 - UNSPECIFIED ABDOMINAL PAIN Status: Acute Qualifiers: Abdominal location: generalized Comment: Chronic, supportive mgmt (5) Physical deconditioning Code(s): R53.81 - OTHER MALAISE Status: Chronic Comment: Overall physical clinical decline appearing to be end-stage process with weight loss, considering Hospice options - Plan PT/OT, social service technician, out of bed/ambulate, DVT proph w/SCDs Stable currently -: Continue Megace -: OOB with PT -: Continue Reglan -: Continue Marinol * Plan for SNF transfer in am
[2019-02-12] MEDS ORDERED: SUMAtriptan Succinate 50 MG TAB PO PRN (17:52)
[2019-02-12] MEDS: Lidocaine Patch Removal TOP SCH (20:16)
[2019-02-13] MEDS: Calcium Carbonate 500 MG ChewTAB PO PRN ×2 (02:04→07:09)
[2019-02-13] MEDS: HYDROcodone/Acetaminophen 5/325 mg Tablet PO PRN ×2 (02:04→07:10)
[2019-02-13] MEDS: Hyoscyamine Sulfate SL 0.125 mg Tablet PO PRN (07:10)
--- NOTE | 2019-02-13 07:57 | DIS ---
DATE OF ADMISSION: 02/02/2019 DATE OF DISCHARGE: 02/13/2019 DISCHARGE DIAGNOSES: 1. Severe protein-calorie malnutrition. 2. Gastroparesis, chronic. 3. Acute kidney injury, resolved. 4. Abdominal pain, chronic. 5. Physical deconditioning. 6. Chronic pain syndrome. 7. Hypokalemia, resolved. CONSULTATIONS: Palliative Care Service. PERTINENT LAB AND X-RAY FINDINGS: Potassium ranged between 2.9 to 5.1. Creatinine ranged between 1.06 to 1.21. Estimated GFR ranged between 59 to 69. Magnesium level ranged between 1.6 to 3.2. CBC showed a hemoglobin ranged between 8.8 to 10.1, MCV 82. HOSPITAL COURSE: The patient was initially admitted after presenting with nausea, vomiting, and abdominal pain in the context of chronic gastroparesis. The patient with a jejunostomy feeding tube chronically for decreased oral intake and inconsistent caloric intake. The patient presented with hypokalemia as well as dehydration and mild acute kidney injury in the context of nausea and vomiting. The patient received IV fluids as well as general supportive management during the hospital course and was evaluated by the Dietary Services for adjustment of tube feeds. The patient improved clinically and opted to take a regular diet with persistent nausea and some emesis despite oral intake. The patient was unable to tolerate tube feeds and decided not to pursue resuming tube feeds during the hospital course. The patient was evaluated by the Physical Therapy Service due to chronic deconditioning and deemed an appropriate candidate for ongoing skilled care and physical therapy. Due to patient's overall comorbid status, deconditioning, and malnutrition, the patient was deemed appropriate for ongoing skilled and supervised medical care. The patient was approved to transition to [facility] and will transfer on 02/13/2019. I have examined the patient and discussed disposition with the patient at the time of discharge, who verbalized understanding and in agreement. The patient overall clinically stable and ready for discharge on 02/13/2019. DISCHARGE MEDICATIONS: 1. Tylenol No. 3 one tablet p.o. q.6 hours p.r.n. 2. Excedrin Migraine one tablet p.o. b.i.d. p.r.n. 3. Imitrex 100 mg p.o. daily p.r.n. migraine headaches. 4. Topamax 100 mg p.o. b.i.d. 5. Dulcolax 10 mg p.o. daily p.r.n. constipation. 6. Vitamin B12 1000 mcg p.o. daily. 7. Colace 100 mg p.o. b.i.d. p.r.n. 8. Marinol 2.5 mg p.o. b.i.d. 9. Folic acid 1 mg p.o. daily. 10. Gabapentin 100 mg p.o. b.i.d. 11. Newton 5/325 mg 2 tablets p.o. q.6 hours p.r.n. pain. 12. Lidocaine patch one patch transdermally daily with removal at bedtime. 13. Megace 80 mg p.o. b.i.d. 14. Reglan 10 mg p.o. a.c. and at bedtime. 15. Movantik 25 mg p.o. q.72 hours. 16. Protonix 40 mg p.o. b.i.d. 17. MiraLAX 17 g p.o. daily p.r.n. FOLLOWUP: The patient may follow up with his primary care provider, Dr. Khoi Fregoso. CONDITION ON DISCHARGE: Guarded. ACTIVITY: Ad emily, rolling walker with standby/contact guard assistance with general fall risk precautions. DIET: Regular. Supplementation with Ensure t.i.d. CODE STATUS: Do not attempt resuscitation. DISPOSITION: Discharged to [facility] on 02/13/2019. TIME SPENT: Total time preparing and coordinating discharge, 33 minutes. Job ID: [id number]
[2019-02-13] MEDS: Metoclopramide HCl 10 MG TAB PO SCH (08:23)
[2019-02-13] MEDS: Gabapentin 100 MG CAP PO SCH (08:23)
[2019-02-13] MEDS: Megestrol Acetate 40 MG TAB PO SCH (08:24)
[2019-02-13] MEDS: Folic Acid 1 MG TAB PO SCH (08:24)
[2019-02-13] MEDS: Topiramate 100 MG TAB PO SCH (08:24)
[2019-02-13] MEDS: Cyanocobalamin (Vitamin B-12) 1,000 MCG TAB PO SCH (08:24)
[2019-02-13] MEDS: Lidocaine 5% Patch TD SCH (08:25)
[2019-02-13] MEDS: Polyethylene Glycol 3350 17 GM Packet PO SCH (08:25)
[2019-02-13] MEDS: Docusate 100 MG CAP PO SCH (08:29)
[2019-02-13 08:32] VITALS: BP 133/90; TEMP 97.5
[2019-02-13] MEDS: Dronabinol 2.5 MG CAP PO SCH (09:54)
== END 2019-02-13 10:08 | DRG 391 ==
LOC: ERS 21:16 → 2SW 23:34 → T4-B 02-02 00:27 → OBSVTOIN 02-02 17:43 → T4-B 02-02 19:49
PROVIDERS: ADMIT Internal Medicine; ATTEND Internal Medicine
DX: K31.84 Gastroparesis (principal); E43 Unspecified severe protein-calorie malnutrition; R64 Cachexia; Z68.1 Body mass index [BMI] 19.9 or less, adult; N17.9 Acute kidney failure, unspecified; Z66 Do not resuscitate; I10 Essential (primary) hypertension; M54.9 Dorsalgia, unspecified; I48.0 Paroxysmal atrial fibrillation; E87.5 Hyperkalemia; G89.4 Chronic pain syndrome; E86.0 Dehydration; I95.1 Orthostatic hypotension; D64.9 Anemia, unspecified; K27.9 Peptic ulcer, site unspecified, unspecified as acute or chronic, without hemorrhage or perforation; K21.9 Gastro-esophageal reflux disease without esophagitis; G43.909 Migraine, unspecified, not intractable, without status migrainosus; F41.9 Anxiety disorder, unspecified; F32.9 Major depressive disorder, single episode, unspecified; Z79.82 Long term (current) use of aspirin; Z88.0 Allergy status to penicillin; Z88.1 Allergy status to other antibiotic agents; Z90.49 Acquired absence of other specified parts of digestive tract
CPT/HCPCS: 36415; 74022; 80048; 80053; 81003; 81015; 83735; 84100; 85025; 93005; 94760; 96361; 96372; 96374; 96375; 96376; C9113; J0500; J1885; J2270; J2405; J2765; J3480; J7050; J8597; Q0162; Q0167; S0179

== ENCOUNTER 2019-03-21 15:33 | Inpatient (IN) | payer MEDICARE, MEDICAID ==
[2019-03-21 16:37] LABS: Hemoglobin 12.1 g/dL (14.0-18.0); Mean Corpuscular Hemoglobin 24.8 pg (27.0-31.0); Mean Corpuscular Volume 79.9 fL (78.0-98.0); Mean Platelet Volume 7.5 fL (7.4-10.4); Platelet Count 324 thou/uL (130-400); RBC Distribution Width 18.3 % (11.5-14.5); Red Blood Cell (RBC) Count 4.88 mill/uL (4.70-6.10); White Blood Cell (WBC) Count 5.6 thou/uL (4.8-10.8)
[2019-03-21] MEDS ORDERED: Ondansetron PF 4 MG/2 ML Vial ONE (17:03)
[2019-03-21 17:04] LABS: ALT (SGPT) 21 U/L (8-55); AST (SGOT) 20 U/L (5-34); Albumin 2.7 g/dL (3.4-4.8); Alkaline Phosphatase 78 U/L (40-150); BUN (Urea Nitrogen) 31 mg/dL (8.4-25.7); Bilirubin, Total 0.6 mg/dL (0.2-1.2); Calc. Creatinine Clearance 0 mL/min (70-130); Estimated GFR-MDRD 40; Globulin 1.9 g/dL (2.4-3.5); Glucose 99 mg/dL (83-110); Lipase 10 U/L (8-78); Protein, Total 4.6 g/dL (5.8-8.1)
[2019-03-21 17:05] LABS: Anisocytosis SLIGHT = 6-15 cells (100X) (0-5/hpf); Band 3 % (5-11); Hypochromia SLIGHT = 6-15 cells (100X) (0-5/hpf); Lymphocytes 20 % (21-51); MDiff Complete? YES; Monocytes 14 % (0-10); Neutrophil 58 % (42-75); Ovalocytes SLIGHT = 2-5 cells (100X) (0-1/hpf); Platelet Morphology Comment Appears Adequate; Polychromasia SLIGHT = 2-3 cells (100X) (0-2/hpf); Reactive Lymphocytes 5 % (0-10); Spherocytes SLIGHT = 1-5 cells (100X) (None Seen)
[2019-03-21 17:06] LABS: Sodium 141 mmol/L (136-145)
[2019-03-21 17:07] LABS: Chloride 95 mmol/L (98-107); Potassium 3.9 mmol/L (3.5-5.1)
[2019-03-21 17:13] LABS: Anion Gap 15 mmol/L (10-20); Carbon Dioxide 35 mmol/L (23-31)
[2019-03-21 17:19] LABS: INR-International Normal Ratio 1.1; PTT 29.5 SEC (22.9-36.1); Prothrombin Time 14.8 SEC (12.0-14.7)
[2019-03-21] MEDS ORDERED: Morphine 4 MG/ML VIAL ONE (17:28)
[2019-03-21] MEDS ORDERED: Acetaminophen 1,000 MG in Premix Bag 1 BAG IVPB SCH (17:30)
[2019-03-21 17:33] LABS: Lactic Acid 1.8 mmol/L (0.5-2.2)
[2019-03-21] MEDS ORDERED: Haloperidol Lactate 5 MG/ML VIAL ONE (17:47)
[2019-03-21] MEDS ORDERED: Ondansetron ODT 4 MG TAB SL PRN (19:26)
[2019-03-21] MEDS ORDERED: Ondansetron PF 4 MG/2 ML Vial IVP PRN ×2 (19:26→22:57)
[2019-03-21 19:47] LABS: CKMB 3.2 ng/mL (0-6.6)
[2019-03-21 20:57] VITALS: BMI 17.2
[2019-03-21] MEDS ORDERED: Aspirin/APAP/Caffeine Tab (Excedrin Migraine) PO PRN (22:57)
[2019-03-21] MEDS ORDERED: HYDROcodone/Acetaminophen 10/325 mg Tablet PO PRN (22:57)
[2019-03-21] MEDS ORDERED: SUMAtriptan Succinate 25 MG TAB PO PRN (22:57)
[2019-03-21] MEDS ORDERED: hydrALAZINE 20 MG/ML VIAL SLOW IVP PRN (22:57)
[2019-03-21] MEDS ORDERED: Acetaminophen 325 MG TAB PO PRN (22:57)
[2019-03-21] MEDS ORDERED: Bisacodyl 5 MG TAB PO PRN (22:57)
--- NOTE | 2019-03-21 23:11 | PDOC.EVN ---
Event Note - Event Note Event Note: Please verify records at [facility], or patient's pharmacy that the patient is or is not on Eliquis.
[2019-03-21] MEDS: Dextrose 5 % And 0.9 % NaCl 1,000 ML IV SCH (23:55)
[2019-03-21] MEDS: Metoclopramide HCl 10 MG/2 ML VIAL IVP PRN (23:56)
[2019-03-22] MEDS: HYDROcodone/Acetaminophen 5/325 mg Tablet PO PRN ×5 (00:02→22:24)
[2019-03-22] MEDS: Ondansetron ODT 4 MG TAB PO PRN ×3 (01:43→20:51)
--- NOTE | 2019-03-22 03:05 | HP ---
CHIEF COMPLAINT: Nausea, vomiting, and abdominal pain. HISTORY OF PRESENT ILLNESS: Mr. Storey is a pleasant 69-year-old gentleman, who has a complicated history. He has had multiple abdominal surgeries, which has left him with severe abdominal pain as well as chronic nausea and vomiting. He has had a J-tube placed and has had equivocal relief with the J-tube. He has had multiple hospitalizations with symptoms related to his abdominal surgeries. He has pain pretty much all the time, as well as intermittent nausea and vomiting. He says in the last couple of days it got "worse." He says that he has lost at least 10-12 pounds in the last week. The abdominal pain has worsened. He also says the nausea and vomiting has gotten bad as well. He also says he has been having shortness of breath and was recently diagnosed with a pulmonary embolism at the and was placed on Eliquis. Otherwise, he is not able to give me much additional history. He seems to get tired with the questions and will close his eyes and basically just stop answering questions. He says he basically feels "awful." REVIEW OF SYSTEMS: All systems were reviewed and are negative except for what was mentioned in the history of present illness. PAST MEDICAL HISTORY: Significant for peptic ulcer disease, gastroparesis, hypertension, chronic back pain, bladder cancer, paroxysmal atrial fibrillation, and recently diagnosed pulmonary embolism. PAST SURGICAL HISTORY: He has had a J-tube placed, cholecystectomy, multiple abdominal surgeries and bladder surgeries. ALLERGIES: TO ERYTHROMYCIN AND PENICILLIN. FAMILY HISTORY: No history of any heritable diseases. SOCIAL HISTORY: He lives at home with a friend. He denies any smoking, alcohol, or drug use. MEDICATIONS: His current medications include, he says he is taking Eliquis, the dose is unknown. From his previous hospital stay includes; 1. Pantoprazole 40 mg twice daily. 2. Reglan 10 mg q.a.c. and at bedtime. 3. Megace 80 mg twice daily. 4. Lidoderm patch transdermal daily. 5. Marinol 2.5 mg twice a day. 6. Colace 100 mg twice daily. 7. Vitamin B12 1000 mcg daily. 8. Tums q.4 as needed. 9. Dulcolax 10 mg daily. 10. Imitrex 100 mg as needed. 11. Tylenol as needed and Tylenol No. 3. PHYSICAL EXAMINATION: GENERAL: He is alert and oriented. He appears to be in no acute distress. He is extremely cachectic and very thin and frail in appearance with significant muscle wasting. VITAL SIGNS: Blood pressure is 126/85, heart rate 67, respiratory rate of 18, temperature is 97.9. HEENT: His pupils are equal, round, and reactive to light. Extraocular muscles are intact. His sclerae are anicteric. Throat, he has dry mucous membranes. No erythema. No exudates. NECK: No adenopathy. No bruits. LUNGS: Clear to auscultation. There is no wheezing, no rales, no rhonchi. CARDIOVASCULAR: He has a normal S1, S2. There is no S3 or S4. No murmurs, clicks or rubs. ABDOMEN: Scaphoid, soft, nontender, and nondistended. Positive for bowel sounds. No rebound. No guarding. EXTREMITIES: He has 1+ pedal edema bilaterally. Significant muscle atrophy. NEUROLOGIC: Cranial nerves 2 through 12 are intact. His muscle strength is intact. SKIN AND INTEGUMENT: There are no significant skin changes other than some chronic venous stasis changes in his legs. LABORATORY DATA: Lab results, sodium is 141, potassium 3.9, chloride is 95, CO2 is 35, BUN of 31, creatinine 1.68, glucose is 99. White blood cell count 5.6, hemoglobin 12.1, hematocrit is 39, platelet count is 324. INR is 1.1. ASSESSMENT: This is a pleasant 69-year-old gentleman, who presents with abdominal pain as well as nausea and vomiting. This has been a chronic problem, likely as a result of complications from previous abdominal surgeries and it is likely as a result of chronic gastroparesis. 1. Chronic gastroparesis. We will place him on IV Reglan p.r.n. as well as Zofran as needed, IV fluid resuscitation and a nutritional consult. We will also consult GI. 2. Severe protein-calorie malnutrition. Continue his J-tube feedings as tolerated and nutritional supplements p.r.n. 3. Hypertension. Continue his home medications as well as p.r.n. medications. 4. Pulmonary embolism. We will need to obtain the records from the [facility] and [facility]. 5. Chronic pain. We will manage his pain as best as possible. On his last admission, there was discussion of possible hospice as I think this would be appropriate and if not, maybe consider palliative care as this patient's overall prognosis is very poor. Job ID: [id number]
[2019-03-22] MEDS: Metoclopramide HCl 10 MG/2 ML VIAL IVP PRN (05:50)
[2019-03-22 08:16] LABS: Anion Gap 15 mmol/L (10-20); BUN (Urea Nitrogen) 25 mg/dL (8.4-25.7); Calc. Creatinine Clearance 30 mL/min (70-130); Calcium 7.9 mg/dL (7.8-10.44); Carbon Dioxide 23 mmol/L (23-31); Chloride 98 mmol/L (98-107); Estimated GFR-MDRD 46; Glucose 105 mg/dL (83-110); Potassium 3.7 mmol/L (3.5-5.1); Sodium 132 mmol/L (136-145)
[2019-03-22 08:24] LABS: Hemoglobin 10.3 g/dL (14.0-18.0); Mean Corpuscular HGB CONC 29.9 g/dL (32.0-36.0); Mean Corpuscular Hemoglobin 24.3 pg (27.0-31.0); Mean Corpuscular Volume 81.5 fL (78.0-98.0); Platelet Count 249 thou/uL (130-400); RBC Distribution Width 17.9 % (11.5-14.5); Red Blood Cell (RBC) Count 4.24 mill/uL (4.70-6.10); White Blood Cell (WBC) Count 7.6 thou/uL (4.8-10.8)
[2019-03-22 09:17] LABS: Anisocytosis SLIGHT = 6-15 cells (100X) (0-5/hpf); Band 2 % (5-11); Hypochromia SLIGHT = 6-15 cells (100X) (0-5/hpf); Lymphocytes 10 % (21-51); MDiff Complete? YES; Microcytosis SLIGHT = 6-15 cells (100X) (0-5/hpf); Monocytes 15 % (0-10); Neutrophil 73 % (42-75); Platelet Morphology Comment Appears Adequate; Polychromasia SLIGHT = 2-3 cells (100X) (0-2/hpf)
[2019-03-22] MEDS: Lidocaine 5% Patch TD SCH (09:26)
[2019-03-22] MEDS: Folic Acid 1 MG TAB PO SCH (09:27)
[2019-03-22] MEDS: Docusate 100 MG CAP PO SCH ×2 (09:27→20:04)
[2019-03-22] MEDS: Cyanocobalamin (Vitamin B-12) 1,000 MCG TAB PO SCH (09:27)
[2019-03-22] MEDS: Dronabinol 2.5 MG CAP PO SCH ×2 (09:27→16:42)
[2019-03-22] MEDS: Thiamine 100 MG TAB PO SCH (09:27)
[2019-03-22] MEDS: Megestrol Acetate 40 MG TAB PO SCH ×2 (09:27→20:04)
[2019-03-22] MEDS: Multivitamin W/ Minerals 1 TAB PO SCH (09:27)
--- NOTE | 2019-03-22 11:17 | PDOC.PN ---
- Subjective Encounter Start Date: 03/22/19 Encounter Start Time: 10:00 -: old records requested/rev Patient seen and examined. No new complaints. No overnight events - Objective Resuscitation Status - Order Detail: 03/22/19 02:35 Resuscitation Status Routine Resuscitation Status: DNAR: NO Resuscitation Discussed with: discussed with the patient MAR Reviewed: Yes Vital Signs & Weight: Vital Signs (12 hours) Temp Pulse Resp BP Pulse Ox 03/22/19 08:00 97.7 F 65 14 119/79 99 03/22/19 04:00 98.1 F 73 18 100/69 98 03/22/19 00:00 97.7 F 75 18 105/73 98 Weight Weight 103 lb 7 oz I&O: 03/21/19 03/22/19 03/23/19 06:59 06:59 06:59 Intake Total 1600 Output Total 500 Balance 1100 Result Diagrams: 03/22/19 07:25 03/22/19 07:25 Phys Exam - Physical Examination Constitutional: NAD HEENT: PERRLA, moist MMs, sclera anicteric Neck: no JVD, supple Respiratory: no wheezing, no rales, no rhonchi Cardiovascular: RRR, no significant murmur, no rub Gastrointestinal: soft, non-tender, no distention, positive bowel sounds PEG tube in place Musculoskeletal: no edema, pulses present Neurological: non-focal, normal sensation Lymphatic: no nodes Psychiatric: normal affect Skin: no rash, normal turgor Dx/Plan (1) Acute kidney failure Status: Acute (2) Chronic pain disorder Code(s): G89.4 - CHRONIC PAIN SYNDROME Status: Chronic Comment: stable (3) Gastroparesis Code(s): K31.84 - GASTROPARESIS Status: Chronic Comment: (4) Hypertension Code(s): I10 - ESSENTIAL (PRIMARY) HYPERTENSION Status: Chronic (5) Moderate protein-calorie malnutrition Code(s): E44.0 - MODERATE PROTEIN-CALORIE MALNUTRITION Status: Chronic Comment: (6) PUD (peptic ulcer disease) Code(s): K27.9 - PEPTIC ULC, SITE UNSP, UNSP AC OR CHR, W/O HEMOR OR PERF Status: Chronic Comment: (7) Paroxysmal atrial fibrillation Code(s): I48.0 - PAROXYSMAL ATRIAL FIBRILLATION Status: Chronic Comment: (8) Physical deconditioning Code(s): R53.81 - OTHER MALAISE Status: Chronic Comment: - Plan cont current plan of care * medication reviewed as below * symptomatic treatment * diet as tolerated * continue IVF * repeat labs tomorrow. Review of Systems - Review of Systems Constitutional: weakness. negative: fever, chills, sweats, malaise, other ENT: negative: Ear Pain, Ear Discharge, Nose Pain, Nose Discharge, Nose Congestion, Mouth Pain, Mouth Swelling, Throat Pain, Throat Swelling, Other Respiratory: negative: Cough, Dry, Shortness of Breath, Hemoptysis, SOB with Excertion, Pleuritic Pain, Sputum, Wheezing Cardiovascular: negative: chest pain, palpitations, orthopnea, paroxysmal nocturnal dyspnea, edema, light headedness, other Gastrointestinal: Nausea, Vomiting. negative: Abdominal Pain, Diarrhea, Constipation, Melena, Hematochezia, Other Genitourinary: negative: Dysuria, Frequency, Incontinence, Hematuria, Retention , Other Musculoskeletal: negative: Neck Pain, Shoulder Pain, Arm Pain, Back Pain, Hand Pain, Leg Pain, Foot Pain, Other - Medications/Allergies Allergies/Adverse Reactions: Allergies Allergy/AdvReac Type Severity Reaction Status Date / Time erythromycin base Allergy Verified 02/02/19 00:57 Penicillins Allergy Verified 02/02/19 00:57 Medications: Current Medications Acetaminophen (Tylenol) 650 mg PO Q4H PRN PRN Reason: Headache/Fever/Mild Pain (1-3) Acetaminophen/Aspirin/Caffeine (Excedrin Migraine) 1 tab PO BIDPRN PRN PRN Reason: Migraine Headache Hydrocodone Bitart/Acetaminophen ([place] 5/325) 1 tab PO Q4H PRN PRN Reason: Moderate Pain (4-6) Last Admin: 03/22/19 04:42 Dose: 1 tab Bisacodyl (Dulcolax) 10 mg PO DAILYPRN PRN PRN Reason: Constipation Calcium Carbonate (Tums) 1,000 mg PO Q4H PRN PRN Reason: Indigestion Cyanocobalamin (Vitamin B-12) 1,000 mcg PO DAILY [facility] Last Admin: 03/22/19 09:27 Dose: 1,000 mcg Docusate Sodium (Colace) 100 mg PO BID [facility] Last Admin: 03/22/19 09:27 Dose: 100 mg Dronabinol (Marinol) 2.5 mg PO BID-AC [facility] Last Admin: 03/22/19 09:27 Dose: 2.5 mg Folic Acid (Folvite) 1 mg PO DAILY [facility] Last Admin: 03/22/19 09:27 Dose: 1 mg Hydralazine HCl (Apresoline) 10 mg SLOW IVP Q4H PRN PRN Reason: SBP > 180 and HR < 70 Dextrose/Sodium Chloride (D5 0.9% Ns) 1,000 mls @ 75 mls/hr IV .[id number] [facility] Last Admin: 03/21/19 23:55 Dose: 1,000 mls Iron/Minerals/Multivitamins (Theragran M) 1 tab PO DAILY [facility] Last Admin: 03/22/19 09:27 Dose: 1 tab Lidocaine (Lidoderm 5% Patch) 1 patch TD DAILY [facility] Last Admin: 03/22/19 09:26 Dose: 1 patch Megestrol Acetate (Megace) 80 mg PO BID [facility] Last Admin: 03/22/19 09:27 Dose: 80 mg Metoclopramide HCl (Reglan) 10 mg IVP Q6H PRN PRN Reason: Nausea/Vomiting Last Admin: 03/22/19 05:50 Dose: 10 mg Miscellaneous Medication (Lidocaine Patch Removal) 1 each TOP 2100 [facility] Ondansetron HCl (Zofran Odt) 4 mg PO Q6H PRN PRN Reason: Nausea/Vomiting Last Admin: 03/22/19 09:27 Dose: 4 mg Ondansetron HCl (Zofran) 4 mg IVP Q6H PRN PRN Reason: Nausea/Vomiting Pantoprazole Sodium (Protonix) 40 mg PO BID [facility] Last Admin: 03/22/19 09:27 Dose: 40 mg Sodium Chloride (Flush - Normal Saline) 10 ml IVF PRN PRN PRN Reason: Saline Flush Sumatriptan Succinate (Imitrex) 100 mg PO PRN PRN PRN Reason: Migraine Headache Thiamine HCl (Thiamine) 100 mg PO DAILY [facility] Last Admin: 03/22/19 09:27 Dose: 100 mg
[2019-03-22] MEDS: Dextrose 5 % And 0.9 % NaCl 1,000 ML IV SCH (15:07)
[2019-03-22] MEDS: Metoclopramide 10 MG/10 ML UDCUP PO SCH ×2 (16:41→20:06)
[2019-03-22] MEDS ORDERED: Multivitamins, Adult 10 ML, Thiamine HCl 100 MG, Folic Acid 1 MG in Dextrose 5 %-0.45 %... IV SCH (17:00)
[2019-03-22] MEDS ORDERED: Oxymetazoline HCl 0.05% (30 ML BOT) NS PRN (19:57)
[2019-03-22] MEDS: Lidocaine Patch Removal 1 EACH TOP SCH (20:07)
--- NOTE | 2019-03-22 21:18 | CON ---
DATE OF CONSULTATION: 03/22/2019 REASON FOR CONSULTATION: Nausea, vomiting, and history of gastroparesis. CONSULTING PHYSICIAN: Jere Martino MD HISTORY OF PRESENT ILLNESS: The patient is a 69-year-old male with past medical history of peptic ulcer disease, postsurgical gastroparesis, hypertension, chronic back pain, bladder cancer, paroxysmal atrial fibrillation, and recent diagnosis of pulmonary embolism, presenting with complaints of nausea, vomiting, and midepigastric abdominal pain. On chart review, the patient has had a longstanding history of chronic nausea and vomiting, for which he was found to have severe gastric ulcerations in January 2016. At that time, he was taking NSAIDs chronically and that was thought to be the cause of the ulcerations, but he subsequently underwent gastrectomy with vagotomy at that time. Also in July 2016, he underwent a duodenal resection (unknown reason why), but continue to have vomiting and weight loss after that surgery. Afterwards in October 2017, he possibly had a gastrojejunostomy with lysis of adhesions in relation to his chronic nausea and vomiting, but also this did not jamarcus his symptoms. With the surgeries that he has had in the past and a vagotomy, this was believed to have caused postsurgical gastroparesis, for which the patient had been placed on Reglan therapy in the past, but had been fairly refractory to this particular treatment modality. Currently , the patient is presenting with increased midepigastric abdominal pain, failure to thrive, and chronic nausea and vomiting. Concerning his abdominal pain, the pain is located primarily in the midepigastric region, nonradiating, characterized as a dull/aching type pain, it is constant with waxing/waning severity and will reach a severity of 5 to 6/10. The pain is worse with fasting states, but better with eating/drinking and administration of pain medications (Tylenol 3 and 4). He also continues to endorse daily nausea and vomiting that is usually associated with increases in his midepigastric abdominal pain. When he does actually vomit, his emesis consists primarily of food that he has eaten within the last 24 hours with sometimes food that he has seen greater than 24 hours in the past. Upon evaluation in the recent chart, he had been discharged to hospice with plans to supplement feeds through his jejunostomy feeding tube, but per the patient, he has not been using the J-tube recently. Lastly, the patient also has a history of constipation, where he would have one bowel movement infrequently that was solid and harder to pass, but he states that "it recently cleaned up." He is currently having approximately 1 solid bowel movement every three days with no difficulty with defecation. Of note, the patient was recently diagnosed with pulmonary emboli, for which he was placed on Eliquis, and has been on it ever since. REVIEW OF SYSTEMS: A 10-category review of systems was obtained with all responses negative except for the pertinent positives as listed in HPI. PAST MEDICAL HISTORY: As per HPI. PAST SURGICAL HISTORY: J-tube placement, cholecystectomy, gastrectomy with vagotomy, duodenal resection surgery, possible gastrojejunostomy, lysis of adhesions, and multiple endoscopies. FAMILY HISTORY: Denies any GI malignancies. SOCIAL HISTORY: Denies any alcohol, tobacco, or illicit drug use. OUTPATIENT MEDICATIONS: Reviewed. ALLERGIES: ERYTHROMYCIN AND PENICILLIN. PHYSICAL EXAMINATION: VITAL SIGNS: Temperature 98.3, pulse 73, blood pressure 111/78, respiratory rate 16, and saturating 98% on room air. GENERAL: The patient is lying in bed, in no acute distress. Alert and oriented x4. HEENT: Normocephalic and atraumatic. NECK: Supple with no JVD or scleral icterus. CARDIOVASCULAR: Regular rate and rhythm with no discernible murmurs, gallops, or rubs. RESPIRATORY: Clear to auscultation bilaterally with no discernible wheezes or rales. ABDOMEN: Normoactive bowel sounds/hyperactive bowel sounds. Soft and nondistended. Tenderness to palpation in the midepigastric region. EXTREMITIES: No cyanosis, clubbing, or edema. Limbs were cachectic in appearance. LABORATORY DATA: CBC with a white blood cell count of 5.6, hemoglobin 12.1, hematocrit 39, and platelets 324. INR 1.1. Chemistry with a sodium of 141, potassium 3.9, chloride 95, CO2 of 35, BUN 31, creatinine 1.68, glucose 99, AST 20, ALT 21, alkaline phosphatase 78, total bilirubin 0.6, lipase 10, and albumin 2.7. IMAGING DATA: No current GI imaging is available for review. ASSESSMENT AND PLAN: The patient is a 69-year-old male with past medical history of peptic ulcer disease status post gastrectomy and vagotomy, postsurgical gastroparesis, hypertension, chronic back pain, bladder cancer, paroxysmal atrial fibrillation, and recent diagnosis of pulmonary embolism, presenting with increased midepigastric abdominal pain, constipation, and nausea and vomiting secondary to gastroparesis. Gastroparesis: The patient is presenting with a longstanding history of chronic nausea and vomiting that has been present since at least . At that time, he was consuming an increasing amount of nonsteroidal anti-inflammatory drugs, which generated peptic ulcers, for which he ultimately underwent a partial gastrectomy with vagotomy. With vagotomy, I feel it resulted in a postsurgical gastroparesis that has since resulted in chronic nausea and vomiting since then. He has been tried on multiple different regimens in the past for control of his gastroparesis that has been fairly unsuccessful even with administration of metoclopramide 10 mg t.i.d. However, more recently in September/October of 2018, he had the surgical placement of a J-tube and had been using this with too a fair degree of success to maintain nutrition and to hold his nausea and vomiting at bay by bypassing his stomach altogether. However, over the last few weeks, he has not been using the J-tube at all and has been relying primarily on the oral ingested diet. In addition to the above, he has been having significant constipation, having approximately 1 solid bowel movement every 3 days and although he denies any significant difficulty with defecation, the stooling interval is unacceptable for the past diagnosis of gastroparesis as this could significantly exacerbate his nausea and vomiting, associated with gastroparesis. Recommendations; 1. We would minimize the application of any narcotics during this hospitalization, given that he would worsen his constipation and subsequent his nausea and vomiting. 2. We will consult Dietary Services for re-evaluation of the patient and recommendations regarding J-tube feeding. 3. We would place the patient on liquid Reglan 10 mg t.i.d. in an attempt to help his gastroparesis. 4. We would place him on a bowel regimen consisting of MiraLAX 1 capful daily to facilitate having a bowel movement. Midepigastric abdominal pain: The patient is presenting with a recent history of increasing midepigastric abdominal pain characterized as a dull/aching type sensation, constant, nonradiating and reaching a severity of 5 to 6/10. The pain is worse with fasting states and better with actually eating and drinking, in addition to taking his pain medications. Given this history, it is unclear as to the origin of his midepigastric abdominal pain, but could be contributed by the constipation that he is currently experiencing in addition to the nausea and vomiting. Recommendations; 1. I would place him on the liquid Reglan and MiraLAX bowel regimen as above, in attempt to facilitate having a bowel movement and promote gastric motility. 2. If the patient continues to have midepigastric abdominal pain, we will consider imaging of the abdomen for further evaluation. We will continue to follow. Please call with any questions. Job ID: [id number] [facility]
[2019-03-23] MEDS: Calcium Carbonate 500 MG ChewTAB PO PRN ×4 (01:04→22:03)
[2019-03-23] MEDS ORDERED: Metoclopramide 10 MG/10 ML UDCUP PO SCH (02:30)
[2019-03-23] MEDS: Dextrose 5 % And 0.9 % NaCl 1,000 ML IV SCH ×2 (02:42→13:57)
[2019-03-23] MEDS: Ondansetron ODT 4 MG TAB PO PRN ×3 (02:42→16:15)
[2019-03-23] MEDS ORDERED: Metoclopramide HCl 10 MG/2 ML VIAL IVP SCH (03:00)
[2019-03-23] MEDS: HYDROcodone/Acetaminophen 5/325 mg Tablet PO PRN ×3 (06:43→18:16)
[2019-03-23] MEDS: Dronabinol 2.5 MG CAP PO SCH ×2 (08:51→16:06)
[2019-03-23] MEDS: Lidocaine 5% Patch TD SCH (08:51)
[2019-03-23] MEDS: Megestrol Acetate 40 MG TAB PO SCH ×2 (08:52→20:36)
[2019-03-23] MEDS: Metoclopramide 10 MG/10 ML UDCUP PO SCH ×3 (08:52→20:36)
[2019-03-23] MEDS: Multivitamin W/ Minerals 1 TAB PO SCH ×2 (08:52→09:06)
[2019-03-23] MEDS: Folic Acid 1 MG TAB PO SCH ×2 (08:52→09:05)
[2019-03-23] MEDS: Thiamine 100 MG TAB PO SCH ×2 (08:53→09:06)
[2019-03-23] MEDS: Docusate 100 MG CAP PO SCH ×2 (08:53→20:36)
[2019-03-23] MEDS: Cyanocobalamin (Vitamin B-12) 1,000 MCG TAB PO SCH ×2 (08:53→09:05)
[2019-03-23] MEDS: Polyethylene Glycol 3350 17 GM Packet PO SCH (08:53)
--- NOTE | 2019-03-23 09:46 | PDOC.PN ---
- Subjective Encounter Start Date: 03/23/19 Encounter Start Time: 09:20 Patient seen and examined. No new complaints. No overnight events pt still has nausea and epigastric pain - Objective Resuscitation Status - Order Detail: 03/22/19 02:35 Resuscitation Status Routine Resuscitation Status: DNAR: NO Resuscitation Discussed with: discussed with the patient MAR Reviewed: Yes Vital Signs & Weight: Vital Signs (12 hours) Temp Pulse Resp BP Pulse Ox 03/23/19 04:47 97.7 F 107 H 18 104/78 96 03/23/19 00:34 98.3 F 92 20 122/81 96 Weight Admit Weight 103 lb 7 oz Weight 103 lb 7 oz I&O: 03/22/19 03/23/19 03/24/19 06:59 06:59 06:59 Intake Total 1600 1580 Output Total 500 900 Balance 1100 680 Result Diagrams: 03/22/19 07:25 03/22/19 07:25 Phys Exam - Physical Examination Constitutional: NAD HEENT: PERRLA, moist MMs, sclera anicteric Neck: no JVD, supple Respiratory: no wheezing, no rales, no rhonchi Cardiovascular: RRR, no significant murmur, no rub Gastrointestinal: soft, non-tender, no distention, positive bowel sounds G-tube in place Musculoskeletal: no edema, pulses present Neurological: non-focal, normal sensation Lymphatic: no nodes Psychiatric: normal affect Skin: no rash, normal turgor Dx/Plan (1) Acute kidney failure Status: Acute (2) Chronic pain disorder Code(s): G89.4 - CHRONIC PAIN SYNDROME Status: Chronic Comment: stable (3) Gastroparesis Code(s): K31.84 - GASTROPARESIS Status: Chronic Comment: (4) Hypertension Code(s): I10 - ESSENTIAL (PRIMARY) HYPERTENSION Status: Chronic (5) Moderate protein-calorie malnutrition Code(s): E44.0 - MODERATE PROTEIN-CALORIE MALNUTRITION Status: Chronic Comment: (6) PUD (peptic ulcer disease) Code(s): K27.9 - PEPTIC ULC, SITE UNSP, UNSP AC OR CHR, W/O HEMOR OR PERF Status: Chronic Comment: (7) Paroxysmal atrial fibrillation Code(s): I48.0 - PAROXYSMAL ATRIAL FIBRILLATION Status: Chronic Comment: (8) Physical deconditioning Code(s): R53.81 - OTHER MALAISE Status: Chronic Comment: - Plan cont current plan of care * medication reviewed as below * symptomatic treatment * GI recommendation noted and appreciated * continue hydration * consult palliative care. Review of Systems - Review of Systems Eyes: negative: Pain, Vision Change, Conjunctivae Inflammation, Eyelid Inflammation, Redness, Other ENT: negative: Ear Pain, Ear Discharge, Nose Pain, Nose Discharge, Nose Congestion, Mouth Pain, Mouth Swelling, Throat Pain, Throat Swelling, Other Respiratory: negative: Cough, Dry, Shortness of Breath, Hemoptysis, SOB with Excertion, Pleuritic Pain, Sputum, Wheezing Cardiovascular: negative: chest pain, palpitations, orthopnea, paroxysmal nocturnal dyspnea, edema, light headedness, other Gastrointestinal: Nausea, Abdominal Pain. negative: Vomiting, Diarrhea, Constipation, Melena, Hematochezia, Other Genitourinary: negative: Dysuria, Frequency, Incontinence, Hematuria, Retention , Other Musculoskeletal: negative: Neck Pain, Shoulder Pain, Arm Pain, Back Pain, Hand Pain, Leg Pain, Foot Pain, Other Skin: negative: Rash, Lesions, Jose Enrique, Bruising, Other - Medications/Allergies Allergies/Adverse Reactions: Allergies Allergy/AdvReac Type Severity Reaction Status Date / Time erythromycin base Allergy Verified 02/02/19 00:57 Penicillins Allergy Verified 02/02/19 00:57 Medications: Current Medications Acetaminophen (Tylenol) 650 mg PO Q4H PRN PRN Reason: Headache/Fever/Mild Pain (1-3) Acetaminophen/Aspirin/Caffeine (Excedrin Migraine) 1 tab PO BIDPRN PRN PRN Reason: Migraine Headache Hydrocodone Bitart/Acetaminophen ([place] 5/325) 1 tab PO Q4H PRN PRN Reason: Moderate Pain (4-6) Last Admin: 03/23/19 06:43 Dose: 1 tab Bisacodyl (Dulcolax) 10 mg PO DAILYPRN PRN PRN Reason: Constipation Calcium Carbonate (Tums) 1,000 mg PO Q4H PRN PRN Reason: Indigestion Last Admin: 03/23/19 08:50 Dose: 1,000 mg Cyanocobalamin (Vitamin B-12) 1,000 mcg PO DAILY [facility] Last Admin: 03/23/19 09:05 Dose: Not Given Docusate Sodium (Colace) 100 mg PO BID [facility] Last Admin: 03/23/19 08:53 Dose: 100 mg Dronabinol (Marinol) 2.5 mg PO BID-AC [facility] Last Admin: 03/23/19 08:51 Dose: 2.5 mg Folic Acid (Folvite) 1 mg PO DAILY [facility] Last Admin: 03/23/19 09:05 Dose: Not Given Hydralazine HCl (Apresoline) 10 mg SLOW IVP Q4H PRN PRN Reason: SBP > 180 and HR < 70 Dextrose/Sodium Chloride (D5 0.9% Ns) 1,000 mls @ 75 mls/hr IV .[id number] [facility] Last Admin: 03/23/19 02:42 Dose: 1,000 mls Iron/Minerals/Multivitamins (Theragran M) 1 tab PO DAILY [facility] Last Admin: 03/23/19 09:06 Dose: Not Given Lidocaine (Lidoderm 5% Patch) 1 patch TD DAILY [facility] Last Admin: 03/23/19 08:51 Dose: 1 patch Megestrol Acetate (Megace) 80 mg PO BID [facility] Last Admin: 03/23/19 08:52 Dose: 80 mg Metoclopramide HCl (Reglan) 10 mg PO TID [facility] Last Admin: 03/23/19 08:52 Dose: 10 mg Miscellaneous Medication (Lidocaine Patch Removal) 1 each TOP 2100 [facility] Last Admin: 03/22/19 20:07 Dose: Not Given Ondansetron HCl (Zofran Odt) 4 mg PO Q6H PRN PRN Reason: Nausea/Vomiting Last Admin: 03/23/19 08:52 Dose: 4 mg Ondansetron HCl (Zofran) 4 mg IVP Q6H PRN PRN Reason: Nausea/Vomiting Oxymetazoline HCl (Nasal Decongestant) 0 ml NS Q12H PRN PRN Reason: Nasal Congestion Last Admin: 03/22/19 20:46 Dose: 30 ml Pantoprazole Sodium (Protonix) 40 mg PO BID [facility] Last Admin: 03/23/19 08:53 Dose: 40 mg Polyethylene Glycol (Miralax) 17 gm PO DAILY [facility] Last Admin: 03/23/19 08:53 Dose: 17 gm Sodium Chloride (Flush - Normal Saline) 10 ml IVF PRN PRN PRN Reason: Saline Flush Sumatriptan Succinate (Imitrex) 100 mg PO PRN PRN PRN Reason: Migraine Headache Thiamine HCl (Thiamine) 100 mg PO DAILY [facility] Last Admin: 03/23/19 09:06 Dose: Not Given
[2019-03-23] MEDS: Mag-Al 1200 mg/1200 mg/30 ML UDCUP PO PRN ×2 (10:54→18:16)
[2019-03-23] MEDS: Lorazepam 0.5 MG TAB PO PRN ×2 (12:43→22:07)
--- NOTE | 2019-03-23 18:05 | PRG ---
DATE OF SERVICE: 03/23/2019 REASON FOR CONSULTATION: Nausea, vomiting, and gastroparesis. SUBJECTIVE: The patient today states that his abdominal pain is located primarily in the midepigastric region, but the same if not worse when compared to yesterday. He also states that he has vomited approximately 10 to 12 times today with vomiting primarily undigested food. He asked that the J-tube has not been utilized as of yet, and per nursing staff, it is unknown if the Dietary Service has provided additional recommendations for J-tube feeding. Currently, he denies any fevers, chills, hematemesis, melena, or hematochezia. In fact, he has not had a bowel movement since he has been admitted. OBJECTIVE: VITAL SIGNS: Temperature 97.2, pulse 76, blood pressure 102/72, respiratory rate 16, saturating 95% on room air. GENERAL: The patient was sitting at bedside, in no acute distress. Alert and oriented x4. CARDIOVASCULAR: Regular rate and rhythm. RESPIRATORY: Clear to auscultation bilaterally. ABDOMEN: Normoactive bowel sounds. Soft and nondistended. Tenderness to palpation in the midepigastric region. EXTREMITIES: No cyanosis, clubbing, or edema. LABORATORY DATA: No current labs are available for review. IMAGING DATA: No current GI imaging is available for review. ASSESSMENT AND PLAN: The patient is a 69-year-old male with past medical history of peptic ulcer disease, status post gastrectomy and vagotomy resulting in postsurgical gastroparesis, hypertension, chronic back pain, bladder cancer, paroxysmal atrial fibrillation, and recent diagnosis of pulmonary embolism, presenting with increased midepigastric abdominal pain, constipation, nausea, and vomiting secondary to gastroparesis. Gastroparesis: The patient is presenting with a longstanding history of chronic nausea and vomiting, that has been present since at least 2014, with his most recent hospitalizations here at [facility] (most recent in October 2018). He had surgical placement of J-tube with fair degree of success in decreasing his frequent nausea and vomiting. However, per the patient, prior to admission, he had not been using the J-tube for at least the last 3 to 4 weeks relying primarily on an orally ingested diet. With his orally ingested diet, he will have nausea and vomiting, again primarily of undigested food. During this admission and even prior to admission, he has not had a bowel movement as of yet indicating probable constipation, which could then further exacerbate his nausea , vomiting, and associated gastroparesis. Recommendations: 1. We would continue to minimize any narcotics during this hospitalization given worsening of his constipation and subsequent nausea and vomiting. 2. Await recommendations by Dietitian Services for re-evaluation of the patient and recommendations regarding J-tube feeding. 3. We would continue Reglan 10 mg t.i.d. in a liquid formulation for gastroparesis. 4. We would continue MiraLAX 1 capsule daily, but also add naloxegol 12.5 mg daily for reversal of opioid effects on the gut. Midepigastric abdominal pain: The patient is presenting with a recent history of increased midepigastric abdominal pain with an unclear etiology at this point, but could be contributed by either his nausea and vomiting or constipation. Recommendations: 1. We would continue the liquid Reglan and MiraLAX regimen as above. 2. We would start the patient on naloxegol 12.5 mg daily. 3. If the patient continues to have abdominal pain despite having a bowel movement, we will consider imaging of the abdomen for further evaluation. We will continue to follow. Please call with any questions. Job ID: [id number] MTDD
[2019-03-23] MEDS: Lidocaine Patch Removal 1 EACH TOP SCH (20:37)
[2019-03-24] MEDS: Dextrose 5 % And 0.9 % NaCl 1,000 ML IV SCH (04:20)
[2019-03-24] MEDS: Mag-Al 1200 mg/1200 mg/30 ML UDCUP PO PRN ×3 (04:22→20:22)
[2019-03-24] MEDS: Ondansetron ODT 4 MG TAB PO PRN ×2 (04:23→12:46)
[2019-03-24] MEDS: Cyanocobalamin (Vitamin B-12) 1,000 MCG TAB PO SCH (08:40)
[2019-03-24] MEDS: Thiamine 100 MG TAB PO SCH (08:40)
[2019-03-24] MEDS: Multivitamin W/ Minerals 1 TAB PO SCH (08:40)
[2019-03-24] MEDS: Folic Acid 1 MG TAB PO SCH (08:40)
[2019-03-24] MEDS: Calcium Carbonate 500 MG ChewTAB PO PRN ×3 (08:41→21:35)
[2019-03-24] MEDS: Docusate 100 MG CAP PO SCH ×2 (08:41→20:07)
[2019-03-24] MEDS: Metoclopramide 10 MG/10 ML UDCUP PO SCH ×3 (08:41→20:07)
[2019-03-24] MEDS: Lidocaine 5% Patch TD SCH (08:41)
[2019-03-24] MEDS: Megestrol Acetate 40 MG TAB PO SCH ×2 (08:42→20:07)
[2019-03-24] MEDS: Dronabinol 2.5 MG CAP PO SCH ×2 (08:42→16:44)
[2019-03-24] MEDS: Polyethylene Glycol 3350 17 GM Packet PO SCH (08:43)
[2019-03-24 10:00] LABS: %Basophils 0.3 % (0.0-1.0); %Eosinophils 1.3 % (0.0-10.0); %Lymphocytes 11.3 % (21.0-51.0); %Monocytes 13.1 % (0.0-10.0); Hemoglobin 11.8 g/dL (14.0-18.0); Mean Corpuscular HGB CONC 29.4 g/dL (32.0-36.0); Mean Corpuscular Hemoglobin 24.1 pg (27.0-31.0); Mean Platelet Volume 7.7 fL (7.4-10.4); Platelet Count 254 thou/uL (130-400); RBC Distribution Width 17.8 % (11.5-14.5); Red Blood Cell (RBC) Count 4.88 mill/uL (4.70-6.10); White Blood Cell (WBC) Count 7.9 thou/uL (4.8-10.8)
[2019-03-24 10:01] LABS: #Eosinphils 0.1 thou/uL (0.0-0.7); #Lymphocytes 0.9 thou/uL (1.20-3.40); #Neutrophils 5.9 thou/uL (1.40-6.50)
[2019-03-24 11:40] LABS: Anion Gap 9 mmol/L (10-20); BUN (Urea Nitrogen) 19 mg/dL (8.4-25.7); Calc. Creatinine Clearance 41 mL/min (70-130); Calcium 8.1 mg/dL (7.8-10.44); Carbon Dioxide 35 mmol/L (23-31); Chloride 93 mmol/L (98-107); Estimated GFR-MDRD 65; Glucose 88 mg/dL (83-110); Sodium 134 mmol/L (136-145)
[2019-03-24 11:42] LABS: Potassium 2.7 mmol/L (3.5-5.1)
--- NOTE | 2019-03-24 11:47 | PDOC.PN ---
- Subjective Encounter Start Date: 03/24/19 Encounter Start Time: 09:50 -: old records requested/rev Patient seen and examined. No new complaints. No overnight events pt has no change in overall condition, still has nausea and epigastric pain - Objective Resuscitation Status - Order Detail: 03/22/19 02:35 Resuscitation Status Routine Resuscitation Status: DNAR: NO Resuscitation Discussed with: discussed with the patient MAR Reviewed: Yes Vital Signs & Weight: Vital Signs (12 hours) Temp Pulse Resp BP Pulse Ox 03/24/19 07:59 97.3 F L 79 20 106/67 97 03/24/19 07:58 97.9 F 70 16 127/69 96 03/24/19 04:00 98 F 88 18 122/88 95 Weight Admit Weight 103 lb 7 oz Weight 103 lb 7 oz I&O: 03/23/19 03/24/19 03/25/19 06:59 06:59 06:59 Intake Total 1580 1500 Output Total 900 600 Balance 680 900 Result Diagrams: 03/24/19 09:44 03/24/19 09:44 Phys Exam - Physical Examination Constitutional: NAD HEENT: PERRLA, moist MMs, sclera anicteric Neck: no JVD, supple Respiratory: no wheezing, no rales, no rhonchi Cardiovascular: RRR, no significant murmur, no rub Gastrointestinal: soft, no distention, positive bowel sounds G-tube+ Musculoskeletal: no edema, pulses present Neurological: non-focal, normal sensation Lymphatic: no nodes Psychiatric: normal affect Skin: no rash, normal turgor Dx/Plan (1) Acute kidney failure Status: Acute (2) Chronic pain disorder Code(s): G89.4 - CHRONIC PAIN SYNDROME Status: Chronic Comment: stable (3) Gastroparesis Code(s): K31.84 - GASTROPARESIS Status: Chronic Comment: (4) Hypertension Code(s): I10 - ESSENTIAL (PRIMARY) HYPERTENSION Status: Chronic (5) Moderate protein-calorie malnutrition Code(s): E44.0 - MODERATE PROTEIN-CALORIE MALNUTRITION Status: Chronic Comment: (6) PUD (peptic ulcer disease) Code(s): K27.9 - PEPTIC ULC, SITE UNSP, UNSP AC OR CHR, W/O HEMOR OR PERF Status: Chronic Comment: (7) Paroxysmal atrial fibrillation Code(s): I48.0 - PAROXYSMAL ATRIAL FIBRILLATION Status: Chronic Comment: (8) Physical deconditioning Code(s): R53.81 - OTHER MALAISE Status: Chronic Comment: - Plan cont current plan of care * change IVF with dex NS with KCL at 100 ml per hour * give KCL 20 meq IV one time * check phos and mag level * GI will decide if further imaging needed or not * medication reviewed as below * symptomatic treatment * increase IVF. Review of Systems - Review of Systems Constitutional: weakness. negative: fever, chills, sweats, malaise, other ENT: negative: Ear Pain, Ear Discharge, Nose Pain, Nose Discharge, Nose Congestion, Mouth Pain, Mouth Swelling, Throat Pain, Throat Swelling, Other Respiratory: negative: Cough, Dry, Shortness of Breath, Hemoptysis, SOB with Excertion, Pleuritic Pain, Sputum, Wheezing Cardiovascular: negative: chest pain, palpitations, orthopnea, paroxysmal nocturnal dyspnea, edema, light headedness, other Gastrointestinal: Nausea, Abdominal Pain. negative: Vomiting, Diarrhea, Constipation, Melena, Hematochezia, Other Genitourinary: negative: Dysuria, Frequency, Incontinence, Hematuria, Retention , Other Musculoskeletal: negative: Neck Pain, Shoulder Pain, Arm Pain, Back Pain, Hand Pain, Leg Pain, Foot Pain, Other Skin: negative: Rash, Lesions, Jose Enrique, Bruising, Other - Medications/Allergies Allergies/Adverse Reactions: Allergies Allergy/AdvReac Type Severity Reaction Status Date / Time erythromycin base Allergy Verified 02/02/19 00:57 Penicillins Allergy Verified 02/02/19 00:57 Medications: Current Medications Acetaminophen (Tylenol) 650 mg PO Q4H PRN PRN Reason: Headache/Fever/Mild Pain (1-3) Acetaminophen/Aspirin/Caffeine (Excedrin Migraine) 1 tab PO BIDPRN PRN PRN Reason: Migraine Headache Hydrocodone Bitart/Acetaminophen ([place] 5/325) 1 tab PO Q4H PRN PRN Reason: Moderate Pain (4-6) Last Admin: 03/23/19 18:16 Dose: 1 tab Al Hydroxide/Mg Hydroxide (Maalox) 15 ml PO Q6H PRN PRN Reason: Heartburn or Indigestion Last Admin: 03/24/19 04:22 Dose: 15 ml Bisacodyl (Dulcolax) 10 mg PO DAILYPRN PRN PRN Reason: Constipation Calcium Carbonate (Tums) 1,000 mg PO Q4H PRN PRN Reason: Indigestion Last Admin: 03/24/19 08:41 Dose: 1,000 mg Cyanocobalamin (Vitamin B-12) 1,000 mcg PO DAILY [facility] [place] Last Admin: 03/24/19 08:40 Dose: Not Given Docusate Sodium (Colace) 100 mg PO BID [facility] Last Admin: 03/24/19 08:41 Dose: 100 mg Dronabinol (Marinol) 2.5 mg PO BID[facility] Last Admin: 03/24/19 08:42 Dose: 2.5 mg Folic Acid (Folvite) 1 mg PO DAILY [facility] [place] Last Admin: 03/24/19 08:40 Dose: Not Given Hydralazine HCl (Apresoline) 10 mg SLOW IVP Q4H PRN PRN Reason: SBP > 180 and HR < 70 Potassium Chloride 30 meq/ (Dextrose/Sodium Chloride) 1,015 mls @ 100 mls/hr IV .Q10H9M [facility] Iron/Minerals/Multivitamins (Theragran M) 1 tab PO DAILY [facility] Last Admin: 03/24/19 08:40 Dose: Not Given Lidocaine (Lidoderm 5% Patch) 1 patch TD DAILY [facility] Last Admin: 03/24/19 08:41 Dose: 1 patch Lorazepam (Ativan) 0.5 mg PO Q6H PRN PRN Reason: Anxiety Last Admin: 03/23/19 22:07 Dose: 0.5 mg Megestrol Acetate (Megace) 80 mg PO BID [facility] [place] Last Admin: 03/24/19 08:42 Dose: 80 mg Metoclopramide HCl (Reglan) 10 mg PO TID [facility] Last Admin: 03/24/19 08:41 Dose: 10 mg Miscellaneous Medication (Lidocaine Patch Removal) 1 each TOP 2100 [facility] Last Admin: 03/23/19 20:37 Dose: Not Given Miscellaneous Medication (Movantik) 12.5 mg PO DAILY-[facility] Last Admin: 03/24/19 08:41 Dose: 12.5 mg Ondansetron HCl (Zofran Odt) 4 mg PO Q6H PRN PRN Reason: Nausea/Vomiting Last Admin: 03/24/19 04:23 Dose: 4 mg Ondansetron HCl (Zofran) 4 mg IVP Q6H PRN PRN Reason: Nausea/Vomiting Oxymetazoline HCl (Nasal Decongestant) 0 ml NS Q12H PRN PRN Reason: Nasal Congestion Last Admin: 03/22/19 20:46 Dose: 30 ml Pantoprazole Sodium (Protonix) 40 mg PO BID [facility] [place] Last Admin: 03/24/19 08:42 Dose: 40 mg Polyethylene Glycol (Miralax) 17 gm PO DAILY [facility] [place] Last Admin: 03/24/19 08:43 Dose: 17 gm Potassium Chloride (Potassium Chloride) 20 meq IVPB ONE [facility] Sodium Chloride (Flush - Normal Saline) 10 ml IVF PRN PRN PRN Reason: Saline Flush Sumatriptan Succinate (Imitrex) 100 mg PO PRN PRN PRN Reason: Migraine Headache Last Admin: 03/23/19 22:04 Dose: 100 mg Thiamine HCl (Thiamine) 100 mg PO DAILY [facility] Last Admin: 03/24/19 08:40 Dose: Not Given
[2019-03-24] MEDS: HYDROcodone/Acetaminophen 5/325 mg Tablet PO PRN ×3 (12:46→21:33)
[2019-03-24] MEDS ORDERED: Potassium Chloride 20 MEQ in Premix Bag 1 BAG IVPB SCH (13:30)
[2019-03-24] MEDS: Potassium Chloride 30 MEQ in Dextrose 5 % And 0.9 % NaCl 1,000 ML IV SCH ×2 (13:51→20:56)
[2019-03-24 14:03] LABS: Phosphorus 3.9 mg/dL (2.3-4.7)
[2019-03-24] MEDS: Lorazepam 0.5 MG TAB PO PRN (16:41)
[2019-03-24] MEDS: Lidocaine Patch Removal 1 EACH TOP SCH (20:07)
[2019-03-25] MEDS: Calcium Carbonate 500 MG ChewTAB PO PRN ×2 (02:39→09:57)
[2019-03-25] MEDS: HYDROcodone/Acetaminophen 5/325 mg Tablet PO PRN ×2 (05:18→09:47)
[2019-03-25] MEDS: Mag-Al 1200 mg/1200 mg/30 ML UDCUP PO PRN (05:19)
[2019-03-25 09:31] LABS: Anion Gap 10 mmol/L (10-20); BUN (Urea Nitrogen) 24 mg/dL (8.4-25.7); Calc. Creatinine Clearance 33 mL/min (70-130); Carbon Dioxide 34 mmol/L (23-31); Chloride 96 mmol/L (98-107); Estimated GFR-MDRD 52; Glucose 93 mg/dL (83-110); Sodium 137 mmol/L (136-145)
[2019-03-25] MEDS: Megestrol Acetate 40 MG TAB PO SCH (09:33)
[2019-03-25] MEDS: Metoclopramide 10 MG/10 ML UDCUP PO SCH ×2 (09:33→16:07)
[2019-03-25] MEDS: Docusate 100 MG CAP PO SCH (09:33)
[2019-03-25] MEDS: Cyanocobalamin (Vitamin B-12) 1,000 MCG TAB PO SCH (09:34)
[2019-03-25] MEDS: Thiamine 100 MG TAB PO SCH (09:34)
[2019-03-25] MEDS: Potassium Chloride 30 MEQ in Dextrose 5 % And 0.9 % NaCl 1,000 ML IV SCH (09:35)
[2019-03-25] MEDS: Folic Acid 1 MG TAB PO SCH (09:35)
[2019-03-25] MEDS: Multivitamin W/ Minerals 1 TAB PO SCH (09:35)
[2019-03-25] MEDS: Dronabinol 2.5 MG CAP PO SCH (09:36)
[2019-03-25] MEDS: Lidocaine 5% Patch TD SCH (09:37)
[2019-03-25] MEDS: Polyethylene Glycol 3350 17 GM Packet PO SCH (09:37)
[2019-03-25 09:46] LABS: Potassium 2.9 mmol/L (3.5-5.1)
--- NOTE | 2019-03-25 11:35 | PDOC.PN ---
- Subjective Encounter Start Date: 03/25/19 Encounter Start Time: 10:10 this pt refusing to take potassium, also refusing for iV meds, he has nausea and abdominal discomfort and today he reports diarrhoea - Objective Resuscitation Status - Order Detail: 03/22/19 02:35 Resuscitation Status Routine Resuscitation Status: DNAR: NO Resuscitation Discussed with: discussed with the patient MAR Reviewed: Yes Vital Signs & Weight: Vital Signs (12 hours) Temp Pulse Resp BP Pulse Ox 03/25/19 07:59 97.5 F L 107 H 20 97 03/25/19 04:00 98.7 F 76 16 110/80 98 Weight Admit Weight 103 lb 7 oz Weight 103 lb 7 oz I&O: 03/24/19 03/25/19 03/26/19 06:59 06:59 06:59 Intake Total 1500 800 Output Total 600 Balance 900 800 Result Diagrams: 03/24/19 09:44 03/25/19 08:43 Phys Exam - Physical Examination Constitutional: NAD HEENT: PERRLA, sclera anicteric Neck: no JVD, supple Respiratory: no wheezing, no rales, no rhonchi Cardiovascular: RRR, no significant murmur, no rub Gastrointestinal: soft, no distention, positive bowel sounds G-tube + Musculoskeletal: no edema, pulses present Neurological: moves all 4 limbs Lymphatic: no nodes Psychiatric: normal affect, A&O x 3 Skin: no rash, normal turgor Dx/Plan (1) Acute kidney failure Status: Acute (2) Chronic pain disorder Code(s): G89.4 - CHRONIC PAIN SYNDROME Status: Chronic Comment: stable (3) Gastroparesis Code(s): K31.84 - GASTROPARESIS Status: Chronic Comment: (4) Hypertension Code(s): I10 - ESSENTIAL (PRIMARY) HYPERTENSION Status: Chronic (5) Moderate protein-calorie malnutrition Code(s): E44.0 - MODERATE PROTEIN-CALORIE MALNUTRITION Status: Chronic Comment: (6) PUD (peptic ulcer disease) Code(s): K27.9 - PEPTIC ULC, SITE UNSP, UNSP AC OR CHR, W/O HEMOR OR PERF Status: Chronic Comment: (7) Paroxysmal atrial fibrillation Code(s): I48.0 - PAROXYSMAL ATRIAL FIBRILLATION Status: Chronic Comment: (8) Physical deconditioning Code(s): R53.81 - OTHER MALAISE Status: Chronic Comment: (9) Hypokalemia Code(s): E87.6 - HYPOKALEMIA Status: Acute - Plan cont current plan of care * continue supportive care * medication reviewed as below * symptomatic treatment * will consult palliative care for goal of care * his fci prognosis is not good * GI following. Review of Systems - Review of Systems Constitutional: weakness, malaise. negative: fever, chills, sweats, other ENT: negative: Ear Pain, Ear Discharge, Nose Pain, Nose Discharge, Nose Congestion, Mouth Pain, Mouth Swelling, Throat Pain, Throat Swelling, Other Respiratory: negative: Cough, Dry, Shortness of Breath, Hemoptysis, SOB with Excertion, Pleuritic Pain, Sputum, Wheezing Cardiovascular: negative: chest pain, palpitations, orthopnea, paroxysmal nocturnal dyspnea, edema, light headedness, other Gastrointestinal: Nausea, Abdominal Pain, Diarrhea, Constipation. negative: Vomiting, Melena, Hematochezia, Other Genitourinary: negative: Dysuria, Frequency, Incontinence, Hematuria, Retention , Other Musculoskeletal: negative: Neck Pain, Shoulder Pain, Arm Pain, Back Pain, Hand Pain, Leg Pain, Foot Pain, Other Skin: negative: Rash, Lesions, Jose Enrique, Bruising, Other - Medications/Allergies Allergies/Adverse Reactions: Allergies Allergy/AdvReac Type Severity Reaction Status Date / Time erythromycin base Allergy Verified 02/02/19 00:57 Penicillins Allergy Verified 02/02/19 00:57 Medications: Current Medications Acetaminophen (Tylenol) 650 mg PO Q4H PRN PRN Reason: Headache/Fever/Mild Pain (1-3) Acetaminophen/Aspirin/Caffeine (Excedrin Migraine) 1 tab PO BIDPRN PRN PRN Reason: Migraine Headache Hydrocodone Bitart/Acetaminophen ([place] 5/325) 1 tab PO Q4H PRN PRN Reason: Moderate Pain (4-6) Last Admin: 03/25/19 09:47 Dose: 1 tab Al Hydroxide/Mg Hydroxide (Maalox) 15 ml PO Q6H PRN PRN Reason: Heartburn or Indigestion Last Admin: 03/25/19 05:19 Dose: 15 ml Bisacodyl (Dulcolax) 10 mg PO DAILYPRN PRN PRN Reason: Constipation Calcium Carbonate (Tums) 1,000 mg PO Q4H PRN PRN Reason: Indigestion Last Admin: 03/25/19 09:57 Dose: 1,000 mg Cyanocobalamin (Vitamin B-12) 1,000 mcg PO DAILY [facility] Last Admin: 03/25/19 09:34 Dose: Not Given Docusate Sodium (Colace) 100 mg PO BID [facility] Last Admin: 03/25/19 09:33 Dose: Not Given Dronabinol (Marinol) 2.5 mg PO BID-[facility] Last Admin: 03/25/19 09:36 Dose: Not Given Folic Acid (Folvite) 1 mg PO DAILY [facility] Last Admin: 03/25/19 09:35 Dose: Not Given Hydralazine HCl (Apresoline) 10 mg SLOW IVP Q4H PRN PRN Reason: SBP > 180 and HR < 70 Potassium Chloride 30 meq/ (Dextrose/Sodium Chloride) 1,015 mls @ 100 mls/hr IV .Q10H9M [facility] Last Admin: 03/25/19 09:35 Dose: Not Given Iron/Minerals/Multivitamins (Theragran M) 1 tab PO DAILY [facility] Last Admin: 03/25/19 09:35 Dose: Not Given Lidocaine (Lidoderm 5% Patch) 1 patch TD DAILY [facility] Last Admin: 03/25/19 09:37 Dose: 1 patch Lorazepam (Ativan) 0.5 mg PO Q6H PRN PRN Reason: Anxiety Last Admin: 03/24/19 16:41 Dose: 0.5 mg Megestrol Acetate (Megace) 80 mg PO BID [facility] Last Admin: 03/25/19 09:33 Dose: 80 mg Metoclopramide HCl (Reglan) 10 mg PO TID [facility] Last Admin: 03/25/19 09:33 Dose: 10 mg Miscellaneous Medication (Lidocaine Patch Removal) 1 each TOP 2100 [facility] Last Admin: 03/24/19 20:07 Dose: Not Given Miscellaneous Medication (Movantik) 12.5 mg PO DAILY-[facility] Last Admin: 03/25/19 09:36 Dose: Not Given Ondansetron HCl (Zofran Odt) 4 mg PO Q6H PRN PRN Reason: Nausea/Vomiting Last Admin: 03/24/19 12:46 Dose: 4 mg Ondansetron HCl (Zofran) 4 mg IVP Q6H PRN PRN Reason: Nausea/Vomiting Last Admin: 03/24/19 20:14 Dose: 4 mg Oxymetazoline HCl (Nasal Decongestant) 0 ml NS Q12H PRN PRN Reason: Nasal Congestion Last Admin: 03/22/19 20:46 Dose: 30 ml Pantoprazole Sodium (Protonix) 40 mg PO BID [facility] Last Admin: 03/25/19 09:37 Dose: 40 mg Polyethylene Glycol (Miralax) 17 gm PO DAILY [facility] Last Admin: 03/25/19 09:37 Dose: Not Given Sodium Chloride (Flush - Normal Saline) 10 ml IVF PRN PRN PRN Reason: Saline Flush Sumatriptan Succinate (Imitrex) 100 mg PO PRN PRN PRN Reason: Migraine Headache Last Admin: 03/23/19 22:04 Dose: 100 mg Thiamine HCl (Thiamine) 100 mg PO DAILY [facility] Last Admin: 03/25/19 09:34 Dose: Not Given
[2019-03-25 12:00] VITALS: BP 110/76; TEMP 97.4
--- NOTE | 2019-03-25 13:38 | PQF ---
CLINICAL DOCUMENTATION IMPROVEMENT CLARIFICATION FORM: ICD-10 Updated PLEASE DO AN ADDENDUM TO THE PROGRESS NOTE WITH ANY DOCUMENTATION UPDATES OR ADDITIONS AND CARRY THROUGH TO DC SUMMARY. THANK YOU. DATE: 03/25/19 ATTN: DR. LANDRY Please exercise your independent, professional judgment in responding to the clarification form. Clinical indicators are provided on the bottom of this form for your review Please check appropriate box(s): Conflicting documentation was noted in the Medical Record, please clarify if patient is being treated/monitored for: [x ] MODERATE PROTEIN CALORIE MALNUTRITION [ ] SEVERE PROTEIN CALORIE MALNUTRITION [ ] Other diagnosis [ ] Unable to determine In addition, please specify: Present on Admission (POA): [ x ] Yes [ ] No [ ] Unable to determine For continuity of documentation, please document condition throughout progress notes and discharge summary. Thank You. CLINICAL INDICATORS - SIGNS / SYMPTOMS/ LABS H&P: "SEVERE PROTEIN CALORIE MALNUTRITION" PROGRESS NOTE 5/: "MODERATE PROTEIN CALORIE MALNUTRITION" PROGRESS NOTE 03/23: "MODERATE PROTEIN CALORIE MALNUTRITION" PROGRESS NOTE 03/25: "MODERATE PROTEIN CALORIE MALNUTRITION BMI 17.2 ALBUMIN 2.7 RISKS: CHRONIC GASTROPARESIS PO INTOLERANCE TREATMENT: DIETARY CONSULT GI CONSULT IV BANANA BAG (ER) IV ZOFRAN (ER-PRESENT) REGLAN (5/4-PRESENT) MARINOL (5/4-PRESENT) MEGACE (5/4-PRESENT) (This form is maintained as a part of the permanent medical record) 2014 [employer] All Rights Reserved [email or web address] Office: [phone] [employer]
--- NOTE | 2019-03-25 15:09 | DIS ---
DATE OF ADMISSION: 03/21/2019 DATE OF DISCHARGE: 03/25/2019 PRIMARY CARE PHYSICIAN: Dr. Khoi Fregoso. DISCHARGE DISPOSITION: Home. PRIMARY DISCHARGE DIAGNOSES: 1. Acute kidney failure. 2. Hypokalemia. 3. Recurrent nausea, abdominal pain. SECONDARY DISCHARGE DIAGNOSES: 1. Peptic ulcer disease. 2. Physical deconditioning. 3. Moderate protein-calorie malnutrition. 4. Paroxysmal atrial fibrillation. 5. Hypertension. 6. Postsurgical gastroparesis. 7. Chronic pain disorder. PRIMARY PROCEDURE/OPERATION: None. RADIOLOGICAL INVESTIGATION: None. SIGNIFICANT LABORATORY DATA: Hemoglobin 11.8. INR 1.1. Creatinine 1.35. DISCHARGE MEDICATION: 1. Imitrex 100 mg p.r.n. basis for migraine headache. 2. Dulcolax 10 mg p.o. daily. 3. Tums 1000 mg p.o. q.4 hourly p.r.n. 4. Vitamin B12 1000 mcg p.o. daily. 5. Colace 100 mg b.i.d. 6. Marinol 2.5 mg b.i.d. 7. Folic acid 1 mg daily. 8. Lidoderm patch topical application daily. 9. Megace 80 mg p.o. b.i.d. 10. Reglan 10 mg p.o. a.c. and at bedtime. 11. Movantik 12.5 mg p.o. daily. 12. Protonix 40 mg p.o. b.i.d. 13. Thiamine 100 mg p.o. daily. CONTRAINDICATION: None. CODE STATUS: DNR. INPATIENT REGIONAL CRA: Dr. Romeo Woodward was following while in hospital. TEST RESULT PENDING ON DISCHARGE: None. ALLERGIES: ERYTHROMYCIN AND PENICILLIN. DISCHARGE PLAN: Posthospital, the patient will follow up with Dr. Woodward and primary care physician as instructed. HOSPITAL COURSE: A 69-year-old male who was admitted by Dr. Martino on March 21, 2019. Please see her H and P for further details. The patient was admitted for nausea, epigastric abdominal pain and poor p.o. intake. The patient was clinically dehydrated when he arrived to emergency room. He was given IV fluid. He was treated symptomatically with Reglan. He was also constipated and that is why he was given stool softener. He has chronic pain disorder and that is why we discontinued his narcotics medication and naloxegol was started by the aquatic physiotherapist. Gastroenterologists was following while in the hospital. This patient was also noncompliant with the treatment while in hospital. He had hypokalemia and acute kidney injury. We tried to correct his potassium and acute kidney injury with fluid and electrolyte replacement, but the patient was refusing. He was mainly focusing on his pain medication, which was the main culprit for his overall picture with nausea, vomiting, and gastroparesis. The patient decided by himself that he wants to go home and he will prefer himself at home before discharge. We also tried to consult palliative care and hospice team for him because his long-term prognosis is not good. We also provided necessary patient education about diet regarding his gastroparesis. He will continue MiraLAX on an everyday basis along with other medication. At this point patient is very high risk for recurrent admission, but unfortunately there are no other treatment options on him. Job ID: [id number]
== END 2019-03-25 16:54 | disposition hospice, home (50) | DRG 683 ==
LOC: ERS 15:33 → T4-B 19:20
PROVIDERS: ADMIT Family Medicine; ATTEND Family Medicine
DX: N17.9 Acute kidney failure, unspecified (principal); E44.0 Moderate protein-calorie malnutrition; Z68.1 Body mass index [BMI] 19.9 or less, adult; Z66 Do not resuscitate; E87.6 Hypokalemia; K31.84 Gastroparesis; K27.9 Peptic ulcer, site unspecified, unspecified as acute or chronic, without hemorrhage or perforation; I48.0 Paroxysmal atrial fibrillation; I10 Essential (primary) hypertension; G89.29 Other chronic pain; E86.0 Dehydration; K59.00 Constipation, unspecified; Z88.0 Allergy status to penicillin; Z88.1 Allergy status to other antibiotic agents; Z91.19 Patient's noncompliance with other medical treatment and regimen; Z79.01 Long term (current) use of anticoagulants; Z79.899 Other long term (current) drug therapy; Z86.711 Personal history of pulmonary embolism
CPT/HCPCS: 36415; 36416; 80048; 80053; 82553; 83605; 83690; 83735; 84100; 84484; 85025; 85610; 85730; 93005; 96361; 96365; 96368; 96375; J0131; J1630; J2270; J2405; J2765; J3411; J3480; J7042; J8597; Q0162; Q0167; S0179

== ENCOUNTER 2022-06-19 09:54 | Day surgery (SDC) | payer MEDICARE, MEDICAID ==
[2022-05-11 14:28] VITALS: BMI 33.4
[2022-06-19] MEDS ORDERED: Lidocaine 1% PF 5 ML VIAL ONE (12:30)
[2022-06-19] MEDS ORDERED: Phenylephrine 10 MG/ML VIAL ONE (12:30)
[2022-06-19] MEDS ORDERED: Ondansetron PF 4 MG/2 ML Vial ONE (12:30)
[2022-06-19] MEDS ORDERED: PROPOFOL 200 MG/20 ML VIAL ONE (12:30)
[2022-06-19] MEDS ORDERED: Metoclopramide HCl 10 MG/2 ML VIAL ONE (12:30)
== END 2022-06-19 14:53 | disposition home or self-care (01) ==
LOC: MRI 09:54
PROVIDERS: ATTEND Neurological Surgery
DX: M50.11 Cervical disc disorder with radiculopathy, high cervical region (principal); M50.01 Cervical disc disorder with myelopathy, high cervical region; M47.22 Other spondylosis with radiculopathy, cervical region; M47.12 Other spondylosis with myelopathy, cervical region; M48.02 Spinal stenosis, cervical region; M48.062 Spinal stenosis, lumbar region with neurogenic claudication; R25.1 Tremor, unspecified; M51.34 Other intervertebral disc degeneration, thoracic region; M48.04 Spinal stenosis, thoracic region; M47.814 Spondylosis without myelopathy or radiculopathy, thoracic region; M51.35 Other intervertebral disc degeneration, thoracolumbar region; M47.815 Spondylosis without myelopathy or radiculopathy, thoracolumbar region; M48.05 Spinal stenosis, thoracolumbar region; M51.36 Other intervertebral disc degeneration, lumbar region; M47.816 Spondylosis without myelopathy or radiculopathy, lumbar region; M51.26 Other intervertebral disc displacement, lumbar region; M51.37 Other intervertebral disc degeneration, lumbosacral region; M47.817 Spondylosis without myelopathy or radiculopathy, lumbosacral region; M43.16 Spondylolisthesis, lumbar region; S32.010A Wedge compression fracture of first lumbar vertebra, initial encounter for closed fracture; K31.84 Gastroparesis; Z86.16 Personal history of COVID-19; Z87.11 Personal history of peptic ulcer disease; Z79.899 Other long term (current) drug therapy; Z88.0 Allergy status to penicillin; Z88.1 Allergy status to other antibiotic agents
CPT/HCPCS: 72141; 72148; J2370; J2405; J2704; J2765

== ENCOUNTER 2022-08-04 05:32 | Inpatient (IN) | payer MEDICARE, MEDICAID ==
[2022-08-04] MEDS ORDERED: Neomycin-Polymyxin 1 ML AMP ONE (06:10)
[2022-08-04] MEDS ORDERED: Thrombin 5000 UNITS/5 ML VIAL ONE ×2 (06:10)
[2022-08-04] MEDS ORDERED: Bupivacaine HCl 0.5%/Epinephrine 1:200,000/PF 30 ml Vial ONE ×2 (06:10→08:03)
[2022-08-04] MEDS ORDERED: Levofloxacin 500 mg/D5W 100 ml Premix Bag ONE (06:11)
[2022-08-04] MEDS ORDERED: Milk Of Magnesia 30 ML UDCUP PO PRN ×2 (06:37→16:26)
[2022-08-04] MEDS ORDERED: Morphine 2 MG/ML VIAL SLOW IVP PRN (06:37)
[2022-08-04] MEDS ORDERED: Promethazine HCl 25 MG/ML VIAL IM PRN ×2 (06:37→12:31)
[2022-08-04] MEDS ORDERED: diphenhydrAMINE 50 MG/ML VIAL IVP PRN (06:37)
[2022-08-04] MEDS ORDERED: Ondansetron PF 4 MG/2 ML Vial IVP PRN (06:37)
[2022-08-04] MEDS ORDERED: Mag-Al 1200 mg/1200 mg/30 ML UDCUP PO PRN ×2 (06:37→16:26)
[2022-08-04] MEDS ORDERED: Bisacodyl 10 MG SUPP PR PRN (06:37)
[2022-08-04] MEDS ORDERED: Acetaminophen 325 MG TAB PO PRN (06:37)
[2022-08-04] MEDS ORDERED: Ketamine 50 MG/ML (10ML VIAL) ONE (06:40)
[2022-08-04] MEDS ORDERED: fentaNYL Citrate/PF 100 MCG/2 ML SYRINGE ONE ×3 (06:40→12:38)
[2022-08-04] MEDS ORDERED: SUGAMMADEX SODIUM 200 MG/2 ML VIAL ONE ×2 (06:41→11:33)
[2022-08-04] MEDS ORDERED: Phenylephrine 10 MG/ML VIAL ONE (06:41)
[2022-08-04] MEDS ORDERED: Clindamycin/D5W 900 mg/50 ml Premix Bag ONE (06:52)
[2022-08-04] MEDS ORDERED: Esmolol 100 MG/10 ML VIAL ONE (07:02)
[2022-08-04] MEDS ORDERED: Rocuronium Bromide 10 MG/ML (10ML VIAL) ONE (07:02)
[2022-08-04] MEDS ORDERED: Vecuronium 10 MG VIAL ONE (07:02)
[2022-08-04] MEDS ORDERED: Dexamethasone 20 MG/5 ML VIAL ONE (07:02)
[2022-08-04] MEDS ORDERED: Ondansetron PF 4 MG/2 ML Vial ONE (07:02)
[2022-08-04] MEDS ORDERED: PROPOFOL 200 MG/20 ML VIAL ONE (07:02)
[2022-08-04 07:24] LABS: Anion Gap 12 mmol/L (10-20); BUN (Urea Nitrogen) 21 mg/dL (8.4-25.7); Calc. Creatinine Clearance 56 mL/min (70-130); Carbon Dioxide 23 mmol/L (23-31); Chloride 113 mmol/L (98-107); Estimated GFR 59; Glucose 97 mg/dL (83-110); Potassium 4.7 mmol/L (3.5-5.1); Sodium 143 mmol/L (136-145)
[2022-08-04] MEDS ORDERED: Albumin 5% 0 ML ONE (08:03)
[2022-08-04] MEDS ORDERED: Nitroglycerin 50 MG/250 ML BOT 0 ML ONE (09:00)
[2022-08-04] MEDS ORDERED: Albumin 5% 1,000 ML ONE (09:00)
[2022-08-04] MEDS ORDERED: Magnesium 5 GM/10 ML Abboject SYRINGE ONE (09:01)
[2022-08-04] MEDS ORDERED: HYDROmorphone 2 MG/ML VIAL SLOW IVP PRN (12:31)
[2022-08-04] MEDS ORDERED: Ondansetron HCl/PF 4 MG/2 ML Vial IVP PRN (12:31)
[2022-08-04 13:59] VITALS: BMI 27.9
[2022-08-04] MEDS: Sodium Chloride 0.9% 1,000 ML IV SCH ×2 (14:16→21:18)
[2022-08-04] MEDS: Acetaminophen/Codeine 30-300mg Tablet PO PRN ×2 (14:26→20:32)
[2022-08-04] MEDS: Clindamycin/D5W 900 MG in Premix Bag 1 BAG IVPB SCH ×2 (14:26→21:19)
[2022-08-04] MEDS ORDERED: Bismuth SubsALICYLATE 30 ML(17.5 mg/mL) Susp PO PRN (16:26)
[2022-08-04] MEDS ORDERED: SUMAtriptan Succinate 25 MG TAB PO PRN (16:26)
[2022-08-04] MEDS ORDERED: Ondansetron ODT 4 MG TAB PO PRN (16:41)
[2022-08-04] MEDS: HYDROcodone/Acetaminophen 7.5/325 mg Tablet PO PRN ×2 (16:57→22:53)
[2022-08-04] MEDS: Gabapentin 300 MG CAP PO SCH (20:31)
[2022-08-04] MEDS: Metoclopramide HCl 10 MG TAB PO SCH (20:32)
[2022-08-05] MEDS: HYDROcodone/Acetaminophen 7.5/325 mg Tablet PO PRN ×2 (05:17→08:57)
[2022-08-05 06:35] LABS: #Lymphocytes 1.4 thou/uL (1.20-3.40); #Neutrophils 10.7 thou/uL (1.40-6.50); %Basophils 0.1 % (0.0-1.0); %Eosinophils 0.1 % (0.0-10.0); %Lymphocytes 9.9 % (21.0-51.0); %Monocytes 14.1 % (0.0-10.0); %Neutrophils 75.8 % (42.0-75.0); Hemoglobin 10.6 g/dL (14.0-18.0); Mean Corpuscular HGB CONC 32.3 g/dL (32.0-36.0); Mean Corpuscular Hemoglobin 30.9 pg (27.0-31.0); Mean Corpuscular Volume 95.9 fL (78.0-98.0); Mean Platelet Volume 8.9 fL (7.4-10.4); Platelet Count 127 thou/uL (130-400); RBC Distribution Width 12.2 % (11.5-14.5); Red Blood Cell (RBC) Count 3.43 mill/uL (4.70-6.10); White Blood Cell (WBC) Count 14.1 thou/uL (4.8-10.8)
[2022-08-05 06:54] LABS: Phosphorus 2.8 mg/dL (2.3-4.7)
[2022-08-05 06:55] LABS: ALT (SGPT) 27 U/L (8-55); AST (SGOT) 42 U/L (5-34); Albumin 3.7 g/dL (3.4-4.8); Alkaline Phosphatase 68 U/L (40-110); Anion Gap 12 mmol/L (10-20); BUN (Urea Nitrogen) 21 mg/dL (8.4-25.7); Bilirubin, Total 1.1 mg/dL (0.2-1.2); Calc. Creatinine Clearance 53 mL/min (70-130); Calcium 8.5 mg/dL (7.8-10.44); Carbon Dioxide 21 mmol/L (23-31); Chloride 112 mmol/L (98-107); Estimated GFR 55; Globulin 1.5 g/dL (2.4-3.5); Glucose 97 mg/dL (83-110); Magnesium 1.9 mg/dL (1.6-2.6); Potassium 4.7 mmol/L (3.5-5.1); Protein, Total 5.2 g/dL (5.8-8.1); Sodium 140 mmol/L (136-145)
[2022-08-05] MEDS: Sodium Chloride 0.9% 1,000 ML IV SCH ×2 (08:53→21:58)
[2022-08-05] MEDS: Metoclopramide HCl 10 MG TAB PO SCH ×3 (08:53→21:10)
[2022-08-05] MEDS: DULoxetine 30 MG CAP PO SCH (08:53)
[2022-08-05] MEDS: Cyanocobalamin (Vitamin B-12) 1,000 MCG TAB PO SCH (08:53)
[2022-08-05] MEDS: Folic Acid 1 MG TAB PO SCH (08:53)
[2022-08-05] MEDS: Gabapentin 300 MG CAP PO SCH ×3 (08:53→21:09)
[2022-08-05] MEDS: Polyethylene Glycol 3350 17 GM Packet PO SCH (08:54)
[2022-08-05] MEDS: Topiramate 25 MG TAB PO SCH (08:57)
[2022-08-05] MEDS: Acetaminophen/Codeine 30-300mg Tablet PO PRN (11:48)
[2022-08-05] MEDS: HYDROcodone/Acetaminophen 10/325 mg Tablet PO PRN ×2 (14:45→19:25)
[2022-08-05] MEDS: Cyclobenzaprine 10 MG TAB PO PRN (23:22)
[2022-08-06] MEDS: HYDROcodone/Acetaminophen 10/325 mg Tablet PO PRN ×4 (01:20→16:38)
[2022-08-06] MEDS: Gabapentin 300 MG CAP PO SCH ×3 (08:35→20:42)
[2022-08-06] MEDS: Cyclobenzaprine 10 MG TAB PO PRN ×2 (08:35→20:42)
[2022-08-06] MEDS: Topiramate 25 MG TAB PO SCH (08:36)
[2022-08-06] MEDS: Metoclopramide HCl 10 MG TAB PO SCH ×3 (08:36→20:42)
[2022-08-06] MEDS: Polyethylene Glycol 3350 17 GM Packet PO SCH (08:36)
[2022-08-06] MEDS: Folic Acid 1 MG TAB PO SCH (08:36)
[2022-08-06] MEDS: Cyanocobalamin (Vitamin B-12) 1,000 MCG TAB PO SCH (08:36)
[2022-08-06] MEDS: DULoxetine 30 MG CAP PO SCH (08:36)
[2022-08-06] MEDS: Sodium Chloride 0.9% 1,000 ML IV SCH (11:27)
[2022-08-06 15:07] LABS: #Eosinphils 0.1 thou/uL (0.0-0.7); #Lymphocytes 1.5 thou/uL (1.20-3.40); #Monocytes 1.5 thou/uL (0.11-0.59); #Neutrophils 8.7 thou/uL (1.40-6.50); %Basophils 0.1 % (0.0-1.0); %Eosinophils 1.2 % (0.0-10.0); %Lymphocytes 12.8 % (21.0-51.0); %Monocytes 12.5 % (0.0-10.0); %Neutrophils 73.3 % (42.0-75.0); Hemoglobin 11.1 g/dL (14.0-18.0); Mean Corpuscular HGB CONC 33.3 g/dL (32.0-36.0); Mean Corpuscular Hemoglobin 32.3 pg (27.0-31.0); Mean Corpuscular Volume 97.2 fL (78.0-98.0); Mean Platelet Volume 8.6 fL (7.4-10.4); Platelet Count 124 thou/uL (130-400); RBC Distribution Width 12.4 % (11.5-14.5); Red Blood Cell (RBC) Count 3.43 mill/uL (4.70-6.10); White Blood Cell (WBC) Count 11.9 thou/uL (4.8-10.8)
[2022-08-06 15:23] LABS: Lactic Acid 1.2 mmol/L (0.5-2.2)
[2022-08-06 15:28] LABS: ALT (SGPT) 22 U/L (8-55); AST (SGOT) 34 U/L (5-34); Albumin 3.4 g/dL (3.4-4.8); Alkaline Phosphatase 63 U/L (40-110); Anion Gap 12 mmol/L (10-20); BUN (Urea Nitrogen) 22 mg/dL (8.4-25.7); Bilirubin, Total 1.4 mg/dL (0.2-1.2); Calc. Creatinine Clearance 48 mL/min (70-130); Calcium 8.4 mg/dL (7.8-10.44); Carbon Dioxide 20 mmol/L (23-31); Chloride 110 mmol/L (98-107); Estimated GFR 49; Globulin 2.1 g/dL (2.4-3.5); Glucose 139 mg/dL (83-110); Potassium 3.8 mmol/L (3.5-5.1); Protein, Total 5.5 g/dL (5.8-8.1); Sodium 138 mmol/L (136-145)
[2022-08-06 17:39] LABS: Bacteria/HPF None Seen HPF (None Seen); Bilirubin Negative (Negative); Blood, Urine Negative (Negative); Clarity Clear (Clear); Glucose, Urine (Dipstick) Normal (Negative); Ketone, Urine Negative (Negative); Leukocyte Negative Leu/uL (Negative); Nitrite Negative (Negative); Protein, Urine (Dipstick) 50 mg/dL (Neg-Trace); RBC/HPF 0-3 HPF (0-3); Specific Gravity, Urine 1.025 (1.002-1.036); Squamous Epithelial 0-3 HPF (0-3); Urobilinogen Normal mg/dL (Less than 2); WBC/HPF 0-3 HPF (0-3); pH, Urine 5.5 (5.0-9.0)
[2022-08-06 17:40] LABS: Urine Culture Reflex No No
[2022-08-06] MEDS: HYDROcodone/Acetaminophen 7.5/325 mg Tablet PO PRN (20:43)
[2022-08-07] MEDS: Sodium Chloride 0.9% 1,000 ML IV SCH ×2 (03:18→14:34)
[2022-08-07] MEDS: Topiramate 25 MG TAB PO SCH (07:28)
[2022-08-07] MEDS: Gabapentin 300 MG CAP PO SCH ×3 (07:28→22:07)
[2022-08-07] MEDS: Folic Acid 1 MG TAB PO SCH (07:28)
[2022-08-07] MEDS: Cyclobenzaprine 10 MG TAB PO PRN ×2 (07:29→22:07)
[2022-08-07] MEDS: Acetaminophen/Codeine 30-300mg Tablet PO PRN (07:29)
[2022-08-07] MEDS: DULoxetine 30 MG CAP PO SCH (07:29)
[2022-08-07] MEDS: Polyethylene Glycol 3350 17 GM Packet PO SCH (07:29)
[2022-08-07] MEDS: Metoclopramide HCl 10 MG TAB PO SCH ×3 (07:29→22:07)
[2022-08-07] MEDS: Cyanocobalamin (Vitamin B-12) 1,000 MCG TAB PO SCH (07:36)
[2022-08-07] MEDS: HYDROcodone/Acetaminophen 7.5/325 mg Tablet PO PRN (14:32)
[2022-08-07] MEDS: HYDROcodone/Acetaminophen 10/325 mg Tablet PO PRN (22:07)
[2022-08-08] MEDS: Sodium Chloride 0.9% 1,000 ML IV SCH ×2 (06:15→19:25)
[2022-08-08] MEDS: Folic Acid 1 MG TAB PO SCH (08:51)
[2022-08-08] MEDS: Polyethylene Glycol 3350 17 GM Packet PO SCH (08:51)
[2022-08-08] MEDS: Topiramate 25 MG TAB PO SCH (08:52)
[2022-08-08] MEDS: Metoclopramide HCl 10 MG TAB PO SCH ×3 (08:52→22:45)
[2022-08-08] MEDS: DULoxetine 30 MG CAP PO SCH (08:52)
[2022-08-08] MEDS: Cyanocobalamin (Vitamin B-12) 1,000 MCG TAB PO SCH (08:52)
[2022-08-08] MEDS: Gabapentin 300 MG CAP PO SCH ×3 (08:52→22:45)
[2022-08-08] MEDS: HYDROcodone/Acetaminophen 10/325 mg Tablet PO PRN ×3 (11:27→22:45)
[2022-08-08] MEDS: Cyclobenzaprine 10 MG TAB PO PRN ×2 (12:44→22:47)
[2022-08-09] MEDS: HYDROcodone/Acetaminophen 10/325 mg Tablet PO PRN ×2 (05:15→09:11)
[2022-08-09] MEDS: Sodium Chloride 0.9% 1,000 ML IV SCH (05:46)
[2022-08-09] MEDS: Cyanocobalamin (Vitamin B-12) 1,000 MCG TAB PO SCH (09:09)
[2022-08-09] MEDS: DULoxetine 30 MG CAP PO SCH (09:09)
[2022-08-09] MEDS: Gabapentin 300 MG CAP PO SCH ×2 (09:10→15:45)
[2022-08-09] MEDS: Metoclopramide HCl 10 MG TAB PO SCH ×2 (09:10→15:45)
[2022-08-09] MEDS: Folic Acid 1 MG TAB PO SCH (09:10)
[2022-08-09] MEDS: Topiramate 25 MG TAB PO SCH (09:11)
[2022-08-09] MEDS: Polyethylene Glycol 3350 17 GM Packet PO SCH (09:11)
[2022-08-09 12:24] VITALS: BP 107/84; TEMP 98.6
== END 2022-08-09 16:15 | DRG 516 ==
LOC: SDC 05:32 → SURG B 13:52 → OBSVTOIN 08-06 11:58
PROVIDERS: ADMIT Neurological Surgery; ATTEND Neurological Surgery
PROC: 01N80ZZ Release Thoracic Nerve, Open Approach (ICD-10-PCS; principal; 2022-08-04)
PROC: 01NB0ZZ Release Lumbar Nerve, Open Approach (ICD-10-PCS; 2022-08-04)
DX: M48.04 Spinal stenosis, thoracic region (principal); M50.00 Cervical disc disorder with myelopathy, unspecified cervical region; M51.04 Intervertebral disc disorders with myelopathy, thoracic region; M51.06 Intervertebral disc disorders with myelopathy, lumbar region; M48.02 Spinal stenosis, cervical region; M48.062 Spinal stenosis, lumbar region with neurogenic claudication; Z66 Do not resuscitate; D64.9 Anemia, unspecified; G43.909 Migraine, unspecified, not intractable, without status migrainosus; F41.9 Anxiety disorder, unspecified; I10 Essential (primary) hypertension; M54.9 Dorsalgia, unspecified; I48.0 Paroxysmal atrial fibrillation; R50.9 Fever, unspecified; K31.84 Gastroparesis; G89.29 Other chronic pain; Z88.1 Allergy status to other antibiotic agents; Z88.0 Allergy status to penicillin; Z86.16 Personal history of COVID-19; Z87.11 Personal history of peptic ulcer disease; Z90.49 Acquired absence of other specified parts of digestive tract; Z82.49 Family history of ischemic heart disease and other diseases of the circulatory system; Z80.9 Family history of malignant neoplasm, unspecified; Z79.899 Other long term (current) drug therapy; Z85.51 Personal history of malignant neoplasm of bladder; Z86.711 Personal history of pulmonary embolism
CPT/HCPCS: 36415; 71045; 76000; 80048; 80053; 81001; 83605; 83735; 84100; 84443; 85025; 86850; 86900; 86901; 87040; 93970; J1100; J1956; J2370; J2405; J2704; J3370; J3475; J3490; J7050; P9045

== ENCOUNTER 2022-09-06 11:10 | Outpatient (CLI) | payer MEDICARE, MEDICAID ==
[~2022-09-06 11:10] MED LIST changes: -ISOVUE-370 76%-LOCM 1 ML ONE; +Iopamidol 370 76% 100 ML VIAL ONE
== END 2022-09-06 11:11 | disposition home or self-care (01) ==
LOC: CT 11:10
PROVIDERS: ATTEND Neurological Surgery
DX: M54.16 Radiculopathy, lumbar region (principal); Z98.890 Other specified postprocedural states
CPT/HCPCS: 72133; 82565; Q9967

== ENCOUNTER 2022-10-17 08:09 | Outpatient (CLI) | payer MEDICARE, MEDICAID | END 2022-10-17 08:10 | disposition home or self-care (01) | LOC: NM 08:09 | PROVIDERS: ATTEND Psychiatry & Neurology Neurology | DX: G25.0 Essential tremor (principal) | CPT/HCPCS: 78803; A9584 ×2 ==